=== PATIENT | female | born 1955 | race Caucasian/White ===

== ENCOUNTER → 2017-06-26 | Outpatient (CLI) | payer OTHER, SELFPAY | PROVIDERS: Family Provider Family Medicine; Visit Provider Family Medicine | DX: S52.531A Colles' fracture of right radius, initial encounter for closed fracture (principal) | CPT/HCPCS: 73110 ==

== ENCOUNTER → 2017-07-25 12:46 | Outpatient (CLI) | payer OTHER, SELFPAY ==
--- NOTE | 2017-07-25 12:55 | XR_ITS ---
XR wrist RT min 3V HISTORY: Follow-up fracture ITS.REASON: FU FX DISTAL RAIUS ORDERING PHYSICIAN: Tonja Donovan MD PATIENT AGE: 62 years COMPARISON: 06/26/2017 FINDINGS: The study is obtained through a cast. Dorsal distal radial fracture once again noted with buckling of the posterior cortex. Fracture line appears somewhat less apparent consistent with healing. Suspect intra-articular involvement as previously described without displacement IMPRESSION: Healing distal radial fracture with good alignment.
== END ==
PROVIDERS: PCP Family Medicine; Visit Provider Family Medicine
DX: S52.501D Unspecified fracture of the lower end of right radius, subsequent encounter for closed fracture with routine healing (principal)
CPT/HCPCS: 73110

== ENCOUNTER 2017-08-28 16:49 | Observation (INO) | payer OTHER, SELFPAY ==
[2017-08-28] VITALS (8 sets, daily range): BP systolic 117–156; BP diastolic 65–91; PULSE 67–73; RESP 16–18; TEMP 36.6–37; O2SAT 96–99; BMI 19.8
--- NOTE | 2017-08-28 16:50 | XR_ITS ---
XR chest portable HISTORY: ITS.REASON: chest pain ORDERING PHYSICIAN: Linus Huerta MD PATIENT AGE: 62 years COMPARISON: None available FINDINGS: The cardiomediastinal silhouette and pulmonary vascularity are within normal limits. The lungs are clear without infiltrates, suspicious nodules, or pleural effusions. There is hyperinflation with attenuation of the peripheral pulmonary vessels consistent with COPD. No acute bony abnormalities. IMPRESSION: COPD, no acute finding
[2017-08-28 17:25] LABS: Basophils # 0.1 K/mm3 (0-0.2); Basophils % 0.7 % (0.1-2.0); Eosinophils # 0.1 K/mm3 (0.0-0.4); Eosinophils % 1.7 % (0.1-12.0); Hematocrit 37.8 % (37.0-47.0); Hemoglobin 12.5 g/dL (12.2-16.2); Lymphocytes # 1.9 K/mm3 (0.7-4.5); Lymphocytes % 26.4 K/mm3 (10-50); Mean Corpuscular Hemoglobin 31.2 pg (27.0-31.2); Mean Corpuscular Volume 94.6 fl (81-99); Mean Platelet Volume 7.3 fl (7.4-10.4); Monocytes # 0.4 K/mm3 (0.1-1.0); Monocytes % 5.5 % (1.7-9.3); Neutrophils # 4.7 K/mm3 (1.8-7.8); Neutrophils % 65.7 % (37.0-80.0); Platelet Count 365 K/mm3 (142-424); Red Blood Count 3.99 M/mm3 (4.20-5.40); White Blood Count 7.2 K/mm3 (4.8-10.8)
[2017-08-28 17:55] LABS: Alanine Aminotransferase 30 U/L (12-78); Albumin Level 3.8 gm/dL (3.4-5.0); Albumin/Globulin Ratio 1.1 (1.1-1.8); Alkaline Phosphatase 80 U/L (46-116); Anion Gap 7.3 mEq/L (5-15); Aspartate Amino Transferase 14 U/L (15-37); Bilirubin,Total 0.2 mg/dL (0.2-1.0); Blood Urea Nitrogen 16 mg/dL (7-18); Calcium 8.8 mg/dL (8.5-10.1); Carbon Dioxide 33 mmol/L (21.0-32.0); Chloride 104 mmol/L (98-107); Creatine Kinase 49 U/L (26-192); Creatinine Clearance Estimated 61 mL/min (0-300); Creatinine,Serum 0.79 mg/dL (0.55-1.02); Estimated Glomerular Filt Rate 74 ml/min (>60); GFR (African American) 90 ML/MIN (>60); Globulin 3.4 gm/dl (1.3-3.2); Glucose 86 mg/dL (74-106); Potassium 4.3 mmoL/L (3.5-5.1); Sodium 140 mmol/L (136-145); Total Protein,Serum 7.2 gm/dL (6.4-8.2); Troponin I < 0.02 ng/ml (0.00-0.06)
[2017-08-28 17:56] LABS: Creatine Kinase MB < 0.5 mg/ml (0.0-3.6)
--- NOTE | 2017-08-28 20:45 | HMH.EDCP ---
ED Disposition Clinical Impression: Chest pain Qualifiers: Chest pain type: precordial pain Qualified Code(s): R07.2 - Precordial pain Disposition: Admitted as Observation Condition on Discharge: Good Referrals: Tonja Donovan MD [Primary Care Provider] - - Critical Care Critical Care Time: No Attestation: On 08/28/17, the high probability of a clinically significant, sudden or life threatening deterioration of the following system(s) required my full and direct attention, intervention and personal management. The time I documented below is in addition to time spent performing reported procedures but includes the following listed in this critical care notation. Medical Decision Making - Medical Records Medical records reviewed: Yes: I reviewed the patient's medical records. Vital Signs: 08/28/17 16:49 08/28/17 17:19 08/28/17 20:09 Temperature 97.8 F 98.2 F Temperature Source Oral Oral Pulse Rate [Right Brachial] 71 68 73 Respiratory Rate 18 18 18 Blood Pressure [Right Arm] 141/89 131/77 151/88 Blood Pressure Mean [Right Arm] 106 95 109 Blood Pressure Source [Right Arm] Automatic Cuff Automatic Cuff Blood Pressure Position [Right Arm] Sitting Sitting 02 Sat by Pulse Oximetry 97 97 Oxygen Delivery Method Room Air Room Air - Lab Data Lab results reviewed: Yes: I reviewed the patient's lab results. Lab Results 08/28/17 17:20: WBC 7.2, RBC 3.99 L, Hgb 12.5, Hct 37.8, MCV 94.6, MCH 31.2, MCHC 33.0, RDW 13.0, Plt Count 365, MPV 7.3 L, Neut % (Auto) 65.7, Lymph % (Auto) 26.4, [place] % (Auto) 5.5, Eos % (Auto) 1.7, Baso % (Auto) 0.7, Neut # (Auto) 4.7, Lymph # (Auto) 1.9, [place] # (Auto) 0.4, Eos # (Auto) 0.1, Baso # (Auto) 0.1 08/28/17 17:20: Sodium 140, Potassium 4.3, Chloride 104, Carbon Dioxide 33 H, Anion Gap 7.3, BUN 16, Creatinine 0.79, Estimated Creat Clear 61, Estimated GFR 74, Est GFR ( Amer) 90, Glucose 86, Calcium 8.8, Total Bilirubin 0.2, AST 14 L, ALT 30, Alkaline Phosphatase 80, Total Creatine Kinase 49, CK-MB (CK-2) < 0.5, CK-MB (CK-2) Rel Index 1.0, Troponin I < 0.02, Total Protein 7.2, Albumin 3.8, Globulin 3.4 H, Albumin/Globulin Ratio 1.1 Result diagrams: 08/28/17 17:20 08/28/17 17:20 Orders (Tests/Meds): ED MEDICATIONS Discontinued Medications Generic Name Dose Route Start Last Admin Trade Name Alethea PRN Reason Stop Dose Admin Aspirin 162 mg 08/28/17 16:55 08/28/17 17:28 Aspirin 81mg Chewable Tablet PO 08/28/17 16:56 162 mg ONCE ONE Administration - Radiology Data #1 Image(s): Chest Image Reviewed: Yes I reviewed the patient's radiology image Preliminary Findings: Abnormal - ECG Data Tracing #1 I reviewed this ECG and interpreted as documented below: Normal Sinus Rhythm: Yes Ischemic changes: non-specific ST-T wave changes - Physician Consults Physician Consulted: roxi Reason -: Admission - Rodney Inquiry Pt receiving controlled substance: No Chest Pain HPI - General Chief Complaint: Chest Pain Stated Complaint: chest pain Time Seen by Provider: 08/28/17 20:45 Mode of Arrival: Ambulatory Limitations: No Limitations Description of Symptoms (Recalled from ER Triage Doc. 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 Pt reports pain was radiating to upper back and jaw. Pt reports pain in chest has subsided but pressure remains in throat - History of Present Illness HPI narrative: wf with episode of chest pain rad to back and jaw - pt has gi eval pending complaint: chest pain indicative of cardiac Onset (ago): hour(s) Duration: now resolved Activity at onset: during rest Pain location: substernal Severity: moderate Quality: tightness Relieving factors: nothing Risk Factors for CAD: Hypercholesterolemia, Family Hx of CAD, Smoking Treatments prior to or on arrival for Cardiac Chest Pain: aspirin - LAMAR Score Non-Stemi Age of patient: Less than 65 yrs Number of risk factors for CAD: Pr
--- NOTE | 2017-08-28 20:48 | ED_ITS ---
ED Disposition Clinical Impression: Chest pain Qualifiers: Chest pain type: precordial pain Qualified Code(s): R07.2 - Precordial pain Disposition: Admitted as Observation Condition on Discharge: Good Referrals: Tonja Donovan MD [Primary Care Provider] - - Critical Care Critical Care Time: No Attestation: On 08/28/17, the high probability of a clinically significant, sudden or life threatening deterioration of the following system(s) required my full and direct attention, intervention and personal management. The time I documented below is in addition to time spent performing reported procedures but includes the following listed in this critical care notation. Medical Decision Making - Medical Records Medical records reviewed: Yes: I reviewed the patient's medical records. Vital Signs: 08/28/17 16:49 08/28/17 17:19 08/28/17 20:09 Temperature 97.8 F 98.2 F Temperature Source Oral Oral Pulse Rate [Right Brachial] 71 68 73 Respiratory Rate 18 18 18 Blood Pressure [Right Arm] 141/89 131/77 151/88 Blood Pressure Mean [Right Arm] 106 95 109 Blood Pressure Source [Right Arm] Automatic Cuff Automatic Cuff Blood Pressure Position [Right Arm] Sitting Sitting 02 Sat by Pulse Oximetry 97 97 Oxygen Delivery Method Room Air Room Air - Lab Data Lab results reviewed: Yes: I reviewed the patient's lab results. Lab Results 08/28/17 17:20: WBC 7.2, RBC 3.99 L, Hgb 12.5, Hct 37.8, MCV 94.6, MCH 31.2, MCHC 33.0, RDW 13.0, Plt Count 365, MPV 7.3 L, Neut % (Auto) 65.7, Lymph % (Auto ) 26.4, [place] % (Auto) 5.5, Eos % (Auto) 1.7, Baso % (Auto) 0.7, Neut # (Auto) 4.7, Lymph # (Auto) 1.9, [place] # (Auto) 0.4, Eos # (Auto) 0.1, Baso # (Auto) 0.1 08/28/17 17:20: Sodium 140, Potassium 4.3, Chloride 104, Carbon Dioxide 33 H, Anion Gap 7.3, BUN 16, Creatinine 0.79, Estimated Creat Clear 61, Estimated GFR 74, Est GFR ( Amer) 90, Glucose 86, Calcium 8.8, Total Bilirubin 0.2, AST 14 L, ALT 30, Alkaline Phosphatase 80, Total Creatine Kinase 49, CK-MB (CK-2 ) < 0.5, CK-MB (CK-2) Rel Index 1.0, Troponin I < 0.02, Total Protein 7.2, Albumin 3.8, Globulin 3.4 H, Albumin/Globulin Ratio 1.1 Result diagrams: 08/28/17 17:20 08/28/17 17:20 Orders (Tests/Meds): ED MEDICATIONS Discontinued Medications Generic Name Dose Route Start Last Admin Trade Name Rashaadq PRN Reason Stop Dose Admin Aspirin 162 mg 08/28/17 16:55 08/28/17 17:28 Aspirin 81mg Chewable Tablet PO 08/28/17 16:56 162 mg ONCE ONE Administration - Radiology Data #1 Image(s): Chest Image Reviewed: Yes I reviewed the patient's radiology image Preliminary Findings: Abnormal - ECG Data Tracing #1 I reviewed this ECG and interpreted as documented below: Normal Sinus Rhythm: Yes Ischemic changes: non-specific ST-T wave changes - Physician Consults Physician Consulted: roxi Reason -: Admission - Rodney Inquiry Pt receiving controlled substance: No Chest Pain HPI - General Chief Complaint: Chest Pain Stated Complaint: chest pain Time Seen by Provider: 08/28/17 20:45 Mode of Arrival: Ambulatory Limitations: No Limitations Description of Symptoms (Recalled from ER Triage Doc. 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 Pt reports pain was radiating to upper back and jaw. Pt reports pain in chest has subsided but pressure remai
[2017-08-29] VITALS: PULSE 60
[2017-08-29 04:00] VITALS: BP 110/59; PULSE 60; RESP 16; TEMP 36.6; O2SAT 95
--- NOTE | 2017-08-29 05:50 | PC.NURSE ---
ON ADMISSION PT C/O FEELINGS OF FULLNESS . NO C/O PAIN STATED. NSR NOTED PER CMM PROGRAMMER. INDEPENDENT WITH ADLS. VSS. WILL CONTINUE TO MONITOR.
--- NOTE | 2017-08-29 06:45 | PC.NURSE ---
HECTOR Doan, notified of Dr Nick consult
[2017-08-29 06:54] LABS: Basophils # 0.1 K/mm3 (0-0.2); Basophils % 0.7 % (0.1-2.0); Eosinophils # 0.2 K/mm3 (0.0-0.4); Eosinophils % 2.9 % (0.1-12.0); Hematocrit 39.4 % (37.0-47.0); Hemoglobin 12.8 g/dL (12.2-16.2); Lymphocytes % 30.6 K/mm3 (10-50); Mean Corpuscular HGB Conc 32.4 g/dL (31.8-35.4); Mean Corpuscular Hemoglobin 30.7 pg (27.0-31.2); Mean Corpuscular Volume 94.7 fl (81-99); Mean Platelet Volume 7.4 fl (7.4-10.4); Monocytes # 0.4 K/mm3 (0.1-1.0); Monocytes % 5.9 % (1.7-9.3); Neutrophils # 3.9 K/mm3 (1.8-7.8); Neutrophils % 59.8 % (37.0-80.0); Platelet Count 342 K/mm3 (142-424); Red Blood Count 4.16 M/mm3 (4.20-5.40); Red Cell Distribution Width 12.9 % (11.5-17.5); White Blood Count 6.6 K/mm3 (4.8-10.8)
--- NOTE | 2017-08-29 07:03 | CA_ITS ---
PROCEDURE: 2-D M-mode and color Doppler study INDICATIONS FOR THE TEST: Chest pain X COPD Heart Murmur Tobacco SmokingEX Palpitations Fatigue Syncope Edema Hypertension Diabetes Mellitus Rheumatic Fever SOB BA Obesity Hyperlipidemia Family History HD Additional History PATIENT INFORMATION HEIGHT: 63 WEIGHT:113 GENDER: Female B/P:141/89 2-D/M-MODE INTERPRETATION: 2-D MEASUREMENTS OBSERVED VALUES IN CMS Right Ventricular Dimension (RVDd) 2.8 Interventricular Septum (Thickness)(IVsd) .7 Left Ventricular Internal Dimensions(LVIDd) 3.8 Left Ventricular Posterior Wall (Thickness)(LVPWd) .4 Aortic Root 3.0 Aortic Cusp Separation 1.7 Left Atrial Dimensions (LAD) 3.0 2D 1. Left atrium is normal size, left ventricle is normal size, there is no concentric left ventricular hypertrophy, visually estimated ejection fraction of 55% with no obvious regional wall motion abnormality. 2. The right atrium and right ventricle are mildly enlarged with normal contractility. 3. The aortic valve is minimally thickened and fibrosed. 4. The mitral and tricuspid valve are grossly normal. 5. The pulmonic valve is poorly visualized. 6. No significant pericardial effusion noted. DOPPLER INTERROGATION: Doppler interrogation of the aortic, mitral and tricuspid valvular presence of mild mitral and tricuspid regurgitation, tricuspid regurgitant jet velocity insufficient for calculation of the right ventricular systolic pressure, diastolic parameters are within normal range. CONCLUSION: 1. Normal left ventricular size, preserved left ventricular systolic function, visually estimated ejection fraction 55% with no obvious regional wall motion abnormality, diastolic parameters are within normal range. 2. Mildly enlarged right atrium and right ventricle, contractility of the right ventricle is normal 3. Mild mitral and tricuspid regurgitation 4. No significant pericardial effusion noted.
[2017-08-29 07:09] LABS: Blood Urea Nitrogen 13 mg/dL (7-18); Carbon Dioxide 31 mmol/L (21.0-32.0); Chloride 106 mmol/L (98-107); Chol/HDL Ratio 3.5 (1-3.5); Cholesterol 157 mg/dL (140-200); Creatinine Clearance Estimated 67 mL/min (0-300); Creatinine,Serum 0.72 mg/dL (0.55-1.02); Estimated Glomerular Filt Rate 83 ml/min (>60); GFR (African American) 100 ML/MIN (>60); Glucose 87 mg/dL (74-106); HDL Cholesterol 45 mg/dL (29-89); LDL Cholesterol 91 mg/dL (0-130); Sodium 141 mmol/L (136-145); Triglycerides 103 mg/dL (30-200); VLDL Cholesterol 21 mg/dL (0-40)
[2017-08-29 07:13] LABS: Troponin I < 0.02 ng/ml (0.00-0.06)
--- NOTE | 2017-08-29 07:21 | PC.NURSE ---
REPORT GIVEN TO Alley SANCHEZ W/C
--- NOTE | 2017-08-29 07:23 | P.CONPHA_ITS ---
[facility] Pharmacy VTE Monitoring - Patient Demographics Admission date: 08/28/17 Report Date: 08/29/17 Time: 07:23 Allergies/Adverse Reactions: Patient Allergies oxycodone [OXYCODONE] Allergy (Unknown, Verified 08/28/17 16:49) tramadol [TRAMADOL] Allergy (Unknown, Verified 08/28/17 16:49) Height: 1.6 m Weight: 51.284 kg Patient Problems: Current Active Problems Chest pain (Acute) - VTE Risk Labs: VTE Related Lab Results Hgb 12.8 g/dL (12.2-16.2) 08/29/17 06:12 Hct 39.4 % (37.0-47.0) 08/29/17 06:12 Plt Count 342 K/mm3 (142-424) 08/29/17 06:12 BUN 13 mg/dL (7-18) 08/29/17 06:12 Creatinine 0.72 mg/dL (0.55-1.02) 08/29/17 06:12 Estimated Creat Clear 67 mL/min (0-300) 08/29/17 06:12 Was VTE Risk Assessment Performed: Yes VTE Score: 1 VTE Risk Level: Very Low Risk - Prophylaxis VTE Prophylaxis Ordered?: Yes Types of VTE Prophylaxis: TEDS Knee High Location of Applied Device: Bilateral Lower Extremeties - VTE Diagnosis Confirmed Treatment or plan recommended: Continue Current Treatment
--- NOTE | 2017-08-29 07:41 | PC.NURSE ---
REPORT GIVEN TO Gil GONZÁLES RN
[2017-08-29 08:00] VITALS: BP 131/70; PULSE 64; PULSE 70; RESP 16; TEMP 36.4; O2SAT 95
--- NOTE | 2017-08-29 08:00 | HMH.CNCARD ---
History of Present Illness Consult date: 08/29/17 Requesting physician: Tonja Donovan Consult reason: chest pain Chief complaint: chest pain Additional Medical History:: 1. Hyperlipidemia, on statin therapy 2. Family history of coronary artery disease in her mother 3. Tobacco use, discontinued 4 years ago after 35 years of smoking at least one pack per day History of present illness: 62-year-old white female with history of tobacco use (discontinued for 4 years ago) and treatment for hyperlipidemia presented to the emergency department for chest pain. Patient was in her recliner at home when she developed substernal chest discomfort that spread across her chest and radiating to the neck and the back. Symptoms last for less than 2 minutes. She did not have shortness of breath or diaphoresis. She does relate some recent early satiety and even nausea when thinking about food. She has recently seen her family doctor (Dr. Donovan)and was scheduled to have a CT of the chest and GI evaluation with Dr. Vargas next week. Patient relates an episode of loose stools last week with no fever chills or vomiting. She denies any recent exertional shortness of breath or chest pain. Troponins have returned normal ?2 overnight and EKG is sinus with no acute changes. Cardiology consulted for evaluation. Patient does relate that her father 2 weeks ago. [facility] History Medical History: Reports:: Hyperlipidemia, Hypertension Denies:: Cancer, Diabetes Mellitus Type 1, Diabetes Mellitus Type 2, MRSA Other Surgeries: Yes: , Hysterectomy-Total Amputation: No - *Social History Educational Level: Attended College Smoking Status: Current every day smoker Tobacco Type: cigarettes # Packs/Day (cigarettes): 1 Alcohol Intake: former Occupational Status: other Housing: house Household Members: spouse - Psychiatric History Expresses thoughts of harming self/others: None Suicide Plan Description: No Plan *Family Hx:: Cancer, Coronary Artery Disease, Diabetes, Hyperlipidemia, Hypertension, Thyroid Disorder Meds Home Medications Medication Instructions Recorded Confirmed Type trazodone 50 mg tablet 50 mg PO HSP PRN 07/31/17 08/29/17 History Fluoxetine HCl 40 mg PO BID 08/29/17 08/29/17 History Pravastatin Sodium 80 mg PO HS 08/29/17 08/29/17 History Allergies Allergy/AdvReac Type Severity Reaction Status Date / Time oxycodone [OXYCODONE] Allergy Unknown Verified 08/28/17 16:49 tramadol [TRAMADOL] Allergy Unknown Verified 08/28/17 16:49 Review of Systems - *Cardiovascular Reports chest pain, Reports chest pain at rest - *Respiratory Denies shortness of breath - *Gastrointestinal Reports loose stools Comments: early satiety - *Musculoskeletal Denies joint pain - *Neurologic Denies seizure-like activity Exam Vital signs and Labs for Last 24 Hours: Temp Pulse Resp BP Pulse Ox 97.8 F 60 16 110/59 95 08/29/17 04:00 08/29/17 04:00 08/29/17 04:00 08/29/17 04:00 08/29/17 04:00 Laboratory Results - last 24 hr 08/29/17 06:12: Troponin I < 0.02 08/29/17 06:12: WBC 6.6, RBC 4.16 L, Hgb 12.8, Hct 39.4, MCV 94.7, MCH 30.7, MCHC 32.4, RDW 12.9, Plt Count 342, MPV 7.4, Neut % (Auto) 59.8, Lymph % (Auto) 30.6, [place] % (Auto) 5.9, Eos % (Auto) 2.9, Baso % (Auto) 0.7, Neut # (Auto) 3.9, Lymph # (Auto) 2.0, [place] # (Auto) 0.4, Eos # (Auto) 0.2, Baso # (Auto) 0.1 08/29/17 06:12: Sodium 141, Potassium 4.0, Chloride 106, Carbon Dioxide 31, Anion Gap 8.0, BUN 13, Creatinine 0.72, Estimated Creat Clear 67, Estimated GFR 83, Est GFR ( Amer) 100, Glucose 87, Triglycerides 103, Cholesterol 157, LDL Cholesterol 91, VLDL Cholesterol 21, HDL Cholesterol 45, Cholesterol/HDL Ratio 3.5 I & O for Last 24 hours: Intake & Output 08/26/17 08/27/17 08/28/17 08/29/17 11:59 11:59 11:59 11:59 Intake Total 238 / 238 Balance 238 / 238 Weight 113 lb 0.99 oz - *Routine Neck Exam Absent: JVD
--- NOTE | 2017-08-29 08:03 | NM_ITS ---
History and Indications: Chest pain, hyperlipidemia. Procedure: Patient exercised on Cristian protocol 7 minutes, resting heart rate was 61 beats prominent, resting blood pressure 133/79, with exercise maximum heart rate achieved was 1 47 bpm which is equal to 90% of the maximum predicted heart rate and a blood pressure was 152/70. Test was started due to shortness of breath patient denied complained of chest pain. Patient has adequate exercise capacity achieved 9.3mets of workload on treadmill, the blood pressure response to exercise was adequate. Electrocardiogram: Resting electrocardiogram showed sinus rhythm, with exercise there is less than 1.[address] segment depression noted from the baseline EKG. The EKG portion of the exercise Myoview is negative for ischemia. Cardiac stress and resting SPECT images: Cardiac stress and rest SPECT images were obtained using technetium 99 Myoview 10.7 mCi at rest and 31.2 mCi at stress, gated SPECT further analysis of segmental wall motion and calculation of the ejection fraction. Cardiac stress and rest images show uniform myocardial activity without any segmental perfusion abnormality, computer derived ejection fraction is over 65% with no obvious regional wall motion abnormality. Right ventricle is normal size and contractility. Conclusion: 1. The EKG portion of the exercise Myoview is negative for ischemia, patient has adequate exercise capacity achieved 9.3 mets of workload on treadmill the blood pressure response to exercise was adequate, there was no exercise-induced chest discomfort. 2. No obvious scintigraphic evidence of reversible ischemia seen at this level of exercise, computer derived ejection fraction is over 65% with no obvious regional wall motion abnormality, right ventricle is normal size and contractility.
--- NOTE | 2017-08-29 08:14 | HMH.HP ---
*Admission Date: 08/28/17 *Chief complaint: CP *History of present illness: Ms. Mcgarry is a 62-year-old white female with a history of tobacco use (discontinued 4 years ago) and treatment for hyperlipidemia who presented to the emergency department for chest pain. Patient states she was in her recliner at home when she developed substernal chest pain that spread across her chest and radiated to the neck and the back. Symptoms lasted for less than 2 minutes. She did not have shortness of breath or diaphoresis. She took two baby ASA at home and came to the ER. She was recently seen in our office d/t chest pain with heart burn and reflux. She felt at that time she had actually aspirated d/t the reflux. She was scheduled for a CT of the chest as well as a C-scope and EGD with Dr. Vargas. Patient did have an episode of loose stools last week with no fever, chills, or vomiting. She denies any recent exertional shortness of breath or chest pain. Her troponins have returned normal ?2 overnight and her EKG shows sinus rhythm with no acute changes. Cardiology was consulted for evaluation. [facility] History Medical History: Reports:: Depression, Gastroesophageal Reflux Disease(GERD), Hyperlipidemia Denies:: Cancer, Congestive Heart Failure, Coronary Artery Disease, Diabetes Mellitus Type 1, Diabetes Mellitus Type 2, Gastrointestinal Bleed, Hypertension, MRSA, Transient Ischemic Attacks (TIA) Comment: Osteopenia, endometriosis Other Surgeries: Yes: , Hysterectomy-Total Amputation: No Comment: Root canal, lump removed from right breast, scar tissue removed after YUE, C-scope - *Social History Educational Level: Attended College Smoking Status: Former smoker Tobacco Type: cigarettes # Packs/Day (cigarettes): 1 Alcohol Intake: former Occupational Status: other Housing: house Household Members: spouse - Psychiatric History Expresses thoughts of harming self/others: None Suicide Plan Description: No Plan *Family Hx:: Cancer, Coronary Artery Disease, Diabetes, Hyperlipidemia, Hypertension, Thyroid Disorder Review of Systems - Constitutional Reports weight loss, Denies chills, Denies weakness - Eyes Denies blurry vision, Denies double vision - ENT Denies nasal congestion, Denies sore throat - *Cardiovascular Reports chest pain, Denies shortness of breath, Denies rapid, pounding, or irregular heartbeat - *Respiratory Denies cough, Denies shortness of breath - *Gastrointestinal Reports heartburn, Denies abdominal pain, Denies loose stools, Denies nausea, Denies vomiting - *Genitourinary Denies difficulty urinating, Denies painful urination - *Musculoskeletal Denies joint pain, Denies muscle cramps, Denies body aches - *Neurologic Reports headache(s), Denies seizure-like activity, Denies dizziness, Denies weakness Meds Home Medications Medication Instructions Recorded Confirmed Type trazodone 50 mg tablet 50 mg PO HSP PRN 07/31/17 08/29/17 History Fluoxetine HCl 40 mg PO BID 08/29/17 08/29/17 History Pravastatin Sodium 80 mg PO HS 08/29/17 08/29/17 History Allergies Allergy/AdvReac Type Severity Reaction Status Date / Time oxycodone [OXYCODONE] Allergy Unknown Verified 08/28/17 16:49 tramadol [TRAMADOL] Allergy Unknown Verified 08/28/17 16:49 Exam Vital signs and Labs for Last 24 Hours: Temp Pulse Resp BP Pulse Ox 97.5 F L 64 16 131/70 95 08/29/17 08:00 08/29/17 08:00 08/29/17 08:00 08/29/17 08:00 08/29/17 08:00 Laboratory Results - last 24 hr 08/29/17 06:12: Troponin I < 0.02 08/29/17 06:12: WBC 6.6, RBC 4.16 L, Hgb 12.8, Hct 39.4, MCV 94.7, MCH 30.7, MCHC 32.4, RDW 12.9, Plt Count 342, MPV 7.4, Neut % (Auto) 59.8, Lymph % (Auto) 30.6, [place] % (Auto) 5.9, Eos % (Auto) 2.9, Baso % (Auto) 0.7, Neut # (Auto) 3.9, Lymph # (Auto) 2.0, [place] # (Auto) 0.4, Eos # (Auto) 0.2, Baso # (Auto) 0.1 08/29/17 06:12: Sodium 141, Potassium 4.0, Chloride 106, Carbon Dioxide 31, Anion Gap 8.0, BUN 13,
--- NOTE | 2017-08-29 12:02 | PC.NURSE ---
MS. WILLIS TOOK HER MORNING MEDS WITH A SMALL AMOUNT OF WATER. SHE STATED LATER THAT WHEN SHE DRANK THE WATER THAT IS EXACTLY HOW SHE FELT WHEN SHE PRESENTED TO THE HOSPITAL. HER CHEST FELT FULL. I NOTIFIED DR. DENTON OFFICE AND LEFT MESSAGE WITH HIS NURSE BRITTNY. PATIENT JUST WANTED MD TO BE AWARE OF HOW SHE FELT. JAMES GONZÁLES, MSN, RN
--- NOTE | 2017-08-29 13:46 | HMH.ITSHM ---
TRAZODONE FLUXETINE PRAVASTATIN
[2017-08-29 15:56] VITALS: BP 102/56; PULSE 74; RESP 18; TEMP 36.7; O2SAT 98
[2017-08-29 16:00] VITALS: PULSE 80
--- NOTE | 2017-08-29 18:52 | HMH.ACPN2 ---
Internal Medicine - PN: Subj *Date: 08/29/17 *Time: 18:52 Interval history: She did well on her Cardiolite treadmill. See the report. There is no evidence of ischemia. Gastro-intestinal workup is planned. Discharged on [place] omeprazole. Follow-up in the office. Exam Vital signs and Labs for Last 24 Hours: Temp Pulse Resp BP Pulse Ox 98.1 F 80 18 102/56 98 08/29/17 15:56 08/29/17 16:00 08/29/17 15:56 08/29/17 15:56 08/29/17 15:56 Laboratory Results - last 24 hr 08/29/17 06:12: Troponin I < 0.02 08/29/17 06:12: WBC 6.6, RBC 4.16 L, Hgb 12.8, Hct 39.4, MCV 94.7, MCH 30.7, MCHC 32.4, RDW 12.9, Plt Count 342, MPV 7.4, Neut % (Auto) 59.8, Lymph % (Auto) 30.6, [place] % (Auto) 5.9, Eos % (Auto) 2.9, Baso % (Auto) 0.7, Neut # (Auto) 3.9, Lymph # (Auto) 2.0, [place] # (Auto) 0.4, Eos # (Auto) 0.2, Baso # (Auto) 0.1 08/29/17 06:12: Sodium 141, Potassium 4.0, Chloride 106, Carbon Dioxide 31, Anion Gap 8.0, BUN 13, Creatinine 0.72, Estimated Creat Clear 67, Estimated GFR 83, Est GFR ( Amer) 100, Glucose 87, Triglycerides 103, Cholesterol 157, LDL Cholesterol 91, VLDL Cholesterol 21, HDL Cholesterol 45, Cholesterol/HDL Ratio 3.5 I & O for Last 24 hours: Intake & Output 08/27/17 08/28/17 08/29/17 08/30/17 11:59 11:59 11:59 11:59 Intake Total 238 / 238 240 / 240 Balance 238 / 238 240 / 240 Weight 113 lb 0.99 oz Assessment and Plan (1) Chest pain Current visit: Yes Status: Acute Qualifiers: Chest pain type: precordial pain Qualified Code(s): R07.2 - Precordial pain Category: Medical Code(s): R07.9 - Chest pain, unspecified (2) Hyperlipidemia Current visit: Yes Status: Chronic Category: Medical Code(s): E78.5 - Hyperlipidemia, unspecified (3) Ex-smoker for more than 1 year Current visit: Yes Status: Chronic Category: Social Hx Code(s): Z87.891 - Personal history of nicotine dependence (4) Early satiety Current visit: Yes Status: Acute Category: Medical Code(s): R68.81 - Early satiety (5) Reflux esophagitis Current visit: Yes Status: Acute Category: Medical Code(s): K21.0 - Gastro-esophageal reflux disease with esophagitis
--- NOTE | 2017-09-02 14:28 | HMH.DCSUM ---
General - General Admission date: 08/28/17 Discharge date: 08/29/17 HPI HPI: Ms. Mcgarry is a 62-year-old white female with a history of tobacco use (discontinued 4 years ago) and treatment for hyperlipidemia who presented to the emergency department for chest pain. Patient states she was in her recliner at home when she developed substernal chest pain that spread across her chest and radiated to the neck and the back. Symptoms lasted for less than 2 minutes. She did not have shortness of breath or diaphoresis. She took two baby ASA at home and came to the ER. She was recently seen in our office d/t chest pain with heart burn and reflux. She felt at that time she had actually aspirated d/t the reflux. She was scheduled for a CT of the chest as well as a C-scope and EGD with Dr. Vargas. Patient did have an episode of loose stools last week with no fever, chills, or vomiting. She denies any recent exertional shortness of breath or chest pain. Her troponins have returned normal ?2 overnight and her EKG shows sinus rhythm with no acute changes. Cardiology was consulted for evaluation. Hospital Course Hospital Course: Her CXR showed COPD and nothing acute. Cardiology ordered an echo and a stress test. Her echo showed a normal LVEF without segmental wall motion abnormalities and her GXT myoview showed no ischemia with a normal LVEF. She was stable to be discharged home on a PPI and will keep her appt with Dr. Vargas for further testing Objective Vital signs: Temp Pulse Resp BP Pulse Ox 98.1 F 80 18 102/56 98 08/29/17 15:56 08/29/17 16:00 08/29/17 15:56 08/29/17 15:56 08/29/17 15:56 Narrative: - Constitutional no acute distress - *Routine HEENT Exam Head: Present: normocephalic, atraumatic Eye: Present: EOMI, PERRL ENT: Present: mucous membranes moist - *Routine Neck Exam Present: supple, full ROM. Absent: carotid bruit - *Routine Respiratory Exam Present: CTA bilaterally - *Routine Cardiovascular Exam Present: RRR - *Routine Abdominal Exam Present: soft, normoactive bowel sounds. Absent: tenderness - *Routine Extremities Exam Absent: edema - *Routine Skin Exam Present: intact - *Routine Neurological Exam Present: alert, oriented X3 DS: Diagnosis - Discharge Diagnosis (1) Chest pain Status: Acute (2) Early satiety Status: Acute (3) Reflux esophagitis Status: Acute (4) Depression Status: Chronic (5) Ex-smoker for more than 1 year Status: Chronic (6) Hyperlipidemia Status: Chronic Discharge Plan - Patient Discharge Instructions ACTIVITY: Continue current activity DIET: continue same diet Additional Instructions: Follow up with Dr. Luciano for GI evaluation. Follow-up with Dr. Donovan. Patient Instructions: DI for Chest Pain - Follow up Plan Follow up with: Tonja Donovan MD [Primary Care Provider] - 2 weeks Disposition: Home, Self-Group Home Medications: Home Medications Medication Instructions Recorded Confirmed Type trazodone 50 mg tablet 50 mg PO HSP PRN 07/31/17 08/29/17 History Fluoxetine HCl 40 mg PO BID 08/29/17 08/29/17 History Pravastatin Sodium 80 mg PO HS 08/29/17 08/29/17 History Prescriptions/Medication Reconciliation: New Esomeprazole Magnesium [Nexium] 40 mg PO DAILY #30 capsule. Continue trazodone 50 mg tablet 50 mg PO HSP PRN PRN Reason: Sleep Pravastatin Sodium 80 mg PO HS Fluoxetine HCl 40 mg PO BID
--- NOTE | 2017-09-02 14:32 | P.DS_ITS ---
General - General Admission date: 08/28/17 Discharge date: 08/29/17 HPI HPI: Ms. Mcgarry is a 62-year-old white female with a history of tobacco use ( discontinued 4 years ago) and treatment for hyperlipidemia who presented to the emergency department for chest pain. Patient states she was in her recliner at home when she developed substernal chest pain that spread across her chest and radiated to the neck and the back. Symptoms lasted for less than 2 minutes. She did not have shortness of breath or diaphoresis. She took two baby ASA at home and came to the ER. She was recently seen in our office d/t chest pain with heart burn and reflux. She felt at that time she had actually aspirated d/ t the reflux. She was scheduled for a CT of the chest as well as a C-scope and EGD with Dr. Vargas. Patient did have an episode of loose stools last week with no fever, chills, or vomiting. She denies any recent exertional shortness of breath or chest pain. Her troponins have returned normal ?2 overnight and her EKG shows sinus rhythm with no acute changes. Cardiology was consulted for evaluation. Hospital Course Hospital Course: Her CXR showed COPD and nothing acute. Cardiology ordered an echo and a stress test. Her echo showed a normal LVEF without segmental wall motion abnormalities and her GXT myoview showed no ischemia with a normal LVEF. She was stable to be discharged home on a PPI and will keep her appt with Dr. Vargas for further testing Objective Vital signs: Temp Pulse Resp BP Pulse Ox 98.1 F 80 18 102/56 98 08/29/17 15:56 08/29/17 16:00 08/29/17 15:56 08/29/17 15:56 08/29/17 15:56 Narrative: - Constitutional no acute distress - *Routine HEENT Exam Head: Present: normocephalic, atraumatic Eye: Present: EOMI, PERRL ENT: Present: mucous membranes moist - *Routine Neck Exam Present: supple, full ROM. Absent: carotid bruit - *Routine Respiratory Exam Present: CTA bilaterally - *Routine Cardiovascular Exam Present: RRR - *Routine Abdominal Exam Present: soft, normoactive bowel sounds. Absent: tenderness - *Routine Extremities Exam Absent: edema - *Routine Skin Exam Present: intact - *Routine Neurological Exam Present: alert, oriented X3 DS: Diagnosis - Discharge Diagnosis (1) Chest pain Status: Acute (2) Early satiety Status: Acute (3) Reflux esophagitis Status: Acute (4) Depression Status: Chronic (5) Ex-smoker for more than 1 year Status: Chronic (6) Hyperlipidemia Status: Chronic Discharge Plan - Patient Discharge Instructions ACTIVITY: Continue current activity DIET: continue same diet Additional Instructions: Follow up with Dr. Luciano for GI evaluation. Follow-up with Dr. Donovan. Patient Instructions: DI for Chest Pain - Follow up Plan Follow up with: Tonja Donovan MD [Primary Care Provider] - 2 weeks Disposition: Home, Self-[facility] Medications: Home Medications Medication Instructions Recorded Confirmed Type trazodone 50 mg tablet 50 mg PO HSP PRN 07/31/17 08/29/17 History Fluoxetine HCl 40 mg PO BID 08/29/17 08/29/17 History Pravastatin Sodium 80 mg PO HS 08/29/17 08/29/17 History Prescriptions/Medication Reconciliation: New Esomeprazole Magnesium [Nexium] 40 mg PO DAILY #30 capsule. Continue trazodone 50 mg tablet 50 mg PO HSP PRN PRN Reason: Sl
--- NOTE | 2017-09-19 09:48 | P.CONS_ITS ---
History of Present Illness Consult date: 08/29/17 Requesting physician: Tonja Donovan Consult reason: chest pain Chief complaint: chest pain Additional Medical History:: 1. Hyperlipidemia, on statin therapy 2. Family history of coronary artery disease in her mother 3. Tobacco use, discontinued 4 years ago after 35 years of smoking at least one pack per day History of present illness: 62-year-old white female with history of tobacco use (discontinued for 4 years ago) and treatment for hyperlipidemia presented to the emergency department for chest pain. Patient was in her recliner at home when she developed substernal chest discomfort that spread across her chest and radiating to the neck and the back. Symptoms last for less than 2 minutes. She did not have shortness of breath or diaphoresis. She does relate some recent early satiety and even nausea when thinking about food. She has recently seen her family doctor (Dr. Donovan)and was scheduled to have a CT of the chest and GI evaluation with Dr. Vargas next week. Patient relates an episode of loose stools last week with no fever chills or vomiting. She denies any recent exertional shortness of breath or chest pain. Troponins have returned normal ?2 overnight and EKG is sinus with no acute changes. Cardiology consulted for evaluation. Patient does relate that her father 2 weeks ago. [facility] History Medical History: Reports:: Hyperlipidemia, Hypertension Denies:: Cancer, Diabetes Mellitus Type 1, Diabetes Mellitus Type 2, MRSA Other Surgeries: Yes: , Hysterectomy-Total Amputation: No - *Social History Educational Level: Attended College Smoking Status: Current every day smoker Tobacco Type: cigarettes # Packs/Day (cigarettes): 1 Alcohol Intake: former Occupational Status: other Housing: house Household Members: spouse - Psychiatric History Expresses thoughts of harming self/others: None Suicide Plan Description: No Plan *Family Hx:: Cancer, Coronary Artery Disease, Diabetes, Hyperlipidemia, Hypertension, Thyroid Disorder Meds Home Medications Medication Instructions Recorded Confirmed Type trazodone 50 mg tablet 50 mg PO HSP PRN 07/31/17 08/29/17 History Fluoxetine HCl 40 mg PO BID 08/29/17 08/29/17 History Pravastatin Sodium 80 mg PO HS 08/29/17 08/29/17 History Allergies Allergy/AdvReac Type Severity Reaction Status Date / Time oxycodone [OXYCODONE] Allergy Unknown Verified 08/28/17 16:49 tramadol [TRAMADOL] Allergy Unknown Verified 08/28/17 16:49 Review of Systems - *Cardiovascular Reports chest pain, Reports chest pain at rest - *Respiratory Denies shortness of breath - *Gastrointestinal Reports loose stools Comments: early satiety - *Musculoskeletal Denies joint pain - *Neurologic Denies seizure-like activity Exam Vital signs and Labs for Last 24 Hours: Temp Pulse Resp BP Pulse Ox 97.8 F 60 16 110/59 95 08/29/17 04:00 08/29/17 04:00 08/29/17 04:00 08/29/17 04:00 08/29/17 04:00 Laboratory Results - last 24 hr 08/29/17 06:12: Troponin I < 0.02 08/29/17 06:12: WBC 6.6, RBC 4.16 L, Hgb 12.8, Hct 39.4, MCV 94.7, MCH 30.7, MCHC 32.4, RDW 12.9, Plt Count 342, MPV 7.4, Neut % (Auto) 59.8, Lymph % (Auto) 30.6, [place] % (Auto) 5.9, Eos % (Auto) 2.9, Baso % (Auto) 0.7, Neut # (Auto) 3.9 , Lymph # (Auto) 2.0, [place] # (Auto) 0.4, Eos # (Auto) 0.2, Baso # (Auto) 0.1 08/29/17 06:12: Sodium 141, Potassium 4.0, Chl
== END 2017-08-29 19:52 | disposition home or self-care (01) ==
LOC: ER 17:08 → 2ND 21:25
PROVIDERS: Emergency Medicine; Admitting Provider Family Medicine; Emergency Provider Emergency Medicine; Family Provider Family Medicine; PCP Family Medicine; Visit Provider Family Medicine
DX: K21.0 Gastro-esophageal reflux disease with esophagitis (principal); R07.9 Chest pain, unspecified; R07.2 Precordial pain; R68.81 Early satiety; E78.5 Hyperlipidemia, unspecified
CPT/HCPCS: 71045; 78452; 80048; 80053; 80061; 82550; 82553; 84484; 85025; 93005; 93017; 93041; 93306; 99285; A9502; G0378

== ENCOUNTER → 2017-09-05 12:55 | Outpatient (CLI) | payer OTHER, SELFPAY ==
--- NOTE | 2017-09-05 13:01 | CT_ITS ---
EXAM: CT LUNG LOW DOSE WO CONTRAST COMPARISON: None HISTORY: 62 year old female with 35 pack-year smoking history quit 4 years ago. Asymptomatic ORDERING PHYSICIAN: Stephen Hernandez MD PATIENT AGE: 62 years TECHNIQUE: The exam was performed on a GE Light Speed [address] scanner using 2.95 mGy CTDI. A low dose helical CT CHEST was performed on a multi-detector scanner The LDCT was performed in a facility that meets the criteria for the screening program. Data regarding this exam was submitted to ACR which is an approved registry. The order for this exam indicates that it came as a result of a lung cancer screening counseling shard decision-making visit that included all the elements required of such a visit including smoking cessation. The radiologist interpreting this exam meets the CMS criteria for the LDCT lung cancer screening program. The exam is reported using the Lung-RADS classification scale and reported to the ACR registry. NOTE: This study was performed for the specific purposes of lung cancer screening and is not an alternative to diagnostic chest CT. RADIATION DOSE: CTDI vol(CT dose Index-volume) = 2.95 mGy DLP (Dose Length Product) = 113.97 mGcm FINDINGS: There is scarring in the lung apices. Calcified granuloma is present in the right lower lobe. 3 mm noncalcified nodule right upper lobe posteriorly and laterally. 6 x 3 mm noncalcified nodule in the region of the major fissure superiorly on the left probably due to small lymph node benign-appearing Mild centrilobular emphysematous changes. No mediastinal or hilar mass. There are coronary artery calcifications. Upper abdominal images show prominence of the left renal pelvis. There are degenerative changes in the thoracic spine and calcified lymph nodes in the emily. IMPRESSION: 1. Lung RADS Category: 2 benign 2. Other findings: Centrilobular emphysema. Old granulomatous disease. Coronary artery disease RECOMMENDATIONS: 12 month LDCT follow-up
== END ==
PROVIDERS: Family Provider Family Medicine; PCP Family Medicine; Visit Provider Family Medicine
DX: Z87.891 Personal history of nicotine dependence (principal); Z12.2 Encounter for screening for malignant neoplasm of respiratory organs

== ENCOUNTER 2017-09-24 08:04 | Day surgery (SDC) | payer OTHER, SELFPAY ==
[2017-09-24 08:31] VITALS: BP 117/73; PULSE 76; RESP 117; TEMP 36.7; O2SAT 96
--- NOTE | 2017-09-24 08:49 | P.PN_ITS ---
[facility] Anesthesia Checklist - Patient Identification Patient Identification: Arm Band - Structural Data Admitted From: Home Planned Operative Procedure/s: egd/colonoscopy Consent for Planned Operative Procedure(s) Verified: Yes Verified Documents: Surgical Consent, History and Physical - NPO Status Verified Time NPO: 00:00 - Additional verifications Anesthesia Reactions: No - Airway Assessment C-Spine Mobility Assessed: Yes (mp2) TMJ Mobility Assessed: Yes Dentition: Good Dentition - Neurological Assessment Level of Consciousness: Awake, Alert - Anesthesia Plan Anesthesia Risk discussed: Yes Anesthesia Plan: Verified ASA Class: II Anesthesia Type: MAC [facility] Anesthesia HX I have reviewed the patient's past medical history: Yes Medical History: Reports:: Depression, Gastroesophageal Reflux Disease(GERD), Hyperlipidemia, Hypertension Denies:: Cancer, Congestive Heart Failure, Coronary Artery Disease, Diabetes Mellitus Type 1, Diabetes Mellitus Type 2, Gastrointestinal Bleed, Lung Disease , MRSA, Seizures, Transient Ischemic Attacks (TIA) Other Surgeries: Yes: , Hysterectomy-Total Amputation: No *Family Hx:: Cancer, Coronary Artery Disease, Diabetes, Hyperlipidemia, Hypertension, Thyroid Disorder
[2017-09-24 09:08] VITALS: O2SAT 96
[2017-09-24 09:50] VITALS: BP 89/58; PULSE 74; RESP 18; O2SAT 93
--- NOTE | 2017-09-24 09:53 | HMH.SCOPE ---
- Procedure: Date: 09/24/17 Procedure Performed:: 1. Esophagogastroduodenoscopy with biopsies 2. Colonoscopy Indications:: Patient is a 62-year-old white female referred by Dr. Donovan for colonoscopy and upper endoscopy. She does have a family history of colon cancer. She had undergone previous colonoscopy now greater than [address] 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 I saw her last year for her follow-up colonoscopy and this was scheduled however the patient states that she backed out . Recently, however, she was admitted with some chest pain radiating into her back. She was seen initially in the emergency department. Patient thought she was having a heart attack. She was admitted for inpatient management. Cardiology was consulted. She underwent stress test. She states that cardiac etiology was ruled out. She was discharged to follow-up for outpatient upper endoscopy for the symptoms. Patient does describe some early satiety type symptoms. She states that she feels full. She often has relief with taking [place] or belching. Patient also states that one evening she aspirated on acid . She was started on proton pump inhibitors but she states that she has not noticed any difference over the past week since discharge. She does have a prior history of heavy smoking. Performing Provider:: Wicho Vargas MD Referring Provider:: Harley Donovan MD Sedation:: Propofol Procedure:: Consent was obtained and patient was taken to endoscopy procedure room. She was positioned in a lateral decubitus position. Adequate anesthesia sedation was achieved with titration of propofol. Olympus endoscope was inserted via the oropharynx. It was advanced through the esophagus which appeared normal. Stomach was cannulated and insufflated. Retroflexion revealed no evidence of any hiatal hernia. Stomach lining appeared relatively unremarkable. Pylorus was traversed and duodenum appeared unremarkable. Endoscope was withdrawn into the stomach and gastric antral mucosal biopsies obtained for CLOtest for H. pylori. A couple of gastric biopsies were obtained as well. Distal esophageal biopsies were obtained and a single biopsy of end of the gastroesophageal junction. Patient was then repositioned for colonoscopy. Digital examination was performed which was unremarkable. Variable stiffness Olympus colonoscope was inserted via the anus. With minimal difficulty was advanced to the cecum. Colonic preparation was fair with the magnesium citrate bowel preparation. Ileocecal valve and appendiceal orifice were clearly identified. Colonoscope was withdrawn through the colon with careful surveillance. Irrigation and suctioning was performed liberally for adequate visualization. There was not noted to be any polyps. Within the rectum retroflexion was performed which revealed nonpathologic internal hemorrhoids. Colonoscope was withdrawn. Findings:: Relatively unremarkable upper endoscopy No polyps on colonoscopy Recommendations:: I would recommend repeat colonoscopy in 5 years given the prior history and family history. Follow-up on biopsy results on the upper endoscopy. May require gallbladder evaluation if symptoms persist Complications:: None Estimated blood obtained (mL): 2
--- NOTE | 2017-09-24 09:59 | HMH.SCOPE ---
- Procedure: Performing Provider:: Wicho Vargas MD
[2017-09-24 10:00] VITALS: BP 110/78; PULSE 75; RESP 18; O2SAT 95
--- NOTE | 2017-09-24 10:04 | P.PCN_ITS ---
- Procedure: Performing Provider:: Wicho Vargas MD
[2017-09-24 10:10] VITALS: BP 110/71; PULSE 75; RESP 20; O2SAT 99
[2017-09-24 10:20] VITALS: BP 108/80; PULSE 67; RESP 20; O2SAT 99
== END 2017-09-24 10:20 | disposition home or self-care (01) ==
LOC: OUTP 08:09
PROVIDERS: Family Provider Family Medicine; PCP Family Medicine; Visit Provider Surgery
PROC: 0DJ08ZZ Inspection of Upper Intestinal Tract, Via Natural or Artificial Opening Endoscopic (ICD-10-PCS; CPT 43235; principal; 2017-09-24 08:45)
DX: K64.0 First degree hemorrhoids (principal); Z86.010 Personal history of colon polyps; Z85.038 Personal history of other malignant neoplasm of large intestine
CPT/HCPCS: 43239; 45378; 87339

== ENCOUNTER → 2018-07-16 10:38 | Outpatient (CLI) | payer OTHER, SELFPAY ==
--- NOTE | 2018-07-16 10:45 | US_ITS ---
US thyroid HISTORY: ITS.REASON:, LOW TSH ORDERING PHYSICIAN: Stephen Hernandez MD PATIENT AGE: 63 years Comparison: , 090 FINDINGS: Right lobe: The right lobe measures 4.5 x 1.2 x 1.6 cm. Nodule A: 3 mm isoechoic nodule upper pole not readily apparent previously. Nodule B: 5 x 4 mm slightly hypoechoic nodule upper pole posteriorly well-circumscribed unchanged Nodule C: 5 x 3 mm hypoechoic mid polar region unchanged Nodule D: Well-circumscribed slightly hypoechoic nodule lower pole 6 x 4 mm. Nodule E: 13 x 9 mm neck echogenic nodule well circumscribed lower pole unchanged Left lobe: The left lobe measures 4.3 x 1.4 x 1.9 cm. Nodule A: 6 x 4 mm upper pole unchanged Nodule B: 3 mm hypoechoic nodule mid polar region laterally unchanged Nodule C: 3 mm slightly hypoechoic nodule mid polar region. Nodule D: 3 mm slightly hypoechoic nodule lower pole unchanged Isthmus: An oval solid-appearing nodule measuring 9 x 5 mm is present at the right aspect of the isthmus unchanged IMPRESSION: Multiple bilateral thyroid nodules. Dominant nodule in the isthmus on the right and in the right lobe are unchanged. The dominant nodule in the upper pole on the left is unchanged. Nodules have low level of suspicion for malignancy.
== END ==
PROVIDERS: PCP Family Medicine; Visit Provider Family Medicine
DX: E04.9 Nontoxic goiter, unspecified (principal); R94.6 Abnormal results of thyroid function studies
CPT/HCPCS: 76536

== ENCOUNTER → 2018-08-11 14:18 | Outpatient (CLI) | payer OTHER, SELFPAY ==
[2018-08-11 16:30] LABS: Free T4 (Free Thyroxine) 1.01 ng/dl (0.76-1.46); Thyroid Stimulating Hormone 1.46 uIU/ml (0.358-3.740)
[2018-08-13 08:42] LABS: Thyroid Peroxidase Antibodies 11 IU/mL (0-34)
[2018-08-14 09:29] LABS: Thyroid Stimulating Immunoglob <0.10 IU/L (0.00-0.55)
== END ==
PROVIDERS: Visit Provider Otolaryngology
DX: E01.0 Iodine-deficiency related diffuse (endemic) goiter (principal); E04.9 Nontoxic goiter, unspecified
CPT/HCPCS: 36415; 84439; 84443; 84445; 86376

== ENCOUNTER → 2019-02-14 09:05 | Outpatient (CLI) | payer OTHER, SELFPAY ==
--- NOTE | 2019-02-14 09:12 | XR_ITS ---
XR chest 2V HISTORY: Dyspnea COPD. Smoker. Surgery left breast 6 years ago. ITS.REASON: COPD ORDERING PHYSICIAN: Mariajose Payan APRN PATIENT AGE: 63 years Technique: PA and lateral chest COMPARISON: Screening CT chest 09/05/2017 Also portable chest 02/01/2018 FINDINGS: The lungs are prominently hyperexpanded reflecting underlying COPD and emphysematous changes. Flattening of the diaphragm and increased AP diameter on lateral view noted The cardiomediastinal silhouette and pulmonary vascularity are within normal limits. The lungs are clear without infiltrates, suspicious nodules, or pleural effusions. Numerous Scattered calcified granulomatous nodes are seen at the right emily more so the left with a few small peripheral granulomas right infrahilar region. No mass lesion of concern. . Mild tenting at the left hemidiaphragm. Blunting the CP angles reflects a hyperexpansion and unchanged No acute bony abnormalities. IMPRESSION: Nothing definitely acute. Lungs clear Lungs hyperexpanded reflecting long-standing COPD, & emphysematous changes Added Note: On final review markings right suprahilar region slightly more pronounced at the right suprahilar region but I believe this is projectional. Doubt early infiltrate right suprahilar region but if symptoms progress consider follow-up
== END ==
PROVIDERS: PCP Family Medicine; Visit Provider Nurse Practitioner Family
DX: J44.9 Chronic obstructive pulmonary disease, unspecified (principal)
CPT/HCPCS: 71046

== ENCOUNTER → 2019-06-10 09:59 | Outpatient (CLI) | payer OTHER, SELFPAY ==
--- NOTE | 2019-06-10 10:04 | XR_ITS ---
PROCEDURE: XR CHEST 2V CLINICAL HISTORY: BRONCHITIS COMPARISON: CXR1VP XR chest portable from 08/28/2017 [id number] XR ribs LT min 3V w CXR1V from 02/01/2018 FINDINGS: Moderate emphysematous changes seen with hyperexpansion of the lung mendez and depression of the hemidiaphragms. There is no pneumonic infiltrate and there is no pleural fluid. There are calcified right hilar nodes. Cardiac size is normal and there is no pulmonary congestion. There minor degenerate changes lower thoracic spine No acute bony abnormalities. IMPRESSION: Moderate COPD, no acute chest pathology noted Dictated by: Dr. Gilberto Huitron MD 06/10/2019 17:[address] Gilberto Huitron MD in [place] 06/10/2019 17:12
== END ==
PROVIDERS: PCP Nurse Practitioner Family; Visit Provider Nurse Practitioner Family
DX: J40 Bronchitis, not specified as acute or chronic (principal)
CPT/HCPCS: 71046

== ENCOUNTER → 2019-06-29 06:52 | Outpatient (CLI) | payer OTHER, SELFPAY ==
--- NOTE | 2019-06-29 06:53 | CA_ITS ---
APPROVED REPORT Exam: Pharmacologic Technologist: Renetta Solo, Ht: 5 ft 3 in Wt: 96 lbs BSA: 1.41 m2 HR: 75 bpm BP: 151/90 mmHg Rhythm: NSR Indications: Palpitations Medical History Medications: ATROVASTATIN, METOPROLOL, FLUOXETINE,TRAZADONE,PROAIR,ANORO Allergies: No known drug allergies Cardiac Risk Factors: HTN, Hyperlipidemia, Smoking Stress Test Details Test: LEXISCAN Reversal agent Aminophyline 75.0 mg, given intravenously for nausea. HR Resting HR: 84 bpm Max Heart Rate (APMHR): 158 bpm Max HR Achieved: 115 bpm Target HR (85% APMHR): 134 bpm % of APMHR: 72 Recovery HR: 94 bpm BP Resting BP: 151/90 mmHg Max BP: 208/125 mmHg ECG Clinical Reason for Termination: Completed protocol Exercise duration: 04:02 min Highest Stage Achieved: Exercise capacity: 1.0 METs Stress ECG Conclusion SOA, NAUSEA, VOMITTING,MALAISE - NO CHEST PAIN. RARE PVC. NO SIGNIFICANT CHAGES. UNREMARKABLE LEXISCAN STRESS MYOVIEW IMAGES REPORTED SEPARATELY. Electronically signed by : Bill Bertrand, 07/07/2019 15:40:14
--- NOTE | 2019-06-29 06:53 | NM_ITS ---
APPROVED REPORT Exam: Nuclear Stress Test Indication: SOB, Palpitations, High cholesterol, Tobacco use, Family history Patient Location: Outpatient Stress Tech: Renetta Solo CO Tech:Ruma Nava, ARRT, RT (R)(N) Ht: 5 ft 3 in Wt: 96 lbs Bra Size: 32B HR: 75 bpm BP: 151/90 mmHg BSA: 1.41 m2 BMI: 17.0 History: SOB, Palpitations, High cholesterol, Tobacco use, Family history Procedure: Patient received a 0.4 mg of intravenous Lexiscan, resting heart rate 75 bpm, resting blood pressure 151/90 mmHg, with Lexiscan maximum heart rate achived was 110 bpm which is Less than 85 % of the maximum predicted heart rate and blood pressure was 208/125 mmHg. With Lexiscan, patient denied any complaint of chest pain. Electrocardiogram Resting electrocardiogram showed sinus rhythm, with Lexiscan there is less than 1.[address] segment depression noted from the baseline EKG. The EKG portion of the Lexiscan Myoview is nondiagnostic. Cardiac Stress and Resting SPECT Images: Cardiac Stress and Resting SPECT images were obtained using technetium 99m Myoview 29.7 mCi stress and 10.47 mCi at rest. Gated SPECT with analysis of segmental wall motion and calculation of the ejection fraction also done. Cardiac stress and resting SPECT images show uniform myocardial activity without segmental perfusion abnormality, computer derived ejection fraction is over 65% with no regional wall motion abnormality, right ventricle is normal size and contractility. Conclusion: 1. The EKG portion of the Lexiscan Myoview is nondiagnostic. 2. No scintigraphic evidence of reversible ischemia seen, computer derived ejection fraction is over 65% with no regional wall motion abnormality, right ventricle is normal size and contractility. 3. Normal Lexiscan Myoview study. Electronically signed by : Bill Bertrand, 07/10/2019 10:54:31
--- NOTE | 2019-06-29 07:12 | HMH.ITSHM ---
Current Home Medications as stated by this patient Shabnam Mcgarry or insurance service representative. []ATORVASTATIN METOPROLOL FLUOXETINE TRAZADONE PROAIR ANORO
== END ==
PROVIDERS: PCP Nurse Practitioner Family; Visit Provider Internal Medicine
DX: R00.0 Tachycardia, unspecified (principal); R06.02 Shortness of breath; R07.2 Precordial pain; R53.83 Other fatigue
CPT/HCPCS: 78452; 93017; 93306; A9502; J2785

== ENCOUNTER → 2019-07-16 08:30 | Outpatient (CLI) | payer OTHER, SELFPAY ==
--- NOTE | 2019-07-16 | CA_ITS ---
APPROVED REPORT Cellar Hand: JACE Laterality: Bilateral Indications: Vertigo Risk Factors Smoking Doppler Spectral Velocity Analysis ECA (R) 110.00/27.20 cm/s ECA (L) 72.90/18.20 cm/s dICA (R) 116.00/43.30 cm/s dICA (L) 94.30/34.20 cm/s Fifi (R) 99.20/42.60 cm/s Fifi (L) 88.00/33.50 cm/s pICA (R) 77.50/23.00 cm/s pICA (L) 58.00/22.30 cm/s dCCA (R) 96.90/34.90 cm/s dCCA (L) 85.20/25.10 cm/s pCCA (R) 79.20/24.50 cm/s pCCA (L) 88.70/25.80 cm/s Vert (R) 39.10/12.60 cm/s Vert (L) 62.90/16.30 cm/s ICA/CCA 1.20 ICA/CCA 1.10 Findings Duplex evaluation demonstrates stenosis of the right proximal internal carotid artery <20% with PSV <140 cm/sec, EDV <100 cm/sec, and IC/CC Ratio <4.0.Duplex evaluation demonstrates stenosis of the left proximal internal carotid artery <20% with PSV <140 cm/sec, EDV <100 cm/sec, and IC/CC Ratio <4.0. Conclusion No increased velocities to suggest hemodynamically significant stenosis in either internal carotid artery. Electronically signed by : Angel Jolley MD 07/16/2019 14:47:44
== END ==
PROVIDERS: PCP Nurse Practitioner Family; Visit Provider Family Medicine
DX: R42 Dizziness and giddiness (principal)
CPT/HCPCS: 93880

== ENCOUNTER → 2019-07-23 10:15 | Outpatient (CLI) | payer OTHER, SELFPAY | PROVIDERS: PCP Family Medicine; Visit Provider Internal Medicine Cardiovascular Disease | DX: R00.2 Palpitations (principal); R06.02 Shortness of breath; R07.9 Chest pain, unspecified; R94.31 Abnormal electrocardiogram [ECG] [EKG]; R00.0 Tachycardia, unspecified; Z82.49 Family history of ischemic heart disease and other diseases of the circulatory system | CPT/HCPCS: 93225 ==

== ENCOUNTER → 2020-01-12 08:29 | Outpatient (POV) | payer OTHER, SELFPAY | PROVIDERS: Visit Provider Dermatology | DX: Z00.00 Encounter for general adult medical examination without abnormal findings (principal) ==

== ENCOUNTER → 2020-04-26 07:20 | Outpatient (CLI) | payer OTHER, SELFPAY ==
[2020-04-26 07:59] LABS: Basophils # 0.1 K/mm3 (0-0.2); Basophils % 0.9 % (0.1-2.0); Eosinophils # 0.2 K/mm3 (0.0-0.4); Eosinophils % 2.5 % (0.1-12.0); Hematocrit 49.7 % (37.0-47.0); Hemoglobin 16.1 g/dL (12.2-16.2); Lymphocytes # 1.8 K/mm3 (0.7-4.5); Lymphocytes % 24.9 % (10-50); Mean Corpuscular HGB Conc 32.3 g/dL (31.8-35.4); Mean Corpuscular Hemoglobin 33.4 pg (27.0-31.2); Mean Corpuscular Volume 103.3 fl (81-99); Mean Platelet Volume 7.6 fl (7.4-10.4); Monocytes # 0.5 K/mm3 (0.1-1.0); Monocytes % 7.3 % (1.7-9.3); Neutrophils # 4.6 K/mm3 (1.8-7.8); Neutrophils % 64.4 % (37.0-80.0); Platelet Count 434 K/mm3 (142-424); Red Blood Count 4.81 M/mm3 (4.20-5.40); Red Cell Distribution Width 13.8 % (11.5-17.5); White Blood Count 7.2 K/mm3 (4.8-10.8)
[2020-04-26 09:03] LABS: Chloride 97 mmol/L (98-107); Potassium 4.5 mmoL/L (3.5-5.1); Sodium 136 mmol/L (136-145)
[2020-04-26 09:06] LABS: Alanine Aminotransferase 59 U/L (12-78); Albumin/Globulin Ratio 1.5 (1.1-1.8); Alkaline Phosphatase 65 U/L (38-126); Anion Gap 15.5 mEq/L (5-15); Aspartate Amino Transferase 72 U/L (14-36); Bilirubin,Total 0.8 mg/dl (0.2-1.3); Blood Urea Nitrogen 8 mg/dl (7-17); Carbon Dioxide 28 mmol/L (22.0-30.0); Cholesterol 251 mg/dl (140-200); Estimated Glomerular Filt Rate 85 ml/min (>60); GFR (African American) 102 ML/MIN (>60); Globulin 3.3 g/dL (1.3-3.2); Total Protein,Serum 8.3 g/dl (6.3-8.2); Triglycerides 68 mg/dl (30-150); VLDL Cholesterol 14 mg/dL (0-40)
[2020-04-26 09:07] LABS: Calcium 10.3 mg/dl (8.4-10.2); Glucose 110 mg/dl (74-100)
[2020-04-26 09:18] LABS: Direct LDL Cholesterol 104.79 mg/dL (100-129)
[2020-04-26 09:25] LABS: Chol/HDL Ratio 1.8 (1-3.5); HDL Cholesterol 141 mg/dl (40-60)
== END ==
PROVIDERS: Visit Provider Family Medicine
DX: E78.5 Hyperlipidemia, unspecified (principal); E04.9 Nontoxic goiter, unspecified; E46 Unspecified protein-calorie malnutrition
CPT/HCPCS: 36415; 80053; 80061; 84443; 85025

== ENCOUNTER → 2020-04-28 07:06 | Outpatient (CLI) | payer OTHER, SELFPAY ==
--- NOTE | 2020-04-28 07:17 | CT_ITS ---
PROCEDURE: CT ABDOMEN PELVIS WO CON CLINICAL INDICATION: FLANK PAIN,HEMATURIA Left flank pain with hematuria COMPARISON: CT ABDPELW CT ABD PELVIS W/ CONTRAST from 06/21/2015 TECHNIQUE: Axial images obtained with sagittal and coronal reformats. All CT scans at the facility use one or more dose reduction, viz: automated exposure control, ma/kV adjustment per patient size (including targeted exams where dose is matched to indication, i.e. head), or iterative reconstruction technique. FINDINGS: LOWER THORAX: Lung bases are clear. ABDOMEN & PELVIS: The liver, gallbladder, spleen, and adrenal glands show no acute finding. There are multiple splenic granulomas. No obvious pancreatic mass. The right kidney has an unremarkable appearance. There is prominence of the left renal pelvis which is similar to the previous CT scan of 06/21/2015. No renal or ureteral calculi. There is a moderate amount of retained colonic feces with nondistended fluid-filled loops of small bowel noted. Multiple unopacified bowel loops in the abdomen or pelvis which could obscure or mimic pathology. If symptoms persist, consider repeat exam with IV and oral contrast.. No definite evidence of intestinal obstruction or free air. The appendix is not clearly delineated. No evidence of appendicitis. Post hysterectomy changes. No acute bony anomalies. Surgical clips are present in the mid pelvic region slightly toward the right. IMPRESSION: 1. No acute finding. 2. Prominent left renal pelvis not significantly changed. No renal or ureteral calculi. 3. Constipation with nonspecific bowel gas pattern. Multiple unopacified bowel loops in the abdomen or pelvis which could obscure or mimic pathology. If symptoms persist, consider repeat exam with IV and oral contrast. Dictated by: Angel Jolley MD 04/29/2020 12:14 Angel Jolley MD in [facility] 04/29/2020 12:14
== END ==
PROVIDERS: PCP Family Medicine; Visit Provider Family Medicine
DX: R10.9 Unspecified abdominal pain (principal); R31.21 Asymptomatic microscopic hematuria
CPT/HCPCS: 74176

== ENCOUNTER → 2020-05-30 07:16 | Outpatient (CLI) | payer OTHER, SELFPAY ==
[2020-05-30 08:25] LABS: Blood Urea Nitrogen 7 mg/dl (7-17); Estimated Glomerular Filt Rate 85 ml/min (>60); GFR (African American) 102 ML/MIN (>60)
== END ==
PROVIDERS: Visit Provider Urology
DX: R10.9 Unspecified abdominal pain (principal)
CPT/HCPCS: 36415; 82565; 84520

== ENCOUNTER → 2020-06-03 08:41 | Outpatient (CLI) | payer OTHER, SELFPAY ==
--- NOTE | 2020-06-03 08:41 | CT_ITS ---
PROCEDURE: CT ABDOMEN PELVIS WO/W CON CLINICAL INDICATION: FLANK/ABD PAIN COMPARISON: CT CT ABDOMEN PELVIS WO CON from 04/28/2020 TECHNIQUE: IV Contrast: 75ML OPTIRAY 350 Oral Contrast 20ml Gastroview Axial images obtained with sagittal and coronal reformats. All CT scans at the facility use one or more dose reduction, viz: automated exposure control, ma/kV adjustment per patient size (including targeted exams where dose is matched to indication, i.e. head), or iterative reconstruction technique. FINDINGS: Lower thorax: There clear and there is no pleural fluid. There may be some mild emphysematous changes of the lower lobes bilaterally. ABDOMEN: Liver: No masses or biliary dilatation. Gallbladder: Nondistended. No radio opaque stones. Pancreas: No masses or peripancreatic fluid collections. Spleen: The spleen is normal in size and in contains multiple calcifications likely granulomas. Adrenals: unremarkable Kidneys/ureters: The kidneys are normal in size and show symmetrical function. There is a markedly distended left renal pelvis with pyelo caliectasis as well with no definite left renal calculus identified and congenital UPJ obstruction is likely. There is mild dilatation of the right renal pelvis more so than was seen on the recent CT scan 04/28/2020 and there could be mild UPJ obstruction right-side is well. ABDOMEN & PELVIS: Stomach bowel: Nondistended. No obvious mass or thickening. The duodenal sweep small bowel appear normal, the small bowel is well opacified with oral contrast. I do not definitely identify the appendix but there are no pericecal inflammatory changes. There is a large amount stool in the cecum and ascending colon. The cecum is located somewhat low in the right side of the pelvis are normal variation. The descending and sigmoid colon are somewhat decompressed. Peritoneum: No abnormal fluid collections. No obvious inflammatory changes. No free air. Lymph nodes: No enlarged lymph nodes apparent. Vasculature: There is diffuse arthrosclerotic calcification of the abdominal aorta and proximal iliac arteries but there is no aneurysm. Bones: There are mild degenerate changes thoracolumbar junction. PELVIS: Reproductive: Post hysterectomy Bladder: The bladder is decompressed, there is no free fluid in the pelvis. Appendix: Not definitely visualized IMPRESSION: Markedly distended left renal pelvis and calyces more so than was seen on the previous CT scan 04/28/2020 without definite ureteral calculus identified and congenital UPJ obstruction appears most likely. Similar but much less prominent findings right kidney. No other significant abdominal or pelvic pathology identified Dictated by: Dr. Gilberto Huitron MD 06/03/2020 10:06 Dr. Gilberto Huitron MD in [place] 06/03/2020 10:06
== END ==
PROVIDERS: PCP Family Medicine; Visit Provider Urology
DX: R10.9 Unspecified abdominal pain (principal)
CPT/HCPCS: 74178; Q9967

== ENCOUNTER → 2020-06-14 12:38 | Outpatient (CLI) | payer OTHER, SELFPAY ==
--- NOTE | 2020-06-14 12:38 | NM_ITS ---
PROCEDURE: NM RENAL FLOW AND FUNCTION CLINICAL INDICATION: upj obstruction-(with lasix washout) Left flank pain COMPARISON: CT CT ABDOMEN PELVIS WO/W CON from 06/03/2020 TECHNIQUE: Dose 10.36 mCi technetium Mag 3. 23 mg Lasix half given at 15 minutes and half given at 16 minutes post injection. FINDINGS: CT scan demonstrates a large left renal pelvis versus UPJ obstruction. Initial flow images show 38 percent uptake to the left kidney and 62 percent to the right kidney. Lasix is given at 15 minutes and 16 minutes with a total of 23 mg. there is rapid excretion from the right kidney with increasing downward slope of the renogram curve. On the left side the renal curve slightly flattens out upon Lasix administration with rapid excretion beginning at 18 minutes. The kidney T max on the left is a little 14.7 minutes and kidney T max on the right is 5.7 minutes with the 1/2 max of torres 0.4 minutes on the left and 10.8 minutes on the right. At 20 minutes there was only 9 percent excretion from the left kidney and 79 percent excretion from the right kidney. At 46 minutes there was approximately 75 percent excretion from the left kidney at approximately 95 percent excretion from the right kidney. Overall, the findings are consistent with a prominent left renal pelvis as opposed to a UPJ obstruction. One would expect and increase in activity following Lasix administration with a UPJ obstruction. The curve here however flattens out and then rapidly decreases. IMPRESSION: Overall, the findings are consistent with a prominent patulous left renal pelvis. Dictated by: Angel Jolley MD 06/16/2020 10:28 Angel Jolley MD in [place] 06/16/2020 10:28
--- NOTE | 2020-06-14 13:15 | HMH.ITSHM ---
Current Home Medications as stated by this patient Shabnam Mcgarry or medical field representative. []TRAZADONE METOPROLOL MECLIZINE FLUOXETINE ATORVASTATIN ANORO ALBUTEROL
== END ==
PROVIDERS: PCP Family Medicine; Visit Provider Urology
DX: N13.5 Crossing vessel and stricture of ureter without hydronephrosis (principal)
CPT/HCPCS: 78707; A9562

== ENCOUNTER 2020-12-17 20:15 | Emergency (ER) | payer OTHER, SELFPAY ==
[2020-12-17 20:15] VITALS: BP 144/87; PULSE 75; RESP 23; TEMP 36.8; O2SAT 98; BMI 17.2
--- NOTE | 2020-12-17 20:44 | HMH.EDUTC ---
[facility] [place] Clinical Impression: Nausea & vomiting Qualifiers: Vomiting type: unspecified Vomiting Intractability: unspecified Qualified Code(s): R11.2 - Nausea with vomiting, unspecified Disposition: Home, Self-Care Condition on Discharge: Good Instructions: Nausea and Vomiting-Adult, Ondansetron Additional Instructions: Drink extra fluids with and between meals. If you have difficulty drinking, try very small amounts of water or suck on ice chips. ? Avoid fruit juices, as these do not replace minerals and can actually increase diarrhea. ? Children and adults can use sports drinks to replenish electrolytes. Younger children and infants should use products formulated for children, like oral rehydration solutions. ? Eat food in small amounts and let your stomach recover. ? Get lots of rest. You may feel tired or weak. ? No greasy or fried foods for the next 24-48 hours BRAT diet Bananas Rice Apples and [place] ? Make sure to drink plenty of liquids ? Return if needed ? Straight to ER if any life threatening symptoms, worsening of symptoms or rash ? Zofran as prescribed if you get rash after taking them stop taking them and immediately take Benadryl if you are able to take it and follow up with your Family Doctor or go straight to the ER ? Follow up with family doctor in the next 48-72 hours if no improvement or any worsening of symptoms Prescriptions: ondansetron HCL [Zofran 4mg Tab*] 4 mg PO TIDP PRN #6 tab PRN Reason: Nausea And Vomiting Prescription Printed Referrals: Tonja Donovan MD [Primary Care Provider] - As needed Time of Disposition: 21:51 Medical Decision Making - Rodney Inquiry Pt receiving controlled substance: No Rodney was queried for this patient: No Vital Signs: 12/17/20 20:15 12/17/20 21:04 Temperature 98.3 F 98.3 F Temperature Source Oral Pulse Rate 75 Pulse Rate [Right Brachial] 75 Respiratory Rate 23 23 Blood Pressure 144/87 H Blood Pressure [Right Arm] 144/87 H Blood Pressure Mean [Right Arm] 106 Blood Pressure Source [Right Arm] Automatic Cuff Blood Pressure Position [Right Arm] Sitting 02 Sat by Pulse Oximetry 98 Oxygen Delivery Method Room Air Orders (Tests/Meds): ED MEDICATIONS Discontinued Medications Generic Name Dose Route Start Last Admin Trade Name Freq PRN Reason Stop Dose Admin Methylprednisolone Sodium Succinate 62.5 mg 12/17/20 21:21 12/17/20 21:29 Methylprednisolone Sod Succ 125mg Vial IM 12/17/20 21:22 62.5 mg ONCE ONE Administration Ondansetron HCl 4 mg 12/17/20 20:45 12/17/20 20:48 Ondansetron 4mg Odt SL 12/17/20 20:46 4 mg ONCE ONE Administration Medical Decision Narrative: Discussed with patient and recommended IV fluids and labs due to vomiting since earlier today and patient declined States she didn't want fluids she didnt want to pay $500 when all she needs is a 50cent pill for nausea States that time she would just spit up small amount of vomit. Recommended transfer to the ED for more extensive work up and testing and patient declined State that she just wants something for the nausea when asked if she was having decreased urine output patient advised that she had urinated 3 times since 3pm but she hadnt drink much today due the nausea States that she just wanted something for nausea States that she checked her urine at home and it wasnt dark Patient state that she has taken zofran before without complications or reactions with her medications State that she takes it almost daily at home for nausea Approximately about 5min after taking zofran ODT 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 Discussed with pharmacy and due to patient size and patient was driving patient was given 62.5 Solu Medrol for rash Spoke with Dr Josue covering for Dr Donovan about p
[2020-12-17 21:04] VITALS: BP 144/87; PULSE 75; RESP 23; TEMP 36.8; O2SAT 98
== END 2020-12-17 22:03 | disposition home or self-care (01) ==
PROVIDERS: Emergency Provider Nurse Practitioner; PCP Family Medicine
DX: R11.0 Nausea (principal); J44.9 Chronic obstructive pulmonary disease, unspecified; F33.1 Major depressive disorder, recurrent, moderate; K21.9 Gastro-esophageal reflux disease without esophagitis; I50.9 Heart failure, unspecified; I10 Essential (primary) hypertension; E78.5 Hyperlipidemia, unspecified; F17.210 Nicotine dependence, cigarettes, uncomplicated; Z79.899 Other long term (current) drug therapy
CPT/HCPCS: 99202; G0463

== ENCOUNTER → 2021-04-14 08:02 | Outpatient (CLI) | payer OTHER, SELFPAY | PROVIDERS: Visit Provider Student in an Organized Health Care Education/Training Program | DX: Z01.812 Encounter for preprocedural laboratory examination (principal); Z11.52 Encounter for screening for COVID-19; N13.5 Crossing vessel and stricture of ureter without hydronephrosis | CPT/HCPCS: C9803; U0003; U0005 ==

== ENCOUNTER → 2022-05-17 11:04 | Outpatient (CLI) | payer MEDICARE, OTHER, SELFPAY ==
--- NOTE | 2022-05-17 11:13 | XR_ITS ---
FINAL REPORT TECHNIQUE: Chest PA & Lateral CLINICAL HISTORY: STERNUM PAIN COMPARISON: June 2019 FINDINGS: 2 views of the chest were performed. The heart size is normal. The mediastinum is within normal limits. There is mild scarring in the right lung. There is no acute cardiopulmonary process. There are no pleural effusions. There is no pneumothorax. IMPRESSION: No acute cardiopulmonary process. Reviewed, Interpreted and Dictated by Carlos Eduardo Diaz MD Transcribed by Rd Farr Authenticated and . [facility]
--- NOTE | 2022-05-17 11:13 | XR_ITS ---
FINAL REPORT CLINICAL HISTORY: L SIDED THORACIC BACK PAIN FINDINGS: 2 oblique views of the left ribs were obtained. There are healing right 6th, 7th, and 8th rib fractures. There is no left rib fracture. No pneumothorax is identified. IMPRESSION: Healing right 6th, 7th, and 8th rib fractures. No left rib fracture. No pneumothorax. Reviewed, Interpreted and Dictated by Carlos Eduardo Diaz MD Transcribed by Rd Farr Authenticated and [facility]
== END ==
PROVIDERS: PCP Physician Assistant; Visit Provider Physician Assistant
DX: R07.89 Other chest pain (principal); M54.6 Pain in thoracic spine
CPT/HCPCS: 71046; 71101

== ENCOUNTER → 2022-06-12 07:44 | Outpatient (CLI) | payer MEDICARE, OTHER, SELFPAY ==
--- NOTE | 2022-06-12 07:47 | CT_ITS ---
FINAL REPORT CLINICAL HISTORY: H/O NICOTINE DEPENDENCE CURRENT SMOKER 1.5PPD X45 YEARS FINDINGS: Low-Dose Chest CT Axial images were obtained from the lung apex to the mid abdomen by computed tomography. Low-dose protocol was utilized. CTDI vol (mGy): 2.90 DLP (mGy-cm): 101.07 There is no axillary adenopathy. There are calcified mediastinal and hilar lymph nodes. The heart is proper size. There is no pericardial or pleural effusion. Lung window images demonstrate a 3 mm nodule in the posterolateral right upper lobe, well seen on image 26. There is a 3 mm nodule near the left major fissure, well seen on image 41. There is a calcified granuloma in the right lower lobe. There are mild changes of emphysema with pulmonary scarring bilaterally, greatest in the lung apices. Limited images of the upper abdomen are unremarkable. IMPRESSION: 3 mm nodule in the right upper lobe and 3 mm nodule near the left major fissure. Lung RADS category 2. Recommend 12 month follow-up low-dose chest CT. Reviewed, Interpreted and Dictated by Wicho George III, MD Transcribed by Selena Whitlock Authenticated and [facility]
== END ==
PROVIDERS: PCP Physician Assistant; Visit Provider Physician Assistant
DX: Z87.891 Personal history of nicotine dependence (principal); Z12.2 Encounter for screening for malignant neoplasm of respiratory organs
CPT/HCPCS: 71271

== ENCOUNTER → 2022-10-16 07:05 | Outpatient (CLI) | payer MEDICARE, OTHER, SELFPAY ==
[2022-10-16 08:24] LABS: Basophils % 0.5 % (0.1-2.0); Eosinophils # 0.1 K/mm3 (0.0-0.4); Eosinophils % 1.6 % (0.1-12.0); Hematocrit 46.2 % (37.0-47.0); Hemoglobin 14.7 g/dL (12.2-16.2); Lymphocytes # 1.5 K/mm3 (0.7-4.5); Lymphocytes % 23.1 % (10-50); Mean Corpuscular HGB Conc 31.9 g/dL (31.8-35.4); Mean Corpuscular Hemoglobin 33.8 pg (27.0-31.2); Mean Corpuscular Volume 105.9 fl (81-99); Mean Platelet Volume 7.1 fl (7.4-10.4); Monocytes # 0.5 K/mm3 (0.1-1.0); Monocytes % 7.4 % (1.7-9.3); Neutrophils # 4.5 K/mm3 (1.8-7.8); Neutrophils % 67.3 % (37.0-80.0); Platelet Count 376 K/mm3 (142-424); Red Blood Count 4.36 M/mm3 (4.20-5.40); Red Cell Distribution Width 13.5 % (11.5-17.5); White Blood Count 6.7 K/mm3 (4.8-10.8)
[2022-10-16 09:10] LABS: Alanine Aminotransferase 40 U/L (12-78); Albumin Level 5.1 g/dl (3.5-5.0); Albumin/Globulin Ratio 1.9 (1.1-1.8); Alkaline Phosphatase 81 U/L (38-126); Anion Gap 9.7 mEq/L (5-15); Aspartate Amino Transferase 64 U/L (14-36); Bilirubin,Total 0.6 mg/dl (0.2-1.3); Blood Urea Nitrogen 9 mg/dl (7-17); Calcium 9.7 mg/dl (8.4-10.2); Carbon Dioxide 29 mmol/L (22.0-30.0); Chloride 92 mmol/L (98-107); Cholesterol 218 mg/dl (140-200); Estimated Glomerular Filt Rate 100 ml/min (>60); GFR (African American) 121 ML/MIN (>60); Globulin 2.7 g/dL (1.3-3.2); Glucose 133 mg/dl (74-100); Potassium 4.7 mmoL/L (3.5-5.1); Sodium 126 mmol/L (136-145); Total Protein,Serum 7.8 g/dl (6.3-8.2); Triglycerides 78 mg/dl (30-150); VLDL Cholesterol 16 mg/dL (0-40)
[2022-10-16 09:19] LABS: Chol/HDL Ratio 1.8 (1-3.5); HDL Cholesterol 122 mg/dl (40-60)
[2022-10-16 09:22] LABS: Direct LDL Cholesterol 85.69 mg/dL (100-129)
[2022-10-16 09:41] LABS: Thyroid Stimulating Hormone 0.66 uIU/mL (0.465-4.68)
== END ==
PROVIDERS: PCP Physician Assistant; Visit Provider Physician Assistant
DX: E78.5 Hyperlipidemia, unspecified (principal); R94.6 Abnormal results of thyroid function studies
CPT/HCPCS: 36415; 80053; 80061; 84443; 85025

== ENCOUNTER → 2022-10-29 09:06 | Outpatient (CLI) | payer MEDICARE, OTHER, SELFPAY ==
--- NOTE | 2022-10-29 09:11 | XR_ITS ---
FINAL REPORT TECHNIQUE: Bone densitometry calculations of the lumbar spine and left hip were obtained. CLINICAL HISTORY: post menopausal FINDINGS: Using L1-4, the bone mineral density of the spine is 0.94 g/cm2, corresponding to T-score of -1.0. This is likely falsely elevated due to hypertrophic change. Using the left hip, the bone mineral density of the femoral neck is 0.7 g/cm2, corresponding to a T-score of -1.9. NOTE: T-score: Standard deviation compared with peak bone mass of young adult mean. *Following the recommendations of the International Society of Bone densitometry, classification of hip BMD is based on the lower of two T-scores; total hip or femoral neck. IMPRESSION: Diminished bone mineral density. Ten year fracture risk: 8.7% Reviewed, Interpreted and Dictated by Wicho George III, MD Transcribed by Dede Madsen Authenticated and [facility]
== END ==
PROVIDERS: PCP Physician Assistant; Visit Provider Physician Assistant
DX: Z78.0 Asymptomatic menopausal state (principal)
CPT/HCPCS: 77080

== ENCOUNTER → 2022-11-22 06:53 | Outpatient (CLI) | payer MEDICARE, OTHER, SELFPAY ==
[2022-11-22 08:36] LABS: Anion Gap 17.7 mEq/L (5-15); Blood Urea Nitrogen 8 mg/dl (7-17); Calcium 9.5 mg/dl (8.4-10.2); Carbon Dioxide 27 mmol/L (22.0-30.0); Chloride 88 mmol/L (98-107); Estimated Glomerular Filt Rate 100 ml/min (>60); GFR (African American) 121 ML/MIN (>60); Glucose 122 mg/dl (74-100); Potassium 4.7 mmoL/L (3.5-5.1); Sodium 128 mmol/L (136-145)
== END ==
PROVIDERS: PCP Family Medicine; Visit Provider Physician Assistant
DX: E87.5 Hyperkalemia (principal)
CPT/HCPCS: 80048

== ENCOUNTER → 2022-12-24 07:02 | Outpatient (CLI) | payer MEDICARE, OTHER, SELFPAY ==
[2022-12-24 08:27] LABS: Chloride 91 mmol/L (98-107); Sodium 129 mmol/L (136-145)
[2022-12-24 08:29] LABS: Potassium 4.9 mmoL/L (3.5-5.1)
[2022-12-24 08:30] LABS: Anion Gap 14.9 mEq/L (5-15); Blood Urea Nitrogen 6 mg/dl (7-17); Calcium 9.4 mg/dl (8.4-10.2); Carbon Dioxide 28 mmol/L (22.0-30.0); Estimated Glomerular Filt Rate 84 ml/min (>60); GFR (African American) 102 ML/MIN (>60); Glucose 100 mg/dl (74-100)
== END ==
PROVIDERS: PCP Physician Assistant; Visit Provider Physician Assistant
DX: E87.1 Hypo-osmolality and hyponatremia (principal)
CPT/HCPCS: 36415; 80048

== ENCOUNTER → 2023-02-01 13:08 | Outpatient (CLI) | payer MEDICARE, OTHER, SELFPAY ==
--- NOTE | 2023-02-01 13:16 | ECG_ITS ---
APPROVED REPORT Exam: Resting ECG HR:65 bpm ECG Measurements Heart Rate 65 AXES TX 171 P 73 QRSd 81 QRS -48 QT 406 T 75 QTc 417 Conclusion SINUS RHYTHM Late R wave progression ABNORMAL ECG UNCONFIRMED REPORT Electronically signed by : Alber Jennings MD 02/01/2023 16:15:39
== END ==
PROVIDERS: PCP Physician Assistant; Visit Provider Physician Assistant
DX: Z01.810 Encounter for preprocedural cardiovascular examination (principal)
CPT/HCPCS: 93005

== ENCOUNTER 2023-10-14 07:01 | Outpatient (CLI) | payer MEDICARE, OTHER, SELFPAY ==
[2023-10-14 08:30] LABS: Alanine Aminotransferase 30 U/L (12-78); Albumin Level 4.7 g/dl (3.5-5.0); Albumin/Globulin Ratio 1.7 (1.1-1.8); Alkaline Phosphatase 119 U/L (38-126); Anion Gap 11.7 mEq/L (5-15); Aspartate Amino Transferase 44 U/L (14-36); Bilirubin,Total 0.5 mg/dl (0.2-1.3); Blood Urea Nitrogen 12 mg/dl (7-17); Carbon Dioxide 28 mmol/L (22.0-30.0); Chloride 96 mmol/L (98-107); Chol/HDL Ratio 2.6 (1-3.5); Cholesterol 258 mg/dl (140-200); Estimated Glomerular Filt Rate 72 ml/min (>60); GFR (African American) 87 ML/MIN (>60); Globulin 2.8 g/dL (1.3-3.2); Glucose 114 mg/dl (74-100); HDL Cholesterol 98 mg/dl (40-60); Potassium 4.7 mmoL/L (3.5-5.1); Sodium 131 mmol/L (136-145); Total Protein,Serum 7.5 g/dl (6.3-8.2); Triglycerides 94 mg/dl (30-150); VLDL Cholesterol 19 mg/dL (0-40)
[2023-10-14 08:42] LABS: Direct LDL Cholesterol 122.96 mg/dL (100-129)
[2023-10-14 08:47] LABS: 25-OH Vitamin D, Total 58.1 ng/mL (30-100)
[2023-10-16 13:35] LABS: Vitamin B12 210 pg/mL (239-931)
== END 2023-10-14 23:59 | disposition home or self-care (01) ==
LOC: LAB 07:03
PROVIDERS: PCP Physician Assistant; Visit Provider Physician Assistant
DX: E78.5 Hyperlipidemia, unspecified (principal); I10 Essential (primary) hypertension; E55.9 Vitamin D deficiency, unspecified; E53.8 Deficiency of other specified B group vitamins
CPT/HCPCS: 36415; 80053; 80061; 82306; 82607

== ENCOUNTER 2024-01-16 18:57 | Emergency (ER) | payer MEDICARE, OTHER, SELFPAY ==
[2024-01-16 19:10] VITALS: BP 141/95; PULSE 80; RESP 20; TEMP 36.6; O2SAT 95; BMI 17.6
[2024-01-16 19:20] VITALS: BP 141/95; PULSE 80; RESP 20; TEMP 36.6; O2SAT 95
--- NOTE | 2024-01-16 19:20 | PC.NURSE ---
PATIENT REFUSED X-RAY AT THIS TIME AND IS REQUESTING TO LEAVE AMA
--- NOTE | 2024-01-16 19:24 | EXP.UTC ---
Discharge Plan Disposition Patient Disposition: Left Against Medical Advice Prescriptions Prescriptions: No Action trazodone 50 mg tablet 50 mg PO HSP PRN (Reason: Sleep) atorvastatin 10 mg tablet 10 mg PO DAILY 90 Days Qty: 90 buspirone 5 mg tablet 5 mg PO BID Qty: 60 0RF Anoro Ellipta 62.5-25 mcg/actuation blister with device 1 inh INHALATION Q24H meclizine 12.5 mg tablet 12.5 mg PO TID PRN Patient Comments: TAKE ONE TABLET BY MOUTH THREE TIMES DAILY MAY CAUSE DROWSINESS metoprolol succinate 50 mg tablet extended release 24 hr 50 mg PO DIRECTED Qty: 145 3RF Rx Instructions: take one pill in morning and one half pill in the evening. estradiol [Estrace] 0.01 % (0.1 mg/gram) cream 1 g VAGINAL QWEEK Qty: 42.5 2RF ondansetron HCl 4 MG tablet 4 mg PO TIDP PRN (Reason: Nausea And Vomiting) Qty: 6 0RF albuterol sulfate 18 GM HFA aerosol inhaler 2 puffs IH Q6HP PRN (Reason: Shortness Of Breath Or Wheezing) Qty: 1 0RF Clinical Impressions Clinical Impression: Patient left before treatment completed [place] [facility] [place] Stated complaint: AO 01/15/24 2100 injury right ribs Time Seen by Provider: 01/16/24 19:25 History of Present Illness Provider Complaint: Patient states she fell last night and hit the right side of her chest States that she knows she has a broken rib States that it hurts when she tries to take a deep breath and sniffle States that she hurt last night but this evening the pain was still bothering her and she knew if she didnt come in and get something for pain she may not sleep tonight Related Data Home Medications Medication Instructions Recorded Confirmed trazodone 50 mg tablet 50 mg PO HSP PRN Sleep 07/31/17 03/31/21 atorvastatin 10 mg tablet 10 mg PO DAILY . 90 days #90 tabs 02/20/19 03/31/21 umeclidinium 62.5 mcg-vilanterol 1 inh inhalation Q24H COPD 02/20/19 03/31/21 25 mcg/actuation powdr for inhalation (Anoro Ellipta) meclizine 12.5 mg tablet 12.5 mg PO TID PRN 07/23/19 03/31/21 Previous Rx's Medication Instructions Recorded albuterol sulfate 90 mcg/actuation 2 puffs IH Q6HP PRN Shortness Of 02/01/18 aerosol inhaler Breath Or Wheezing #1 inh metoprolol succinate 50 mg 50 mg PO DIRECTED HTN #145 tabs 07/23/19 tablet,extended release 24 hr buspirone 5 mg tablet 5 mg PO BID #60 tabs 07/29/20 ondansetron HCl 4 mg tablet 4 mg PO TIDP PRN Nausea And 12/17/20 Vomiting #6 tabs estradiol 0.01% (0.1 mg/gram) 1 g vaginal QWEEK #42.5 grams 03/31/21 vaginal cream (Estrace) Allergies Allergy/AdvReac Type Severity Reaction Status Date / Time oxycodone [OXYCODONE] AdvReac Unknown Verified 03/31/21 09:01 tramadol [TRAMADOL] AdvReac Unknown Verified 03/31/21 09:01 [facility] Disclaimer: The information contained in this section may have been updated after the patient was seen, as this information can be updated by other users. Social History Smoking Status: Current every day smoker tobacco type: cigarettes packs per day: 1 alcohol intake: current alcohol intake frequency: 3 or more drinks per day counseling provided: provider counseling substance use type: marijuana current occupational status: other Travel in the last 8 weeks: None household members: spouse housing: house number of children: 1 caffeine: Yes ROS Obtained: Yes All systems reviewed & no additional complaints except as documented and Yes Systems reviewed as appropriate & no additional complaints except as documented Constitutional Constitutional: Reports system reviewed and no additional complaints, except as documented and Reports as per HPI Cardiovascular Cardiovascular: Reports system reviewed and no additional complaints, except as documented, Reports as per HPI and Reports other (pain in right ribs worse with movement and deep breath) Respiratory Respiratory: Reports system reviewed and no additional complaints, except as documented and Reports as per HPI Physical Exam General General appearance: alert and in no apparent distress Expanded Chest Exam Female Torso: 1. fell last night hit chest and thinks she has a broken rib requesting pain medication, no bruising no swelling no deformity noted Respiratory Respiratory exam: Present normal lung sounds bilaterally; Absent respiratory distress or wheezes Cardiovascular Cardiovascular exam: Present regular rate, normal rhythm and normal heart sounds Neurological Exam Neurological exam: Present alert and oriented X3 Medical Decision Making Rodney Inquiry Pt receiving controlled substance: No Rodney was queried for this patient: No Medical Decision Narrative: Patient states that she fell last night and knows she has a broken rib wanting to get something stronger than what she has at home to help with the pain, discussed with patient and recommended xray of ribs and at this time I do not have a PRAVEEN so therefore I am unable to legally prescribed narcotics, discussed that we could do the xray and prescribe lidocaine patches, incentive spirometer and ibuprofen if she could take it and patient advised she no longer wanted to get seen or treated she had those at home she came in to get something stronger for pain to help her rest tonight she knew her rib was broken, states that she just needed medication to help, discussed being seen in the ED instead and she declined states that she just wanted to leave Patient educated on risks even and she still declined to get xray or treatment Family was given strict return precautions
== END 2024-01-16 19:26 | disposition left against medical advice (07) ==
LOC: UTC 19:01
PROVIDERS: Emergency Provider Nurse Practitioner; PCP Physician Assistant
DX: R07.1 Chest pain on breathing (principal); W19.XXXA Unspecified fall, initial encounter
CPT/HCPCS: 99202; 99211; G0463

== ENCOUNTER 2024-05-14 08:39 | Outpatient (CLI) | payer MEDICARE, OTHER, SELFPAY ==
[2024-05-14 09:36] LABS: Basophils # 0.1 K/mm3 (0-0.2); Basophils % 1.2 % (0.1-2.0); Eosinophils # 0.1 K/mm3 (0.0-0.4); Eosinophils % 0.9 % (0.1-12.0); Hematocrit 43.9 % (37.0-47.0); Hemoglobin 15.1 g/dL (12.2-16.2); Lymphocytes # 1.2 K/mm3 (0.7-4.5); Lymphocytes % 19.8 % (10-50); Mean Corpuscular HGB Conc 34.5 g/dL (31.8-35.4); Mean Corpuscular Hemoglobin 36.7 pg (27.0-31.2); Mean Corpuscular Volume 106.6 fl (81-99); Mean Platelet Volume 7.1 fl (7.4-10.4); Monocytes # 0.4 K/mm3 (0.1-1.0); Monocytes % 6.7 % (1.7-9.3); Neutrophils # 4.4 K/mm3 (1.8-7.8); Neutrophils % 71.5 % (37.0-80.0); Platelet Count 303 K/mm3 (142-424); Red Blood Count 4.12 M/mm3 (4.20-5.40); Red Cell Distribution Width 14.2 % (11.5-17.5); White Blood Count 6.1 K/mm3 (4.8-10.8)
[2024-05-14 09:59] LABS: Alanine Aminotransferase 34 U/L (12-78); Albumin Level 4.4 g/dl (3.5-5.0); Albumin/Globulin Ratio 1.8 (1.1-1.8); Alkaline Phosphatase 67 U/L (38-126); Anion Gap 14.6 mEq/L (5-15); Aspartate Amino Transferase 52 U/L (14-36); Bilirubin,Total 0.8 mg/dl (0.2-1.3); Blood Urea Nitrogen 7 mg/dl (7-17); Calcium 9.5 mg/dl (8.4-10.2); Carbon Dioxide 23 mmol/L (22.0-30.0); Chloride 96 mmol/L (98-107); Cholesterol 207 mg/dl (140-200); Estimated Glomerular Filt Rate 83 ml/min (>60); GFR (African American) 101 ML/MIN (>60); Globulin 2.5 g/dL (1.3-3.2); Glucose 102 mg/dl (74-100); Potassium 4.6 mmoL/L (3.5-5.1); Sodium 129 mmol/L (136-145); Total Protein,Serum 6.9 g/dl (6.3-8.2); Triglycerides 106 mg/dl (30-150); VLDL Cholesterol 21 mg/dL (0-40)
[2024-05-14 10:10] LABS: Direct LDL Cholesterol 72.33 mg/dL (100-129)
[2024-05-14 10:11] LABS: Chol/HDL Ratio 1.6 (1-3.5); HDL Cholesterol 127 mg/dl (40-60)
[2024-05-14 10:21] LABS: 25-OH Vitamin D, Total 58.7 ng/mL (30-100)
[2024-05-14 11:09] LABS: Vitamin B12 258 pg/mL (239-931)
[2024-05-14 11:13] LABS: Folate 5.37 ng/mL
== END 2024-05-14 23:59 | disposition home or self-care (01) ==
PROVIDERS: PCP Family Medicine; Visit Provider Family Medicine
DX: E78.5 Hyperlipidemia, unspecified (principal); E55.9 Vitamin D deficiency, unspecified; I10 Essential (primary) hypertension; E53.8 Deficiency of other specified B group vitamins
CPT/HCPCS: 36415; 80053; 80061; 82306; 82607; 82746; 85025

== ENCOUNTER 2024-11-17 11:11 | Outpatient (CLI) | payer MEDICARE, OTHER, SELFPAY ==
--- NOTE | 2024-11-17 11:23 | XR_ITS ---
FINAL REPORT CLINICAL HISTORY: ACUTE BRONCHITIS COMPARISON: 05/17/2022 FINDINGS: CHEST 2 VIEWS PA AND LATERAL The heart is normal in size. The mediastinum is unremarkable. The lungs are clear. There is no pneumothorax. IMPRESSION: No acute process. Reviewed, Interpreted and Dictated by Carlos Eduardo Diaz MD Transcribed by Mariajose Humphries Authenticated and [facility]
== END 2024-11-17 23:59 | disposition home or self-care (01) ==
LOC: RAD 11:19
PROVIDERS: PCP Family Medicine; Visit Provider Nurse Practitioner Family
DX: J20.9 Acute bronchitis, unspecified (principal)
CPT/HCPCS: 71046

== ENCOUNTER 2024-11-18 17:56 | Inpatient (IN) | payer MEDICARE, OTHER, SELFPAY ==
[2024-11-18] VITALS (10 sets, daily range): BP systolic 122–182; BP diastolic 76–115; PULSE 94–114; RESP 20–27; TEMP 36.8–37.1; O2SAT 84–98; BMI 17.4; BMI 18.0
--- NOTE | 2024-11-18 18:01 | XR_ITS ---
PROCEDURE INFORMATION: Exam: XR Chest Exam date and time: 11/18/2024 6:11 PM Age: 69 years old Clinical indication: Shortness of breath; Additional info: SOA, resp failure TECHNIQUE: Imaging protocol: Radiologic exam of the chest. Views: 1 view. COMPARISON: CR XR CHEST 2V 11/17/2024 11:30 AM FINDINGS: Lungs: Moderate hyperexpansion and hyperlucency with diaphragmatic flattening suggesting COPD. Pulmonary vasculature grossly normal. Granulomatous calcifications in the right hilar distribution. No gross pulmonary infiltrates or edema pattern. Pleural spaces: No pleural effusion. No pneumothorax. Heart/Mediastinum: Heart size normal. No tracheal/mediastinal shift. Bones/joints: No acute osseous abnormalities are identified. Osteopenia. Mild thoracic spondylosis. IMPRESSION: 1. No acute thoracic process. 2. COPD.
--- NOTE | 2024-11-18 18:01 | ECG_ITS ---
APPROVED REPORT Exam: Resting ECG HR:98 bpm ECG Measurements Heart Rate 98 AXES MA 168 P 85 QRSd 76 QRS 4 QT 327 T 76 QTc 383 Conclusion SINUS RHYTHM NORMAL ECG Electronically signed by : MAHIN DICK, 11/18/2024 23:26:28
--- NOTE | 2024-11-18 18:04 | ED_ITS ---
Discharge Plan Disposition Patient Disposition: Admitted Condition: Fair Clinical Impressions Clinical Impression: Acute exacerbation of chronic obstructive pulmonary disease, Acute on chronic respiratory failure with hypoxia and hypercapnia, Hyponatremia Discharge ED Provider: Atiya Ruiz General Adult HPI General Chief complaint: Shortness of Breath/Dyspnea Stated complaint: SOA, Low O2 sat%, Time Seen by Provider: 11/18/24 18:01 History of Present Illness HPI narrative: This patient is a 69-year-old female with a history of COPD, hypertension, hyperlipidemia presenting to the emergency department for evaluation with concern for shortness of breath. According the patient's son, she has been sick for about 3 days now and had been given Phenergan cough syrup as well as other medications including steroids to help, but she worsened today with increasing shortness of breath and now confusion. He notes that she just seemed confused and was not sure what was going on. He notes that she keeps complaining that she is thirsty but she has not been drinking anything at all and has had significant increased work of breathing. EMS was called to the patient's home today and noted the patient's O2 saturation was 74% on room air. The patient does not typically wear oxygen at home. Patient has significant conversational dyspnea and does not contribute much to history, but she is alert and oriented x 4. She complains of shortness of breath but denies any other physical concerns or complaints at this time Related Data Home Medications ?Medication ?Instructions ?Recorded ?Confirmed trazodone 50 mg tablet 50 mg PO HSP PRN Sleep 07/31/17 03/31/21 atorvastatin 10 mg tablet 10 mg PO DAILY . 90 days #90 tabs 02/20/19 03/31/21 umeclidinium 62.5 mcg-vilanterol 1 inh inhalation Q24H COPD 02/20/19 03/31/21 25 mcg/actuation powdr for inhalation (Anoro Ellipta) meclizine 12.5 mg tablet 12.5 mg PO TID PRN 07/23/19 03/31/21 Previous Rx's ?Medication ?Instructions ?Recorded albuterol sulfate 90 mcg/actuation 2 puffs IH Q6HP PRN Shortness Of 02/01/18 aerosol inhaler Breath Or Wheezing #1 inh metoprolol succinate 50 mg 50 mg PO DIRECTED HTN #145 tabs 07/23/19 tablet,extended release 24 hr buspirone 5 mg tablet 5 mg PO BID #60 tabs 07/29/20 ondansetron HCl 4 mg tablet 4 mg PO TIDP PRN Nausea And 12/17/20 Vomiting #6 tabs estradiol 0.01% (0.1 mg/gram) 1 g vaginal QWEEK #42.5 grams 03/31/21 vaginal cream (Estrace) Allergies Allergy/AdvReac Type Severity Reaction Status Date / Time oxycodone (OXYCODONE) AdvReac Unknown Verified 03/31/21 09:01 tramadol (TRAMADOL) AdvReac Unknown Verified 03/31/21 09:01 [facility] Disclaimer: The information contained in this section may have been updated after the patient was seen, as this information can be updated by other users. Medical History (Updated 11/18/24 @ 22:20 by Atiya Ruiz DO) Hysterectomy planned Endometriosis Hyperlipidemia Hypertension COPD (chronic obstructive pulmonary disease) Surgical History (Updated 11/18/24 @ 21:48 by ADDISON Lowry) Hx of ureterostomy History of lumpectomy Social History (Updated 11/18/24 @ 21:49 by ADDISON Lowry) Smoking Status: Current every day smoker tobacco type: cigarettes packs per day: 1 alcohol intake: current alcohol intake frequency: 3 or more drinks per day counseling provided: provider counseling substance use type: marijuana current occupational status: other Travel in the last 8 weeks?: None household members: spouse housing: house number of children: 1 caffeine: Yes Have you lived/traveled outside [place] in past 30 days?: No Contact w/someone who lives/traveled outside US past 30 days?: No Exposure to someone with infectious disease in past 14 days?: No Do you have a fever (greater than 100.4 F or 38 C)?: No Have you tested positive for COVID-19?: No Exposed to someone with COVID-19 in past 14 days?: No Do you have a sore throat?: No Do you have a cough?: No Do you have any weakness?: No Do you have any diarrhea?: No Are you experiencing any unusual bleeding?: No Do you have any muscle aches/pain?: No Do you have any abdominal pain?: No Are you experiencing loss of taste or smell?: No Other Medical History Have you received the Flu Vaccine for this season: No Have you received the Pneumonia Vaccine: No ROS Obtained: Yes All systems reviewed & no additional complaints except as documented Physical Exam General General appearance: alert and in distress Comment: Ill-appearing, in respiratory distress Head Head exam: atraumatic and normocephalic Eye Eye exam: Present normal appearance, PERRL and EOMI ENT ENT exam: Present mucous membranes dry and normal external ear exam Neck Neck exam: Present normal inspection, full ROM and trachea midline; Absent tenderness Chest Chest inspection: Present normal inspection and symmetric chest wall rise; Absent tenderness Respiratory Respiratory exam: Present respiratory distress, accessory muscle use and other (Significantly diminished breath sounds bilaterally); Absent stridor Cardiovascular Cardiovascular exam: Present normal rhythm and tachycardia Abdominal Exam Abdominal exam: Present soft; Absent distention, tenderness or guarding Extremities Exam Extremities exam: Present normal inspection, full ROM and normal capillary refill; Absent tenderness or edema Back Exam Back exam: Present normal inspection and full ROM; Absent tenderness Neurological Exam Neurological exam: Present alert, oriented X3, CN II-XII intact, normal gait and other (generally weak without focal deficit); Absent motor sensory deficit Skin Skin exam: Present warm and dry Medical Decision Making Medical Records Medical records reviewed: Yes I reviewed the patient's medical records. Screening: Per USPSTF and CDC recommendations, given the prevalence of disease in our region, it is our hospital?s policy to screen for HIV and viral Hepatitis for all patients aged 18 and over and those with ongoing risk factors. Rodney Inquiry Pt receiving controlled substance: No Vital Signs: 11/18/24 18:06 11/18/24 18:30 11/18/24 18:58 Temperature Temperature Source Pulse Rate 105 H 108 H Pulse Rate [Right Radial] 100 H Respiratory Rate 24 21 Blood Pressure 182/99 H Blood Pressure [Right Arm] 163/115 H Blood Pressure Mean [Right Arm] 131 Blood Pressure Source [Right Arm] Automatic Cuff Blood Pressure Position Blood Pressure Position [Right Arm] Supine 02 Sat by Pulse Oximetry 84 L 98 Oxygen Delivery Method Room Air Room Air Oxygen Flow Rate (LPM) Fraction of Inspired Oxygen 11/18/24 19:00 11/18/24 20:13 11/18/24 20:29 Temperature 98.8 F Temperature Source Oral Pulse Rate 110 H Pulse Rate [Right Radial] 96 H Respiratory Rate 22 Blood Pressure 142/98 H Blood Pressure [Right Arm] Blood Pressure Mean [Right Arm] Blood Pressure Source [Right Arm] Blood Pressure Position Supine Blood Pressure Position [Right Arm] 02 Sat by Pulse Oximetry 98 Oxygen Delivery Method Nasal Cannula BiPAP Oxygen Flow Rate (LPM) 6 Fraction of Inspired Oxygen 25 Lab Data Lab results reviewed: Yes I reviewed the patient's lab results. Lab Results 11/18/24 18:01: WBC 8.3, RBC 3.85 L, Hgb 13.8, Hct 39.1, MCV 101.6 H, MCH 35.8 H , MCHC 35.3, RDW 13.1, Plt Count 205, MPV 8.8, Neut % (Auto) 83.6 H, Lymph % (Auto) 7.0 L, [place] % (Auto) 5.7, Eos % (Auto) 2.9, Baso % (Auto) 0.2, Neut # (Auto) 6.9, Lymph # (Auto) 0.6 L, [place] # (Auto) 0.5, Eos # (Auto) 0.2, Baso # (Auto) 0.0, D-Dimer 0.72 H, Sodium 124 L, Potassium 4.2, Chloride 93 L, Carbon Dioxide 26, Anion Gap 9.2, BUN 12, Creatinine 0.80, Estimated Creat Clear 37, Estimated GFR 72, Est GFR ( Amer) 87, Glucose 141 H, Calcium 9.4, Phosphorus 3.8, Magnesium 1.8, Total Bilirubin 0.4, AST 85 H, ALT 35, Alkaline Phosphatase 61, Troponin I 0.03, C-Reactive Protein 126.3 H, NT-Pro-B Natriuret Pep 1520 H, Total Protein 7.8, Albumin 4.6, Globulin 3.2, Albumin/Globulin Ratio 1.4, TSH 0.62, Thyroxine (T4) 6.9 11/18/24 18:12: VBG pH 7.25 L, VBG pCO2 58.0 H, VBG pO2 47.8 H, VBG HCO3 24.9, VBG Total CO2 26.7, VBG O2 Saturation 79.0 H, VBG Base Excess -2.3, VBG Lactic Acid 2.0 11/18/24 18:18: SARS-CoV-2 (PCR) Not detected, Influenza A Untype (PCR) Not detected, Influenza Type B (PCR) Not detected 11/18/24 18:01 11/18/24 18:01 Orders (Tests/Meds): ED MEDICATIONS Generic Name Dose Route Start Last Admin Trade Name Freq PRN Reason Stop Dose Admin Acetaminophen 650 mg 11/18/24 20:02 Acetaminophen 325mg Tab PO 12/18/24 20:01 Q6HP PRN Fever or Mild Pain (1-3) Albuterol/Ipratropium 3 ml 11/18/24 20:02 Ipratropium/Albuterol 3 Ml [facility] 12/18/24 20:01 Q2HP PRN Wheezing Lactated Ringer's 1,000 mls @ 50 mls/hr 11/18/24 20:15 Lactated Ringer's 1000 Ml Bag IV 12/18/24 20:14 .Q20H [place] Ibuprofen 600 mg 11/18/24 20:02 Ibuprofen 600 Mg Tablet PO 12/18/24 20:01 Q6HP PRN Fever or Mild Pain (1-3) Ondansetron HCl 4 mg 11/18/24 20:02 Ondansetron 4mg/2ml Vial IV 12/18/24 20:01 Q8HP PRN Nausea And Vomiting Discontinued Medications Generic Name Dose Route Start Last Admin Trade Name Freq PRN Reason Stop Dose Admin Albuterol Sulfate 20 mg 11/18/24 18:38 11/18/24 18:54 Albuterol 0.083% 2.5 Mg/3 Ml [facility] 11/18/24 18:39 20 mg ONCE ONE Administration Albuterol/Ipratropium 9 ml 11/18/24 18:01 11/18/24 18:15 Ipratropium/Albuterol 3 Ml [facility] 11/18/24 18:02 9 ml ONCE ONE Administration Magnesium Sulfate 2 gm in 50 mls @ 50 mls/hr 11/18/24 18:01 11/18/24 18:15 Magnesium Sulfate 2gm/50ml Premix IV 11/18/24 19:00 50 mls/hr ONCE ONE Administration Lactated Ringer's 1,000 mls @ 999 mls/hr 11/18/24 18:02 11/18/24 18:15 Lactated Ringer's 1000 Ml Bag IV 11/18/24 19:02 999 mls/hr .Q1H1M ONE Administration Ceftriaxone Sodium 2 gm/ 100 mls @ 200 mls/hr 11/18/24 19:24 11/18/24 19:34 Sodium Chloride IV 11/18/24 19:53 200 mls/hr ONCE ONE Administration Azithromycin 500 mg/ Sodium 250 mls @ 250 mls/hr 11/18/24 19:24 11/18/24 19:43 Chloride IV 11/18/24 19:25 250 mls/hr ONCE ONE Administration Methylprednisolone Sodium Succinate 125 mg 11/18/24 18:01 11/18/24 18:15 Methylprednisolone Sod Succ 125mg Vial IV 11/18/24 18:02 125 mg ONCE ONE Administration ORDERS Category Date Time Status CXR --portable [XR chest portable] Stat Exams 11/18/24 18:01 Completed BNP [NT Pro Brain Natriuretic Pep.] Stat Lab 11/18/24 18:01 Completed CRP [C-Reactive Protein] Stat Lab 11/18/24 18:01 Completed Complete Blood Count Auto Diff Stat Lab 11/18/24 18:01 Completed Comprehensive Metabolic Panel Stat Lab 11/18/24 18:01 Completed D-Dimer Stat Lab 11/18/24 18:01 Completed MAG [Magnesium] Stat Lab 11/18/24 18:01 Completed PHOS [Phosphorous] Stat Lab 11/18/24 18:01 Completed Rapid PCR Covid and Flu A/B Stat Lab 11/18/24 18:18 Completed T4 (Thyroxine) Stat Lab 11/18/24 18:01 Completed TSH [Thyroid Stimulating Hormone] Stat Lab 11/18/24 18:01 Completed Trop I [Troponin I] Stat Lab 11/18/24 18:01 Completed Troponin I Q3H Lab 11/18/24 21:28 Completed Troponin I Q3H Lab 11/19/24 00:15 Ordered UA [Urinalysis and Microscopic] Stat Lab 11/18/24 18:01 Ordered Blood Culture Stat Micro 11/18/24 18:01 Received VBG [Venous Blood Gas] Stat RT 11/18/24 18:12 Completed ECG Data Tracing #1: I reviewed this ECG and interpreted as documented below: Sinus rhythm with a ventricular rate of [address] changes concerning for STEMI. Normal intervals ECG initial impression date: 11/18/24 ECG initial impression time: 18:03 Medical Decision Narrative: In summary, this patient is a 69-year-old female presenting to the Emergency Department for evaluation of shortness of breath, respiratory distress, poor oral intake, confusion. Differential diagnoses considered include but are not limited to pneumonia, CO2 retention, COPD exacerbation, CHF exacerbation, ACS, sepsis, among others. Ruling out the most morbid conditions drove assessment. It should be noted patient's history includes COPD, hypertension, hyperlipidemia which may or may not be at goal therapy. This complicates all aspects of care by increasing patient's risk for morbidity. On exam, patient is ill-appearing in respiratory distress with tachycardia, tachypnea, significantly diminished breath sounds bilaterally. She has new oxygen requirement. She looks clinically dry. She is hypertensive and tachycardic. Cannot use PERC criteria to exclude PE given age and hypoxia/tachycardia. Workup included CBC, CMP, troponin, D-dimer, VBG, magnesium, phosphorus, viral swab, urinalysis, chest x-ray, EKG. Patient was given DuoNebs x 3 as well as IV methylprednisolone and magnesium for symptomatic improvement of severe respiratory distress in the setting of COPD. I independently interpreted chest x-ray prior to the radiologist read and noted hyperinflation consistent with COPD but I do not see any large focal consolidation concerning for pneumonia. Please see their read for final interpretation. Labs were obtained that demonstrated decompensated respiratory acidosis on VBG. No significant leukocytosis or anemia on CBC, D-dimer is negative for years criteria. BNP is mildly elevated without evidence of gross volume overload, CRP is elevated at 126. She also has hyponatremia in the setting of very poor oral intake. I started with a liter bolus of IV fluids, but I did not give full bolus because of concern for respiratory failure and feeling it would be harmful to the patient. Administered IV Rocephin and azithromycin for empiric community-acquired pneumonia antibiotic coverage On reassessment, patient had minimal improvement after administration of interventions above. She continues to have respiratory distress, for which I ordered a continuous albuterol neb. For the decompensated respiratory acidosis, the patient was placed on BiPAP. Repeat VBG did not show significant improvement, so we will continue the BiPAP and continue interventions to try and help get the patient breathing better. Ultimately, I feel she requires admission for severe COPD exacerbation with acute on chronic respiratory failure. I had an interactive discussion with the hospitalist Dr. Jennings on behalf of Dr. Donovan who stated the patient for admission. She is admitted to stepdown in stable condition Critical Care Critical Care Time Critical Care Time: Yes Attestation: On 11/18/24, the high probability of a clinically significant, sudden or life threatening deterioration of the following system(s) required my full and direct attention, intervention and personal management. The time I documented below is in addition to time spent performing reported procedures but includes the following listed in this critical care notation. Total Time Total Critical Care Time: 65
--- NOTE | 2024-11-18 18:06 | PC.NURSE ---
3 liters NC applied o2 sat 100%
[2024-11-18] MEDS: LACTATED RINGERS 1000ML 1,000 ML 999 ML IV (18:15)
[2024-11-18] MEDS: MAGNESIUM SULFATE IN WATER 2 GM/50 ML PIGGYBACK IV (18:15)
[2024-11-18] MEDS: METHYLPREDNISOLONE SOD SUCC 125MG VIAL 125 MG IV (18:15)
[2024-11-18] MEDS: IPRATROPIUM/ALBUTEROL 3 ML NEB 9 ML IH (18:15)
[2024-11-18 18:16] LABS: Basophils % 0.2 % (0.1-2.0); Eosinophils # 0.2 Kmm3 (0.0-0.4); Eosinophils % 2.9 % (0.1-12.0); Hematocrit 39.1 % (37.0-47.0); Hemoglobin 13.8 g/dL (12.2-16.2); Immature Granulocytes # 0.05 10^3uL; Immature Granulocytes % 0.6 %; Lymphocytes # 0.6 K/mm3 (0.7-4.5); Mean Corpuscular HGB Conc 35.3 g/dL (31.8-35.4); Mean Corpuscular Hemoglobin 35.8 pg (27.0-31.2); Mean Corpuscular Volume 101.6 fl (81-99); Mean Platelet Volume 8.8 fl (7.4-10.4); Monocytes # 0.5 K/mm3 (0.1-1.0); Monocytes % 5.7 % (1.7-9.3); Neutrophils # 6.9 K/mm3 (1.8-7.8); Neutrophils % 83.6 % (37.0-80.0); Nucleated Red Blood Cells # 0 10^3/uL; Nucleated Red Blood Cells % 0 %; Platelet Count 205 K/mm3 (142-424); Red Blood Count 3.85 M/mm3 (4.20-5.40); Red Cell Distribution Width 13.1 % (11.5-17.5); Red Cell Distribution Width-SD 48.7 fL; White Blood Count 8.3 K/mm3 (4.8-10.8)
[2024-11-18 18:19] LABS: VBG Base Excess -2.3 mmol/L (-2.4-2.3); VBG HCO3 24.9 mmol/L (23-30); VBG PH 7.25 mmol/L (7.31-7.41); VBG PO2 47.8 mmol/L (28-40); VBG Total CO2 26.7 mmol/L (23-27)
[2024-11-18 18:21] LABS: Coronavirus 19, PCR Not Detected (NotDetected); Influenza A, PCR Not Detected (NotDetected); Influenza B, PCR Not Detected (NotDetected)
[2024-11-18 18:27] LABS: Alanine Aminotransferase 35 U/L (12-78); Albumin Level 4.6 g/dl (3.5-5.0); Albumin/Globulin Ratio 1.4 (1.1-1.8); Alkaline Phosphatase 61 U/L (38-126); Anion Gap 9.2 mEq/L (5-15); Aspartate Amino Transferase 85 U/L (14-36); Bilirubin,Total 0.4 mg/dl (0.2-1.3); Blood Urea Nitrogen 12 mg/dl (7-17); Calcium 9.4 mg/dl (8.4-10.2); Carbon Dioxide 26 mmol/L (22.0-30.0); Chloride 93 mmol/L (98-107); Creatinine Clearance Estimated 37 mL/min (50-200); Estimated Glomerular Filt Rate 72 ml/min (>60); GFR (African American) 87 ML/MIN (>60); Globulin 3.2 g/dL (1.3-3.2); Glucose 141 mg/dl (74-100); Magnesium 1.8 mg/dl (1.6-2.3); Phosphorous 3.8 mg/dl (2.5-4.5); Potassium 4.2 mmoL/L (3.5-5.1); Sodium 124 mmol/L (136-145); Total Protein,Serum 7.8 g/dl (6.3-8.2)
[2024-11-18 18:32] LABS: C-Reactive Protein 126.3 mg/L (0-4)
[2024-11-18 18:33] LABS: D-Dimer 0.72 ug/mL (0.0-0.5)
--- NOTE | 2024-11-18 18:40 | PC.NURSE ---
Place neb tx removed, pt was sats were 100, dropped to 95 on RA, patient placed on 3 lpm via nc, sat went back up to 97.
[2024-11-18] MEDS: ALBUTEROL 0.083% 2.5 MG/3 ML NEB 20 MG IH (18:54)
[2024-11-18 19:01] LABS: NT Pro Brain Natriuretic Pep. 1520 pg/mL (0-125); Troponin I 0.03 ng/ml (0.00-0.034)
[2024-11-18 19:05] LABS: T4 (Thyroxine) 6.9 ug/dl (5.53-11.0)
[2024-11-18 19:19] LABS: Thyroid Stimulating Hormone 0.62 uIU/mL (0.465-4.68)
[2024-11-18] MEDS: CEFTRIAXONE SODIUM 2 GM in 0.9 % SODIUM CHLORIDE 100 ML IV (19:34)
[2024-11-18] MEDS: AZITHROMYCIN 500 MG in 0.9 % SODIUM CHLORIDE 250 ML 250 MG IV (19:43)
--- NOTE | 2024-11-18 20:17 | PC.NURSE ---
Report given to Day CROFT on the floor.
[2024-11-18 20:20] LABS: Lactate Venous 1.7 mmol/L (0.4-2.0); VBG Base Excess -3.9 mmol/L (-2.4-2.3); VBG HCO3 23.4 mmol/L (23-30); VBG Oxygen Saturation 76.7 % (50-70); VBG PH 7.25 mmol/L (7.31-7.41); VBG PO2 46.2 mmol/L (28-40); VBG Total CO2 25.1 mmol/L (23-27)
[2024-11-18 20:21] LABS: VBG PCO2 54.9 mmol/L (35-51)
--- NOTE | 2024-11-18 20:22 | PC.NURSE ---
critical VBG results called from lab and verbally told to A [place] ED provider.
--- NOTE | 2024-11-18 20:38 | PC.NURSE ---
Addendum entered by Katia Baez 11/18/24 21:10: Patient arrived to floor via stretcher from ED at 20:38. Original Note: Patient arrived to floor via stretcher from ED at 23:38.
[2024-11-18 21:58] LABS: Troponin I 0.05 ng/ml (0.00-0.034)
[2024-11-18] MEDS: LACTATED RINGERS 1000ML 1,000 ML 50 ML IV (22:34)
[2024-11-18] MEDS: TRAZODONE 50MG TABLET 50 MG PO (22:37)
[2024-11-18] MEDS: IPRATROPIUM/ALBUTEROL 3 ML NEB IH (23:20)
[2024-11-19] VITALS (21 sets, daily range): BP systolic 106–180; BP diastolic 81–98; PULSE 69–130; RESP 18–24; TEMP 36.4–36.8; O2SAT 92–99; BMI 18.0
[2024-11-19 00:54] LABS: Troponin I 0.04 ng/ml (0.00-0.034)
[2024-11-19 01:57] LABS: Microscopic, Urine URINE MICROSCOPIC (MICROSCOPIC)
[2024-11-19 01:59] LABS: Appearance,Urine CLEAR (Clear); Bilirubin,Urine Negative (Negative); Blood, Urine 1+ (Negative); Color,Urine YELLOW (Yellow); Glucose,Urine (UA) Negative (Negative); Ketones,Urine Negative (Negative); Leukocyte Esterase,Urine Negative (Negative); Nitrate,Urine Negative (Negative); Protein,Urine TRACE (Negative); Specific Gravity, Urine 1.025 (1.005-1.030); Urobilinogen,Urine 0.2 EU/dl (0.2)
[2024-11-19 02:09] LABS: Bacteria,Urine Trace /lpf
[2024-11-19 05:49] LABS: Lactate Venous 1.7 mmol/L (0.4-2.0); VBG Base Excess -0.9 mmol/L (-2.4-2.3); VBG HCO3 24.8 mmol/L (23-30); VBG Oxygen Saturation 75.8 % (50-70); VBG PCO2 46.1 mmol/L (35-51); VBG PH 7.35 mmol/L (7.31-7.41); VBG Total CO2 26.2 mmol/L (23-27)
[2024-11-19 06:19] LABS: Basophils % 0.2 % (0.1-2.0); Immature Granulocytes # 0.03 10^3uL; Immature Granulocytes % 0.5 %; Lymphocytes # 0.5 K/mm3 (0.7-4.5); Lymphocytes % 8.7 % (10-50); Mean Corpuscular HGB Conc 35.5 g/dL (31.8-35.4); Mean Corpuscular Hemoglobin 35.9 pg (27.0-31.2); Mean Corpuscular Volume 101.2 fl (81-99); Mean Platelet Volume 9.1 fl (7.4-10.4); Monocytes # 0.3 K/mm3 (0.1-1.0); Monocytes % 4.8 % (1.7-9.3); Neutrophils # 4.8 K/mm3 (1.8-7.8); Neutrophils % 85.8 % (37.0-80.0); Nucleated Red Blood Cells # 0 10^3/uL; Nucleated Red Blood Cells % 0 %; Platelet Count 180 K/mm3 (142-424); Red Blood Count 3.26 M/mm3 (4.20-5.40); Red Cell Distribution Width 12.8 % (11.5-17.5); Red Cell Distribution Width-SD 47.9 fL; White Blood Count 5.6 K/mm3 (4.8-10.8)
[2024-11-19 06:21] LABS: Albumin Level 3.8 g/dl (3.5-5.0); Chloride 95 mmol/L (98-107); Potassium 3.5 mmoL/L (3.5-5.1); Sodium 127 mmol/L (136-145)
[2024-11-19 06:24] LABS: Alanine Aminotransferase 34 U/L (12-78); Albumin/Globulin Ratio 1.3 (1.1-1.8); Alkaline Phosphatase 53 U/L (38-126); Anion Gap 7.5 mEq/L (5-15); Aspartate Amino Transferase 76 U/L (14-36); Blood Urea Nitrogen 11 mg/dl (7-17); Calcium 8.8 mg/dl (8.4-10.2); Carbon Dioxide 28 mmol/L (22.0-30.0); Creatinine Clearance Estimated 38 mL/min (50-200); Estimated Glomerular Filt Rate 83 ml/min (>60); GFR (African American) 101 ML/MIN (>60); Glucose 151 mg/dl (74-100); Total Protein,Serum 6.8 g/dl (6.3-8.2)
[2024-11-19 06:25] LABS: Bilirubin,Total 0.1 mg/dl (0.2-1.3)
[2024-11-19] MEDS: IPRATROPIUM/ALBUTEROL 3 ML NEB IH ×2 (06:29→11:23)
[2024-11-19 07:02] LABS: Hemoglobin 11.7 g/dL (12.2-16.2)
[2024-11-19 07:04] LABS: MANUAL DIFFERENTIAL MANUAL DIFFERENTIAL (MANUAL DIFF)
--- NOTE | 2024-11-19 07:52 | HMH.PHAINT1 ---
Pharmacy Intervention Comments: HOME MEDICATION LIST VERIFIED USING LIST FROM OUTPATIENT PHARMACY
[2024-11-19 07:54] LABS: Lymphocytes % 13 % (10-50); Macrocytosis 1+; Monocytes % 2 % (2-9); Neutrophils % 85 % (42-76); Platelet Estimate Normal; Total Cells Counted 100
[2024-11-19 08:38] LABS: Adenovirus,PCR Not Detected (NotDetected); Bordetella Pertussis Not Detected (NotDetected); Chlamydophila Pneumoniae, PCR Not Detected (NotDetected); Coronavirus 19, PCR Not Detected (NotDetected); Coronavirus 229E Not Detected (NotDetected); Coronavirus NL63 Not Detected (NotDetected); Coronavirus OC43 Not Detected (NotDetected); Coronovirus HKU1,PCR Not Detected (NotDetected); Human Metapneumovirus Not Detected (NotDetected); Influenza A, PCR Not Detected (NotDetected); Influenza AH1, 2009 Not Detected (NotDetected); Influenza AH1, PCR Not Detected (NotDetected); Influenza AH3,PCR Not Detected (NotDetected); Influenza B, PCR Not Detected (NotDetected); Mycoplasma Pneumoniae, PCR Not Detected (NotDetected); Parainfluenza 1, PCR Not Detected (NotDetected); Parainfluenza 2, PCR Not Detected (NotDetected); Parainfluenza 4, PCR Not Detected (NotDetected); Respiratory Syncytial Virus Not Detected (NotDetected); Rhinovirus/Enterovirus Not Detected (NotDetected)
--- NOTE | 2024-11-19 09:03 | EXP.HP ---
History of Present Illness *Admission Date: 11/18/24 *Reason for visit:: Shortness of breath *History of present illness: This patient is a 69-year-old female with a history of COPD, hypertension, hyperlipidemia presenting to the emergency department for evaluation with concern for shortness of breath. According the patient's son, she has been sick for about 3 days now and had been given Phenergan cough syrup as well as other medications including steroids to help, but she worsened today with increasing shortness of breath and now confusion. He notes that she just seemed confused and was not sure what was going on. He notes that she keeps complaining that she is thirsty but she has not been drinking anything at all and has had significant increased work of breathing. EMS was called to the patient's home today and noted the patient's O2 saturation was 74% on room air. The patient does not typically wear oxygen at home. Patient has significant conversational dyspnea and does not contribute much to history, but she is alert and oriented x 4. She complains of shortness of breath but denies any other physical concerns or complaints at this time. On exam, patient is ill-appearing in respiratory distress with tachycardia, tachypnea, significantly diminished breath sounds bilaterally. She has new oxygen requirement. She looks clinically dry. She is hypertensive and tachycardic. Cannot use PERC criteria to exclude PE given age and hypoxia/tachycardia. Workup included CBC, CMP, troponin, D-dimer, VBG, magnesium, phosphorus, viral swab, urinalysis, chest x-ray, EKG. Patient was given DuoNebs x 3 as well as IV methylprednisolone and magnesium for symptomatic improvement of severe respiratory distress in the setting of COPD. I independently interpreted chest x-ray prior to the radiologist read and noted hyperinflation consistent with COPD but I do not see any large focal consolidation concerning for pneumonia. Please see their read for final interpretation. Labs were obtained that demonstrated decompensated respiratory acidosis on VBG. No significant leukocytosis or anemia on CBC, D-dimer is negative for years criteria. BNP is mildly elevated without evidence of gross volume overload, CRP is elevated at 126. She also has hyponatremia in the setting of very poor oral intake. I started with a liter bolus of IV fluids, but I did not give full bolus because of concern for respiratory failure and feeling it would be harmful to the patient. Administered IV Rocephin and azithromycin for empiric community-acquired pneumonia antibiotic coverage On reassessment, patient had minimal improvement after administration of interventions above. She continues to have respiratory distress, for which I ordered a continuous albuterol neb. For the decompensated respiratory acidosis, the patient was placed on BiPAP. Repeat VBG did not show significant improvement, so we will continue the BiPAP and continue interventions to try and help get the patient breathing better. Ultimately, I feel she requires admission for severe COPD exacerbation with acute on chronic respiratory failure. I had an interactive discussion with the hospitalist Dr. Jennings on behalf of Dr. Donovan who stated the patient for admission. She is admitted to stepdown in stable condition. (above as per ER physician) The patient is on 4L of nasal oxygen this am with sats in the mid 90's. She just had a neb treatment about an hour ago. She is still very SOA but denies any pain. [facility] Disclaimer: The information contained in this section may have been updated after the patient was seen, as this information can be updated by other users. Medical History (Updated 11/19/24 @ 09:08 by HECTOR Robles) Tobacco abuse Alcoholism Endometriosis Hyperlipidemia Hypertension COPD (chronic obstructive pulmonary disease) Surgical History (Updated 11/19/24 @ 09:08 by HECTOR Robles) History of H/O partial nephrectomy Hysterectomy planned Hx of ureterostomy History of lumpectomy Family History (Updated 11/19/24 @ 09:08 by HECTOR Robles) Other Cancer Social History (Updated 11/18/24 @ 21:49 by ADDISON Lowry) Smoking Status: Current every day smoker tobacco type: cigarettes packs per day: 1 alcohol intake: current alcohol intake frequency: 3 or more drinks per day counseling provided: provider counseling substance use type: marijuana current occupational status: other Travel in the last 8 weeks?: None household members: spouse housing: house number of children: 1 caffeine: Yes Have you lived/traveled outside [place] in past 30 days?: No Contact w/someone who lives/traveled outside US past 30 days?: No Exposure to someone with infectious disease in past 14 days?: No Do you have a fever (greater than 100.4 F or 38 C)?: No Have you tested positive for COVID-19?: No Exposed to someone with COVID-19 in past 14 days?: No Do you have a sore throat?: No Do you have a cough?: No Do you have any weakness?: No Do you have any diarrhea?: No Are you experiencing any unusual bleeding?: No Do you have any muscle aches/pain?: No Do you have any abdominal pain?: No Are you experiencing loss of taste or smell?: No Other Medical History Have you received the Flu Vaccine for this season: Yes Have you received the Pneumonia Vaccine: No Review of Systems Constitutional Constitutional: Reports body ache(s), Reports fatigue, Reports fever(s), Reports poor appetite, Reports malaise and Reports weakness Eyes Eyes: Denies blurry vision and Denies diplopia ENT Ears, Nose, Mouth, and Throat: Reports nasal congestion, Denies sore throat and Reports vertigo *Cardiovascular Cardiovascular: Denies chest pain, Reports dyspnea and Reports rapid heart rate *Respiratory Respiratory: Reports chest congestion, Reports cough, Reports dyspnea and Reports wheezing *Gastrointestinal Gastrointestinal: Denies abdominal pain, Denies diarrhea, Reports nausea and Denies vomiting *Genitourinary Genitourinary: Denies difficulty voiding and Denies dysuria *Musculoskeletal Musculoskeletal: Reports myalgias *Neurologic Neurologic: Reports confusion, Reports vertigo and Reports weakness Psychiatric Psychiatric: Reports confusion Endocrine Endocrine: Reports fatigue Allergic/Immunologic Allergic/Immunologic: Reports wheezing Meds Home Medications and Allergies Home Medications ?Medication ?Instructions ?Recorded ?Confirmed ?Type albuterol sulfate 90 mcg/actuation 2 puffs IH Q6HP PRN Shortness Of 02/01/18 11/19/24 Rx aerosol inhaler Breath Or Wheezing #1 inh umeclidinium 62.5 mcg-vilanterol 1 inh inhalation Q24H 02/20/19 11/19/24 History 25 mcg/actuation powdr for inhalation (Anoro Ellipta) estradiol 0.01% (0.1 mg/gram) 1 g vaginal QWEEK #42.5 grams 03/31/21 11/19/24 Rx vaginal cream (Estrace) ipratropium 0.5 mg-albuterol 3 mg 3 ml inhalation Q6HP PRN Shortness 11/19/24 11/19/24 History (2.5 mg base)/3 mL nebulization Of Breath soln metoprolol succinate 50 mg 25 mg PO HS 11/19/24 11/19/24 History tablet,extended release 24 hr metoprolol succinate 50 mg 50 mg PO DAILY 11/19/24 11/19/24 History tablet,extended release 24 hr sertraline 100 mg tablet 100 mg PO DAILY 11/19/24 11/19/24 History New Prescriptions to Start Prescriptions: Allergies Allergy/AdvReac Type Severity Reaction Status Date / Time oxycodone (OXYCODONE) AdvReac Unknown Verified 03/31/21 09:01 tramadol (TRAMADOL) AdvReac Unknown Verified 03/31/21 09:01 Exam Data for Last 24 hours Vital signs and Labs for Last 24 Hours: Temp Pulse Resp BP Pulse Ox O2 Del Method O2 Flow Rate 97.9 F 87 23 162/93 H 94 L Nasal Cannula 4 11/19/24 04:00 11/19/24 06:30 11/19/24 06:00 11/19/24 06:00 11/19/24 06:30 11/19/24 06:30 11/19/24 06:30 FiO2 25 11/19/24 02:45 Laboratory Results - last 24 hr 11/18/24 18:01: WBC 8.3, RBC 3.85 L, Hgb 13.8, Hct 39.1, MCV 101.6 H, MCH 35.8 H, MCHC 35.3, RDW 13.1, Plt Count 205, MPV 8.8, Neut % (Auto) 83.6 H, Lymph % (Auto) 7.0 L, [place] % (Auto) 5.7, Eos % (Auto) 2.9, Baso % (Auto) 0.2, Neut # (Auto) 6.9, Lymph # (Auto) 0.6 L, [place] # (Auto) 0.5, Eos # (Auto) 0.2, Baso # (Auto) 0.0, D-Dimer 0.72 H, Sodium 124 L, Potassium 4.2, Chloride 93 L, Carbon Dioxide 26, Anion Gap 9.2, BUN 12, Creatinine 0.80, Estimated Creat Clear 37, Estimated GFR 72, Est GFR ( Amer) 87, Glucose 141 H, Calcium 9.4, Phosphorus 3.8, Magnesium 1.8, Total Bilirubin 0.4, AST 85 H, ALT 35, Alkaline Phosphatase 61, Troponin I 0.03, C-Reactive Protein 126.3 H, NT-Pro-B Natriuret Pep 1520 H, Total Protein 7.8, Albumin 4.6, Globulin 3.2, Albumin/Globulin Ratio 1.4, TSH 0.62, Thyroxine (T4) 6.9 11/18/24 18:12: VBG pH 7.25 L, VBG pCO2 58.0 H, VBG pO2 47.8 H, VBG HCO3 24.9, VBG Total CO2 26.7, VBG O2 Saturation 79.0 H, VBG Base Excess -2.3, VBG Lactic Acid 2.0 11/18/24 18:18: SARS-CoV-2 (PCR) Not detected, Influenza A Untype (PCR) Not detected, Influenza Type B (PCR) Not detected 11/18/24 20:12: VBG pH 7.25 L, VBG pCO2 54.9 H, VBG pO2 46.2 H, VBG HCO3 23.4, VBG Total CO2 25.1, VBG O2 Saturation 76.7 H, VBG Base Excess -3.9 L, VBG Lactic Acid 1.7 11/18/24 21:28: Troponin I 0.05 H 11/19/24 00:20: Troponin I 0.04 H 11/19/24 01:53: Urine Color Yellow, Urine Appearance Clear, Urine pH 6.0, Ur Specific [place] 1.025, Urine Protein Trace, Urine Glucose (UA) Negative, Urine Ketones Negative, Urine Blood 1+ A, Urine Nitrate Negative, Urine Bilirubin Negative, Urine Urobilinogen 0.2, Ur Leukocyte Esterase Negative, Urine RBC 10-20, Urine WBC 3-5, Ur Squamous Epith Cells 10-20, Urine Bacteria Trace, Hyaline Casts 3-5 11/19/24 05:35: WBC 5.6 D, RBC 3.26 L, Hgb 11.7 L D, Hct 33.0 L, MCV 101.2 H, MCH 35.9 H, MCHC 35.5 H, RDW 12.8, Plt Count 180, MPV 9.1, Neut % (Auto) 85.8 H, Lymph % (Auto) 8.7 L, [place] % (Auto) 4.8, Eos % (Auto) 0.0 L, Baso % (Auto) 0.2, Neut # (Auto) 4.8, Lymph # (Auto) 0.5 L, [place] # (Auto) 0.3, Eos # (Auto) 0.0, Baso # (Auto) 0.0, Total Counted 100, Neutrophils % (Manual) 85 H, Lymphocytes % (Manual) 13, Monocytes % (Manual) 2, Platelet Estimate Normal, Macrocytosis 1+, VBG pH 7.35, VBG pCO2 46.1, VBG pO2 42.0 H, VBG HCO3 24.8, VBG Total CO2 26.2, VBG O2 Saturation 75.8 H, VBG Base Excess -0.9, VBG Lactic Acid 1.7, Sodium 127 L, Potassium 3.5, Chloride 95 L, Carbon Dioxide 28, Anion Gap 7.5, BUN 11, Creatinine 0.70, Estimated Creat Clear 38, Estimated GFR 83, Est GFR ( Amer) 101, Glucose 151 H, Calcium 8.8, Total Bilirubin 0.1 L, AST 76 H, ALT 34, Alkaline Phosphatase 53, Total Protein 6.8, Albumin 3.8 D, Globulin 3.0, Albumin/Globulin Ratio 1.3 I & O for Last 24 hours: Intake & Output 11/16/24 11/17/24 11/18/24 11/19/24 11:59 11:59 11:59 11:59 Output Total 950 / 950 Balance -950 / -950 Weight 98 lb 1.585 oz Constitutional Constitutional: mild distress, thin and cachectic *Routine HEENT Exam Head: Present normocephalic and atraumatic Eye: Present EOMI and PERRL ENT: Present mucous membranes dry *Routine Neck Exam Neck: Present supple and full ROM *Routine Respiratory Exam Respiratory: Present rhonchi and wheezes *Routine Cardiovascular Exam Cardiovascular: Present RRR *Routine Abdominal Exam Abdominal: Present soft and normoactive bowel sounds; Absent tenderness *Routine Rectal Exam Rectal:: deferred *Routine Genitalia Exam Genitalia:: deferred *Routine Extremities Exam Extremities: Absent cyanosis, clubbing or edema *Routine Skin Exam Skin: Present intact; Absent erythema *Routine Neurological Exam Neurological: Present alert and oriented X3 H&P: Result Impressions CXR - 1. No acute thoracic process. 2. COPD. Assessment and Plan *Assessment and plan (1) Acute on chronic respiratory failure with hypoxia and hypercapnia: Status: Acute Category: Medical Code(s): J96.21 - Acute and chronic respiratory failure with hypoxia; J96.22 - Acute and chronic respiratory failure with hypercapnia (2) Acute exacerbation of chronic obstructive pulmonary disease: Status: Acute Category: Medical Code(s): J44.1 - Chronic obstructive pulmonary disease with (acute) exacerbation (3) Hyponatremia: Status: Acute Category: Medical Code(s): E87.1 - Hypo-osmolality and hyponatremia (4) Family history of coronary artery disease: Status: Acute Category: Medical Code(s): Z82.49 - Family history of ischemic heart disease and other diseases of the circulatory system (5) HTN (hypertension): Status: Chronic Qualifiers: Hypertension type: essential hypertension Qualified Code(s): I10 - Essential (primary) hypertension Category: Medical Code(s): I10 - Essential (primary) hypertension Plan Patient has been started on IVF's, abx, nebs, and steroids. Will add tessalon and also get a full respiratory panel. Will discuss further care with Dr. Donovan.
--- NOTE | 2024-11-19 09:26 | P.CONS_ITS ---
History of Present Illness History of present illness: Ms. Mcgarry is a 69-year-old female current smoker greater than [id number] smoking history currently using Anoro and albuterol. Baseline well-controlled symptoms with exacerbations, supplementation, rpresented to ER with worsening respiratory distress on new oxygen requirements, and pulmonary was called for further evaluation management. [facility] Disclaimer: The information contained in this section may have been updated after the patient was seen, as this information can be updated by other users. Medical History (Updated 11/19/24 @ 12:13 by Israel Salguero MD) Pulmonary emphysema Tobacco abuse Alcoholism Endometriosis Hyperlipidemia Hypertension COPD (chronic obstructive pulmonary disease) Surgical History (Updated 11/19/24 @ 09:08 by HECTOR Robles) History of H/O partial nephrectomy Hysterectomy planned Hx of ureterostomy History of lumpectomy Family History (Updated 11/19/24 @ 09:08 by HECTOR Robles) Other Cancer Social History (Updated 11/18/24 @ 21:49 by ADDISON Lowry) Smoking Status: Current every day smoker tobacco type: cigarettes packs per day: 1 alcohol intake: current alcohol intake frequency: 3 or more drinks per day counseling provided: provider counseling substance use type: marijuana current occupational status: other Travel in the last 8 weeks?: None household members: spouse housing: house number of children: 1 caffeine: Yes Have you lived/traveled outside US in past 30 days?: No Contact w/someone who lives/traveled outside US past 30 days?: No Exposure to someone with infectious disease in past 14 days?: No Do you have a fever (greater than 100.4 F or 38 C)?: No Have you tested positive for COVID-19?: No Exposed to someone with COVID-19 in past 14 days?: No Do you have a sore throat?: No Do you have a cough?: No Do you have any weakness?: No Do you have any diarrhea?: No Are you experiencing any unusual bleeding?: No Do you have any muscle aches/pain?: No Do you have any abdominal pain?: No Are you experiencing loss of taste or smell?: No Review of Systems Constitutional Constitutional: Reports fatigue and Reports weakness Eyes Eyes: Denies eye discharge, Denies dry eyes, Denies irritation and Denies itchy eyes ENT Ears, Nose, Mouth, and Throat: Denies lip swelling, Denies throat swelling and Reports vertigo *Cardiovascular Cardiovascular: Reports dyspnea and Reports dyspnea on exertion *Respiratory Respiratory: Denies change in phlegm color, Reports chest congestion, Reports cough, Reports dyspnea, Reports dyspnea on exertion, Denies excessive phlegm production and Reports wheezing *Gastrointestinal Gastrointestinal: Denies abdominal pain, Denies belching and Denies cramping *Musculoskeletal Musculoskeletal: Reports back pain, Reports myalgias and Reports other (No small joint swelling or Pain) *Neurologic Neurologic: Reports confusion, Reports vertigo and Reports weakness Psychiatric Psychiatric: Reports confusion Endocrine Endocrine: Reports fatigue and Denies heat intolerance Hematologic/Lymphatic Hematologic/Lymphatic: Denies easy bleeding and Denies lymphadenopathy Allergic/Immunologic Allergic/Immunologic: Denies itchy eyes, Denies lip swelling, Denies throat swelling and Reports wheezing Pulmonology Exam Inpatient Vital signs and Labs for Last 24 Hours: Temp Pulse Resp BP Pulse Ox O2 Del Method O2 Flow Rate 97.8 F 92 H 19 106/88 L 98 Nasal Cannula 4 11/19/24 07:22 11/19/24 09:07 11/19/24 09:07 11/19/24 09:07 11/19/24 09:07 11/19/24 09:07 11/19/24 09:07 FiO2 25 11/19/24 02:45 Laboratory Results - last 24 hr 11/18/24 18:01: WBC 8.3, RBC 3.85 L, Hgb 13.8, Hct 39.1, MCV 101.6 H, MCH 35.8 H , MCHC 35.3, RDW 13.1, Plt Count 205, MPV 8.8, Neut % (Auto) 83.6 H, Lymph % (Auto) 7.0 L, [place] % (Auto) 5.7, Eos % (Auto) 2.9, Baso % (Auto) 0.2, Neut # (Auto) 6.9, Lymph # (Auto) 0.6 L, [place] # (Auto) 0.5, Eos # (Auto) 0.2, Baso # (Auto) 0.0, D-Dimer 0.72 H, Sodium 124 L, Potassium 4.2, Chloride 93 L, Carbon Dioxide 26, Anion Gap 9.2, BUN 12, Creatinine 0.80, Estimated Creat Clear 37, Estimated GFR 72, Est GFR ( Amer) 87, Glucose 141 H, Calcium 9.4, Phosphorus 3.8, Magnesium 1.8, Total Bilirubin 0.4, AST 85 H, ALT 35, Alkaline Phosphatase 61, Troponin I 0.03, C-Reactive Protein 126.3 H, NT-Pro-B Natriuret Pep 1520 H, Total Protein 7.8, Albumin 4.6, Globulin 3.2, Albumin/Globulin Ratio 1.4, TSH 0.62, Thyroxine (T4) 6.9 11/18/24 18:12: VBG pH 7.25 L, VBG pCO2 58.0 H, VBG pO2 47.8 H, VBG HCO3 24.9, VBG Total CO2 26.7, VBG O2 Saturation 79.0 H, VBG Base Excess -2.3, VBG Lactic Acid 2.0 11/18/24 18:18: SARS-CoV-2 (PCR) Not detected, Influenza A Untype (PCR) Not detected, Influenza Type B (PCR) Not detected 11/18/24 20:12: VBG pH 7.25 L, VBG pCO2 54.9 H, VBG pO2 46.2 H, VBG HCO3 23.4, VBG Total CO2 25.1, VBG O2 Saturation 76.7 H, VBG Base Excess -3.9 L, VBG Lactic Acid 1.7 11/18/24 21:28: Troponin I 0.05 H 11/19/24 00:20: Troponin I 0.04 H 11/19/24 01:53: Urine Color Yellow, Urine Appearance Clear, Urine pH 6.0, Ur Specific [place] 1.025, Urine Protein Trace, Urine Glucose (UA) Negative, Urine Ketones Negative, Urine Blood 1+ A, Urine Nitrate Negative, Urine Bilirubin Negative, Urine Urobilinogen 0.2, Ur Leukocyte Esterase Negative, Urine RBC 10- 20, Urine WBC 3-5, Ur Squamous Epith Cells 10-20, Urine Bacteria Trace, Hyaline Casts 3-5 11/19/24 05:35: WBC 5.6 D, RBC 3.26 L, Hgb 11.7 L D, Hct 33.0 L, MCV 101.2 H, M CH 35.9 H, MCHC 35.5 H, RDW 12.8, Plt Count 180, MPV 9.1, Neut % (Auto) 85.8 H, Lymph % (Auto) 8.7 L, [place] % (Auto) 4.8, Eos % (Auto) 0.0 L, Baso % (Auto) 0.2, Neut # (Auto) 4.8, Lymph # (Auto) 0.5 L, [place] # (Auto) 0.3, Eos # (Auto) 0.0, Baso # (Auto) 0.0, Total Counted 100, Neutrophils % (Manual) 85 H, Lymphocytes % (Manual) 13, Monocytes % (Manual) 2, Platelet Estimate Normal, Macrocytosis 1+, VBG pH 7.35, VBG pCO2 46.1, VBG pO2 42.0 H, VBG HCO3 24.8, VBG Total CO2 26.2, V BG O2 Saturation 75.8 H, VBG Base Excess -0.9, VBG Lactic Acid 1.7, Sodium 127 L , Potassium 3.5, Chloride 95 L, Carbon Dioxide 28, Anion Gap 7.5, BUN 11, Creatinine 0.70, Estimated Creat Clear 38, Estimated GFR 83, Est GFR ( Amer) 101, Glucose 151 H, Calcium 8.8, Total Bilirubin 0.1 L, AST 76 H, ALT 34, Alkaline Phosphatase 53, Total Protein 6.8, Albumin 3.8 D, Globulin 3.0, Albumin/Globulin Ratio 1.3 I & O for Labs for Last 24 Hours: Intake & Output 11/16/24 11/17/24 11/18/24 11/19/24 23:59 23:59 23:59 23:59 Output Total 950 / 950 Balance -950 / -950 Weight 98 lb 1.6 oz 98 lb 1.585 oz Constitutional: Present moderate distress Head: Present normocephalic and atraumatic ENT: Present normal exam, normal oropharynx and mucous membranes moist Neck: Present normal inspection and full ROM Respiratory: Present respiratory distress, wheezes and able to speak in complete sentences Cardiac: Present S1/S2, Tachycardia and radial pulses present GI: Present soft and distention; Absent tenderness or guarding Rectal (female): Present deferred (female): Present deferred Skin: Present intact; Absent cyanosis or jaundice Neuro: Present alert, awake and oriented x 3 Extremities: Present normal inspection; Absent clubbing or cyanosis Psychiatric: Present normal affect and cooperative Meds Home Medications and Allergies Home Medications ?Medication ?Instructions ?Recorded ?Confirmed ?Type albuterol sulfate 90 mcg/actuation 2 puffs IH Q6HP PRN Shortness Of 02/01/18 11/19/24 Rx aerosol inhaler Breath Or Wheezing #1 inh umeclidinium 62.5 mcg-vilanterol 1 inh inhalation Q24H 02/20/19 11/19/24 History 25 mcg/actuation powdr for inhalation (Anoro Ellipta) estradiol 0.01% (0.1 mg/gram) 1 g vaginal QWEEK #42.5 grams 03/31/21 11/19/24 Rx vaginal cream (Estrace) ipratropium 0.5 mg-albuterol 3 mg 3 ml inhalation Q6HP PRN Shortness 11/19/24 11/19/24 History (2.5 mg base)/3 mL nebulization Of Breath soln metoprolol succinate 50 mg 25 mg PO HS 11/19/24 11/19/24 History tablet,extended release 24 hr metoprolol succinate 50 mg 50 mg PO DAILY 11/19/24 11/19/24 History tablet,extended release 24 hr sertraline 100 mg tablet 100 mg PO DAILY 11/19/24 11/19/24 History New Prescriptions to Start Prescriptions: Allergies Allergy/AdvReac Type Severity Reaction Status Date / Time oxycodone (OXYCODONE) AdvReac Unknown Verified 03/31/21 09:01 tramadol (TRAMADOL) AdvReac Unknown Verified 03/31/21 09:01 Results Laboratory Findings 11/19/24 05:35 11/19/24 05:35 PT/INR, D-dimer D-Dimer 0.72 ug/mL (0.0-0.5) H 11/18/24 18:01 Abnormal lab findings: Abnormal Labs 11/18/24 11/18/24 11/18/24 18:01 18:12 20:12 RBC 3.85 L Hgb Hct MCV 101.6 H MCH 35.8 H MCHC Neut % (Auto) 83.6 H Lymph % (Auto) 7.0 L Eos % (Auto) Lymph # (Auto) 0.6 L Neutrophils % (Manual) D-Dimer 0.72 H VBG pH 7.25 L 7.25 L VBG pCO2 58.0 H 54.9 H VBG pO2 47.8 H 46.2 H VBG O2 Saturation 79.0 H 76.7 H VBG Base Excess -3.9 L Sodium 124 L Chloride 93 L Glucose 141 H Total Bilirubin AST 85 H Troponin I C-Reactive Protein 126.3 H NT-Pro-B Natriuret Pep 1520 H Urine Blood 11/18/24 11/19/24 11/19/24 21:28 00:20 01:53 RBC Hgb Hct MCV MCH MCHC Neut % (Auto) Lymph % (Auto) Eos % (Auto) Lymph # (Auto) Neutrophils % (Manual) D-Dimer VBG pH VBG pCO2 VBG pO2 VBG O2 Saturation VBG Base Excess Sodium Chloride Glucose Total Bilirubin AST Troponin I 0.05 H 0.04 H C-Reactive Protein NT-Pro-B Natriuret Pep Urine Blood 1+ A 11/19/24 05:35 RBC 3.26 L Hgb 11.7 L D Hct 33.0 L MCV 101.2 H MCH 35.9 H MCHC 35.5 H Neut % (Auto) 85.8 H Lymph % (Auto) 8.7 L Eos % (Auto) 0.0 L Lymph # (Auto) 0.5 L Neutrophils % (Manual) 85 H D-Dimer VBG pH VBG pCO2 VBG pO2 42.0 H VBG O2 Saturation 75.8 H VBG Base Excess Sodium 127 L Chloride 95 L Glucose 151 H Total Bilirubin 0.1 L AST 76 H Troponin I C-Reactive Protein NT-Pro-B Natriuret Pep Urine Blood Assessment and Plan *Assessment and plan (1) Acute on chronic respiratory failure with hypoxia and hypercapnia: Status: Acute Category: Medical Code(s): J96.21 - Acute and chronic respiratory failure with hypoxia; J96.22 - Acute and chronic respiratory failure with hypercapnia (2) Acute exacerbation of chronic obstructive pulmonary disease: Status: Acute Category: Medical Code(s): J44.1 - Chronic obstructive pulmonary disease with (acute) exacerbation (3) Pulmonary emphysema: Status: Acute Category: Medical Code(s): J43.9 - Emphysema, unspecified Plan Ms. Mcgarry is a 69-year-old female current smoker greater than [id number] smoking history currently using Anoro and albuterol. Baseline well-controlled symptoms with exacerbations, supplementation, rpresented to ER with worsening respiratory distress on new oxygen requirements, and pulmonary was called for further evaluation management. Afebrile. Hemodynamically stable. No evidence of leukocytosis. Chest x-ray upon admission hyperinflated lungs consistent with COPD. No dense consolidative/airspace changes noted. Complaints of respiratory viral PCR positive for parainfluenza virus Patient currently receiving nebulization therapies and prednisone. Mild expiratory wheezing noted on auscultation. Etiology likely from COPD exacerbation secondary to parainfluenza virus Plan: Trelegy 100 inhaler along with DuoNebs 4 times daily as needed Prednisone 40 mg daily to complete a total of 5-day course Supplementation to maintain O2 saturation goal of 90% and above. Weaned to 2 L this morning with saturations maintained at 90% and above. Continue to wean as tolerated.
[2024-11-19] MEDS: 0.45% NaCl w/20mEq KCL 1,000 ML 75 ML IV ×2 (10:03→23:08)
[2024-11-19] MEDS: METHYLPREDNISOLONE SOD SUCC 125MG VIAL 80 MG IV (10:03)
[2024-11-19] MEDS: BENZONATATE 100MG CAPSULE 200 MG PO ×2 (10:07→18:33)
[2024-11-19 10:30] LABS: Parainfluenza 3, PCR Detected (NotDetected)
--- NOTE | 2024-11-19 11:19 | PC.NURSE ---
Pt found to be anxious, audibly wheezing and tachy at 120s. pt given a cool wash cloth, redirected and Shoshana in respiratory notified for PRN breathing treatment.
--- NOTE | 2024-11-19 11:37 | PC.NURSE ---
Spoke with Sammie Kyle in [place] office for PRN anxiety medication that the patient reports she takes at home. She reported she would try to get ahold of Dr. Donovan for the continuation of meds.
--- NOTE | 2024-11-19 11:59 | PC.NURSE ---
Addendum entered by Kirsten Valadez RN 11/19/24 12:00: pt remains tachy at 130bmp. aware Original Note: Dr. Donovan at bedside for pt evaluation
[2024-11-19] MEDS: METOPROLOL SUCCINATE XL 50MG TABLET 50 MG PO ×2 (12:14→20:56)
[2024-11-19] MEDS: MVI, ADULT NO.1 WITH VIT K 10 ML, THIAMINE HCL 100 MG, MAGNESIUM SULFATE 2 GM in LACTAT... 125 ML IV (12:30)
[2024-11-19] MEDS: OXAZEPAM 15 MG CAPSULE PO ×2 (12:31→20:56)
[2024-11-19] MEDS: FOLIC ACID 1MG TABLET 1 MG PO (12:32)
[2024-11-19] MEDS: FLUTICASONE/UMECLIDIN/VILANTER 100/62.5/25MCG INHALER 1 PUFF IH (13:04)
[2024-11-19] MEDS: IBUPROFEN 600 MG TABLET PO (13:06)
--- NOTE | 2024-11-19 14:29 | HMH.PTEV ---
Physical Therapy Evaluation Rehab PT IP Evaluation Start: 11/19/24 12:10 Freq: ONCE Status: Active Protocol: Document 11/19/24 13:10 PHORCARLOS (Rec: 11/19/24 14:29 PHORNE [id number]) Subjective/History History History This patient is a 69-year-old female with a history of COPD , hypertension, hyperlipidemia presenting to the emergency department for evaluation with concern for shortness of breath. Patient currently lives at home with her . Her home has 14 steps to enter and 2 steps inside. Pt does not use an AD and is independent with all ADLs and mobility at baseline. Subjective Subjective Pt presents in bed and is oriented to name, place, and time. Pt stood at EOB ~1 minute, and upon return to bed began to become visibly anxious and SOA. Vitals monitored throughout session and pt calmed with deep breathing. Pt left with call light in reach and nsg notified. [facility] How much help from another person do you currently need... Turning from your back to your side None while in a flat bed without using bedrails? Moving from lying on back to sitting on None the side of a flat bed without using bedrails? Moving to and from a bed to a chair ( None including a wheelchair)? Standing up from a chair using your arms None ? (e.g., wheelchair, bedside chair) Walking in hospital room? None Climbing 3-5 steps with a railing? None Mobility Score 24 Mobility Level [facility] Mobility Calculator Mobility 8 Walk 250 feet or more Rehab PT IP Eval Objective Appearance Patient Behavior Appropriate,Cooperative, Anxious Patient Orientation Person,Place,Time Difficulty following instructions none Speech Pattern Clear,Appropriate Ambulation Patient Able to Ambulate Yes Ambulation Observation IP General Gait Pattern Observation No Deviations/Normal Ambulation Distance (feet) 5 Ambulation Assistive Device Rolling Walker Ambulation Ability Contact Guard/Hand Hold Balance Ability to Arise Able, uses arms to help Sitting Balance Steady, safe Standing Balance Steady, wide stance Dynamic Sitting Balance Ability Normal Dynamic Standing Balance Ability Normal Transfers Bed Transfer Ability Independent Sit to Stand Bed Transfer Ability Contact Guard/Hand Hold Rehab PT IP prob,goals,plan Problems Date of Evaluation: 11/19/24 PT IP Problems Transfers,Gait,Balance,Self care,Safety Rehab Potential Rehab Potential Good Plan PT Intervention Plan Transfers,Gait,Balance,Self care,Safety,Therapeutic Exercise PT Plan Frequency Daily Duration LOS Discharge Goals Bed Transfer Ability Independent Sit to Stand Chair Transfer Ability Independent Ambulation Distance (feet) 25 Discharge Plan PT Discharge Plan Patient currently most appropriate for placement in a skilled rehab facility once medically stable for d/c due to home set up. Skilled acute therapy is currently indicated to improve LE strength and stability to decrease fall risk, improve transfer and ambulation ability to return to OF with all ADLs. Eval Complexity Eval Charge Codes 31003 - High Complexity PHYSICIAN CERTIFICATION: I certify the specified therapy services for Shabnam Mcgarry are required, authorized, and reviewed every 30 days.
--- NOTE | 2024-11-19 15:56 | HMH.OTEV ---
OT Inpatient Evaluation Rehab OT IP Evaluation Start: 11/19/24 12:10 Freq: ONCE Status: Active Protocol: Document 11/19/24 14:56 POLINA (Rec: 11/19/24 15:08 POLINA [id number]) Rehab OT IP Assessment Subjective History Pt is a 69 year old female with hx of COPD, hypertension, hyperlipidemia. Pt has surgical hx of uretostomy and lumpectomy. Pt was admitted due to acute exacerbation of COPD and chronic resp failure, hypoxia and hyperapnia and hyponatremia. Pt's chief complaint was SOB. Pt reports they have a home with 14 steps to get into house. pt reports they live with family. pt reports they were ind in ADLs and IADLs prior to hospital. pt reports they were still driving prior to hospital. Subjective I am having a panic attack. Pt was orient X3 when therapy entered room. Pt and family were in room when therapy entered. pt was alert and seated upright in bed. pt agreed to move to EOB. Pt demo good UB strength to move to EOB with SBA. pt then agreed to stand up. Pt was ind in donning socks. pt was then Ind in standing with CGA for safety with walker for aprox 1 min. pt able to use good dynamic balance and problem solving to move walker and take one and half step due to cords. Pt able to sit back in bed ind. Pt had catheter. pt reported pain in neck from hx of arthritis. pt then expressed they were having a panic attack and became very rigid and shaking with heart rate reaching high levels. pt was able to regulate with OS and vitals were monitored till pt was calmed. pt was able to use deep breathing. pt was left with call light and all needs within reach. nursing notified. Objective Patient Orientation Place,Day of Week,Year Right Upper Extremity Gross ROM WFL Left Upper Extremity Gross ROM WFL Bed Mobility bed mobility-scooting,bed mobility - supine/sit Assist Level Supervision/Stand by Transfer Training Sit/Stand/Step Transfer Assist Level Contact Guard/Hand Hold Chair Transfer Assistive Devices Standard Walker Lower Body Dressing Ability Independent Decrease in Endurance Yes Rehab OT IP prob,goals,plan Problems Date of Evaluation: 11/19/24 OT IP Problems Bed Mobility,Transfers,Balance ,Self care,Safety Rehab Potential Rehab Potential Good Equipment Needs Assistive Devices Straight Cane,Standard Walker Plan OT intervention Plan Bed Mobility,Transfers,Balance ,Self care,Safety,Therapeutic Exercise OT Plan Frequency Daily Duration LOS Discharge Goals Bed Mobility Ability Independent Sit to Stand Chair Transfer Ability Independent Chair Transfer Ability Independent Chair Transfer Technique Sit to/from Ambulatory Chair Transfer Assistive Devices Standard Walker,Straight Cane Self care skills fully toilet trained,dressing/ undressing independently Feeding Ability Assist with Tray Set Up Lower Body Dressing Ability Independent Upper Body Dressing Ability Independent Bathing Ability Independent Performing Toilet Hygiene Ability Independent Overall Commode/Toilet Transfer Ability Independent Commode/Toilet Transfer Technique Sit to/from Ambulatory Commode/Toilet Transfer Assistive Grab Bars Devices Oral Care Assist Independent Decrease in Endurance No Discharge Plan OT Discharge Plan At this time, Pt will be seen for skilled OT services and interventions daily for LOS to address functional limitations in occupational performance. Appropriate placement for skilled rehab services is recommended once DC to improve overall occupational performance. Eval Complexity Eval Charge Codes 01586 - High Complexity PHYSICIAN CERTIFICATION: I certify the specified therapy services for Shabnam Mcgarry are required, authorized, and reviewed every 30 days.
[2024-11-19] MEDS: CEFTRIAXONE 1 GM 1 GM in 0.9 % SODIUM CHLORIDE 50 ML IV (16:05)
[2024-11-20] VITALS (26 sets, daily range): BP systolic 104–172; BP diastolic 69–99; PULSE 60–111; RESP 16–30; TEMP 36.3–36.6; O2SAT 89–100; BMI 18.0
[2024-11-20] MEDS: IPRATROPIUM/ALBUTEROL 3 ML NEB IH ×5 (02:32→21:22)
[2024-11-20] MEDS: TRAZODONE 50MG TABLET 50 MG PO ×2 (04:15→21:00)
[2024-11-20] MEDS: LEVALBUTEROL 1.25MG/3ML NEB 1.25 MG IH (04:24)
--- NOTE | 2024-11-20 04:55 | PC.NURSE ---
Pt complained of shortness of breath, sat dropped to 68%, pt was in a tripod position, respiratory was called and NRB was placed until respiratory came to bedside. Respiratory placed pt back on bipap.
[2024-11-20 08:12] LABS: Anion Gap 5.6 mEq/L (5-15); Blood Urea Nitrogen 15 mg/dl (7-17); Calcium 8.2 mg/dl (8.4-10.2); Carbon Dioxide 30 mmol/L (22.0-30.0); Chloride 94 mmol/L (98-107); Creatinine Clearance Estimated 38 mL/min (50-200); Estimated Glomerular Filt Rate 100 ml/min (>60); GFR (African American) 121 ML/MIN (>60); Glucose 91 mg/dl (74-100); Potassium 4.6 mmoL/L (3.5-5.1); Sodium 125 mmol/L (136-145)
[2024-11-20 08:15] LABS: Basophils % 0.2 % (0.1-2.0); Hemoglobin 11.1 g/dL (12.2-16.2); Immature Granulocytes # 0.06 10^3uL; Immature Granulocytes % 0.7 %; Lymphocytes # 1.1 K/mm3 (0.7-4.5); Lymphocytes % 12.9 % (10-50); Mean Corpuscular HGB Conc 34.7 g/dL (31.8-35.4); Mean Corpuscular Hemoglobin 36.4 pg (27.0-31.2); Mean Corpuscular Volume 104.9 fl (81-99); Mean Platelet Volume 8.7 fl (7.4-10.4); Monocytes # 0.7 K/mm3 (0.1-1.0); Monocytes % 7.8 % (1.7-9.3); Neutrophils # 6.9 K/mm3 (1.8-7.8); Neutrophils % 78.4 % (37.0-80.0); Nucleated Red Blood Cells # 0 10^3/uL; Nucleated Red Blood Cells % 0 %; Platelet Count 188 K/mm3 (142-424); Red Blood Count 3.05 M/mm3 (4.20-5.40); Red Cell Distribution Width 13.2 % (11.5-17.5); Red Cell Distribution Width-SD 51.4 fL; White Blood Count 8.8 K/mm3 (4.8-10.8)
--- NOTE | 2024-11-20 08:28 | EXP.ACUTE.PN ---
Subjective *Date: 11/20/24 *Time: 08:40 Interval history: Patient is feeling about the same today. She is still SOA. She did sleep better last night. She denies any pain. Medical Exam Vital signs and Labs for Last 24 Hours: Vital Signs Temp Pulse Pulse Resp BP Pulse Ox O2 Del Method 11/20/24 07:00 BiPAP 11/20/24 06:00 71 20 131/79 99 BiPAP 11/20/24 05:00 BiPAP 11/20/24 04:47 11/20/24 04:20 76 11/20/24 04:20 74 11/20/24 04:00 80 11/20/24 04:00 97.9 F 105 H 24 158/82 H 94 L Nasal Cannula 11/20/24 03:00 Nasal Cannula 11/20/24 02:32 65 11/20/24 02:32 69 11/20/24 02:00 72 21 164/80 H 92 L Nasal Cannula 11/20/24 02:00 96 Nasal Cannula 11/20/24 01:00 Nasal Cannula 11/20/24 00:00 66 11/20/24 00:00 94 L Nasal Cannula 11/20/24 00:00 97.9 F 66 30 H 128/79 93 L Nasal Cannula 11/19/24 23:00 Nasal Cannula 11/19/24 22:00 69 20 141/83 H 98 Nasal Cannula 11/19/24 21:00 Nasal Cannula 11/19/24 20:00 72 11/19/24 20:00 99 Nasal Cannula 11/19/24 20:00 97.6 F 76 24 135/83 97 Nasal Cannula 11/19/24 18:30 82 18 180/90 H 95 Nasal Cannula 11/19/24 17:00 Nasal Cannula 11/19/24 16:45 98.2 F 11/19/24 16:00 90 11/19/24 16:00 90 18 139/83 95 Nasal Cannula 11/19/24 16:00 97 Nasal Cannula 11/19/24 15:00 Nasal Cannula 11/19/24 14:00 99 Nasal Cannula 11/19/24 13:59 111 H 18 157/92 H 98 Nasal Cannula 11/19/24 13:00 Nasal Cannula 11/19/24 12:30 97.6 F 128 H 24 121/83 92 L Nasal Cannula 11/19/24 12:00 130 H 11/19/24 11:24 107 H 11/19/24 11:24 104 H 11/19/24 11:00 Nasal Cannula 11/19/24 10:30 87 18 144/81 H 95 Nasal Cannula 11/19/24 09:07 92 H 19 106/88 L 98 Nasal Cannula 11/19/24 09:00 Nasal Cannula O2 Flow Rate FiO2 11/20/24 07:00 11/20/24 06:00 11/20/24 05:00 11/20/24 04:47 25 11/20/24 04:20 11/20/24 04:20 11/20/24 04:00 11/20/24 04:00 2 11/20/24 03:00 2 11/20/24 02:32 11/20/24 02:32 11/20/24 02:00 1 11/20/24 02:00 1 11/20/24 01:00 1 11/20/24 00:00 11/20/24 00:00 1 11/20/24 00:00 2 11/19/24 23:00 1 11/19/24 22:00 2 11/19/24 21:00 2 11/19/24 20:00 11/19/24 20:00 2 11/19/24 20:00 2 11/19/24 18:30 2 11/19/24 17:00 2 11/19/24 16:45 11/19/24 16:00 11/19/24 16:00 2 11/19/24 16:00 2 11/19/24 15:00 2 11/19/24 14:00 2 11/19/24 13:59 2 11/19/24 13:00 4 11/19/24 12:30 4 11/19/24 12:00 11/19/24 11:24 11/19/24 11:24 11/19/24 11:00 2 11/19/24 10:30 4 11/19/24 09:07 4 11/19/24 09:00 4 Intake and Output 11/19/24 11/20/24 11/20/24 19:59 03:59 11:59 Intake Total 1060 / 1738 678 / 1738 Output Total 725 / 1225 250 / 1225 250 / 1225 Balance 335 / 513 428 / 513 -250 / 513 Intake: Intake, Oral Amount 210 / 210 Intake, Total IV Amount 850 / 1528 678 / 1528 0.45% NaCl w/20mEq KCL 1,000 ml 500 / 500 @ 75 mls/hr IV .[id number] [facility] Rx #:[id number] Ceftriaxone 1 gm 1 gm In 0.9 % 50 / 50 Sodium Chloride 50 ml @ 100 mls /hr IV Q24H [facility] Rx#:[id number] Mvi, Adult No.1 with Vit K 10 300 / 978 678 / 978 ml Thiamine HCl 100 mg Magnesium Sulfate 2 gm In Lactated Ringers 1000ML 1,000 ml @ 125 mls/hr IV DAILY [facility] Rx #:[id number] Output: Output, Urine Amount 725 / 1225 250 / 1225 250 / 1225 Other: Number of Unmeasured Voids 0 1 Weight 98 lb 1.338 oz 98 lb 0.633 oz Patient Weight 11/20/24 11:59 Weight 98 lb 0.633 oz Laboratory Results - last 24 hr 11/18/24 09:06: Chlamy pneumoniae PCR Not detected, Adenovirus (PCR) Not detected, B. pertussis DNA (PCR) Not detected, Coronavirus OC43 (PCR) Not detected, Coronavirus HKU1 (PCR) Not detected, Coronavirus 229E (PCR) Not detected, SARS-CoV-2 (PCR) Not detected, Coronavirus NL63 (PCR) Not detected, Human Metapneumovir PCR Not detected, Influenza A (H1) PCR Not detected, Influ A (H1N1/09) PCR Not detected, Influenza A (H3) PCR Not detected, Influenza Type A (PCR) Not detected, Influenza Type B (PCR) Not detected, M. pneumoniae (PCR) Not detected, Parainfluenza 1 (PCR) Not detected, Parainfluenza 2 (PCR) Not detected, Parainfluenza 3 (PCR) Detected A, Parainfluenza 4 (PCR) Not detected, RSV (PCR) Not detected, Entero/Rhino (PCR) Not detected 11/20/24 05:46: Sodium 125 L, Potassium 4.6 D, Chloride 94 L, Carbon Dioxide 30, Anion Gap 5.6, BUN 15 D, Creatinine 0.60, Estimated Creat Clear 38, Estimated GFR 100, Est GFR ( Amer) 121, Glucose 91, Calcium 8.2 L 11/20/24 07:43: WBC 8.8 D, RBC 3.05 L, Hgb 11.1 L, Hct 32.0 L, MCV 104.9 H, MCH 36.4 H, MCHC 34.7, RDW 13.2, Plt Count 188, MPV 8.7, Neut % (Auto) 78.4, Lymph % (Auto) 12.9, [place] % (Auto) 7.8, Eos % (Auto) 0.0 L, Baso % (Auto) 0.2, Neut # (Auto) 6.9, Lymph # (Auto) 1.1, [place] # (Auto) 0.7, Eos # (Auto) 0.0, Baso # (Auto) 0.0 I & O for Labs for Last 24 Hours: Intake & Output 11/17/24 11/18/24 11/19/24 11/20/24 11:59 11:59 11:59 11:59 Intake Total 60 / 60 1738 / 1738 Output Total 950 / 950 1225 / 1225 Balance -890 / -890 513 / 513 Weight 98 lb 1.585 oz 98 lb 0.633 oz Microbiology Reports for the Last 24 Hours: Microbiology 11/18/24 18:01 Blood Blood Culture - Preliminary NO GROWTH AFTER 24 HOURS 11/18/24 18:06 Blood Blood Culture - Preliminary NO GROWTH AFTER 24 HOURS Constitutional: Present no acute distress Respiratory: Present rhonchi, wheezes and crackles Cardiac: Present Reg Rate and Rhythm GI: Present soft; Absent distention or tenderness Extremities: Absent edema Skin: Present intact Neuro: Present alert, awake and oriented x 3 Assessment and Plan *Assessment and plan (1) Acute on chronic respiratory failure with hypoxia and hypercapnia: Status: Acute Category: Medical Code(s): J96.21 - Acute and chronic respiratory failure with hypoxia; J96.22 - Acute and chronic respiratory failure with hypercapnia (2) Acute exacerbation of chronic obstructive pulmonary disease: Status: Acute Category: Medical Code(s): J44.1 - Chronic obstructive pulmonary disease with (acute) exacerbation (3) Parainfluenza infection: Status: Acute Category: Medical Code(s): B34.8 - Other viral infections of unspecified site (4) Hyponatremia: Status: Acute Category: Medical Code(s): E87.1 - Hypo-osmolality and hyponatremia (5) Family history of coronary artery disease: Status: Acute Category: Medical Code(s): Z82.49 - Family history of ischemic heart disease and other diseases of the circulatory system (6) HTN (hypertension): Status: Chronic Qualifiers: Hypertension type: essential hypertension Qualified Code(s): I10 - Essential (primary) hypertension Category: Medical Code(s): I10 - Essential (primary) hypertension (7) Severe protein-calorie malnutrition: Status: Acute Category: Medical Code(s): E43 - Unspecified severe protein-calorie malnutrition (8) Pulmonary emphysema: Status: Acute Category: Medical Code(s): J43.9 - Emphysema, unspecified (9) Alcoholism: Status: Acute Category: Medical Code(s): F10.20 - Alcohol dependence, uncomplicated Plan Will continue abx, nebs, and steroids. Pulmonology saw her and recommended telegy 100 inhaler along with DuoNebs 4 times daily as needed, prednisone 40 mg daily to complete a total of 5-day course, supplementation to maintain O2 saturation goal of 90% and above. Sodium is lower today. Will discuss with Dr. Josue. Dr. Josue entry - Saw patient, agree with above note.
--- NOTE | 2024-11-20 08:47 | SW/DCPLANNER ---
Addendum entered by [facility] 11/25/24 09:10: Patient will discharge to [facility] SNF level of care today. Addendum entered by [facility] 11/24/24 15:01: Enedina w/ [facility] is able to accept this patient once medically stable for discharge. I have updated patient and her . Addendum entered by [facility] 11/24/24 13:08: Patient is agreeable for information to be faxed to [facility] at this time. I will continue to follow up. Discharge date is unknown. Addendum entered by [facility] 11/23/24 15:27: Per [facility]/ [facility] currently no beds available. Addendum entered by [facility] 11/23/24 13:42: Patient/family refused [facility] due to not having a private bed. [facility] is now reviewing information due to possible bed opening this week. I will continue to follow up. Addendum entered by [facility] 11/23/24 08:34: Hermelinda lloyd/ [facility] ([place]) is reviewing information and will onsite patient this AM. Addendum entered by [facility] 11/20/24 14:25: [facility] w/ [facility] stated no beds available at this time. Hermelinda lloyd/ [facility] is currently reviewing patient information. Original Note: I spoke w/ patient regarding plans once medically stable for discharge. PT/OT evaluated patient and recommended SNF level of care. Patient is agreeable to placement at this time and prefers [facility]. Patient is also agreeable for patient information to be faxed to [facility] if [facility] is not able to accept. I will fax patient information to both facilities this AM. Discharge date is unknown at this time. I will continue to follow up.
[2024-11-20] MEDS: OXAZEPAM 15 MG CAPSULE PO ×3 (09:07→21:00)
[2024-11-20] MEDS: predniSONE 20MG TAB 40 MG PO (09:08)
[2024-11-20] MEDS: BENZONATATE 100MG CAPSULE 200 MG PO (09:08)
[2024-11-20] MEDS: METOPROLOL SUCCINATE XL 50MG TABLET 50 MG PO ×2 (09:08→20:59)
[2024-11-20] MEDS: FOLIC ACID 1MG TABLET 1 MG PO (09:08)
[2024-11-20] MEDS: MVI, ADULT NO.1 WITH VIT K 10 ML, THIAMINE HCL 100 MG, MAGNESIUM SULFATE 2 GM in LACTAT... 125 ML IV (09:09)
[2024-11-20] MEDS: IBUPROFEN 600 MG TABLET PO (09:32)
[2024-11-20] MEDS: SERTRALINE 100MG TABLET 100 MG PO (09:33)
[2024-11-20] MEDS: FLUTICASONE/UMECLIDIN/VILANTER 100/62.5/25MCG INHALER 1 PUFF IH (09:50)
--- NOTE | 2024-11-20 10:08 | EXP.PULM.PN ---
Subjective *Date: 11/20/24 *Time: 13:26 Interval history: Worsening oxygen comments overnight needing noninvasive ventilatory therapy Pulmonology Exam Inpatient Vital signs and Labs for Last 24 Hours: Temp Pulse Resp BP Pulse Ox O2 Del Method O2 Flow Rate 97.6 F 91 H 18 148/85 H 95 Nasal Cannula 2 11/20/24 08:00 11/20/24 09:43 11/20/24 08:00 11/20/24 08:00 11/20/24 09:43 11/20/24 09:43 11/20/24 09:43 FiO2 11/20/24 04:47 Laboratory Results - last 24 hr 11/18/24 09:06: Chlamy pneumoniae PCR Not detected, Adenovirus (PCR) Not detected, B. pertussis DNA (PCR) Not detected, Coronavirus OC43 (PCR) Not detected, Coronavirus HKU1 (PCR) Not detected, Coronavirus 229E (PCR) Not detected, SARS-CoV-2 (PCR) Not detected, Coronavirus NL63 (PCR) Not detected, Human Metapneumovir PCR Not detected, Influenza A (H1) PCR Not detected, Influ A (H1N1/09) PCR Not detected, Influenza A (H3) PCR Not detected, Influenza Type A (PCR) Not detected, Influenza Type B (PCR) Not detected, M. pneumoniae (PCR) Not detected, Parainfluenza 1 (PCR) Not detected, Parainfluenza 2 (PCR) Not detected, Parainfluenza 3 (PCR) Detected A, Parainfluenza 4 (PCR) Not detected, RSV (PCR) Not detected, Entero/Rhino (PCR) Not detected 11/20/24 05:46: Sodium 125 L, Potassium 4.6 D, Chloride 94 L, Carbon Dioxide 30, Anion Gap 5.6, BUN 15 D, Creatinine 0.60, Estimated Creat Clear 38, Estimated GFR 100, Est GFR ( Amer) 121, Glucose 91, Calcium 8.2 L 11/20/24 07:43: WBC 8.8 D, RBC 3.05 L, Hgb 11.1 L, Hct 32.0 L, MCV 104.9 H, MCH 36.4 H, MCHC 34.7, RDW 13.2, Plt Count 188, MPV 8.7, Neut % (Auto) 78.4, Lymph % (Auto) 12.9, [place] % (Auto) 7.8, Eos % (Auto) 0.0 L, Baso % (Auto) 0.2, Neut # (Auto) 6.9, Lymph # (Auto) 1.1, [place] # (Auto) 0.7, Eos # (Auto) 0.0, Baso # (Auto) 0.0 Temp Pulse Resp BP Pulse Ox O2 Del Method O2 Flow Rate 97.8 F 92 H 19 106/88 L 98 Nasal Cannula 4 11/19/24 07:22 11/19/24 09:07 11/19/24 09:07 11/19/24 09:07 11/19/24 09:07 11/19/24 09:07 11/19/24 09:07 FiO2 25 11/19/24 02:45 Laboratory Results - last 24 hr 11/18/24 18:01: WBC 8.3, RBC 3.85 L, Hgb 13.8, Hct 39.1, MCV 101.6 H, MCH 35.8 H, MCHC 35.3, RDW 13.1, Plt Count 205, MPV 8.8, Neut % (Auto) 83.6 H, Lymph % (Auto) 7.0 L, [place] % (Auto) 5.7, Eos % (Auto) 2.9, Baso % (Auto) 0.2, Neut # (Auto) 6.9, Lymph # (Auto) 0.6 L, [place] # (Auto) 0.5, Eos # (Auto) 0.2, Baso # (Auto) 0.0, D-Dimer 0.72 H, Sodium 124 L, Potassium 4.2, Chloride 93 L, Carbon Dioxide 26, Anion Gap 9.2, BUN 12, Creatinine 0.80, Estimated Creat Clear 37, Estimated GFR 72, Est GFR ( Amer) 87, Glucose 141 H, Calcium 9.4, Phosphorus 3.8, Magnesium 1.8, Total Bilirubin 0.4, AST 85 H, ALT 35, Alkaline Phosphatase 61, Troponin I 0.03, C-Reactive Protein 126.3 H, NT-Pro-B Natriuret Pep 1520 H, Total Protein 7.8, Albumin 4.6, Globulin 3.2, Albumin/Globulin Ratio 1.4, TSH 0.62, Thyroxine (T4) 6.9 11/18/24 18:12: VBG pH 7.25 L, VBG pCO2 58.0 H, VBG pO2 47.8 H, VBG HCO3 24.9, VBG Total CO2 26.7, VBG O2 Saturation 79.0 H, VBG Base Excess -2.3, VBG Lactic Acid 2.0 11/18/24 18:18: SARS-CoV-2 (PCR) Not detected, Influenza A Untype (PCR) Not detected, Influenza Type B (PCR) Not detected 11/18/24 20:12: VBG pH 7.25 L, VBG pCO2 54.9 H, VBG pO2 46.2 H, VBG HCO3 23.4, VBG Total CO2 25.1, VBG O2 Saturation 76.7 H, VBG Base Excess -3.9 L, VBG Lactic Acid 1.7 11/18/24 21:28: Troponin I 0.05 H 11/19/24 00:20: Troponin I 0.04 H 11/19/24 01:53: Urine Color Yellow, Urine Appearance Clear, Urine pH 6.0, Ur Specific [place] 1.025, Urine Protein Trace, Urine Glucose (UA) Negative, Urine Ketones Negative, Urine Blood 1+ A, Urine Nitrate Negative, Urine Bilirubin Negative, Urine Urobilinogen 0.2, Ur Leukocyte Esterase Negative, Urine RBC 10-20, Urine WBC 3-5, Ur Squamous Epith Cells 10-20, Urine Bacteria Trace, Hyaline Casts 3-5 11/19/24 05:35: WBC 5.6 D, RBC 3.26 L, Hgb 11.7 L D, Hct 33.0 L, MCV 101.2 H, MCH 35.9 H, MCHC 35.5 H, RDW 12.8, Plt Count 180, MPV 9.1, Neut % (Auto) 85.8 H, Lymph % (Auto) 8.7 L, [place] % (Auto) 4.8, Eos % (Auto) 0.0 L, Baso % (Auto) 0.2, Neut # (Auto) 4.8, Lymph # (Auto) 0.5 L, [place] # (Auto) 0.3, Eos # (Auto) 0.0, Baso # (Auto) 0.0, Total Counted 100, Neutrophils % (Manual) 85 H, Lymphocytes % (Manual) 13, Monocytes % (Manual) 2, Platelet Estimate Normal, Macrocytosis 1+, VBG pH 7.35, VBG pCO2 46.1, VBG pO2 42.0 H, VBG HCO3 24.8, VBG Total CO2 26.2, VBG O2 Saturation 75.8 H, VBG Base Excess -0.9, VBG Lactic Acid 1.7, Sodium 127 L, Potassium 3.5, Chloride 95 L, Carbon Dioxide 28, Anion Gap 7.5, BUN 11, Creatinine 0.70, Estimated Creat Clear 38, Estimated GFR 83, Est GFR ( Amer) 101, Glucose 151 H, Calcium 8.8, Total Bilirubin 0.1 L, AST 76 H, ALT 34, Alkaline Phosphatase 53, Total Protein 6.8, Albumin 3.8 D, Globulin 3.0, Albumin/Globulin Ratio 1.3 I & O for Labs for Last 24 Hours: Intake & Output 11/17/24 11/18/24 11/19/24 11/20/24 23:59 23:59 23:59 23:59 Intake Total 1120 / 1798 678 / 678 Output Total 1675 / 1675 700 / 700 Balance -555 / 123 -22 / -22 Weight 98 lb 1.6 oz 98 lb 1.338 oz 98 lb 0.633 oz Intake & Output 11/16/24 11/17/24 11/18/24 11/19/24 23:59 23:59 23:59 23:59 Output Total 950 / 950 Balance -950 / -950 Weight 98 lb 1.6 oz 98 lb 1.585 oz Microbiology Reports for the Last 24 Hours: Microbiology 11/18/24 18:01 Blood Blood Culture - Preliminary NO GROWTH AFTER 24 HOURS 11/18/24 18:06 Blood Blood Culture - Preliminary NO GROWTH AFTER 24 HOURS Constitutional: Present severe distress Head: Present normocephalic and atraumatic ENT: Present normal exam, normal oropharynx and mucous membranes moist Neck: Present normal inspection and full ROM Respiratory: Present respiratory distress, wheezes and able to speak in complete sentences Cardiac: Present S1/S2, Tachycardia and radial pulses present GI: Present soft and distention; Absent tenderness or guarding Rectal (female): Present deferred (female): Present deferred Skin: Present intact; Absent cyanosis or jaundice Neuro: Present alert and awake; Absent oriented x 3 Extremities: Present normal inspection; Absent clubbing or cyanosis Psychiatric: Present normal affect and cooperative Assessment and Plan *Assessment and plan (1) Acute on chronic respiratory failure with hypoxia and hypercapnia: Status: Acute Category: Medical Code(s): J96.21 - Acute and chronic respiratory failure with hypoxia; J96.22 - Acute and chronic respiratory failure with hypercapnia (2) Acute exacerbation of chronic obstructive pulmonary disease: Status: Acute Category: Medical Code(s): J44.1 - Chronic obstructive pulmonary disease with (acute) exacerbation (3) Pulmonary emphysema: Status: Acute Category: Medical Code(s): J43.9 - Emphysema, unspecified Plan Ms. Mcgarry is a 69-year-old female current smoker greater than [id number] smoking history currently using Anoro and albuterol. Baseline well-controlled symptoms with exacerbations, supplementation, rpresented to ER with worsening respiratory distress on new oxygen requirements, and pulmonary was called for further evaluation management. Afebrile. Hemodynamically stable. No evidence of leukocytosis. Chest x-ray upon admission hyperinflated lungs consistent with COPD. No dense consolidative/airspace changes noted. Complaints of respiratory viral PCR positive for parainfluenza virus Patient currently receiving nebulization therapies and prednisone. Mild expiratory wheezing noted on auscultation. Etiology likely from COPD exacerbation secondary to parainfluenza virus. Interval update: Worsening respiratory status overnight needing noninvasive ventilator therapy, patient placed on BiPAP. ABG from this morning slight worsening hypercarbic respiratory with pH of 7.31 and pCO2 55.9 while using BiPAP. Settings changed to improve minute ventilation. Will follow with venous blood gas in 2 to 4 hours. Chest x-ray from this morning no acute pulmonary infiltrate/consolidative changes, relatively stable from admission. Plan: DuoNebs every 4 hours along with Pulmicort every 12 scheduled Continue BiPAP therapy to maintain O2 saturation goal of 90% and above, follow-up VBG in 2-4 hrs Prednisone 40 mg daily to complete a total of 5-day course
--- NOTE | 2024-11-20 10:11 | ECG_ITS ---
APPROVED REPORT Exam: Resting ECG HR:92 bpm ECG Measurements Heart Rate 92 AXES ME 177 P 84 QRSd 65 QRS -4 QT 324 T 28 QTc 374 Conclusion SINUS RHYTHM POSSIBLE LEFT ATRIAL ENLARGEMENT [-0.1mV P-WAVE IN V1/V2] LOW QRS VOLTAGE IN PRECORDIAL LEADS [QRS DEFLECTION < 1.0 mV IN CHEST LEADS] SEPTAL MYOCARDIAL INFARCTION , PROBABLY OLD [40+ ms Q WAVE IN V1/V2] ABNORMAL ECG UNCONFIRMED REPORT Electronically signed by : Alber Jennings MD 11/22/2024 08:28:34
--- NOTE | 2024-11-20 11:16 | XR_ITS ---
FINAL REPORT CLINICAL HISTORY: sob COMPARISON: 11/18/2024 FINDINGS: A portable view of the chest was obtained. Cardiac and mediastinal silhouettes are within normal limits. The lungs are clear. There is no pleural effusion or pneumothorax. IMPRESSION: No acute process on this portable exam. Reviewed, Interpreted and Dictated by Christina Whitney MD Transcribed by Anuja Higgins Authenticated and [facility]
[2024-11-20 12:05] LABS: ABG Base Excess 1.6 mmol/L (-2.4-2.3); ABG HCO3 27.8 mmhg (22.0-26.0); ABG Oxygen Saturation 98 % (90-100); ABG PH 7.31 mmol/L (7.35-7.45); ABG PO2 113.2 mmhg (80-100); ABG TCO2 29.5 mmhg (23-27)
[2024-11-20 12:10] LABS: Oxygen 35% %; Tidal Volume 16/8
[2024-11-20 12:11] LABS: ABG PCO2 55.9 mmhg (35.0-45.0); Source R BRACHIAL
[2024-11-20] MEDS: CEFTRIAXONE 1 GM 1 GM in 0.9 % SODIUM CHLORIDE 50 ML IV (15:17)
[2024-11-20 15:30] LABS: Lactate Venous 0.9 mmol/L (0.4-2.0); VBG Base Excess 3.1 mmol/L (-2.4-2.3); VBG HCO3 28.9 mmol/L (23-30); VBG PH 7.34 mmol/L (7.31-7.41); VBG PO2 42.8 mmol/L (28-40); VBG Total CO2 30.5 mmol/L (23-27)
[2024-11-20 15:36] LABS: VBG PCO2 54.5 mmol/L (35-51)
[2024-11-20] MEDS: BUDESONIDE 0.5MG/2ML NEB 0.5 MG IH (18:00)
[2024-11-20 22:01] LABS: Lactate Venous 0.8 mmol/L (0.4-2.0); VBG Base Excess 3.5 mmol/L (-2.4-2.3); VBG HCO3 27.8 mmol/L (23-30); VBG Oxygen Saturation 97.3 % (50-70); VBG PH 7.43 mmol/L (7.31-7.41); VBG PO2 95.1 mmol/L (28-40); VBG Total CO2 29.2 mmol/L (23-27)
[2024-11-21] VITALS (22 sets, daily range): BP systolic 120–180; BP diastolic 71–102; PULSE 66–92; RESP 14–25; TEMP 35.6–36.8; O2SAT 92–100; BMI 18.0
[2024-11-21] MEDS: IPRATROPIUM/ALBUTEROL 3 ML NEB IH ×6 (01:04→21:21)
--- NOTE | 2024-11-21 05:59 | PC.NURSE ---
Notified provider pt appears very lethargic and pale. Pt states she feels terrible and states she feels worse than when she came in. Noticeable difference in patient compared to beginning of shift. Pt has audible wheezing and rhonchi. Ins/Exp wheezing throughout lung mendez. VSS. Pt does not have any morning labs ordered. states to order CBC, CMP, mag, and phos.
[2024-11-21] MEDS: BUDESONIDE 0.5MG/2ML NEB 0.5 MG IH ×2 (06:19→18:59)
[2024-11-21 07:21] LABS: Lactate Venous 1.3 mmol/L (0.4-2.0); VBG Base Excess 3.7 mmol/L (-2.4-2.3); VBG HCO3 28.1 mmol/L (23-30); VBG Oxygen Saturation 99.3 % (50-70); VBG PCO2 43.8 mmol/L (35-51); VBG PH 7.43 mmol/L (7.31-7.41); VBG PO2 180.8 mmol/L (28-40); VBG Total CO2 29.4 mmol/L (23-27)
[2024-11-21 07:34] LABS: Basophils % 0.2 % (0.1-2.0); Hematocrit 31.4 % (37.0-47.0); Hemoglobin 10.8 g/dL (12.2-16.2); Immature Granulocytes # 0.08 10^3uL; Lymphocytes # 1.8 K/mm3 (0.7-4.5); Lymphocytes % 21.6 % (10-50); Mean Corpuscular HGB Conc 34.4 g/dL (31.8-35.4); Mean Corpuscular Hemoglobin 36.1 pg (27.0-31.2); Mean Platelet Volume 9.7 fl (7.4-10.4); Monocytes # 0.8 K/mm3 (0.1-1.0); Monocytes % 9.6 % (1.7-9.3); Neutrophils # 5.6 K/mm3 (1.8-7.8); Neutrophils % 67.6 % (37.0-80.0); Nucleated Red Blood Cells # 0 10^3/uL; Nucleated Red Blood Cells % 0 %; Platelet Count 171 K/mm3 (142-424); Red Blood Count 2.99 M/mm3 (4.20-5.40); Red Cell Distribution Width-SD 50.1 fL; White Blood Count 8.3 K/mm3 (4.8-10.8)
--- NOTE | 2024-11-21 07:46 | P.PN_ITS ---
Subjective *Date: 11/21/24 *Time: 07:46 Interval history: Patient states she did not rest well last night and she is ready to go home. BiPAP was taken off and she was placed on [place] oxygen. Her O2 sats went down and she was placed back on BiPAP. Medical Exam Vital signs and Labs for Last 24 Hours: Vital Signs Temp Pulse Pulse Resp BP Pulse Ox O2 Del Method 11/21/24 06:47 Nasal Cannula 11/21/24 06:20 77 11/21/24 06:20 74 11/21/24 06:20 98 Nasal Cannula 11/21/24 06:00 75 20 166/96 H 100 Nasal Cannula 11/21/24 05:00 Nasal Cannula 11/21/24 04:00 71 11/21/24 04:00 97.8 F 92 H 22 122/71 92 L Nasal Cannula 11/21/24 03:00 Nasal Cannula 11/21/24 03:00 91 H 14 149/79 H 96 Nasal Cannula 11/21/24 02:53 97.8 F 11/21/24 02:00 92 L BiPAP 11/21/24 02:00 97.6 F 82 22 92 L BiPAP 11/21/24 01:42 11/21/24 01:05 78 11/21/24 01:05 75 11/21/24 01:00 Nasal Cannula 11/21/24 00:00 66 11/21/24 00:00 96.1 F L 68 18 120/74 100 Nasal Cannula 11/20/24 23:05 Nasal Cannula 11/20/24 22:00 71 22 111/74 95 BiPAP 11/20/24 21:23 66 11/20/24 21:23 72 11/20/24 21:23 11/20/24 21:00 BiPAP 11/20/24 20:00 66 11/20/24 20:00 75 94 L BiPAP 11/20/24 20:00 97.9 F 62 26 H 116/78 100 BiPAP 11/20/24 19:00 Nasal Cannula 11/20/24 18:18 11/20/24 18:00 77 21 112/69 100 Nasal Cannula 11/20/24 18:00 77 11/20/24 18:00 81 11/20/24 17:00 Nasal Cannula 11/20/24 16:00 97.4 F L 69 16 112/73 100 BiPAP 11/20/24 16:00 70 11/20/24 16:00 BiPAP 11/20/24 15:25 BiPAP 11/20/24 14:00 97.6 F 74 16 104/69 L 97 BiPAP 11/20/24 14:00 BiPAP 11/20/24 13:00 BiPAP 11/20/24 12:10 BiPAP 11/20/24 12:03 76 11/20/24 12:03 72 11/20/24 12:03 11/20/24 12:00 80 11/20/24 12:00 77 22 145/80 H 89 L BiPAP 11/20/24 12:00 60 11/20/24 11:41 74 22 127/78 91 L BiPAP 11/20/24 11:00 77 24 119/80 92 L BiPAP 11/20/24 10:30 80 22 133/82 90 L BiPAP 11/20/24 10:18 84 22 147/96 H 91 L BiPAP 11/20/24 10:16 86 22 161/99 H 92 L BiPAP 11/20/24 10:12 11/20/24 10:05 111 H 22 172/88 H 92 L Nasal Cannula 11/20/24 09:43 91 H 11/20/24 09:43 90 11/20/24 09:43 95 Nasal Cannula 11/20/24 09:00 Nasal Cannula 11/20/24 08:00 70 11/20/24 08:00 97.6 F 70 18 148/85 H 100 Nasal Cannula 11/20/24 08:00 78 11/20/24 07:50 18 99 Nasal Cannula O2 Flow Rate FiO2 11/21/24 06:47 2 11/21/24 06:20 11/21/24 06:20 11/21/24 06:20 2 11/21/24 06:00 2 11/21/24 05:00 2 11/21/24 04:00 11/21/24 04:00 2 11/21/24 03:00 2 11/21/24 03:00 2 11/21/24 02:53 11/21/24 02:00 11/21/24 02:00 11/21/24 01:42 25 11/21/24 01:05 11/21/24 01:05 11/21/24 01:00 2 11/21/24 00:00 11/21/24 00:00 3 11/20/24 23:05 2 11/20/24 22:00 11/20/24 21:23 11/20/24 21:23 11/20/24 21:23 11/20/24 21:00 11/20/24 20:00 11/20/24 20:00 11/20/24 20:00 11/20/24 19:00 3 11/20/24 18:18 35 11/20/24 18:00 3 11/20/24 18:00 11/20/24 18:00 11/20/24 17:00 3 11/20/24 16:00 35 11/20/24 16:00 11/20/24 16:00 11/20/24 15:25 11/20/24 14:00 35 11/20/24 14:00 11/20/24 13:00 11/20/24 12:10 35 11/20/24 12:03 11/20/24 12:03 11/20/24 12:03 35 11/20/24 12:00 11/20/24 12:00 35 11/20/24 12:00 11/20/24 11:41 35 11/20/24 11:00 35 11/20/24 10:30 35 11/20/24 10:18 35 11/20/24 10:16 35 11/20/24 10:12 35 11/20/24 10:05 2 11/20/24 09:43 11/20/24 09:43 11/20/24 09:43 2 11/20/24 09:00 2 11/20/24 08:00 11/20/24 08:00 2 11/20/24 08:00 11/20/24 07:50 2 Intake and Output 11/20/24 11/20/24 11/21/24 15:59 23:59 07:59 Intake Total 1100 / 1778 Output Total 400 / 1200 300 / 1200 250 / 250 Balance -400 / 578 800 / 578 -250 / -250 Intake: Intake, Oral Amount 100 / 100 Intake, Total IV Amount 1000 / 1678 Mvi, Adult No.1 with Vit K 10 1000 / 1678 ml Thiamine HCl 100 mg Magnesium Sulfate 2 gm In Lactated Ringers 1000ML 1,000 ml @ 125 mls/hr IV DAILY [facility] Rx #:[id number] Output: Output, Urine Amount 400 / 1200 300 / 1200 250 / 250 Other: Number of Unmeasured Voids 1 1 1 Number of Bowel Movements 1 Weight 98 lb 2.397 oz Patient Weight 11/21/24 23:59 Weight 98 lb 2.397 oz Laboratory Results - last 24 hr 11/20/24 05:46: Sodium 125 L, Potassium 4.6 D, Chloride 94 L, Carbon Dioxide 30, Anion Gap 5.6, BUN 15 D, Creatinine 0.60, Estimated Creat Clear 38, Estimated GFR 100, Est GFR ( Amer) 121, Glucose 91, Calcium 8.2 L 11/20/24 07:43: WBC 8.8 D, RBC 3.05 L, Hgb 11.1 L, Hct 32.0 L, MCV 104.9 H, MCH 36.4 H, MCHC 34.7, RDW 13.2, Plt Count 188, MPV 8.7, Neut % (Auto) 78.4, Lymph % (Auto) 12.9, [place] % (Auto) 7.8, Eos % (Auto) 0.0 L, Baso % (Auto) 0.2, Neut # (Auto) 6.9, Lymph # (Auto) 1.1, [place] # (Auto) 0.7, Eos # (Auto) 0.0, Baso # (Auto) 0.0 11/20/24 11:25: Specimen Source R brachial, O2 % 35%, ABG pH 7.31 L, ABG pCO2 55.9 H, ABG pO2 113.2 H, ABG HCO3 27.8 H, ABG Total CO2 29.5 H, ABG O2 Saturation 98, ABG Base Excess 1.6, Tidal Volume 16/8 11/20/24 15:00: VBG pH 7.34, VBG pCO2 54.5 H, VBG pO2 42.8 H, VBG HCO3 28.9, VBG Total CO2 30.5 H, VBG O2 Saturation 77.0 H, VBG Base Excess 3.1 H, VBG Lactic Acid 0.9 11/20/24 21:36: VBG pH 7.43 H, VBG pCO2 43.0, VBG pO2 95.1 H, VBG HCO3 27.8, VBG Total CO2 29.2 H, VBG O2 Saturation 97.3 H, VBG Base Excess 3.5 H, VBG Lactic Acid 0.8 11/21/24 06:38: WBC 8.3, RBC 2.99 L, Hgb 10.8 L, Hct 31.4 L, MCV 105.0 H, MCH 36.1 H, MCHC 34.4, RDW 13.0, Plt Count 171, MPV 9.7, Neut % (Auto) 67.6, Lymph % (Auto) 21.6, [place] % (Auto) 9.6 H, Eos % (Auto) 0.0 L, Baso % (Auto) 0.2, Neut # (Auto) 5.6, Lymph # (Auto) 1.8, [place] # (Auto) 0.8, Eos # (Auto) 0.0, Baso # (Auto) 0.0 11/21/24 07:00: VBG pH 7.43 H, VBG pCO2 43.8, VBG pO2 180.8 H, VBG HCO3 28.1, VBG Total CO2 29.4 H, VBG O2 Saturation 99.3 H, VBG Base Excess 3.7 H, VBG Lactic Acid 1.3 I & O for Labs for Last 24 Hours: Intake & Output 11/18/24 11/19/24 11/20/24 11/21/24 23:59 23:59 23:59 23:59 Intake Total 1120 / 1798 1778 / 1778 Output Total 1675 / 1675 1200 / 1200 250 / 250 Balance -555 / 123 578 / 578 -250 / -250 Weight 98 lb 1.6 oz 98 lb 1.338 oz 98 lb 0.633 oz 98 lb 2.397 oz Microbiology Reports for the Last 24 Hours: Microbiology 11/18/24 18:06 Blood Blood Culture - Preliminary NO GROWTH AFTER 48 HOURS 11/18/24 18:01 Blood Blood Culture - Preliminary NO GROWTH AFTER 48 HOURS Constitutional: Present no acute distress Respiratory: Present rhonchi, wheezes and crackles Cardiac: Present Reg Rate and Rhythm GI: Present soft; Absent distention or tenderness Extremities: Absent edema Skin: Present intact Neuro: Present alert, awake and oriented x 3 Assessment and Plan *Assessment and plan (1) Acute on chronic respiratory failure with hypoxia and hypercapnia: Status: Acute Category: Medical Code(s): J96.21 - Acute and chronic respiratory failure with hypoxia; J96.22 - Acute and chronic respiratory failure with hypercapnia (2) Acute exacerbation of chronic obstructive pulmonary disease: Status: Acute Category: Medical Code(s): J44.1 - Chronic obstructive pulmonary disease with (acute) exacerbation (3) Parainfluenza infection: Status: Acute Category: Medical Code(s): B34.8 - Other viral infections of unspecified site (4) Hyponatremia: Status: Acute Category: Medical Code(s): E87.1 - Hypo-osmolality and hyponatremia (5) Family history of coronary artery disease: Status: Acute Category: Medical Code(s): Z82.49 - Family history of ischemic heart disease and other diseases of the circulatory system (6) HTN (hypertension): Status: Chronic Qualifiers: Hypertension type: essential hypertension Qualified Code(s): I10 - Es sential (primary) hypertension Category: Medical Code(s): I10 - Essential (primary) hypertension (7) Severe protein-calorie malnutrition: Status: Acute Category: Medical Code(s): E43 - Unspecified severe protein-calorie malnutrition (8) Pulmonary emphysema: Status: Acute Category: Medical Code(s): J43.9 - Emphysema, unspecified (9) Alcoholism: Status: Acute Category: Medical Code(s): F10.20 - Alcohol dependence, uncomplicated Plan AM labs pending. Plan to wean to Vapotherm today, add Lovenox for DVT prophylaxis, use either Vapotherm of BiPAP when sleeping.
--- NOTE | 2024-11-21 07:54 | PC.NURSE ---
Notified RT has ordered vapotherm.
[2024-11-21 08:06] LABS: Chloride 97 mmol/L (98-107); Sodium 127 mmol/L (136-145)
[2024-11-21 08:07] LABS: Potassium 4.5 mmoL/L (3.5-5.1)
[2024-11-21 08:09] LABS: Alanine Aminotransferase 25 U/L (12-78); Albumin/Globulin Ratio 1.2 (1.1-1.8); Alkaline Phosphatase 29 U/L (38-126); Anion Gap 2.5 mEq/L (5-15); Aspartate Amino Transferase 48 U/L (14-36); Bilirubin,Total 0.2 mg/dl (0.2-1.3); Blood Urea Nitrogen 16 mg/dl (7-17); Carbon Dioxide 32 mmol/L (22.0-30.0); Creatinine Clearance Estimated 38 mL/min (50-200); Estimated Glomerular Filt Rate 123 ml/min (>60); GFR (African American) 149 ML/MIN (>60); Globulin 2.5 g/dL (1.3-3.2); Phosphorous 2.4 mg/dl (2.5-4.5); Total Protein,Serum 5.5 g/dl (6.3-8.2)
[2024-11-21 08:10] LABS: Calcium 8.2 mg/dl (8.4-10.2); Glucose 79 mg/dl (74-100); Magnesium 1.9 mg/dl (1.6-2.3)
[2024-11-21] MEDS: METOPROLOL SUCCINATE XL 50MG TABLET 50 MG PO ×2 (08:35→21:35)
[2024-11-21] MEDS: ENOXAPARIN 40MG/0.4ML SYRINGE 40 MG SUBCUT (08:35)
[2024-11-21] MEDS: FAMOTIDINE 20MG TABLET 20 MG PO (08:35)
[2024-11-21] MEDS: MVI, ADULT NO.1 WITH VIT K 10 ML, THIAMINE HCL 100 MG, MAGNESIUM SULFATE 2 GM in LACTAT... 125 ML IV (08:35)
[2024-11-21] MEDS: FOLIC ACID 1MG TABLET 1 MG PO (08:35)
[2024-11-21] MEDS: SERTRALINE 100MG TABLET 100 MG PO (08:35)
[2024-11-21] MEDS: predniSONE 20MG TAB 40 MG PO (08:35)
[2024-11-21] MEDS: IBUPROFEN 600 MG TABLET PO (08:38)
[2024-11-21] MEDS: OXAZEPAM 15 MG CAPSULE PO ×3 (08:38→21:35)
[2024-11-21] MEDS: CEFTRIAXONE 1 GM 1 GM in 0.9 % SODIUM CHLORIDE 50 ML IV (16:42)
[2024-11-21] MEDS: TRAZODONE 50MG TABLET 50 MG PO (21:35)
[2024-11-22] VITALS (17 sets, daily range): BP systolic 131–188; BP diastolic 75–112; PULSE 64–84; RESP 19–26; TEMP 36.3–36.9; O2SAT 90–100; BMI 20.4
--- NOTE | 2024-11-22 00:06 | ECG_ITS ---
APPROVED REPORT Exam: Resting ECG HR:73 bpm ECG Measurements Heart Rate 73 AXES [place] 163 P 68 QRSd 77 QRS -17 QT 410 T 60 QTc 436 Conclusion SINUS RHYTHM LOW QRS VOLTAGE IN PRECORDIAL LEADS [QRS DEFLECTION < 1.0 mV IN CHEST LEADS] POSSIBLE ANTERIOR MYOCARDIAL INFARCTION , PROBABLY OLD [30 ms Q WAVE IN V3/V4, OR R < 0.2 mV IN V4] BORDERLINE ECG UNCONFIRMED REPORT Electronically signed by : Alber Jennings MD 11/22/2024 08:27:49
[2024-11-22] MEDS: METOPROLOL TARTRATE 50MG TABLET 50 MG PO (00:52)
[2024-11-22] MEDS: IPRATROPIUM/ALBUTEROL 3 ML NEB IH ×5 (02:00→21:46)
[2024-11-22] MEDS: BUDESONIDE 0.5MG/2ML NEB 0.5 MG IH ×2 (06:13→18:24)
[2024-11-22 07:34] LABS: Basophils % 0.2 % (0.1-2.0); Eosinophils % 0.2 % (0.1-12.0); Hematocrit 37.6 % (37.0-47.0); Immature Granulocytes # 0.12 10^3uL; Immature Granulocytes % 1.4 %; Lymphocytes # 2.3 K/mm3 (0.7-4.5); Lymphocytes % 26.8 % (10-50); Mean Corpuscular HGB Conc 35.6 g/dL (31.8-35.4); Mean Corpuscular Hemoglobin 36.3 pg (27.0-31.2); Mean Corpuscular Volume 101.9 fl (81-99); Monocytes # 1.1 K/mm3 (0.1-1.0); Monocytes % 12.8 % (1.7-9.3); Neutrophils # 5.1 K/mm3 (1.8-7.8); Neutrophils % 58.6 % (37.0-80.0); Nucleated Red Blood Cells # 0 10^3/uL; Nucleated Red Blood Cells % 0 %; Platelet Count 240 K/mm3 (142-424); Red Blood Count 3.69 M/mm3 (4.20-5.40); Red Cell Distribution Width 12.4 % (11.5-17.5); White Blood Count 8.7 K/mm3 (4.8-10.8)
[2024-11-22 07:43] LABS: Chloride 90 mmol/L (98-107); Potassium 3.8 mmoL/L (3.5-5.1); Sodium 127 mmol/L (136-145)
[2024-11-22 07:46] LABS: Anion Gap 4.8 mEq/L (5-15); Blood Urea Nitrogen 14 mg/dl (7-17); Calcium 8.6 mg/dl (8.4-10.2); Carbon Dioxide 36 mmol/L (22.0-30.0); Creatinine Clearance Estimated 43 mL/min (50-200); Estimated Glomerular Filt Rate 123 ml/min (>60); GFR (African American) 149 ML/MIN (>60); Glucose 83 mg/dl (74-100)
[2024-11-22] MEDS: SERTRALINE 100MG TABLET 100 MG PO (07:55)
[2024-11-22] MEDS: METOPROLOL SUCCINATE XL 50MG TABLET 50 MG PO ×2 (07:55→20:06)
[2024-11-22] MEDS: ALBUTEROL-HFA 90MCG/PUFF INHALER 8GM 2 PUFF IH (07:55)
[2024-11-22] MEDS: OXAZEPAM 15 MG CAPSULE PO ×3 (07:55→20:06)
[2024-11-22] MEDS: FAMOTIDINE 20MG TABLET 20 MG PO (07:55)
[2024-11-22] MEDS: predniSONE 20MG TAB 40 MG PO (07:55)
[2024-11-22] MEDS: FOLIC ACID 1MG TABLET 1 MG PO (07:55)
[2024-11-22] MEDS: ENOXAPARIN 40MG/0.4ML SYRINGE 40 MG SUBCUT (07:56)
[2024-11-22 08:48] LABS: Hemoglobin 13.5 g/dL (12.2-16.2)
[2024-11-22] MEDS: MVI, ADULT NO.1 WITH VIT K 10 ML, THIAMINE HCL 100 MG, MAGNESIUM SULFATE 2 GM in LACTAT... 125 ML IV (08:50)
--- NOTE | 2024-11-22 09:10 | EXP.PHA.PN ---
Subjective *Date: 11/22/24 *Time: 09:10 Medical Exam Vital signs and Labs for Last 24 Hours: Vital Signs Temp Pulse Pulse Resp BP Pulse Ox O2 Del Method 11/22/24 07:00 Vapotherm 11/22/24 06:14 72 11/22/24 06:14 73 11/22/24 06:14 99 Vapotherm 11/22/24 06:00 70 21 156/98 H 96 Vapotherm 11/22/24 05:00 Vapotherm 11/22/24 04:00 97.6 F 11/22/24 04:00 67 11/22/24 04:00 64 21 164/91 H 100 Vapotherm 11/22/24 03:00 Vapotherm 11/22/24 02:05 76 11/22/24 02:05 77 11/22/24 02:00 67 22 166/100 H 99 Vapotherm 11/22/24 02:00 99 Vapotherm 11/22/24 00:40 Vapotherm 11/22/24 00:00 68 11/22/24 00:00 90 L Vapotherm 11/22/24 00:00 97.4 F L 72 20 174/99 H 90 L Vapotherm 11/21/24 23:00 Vapotherm 11/21/24 22:00 70 20 158/95 H 100 Vapotherm 11/21/24 21:21 75 11/21/24 21:21 78 11/21/24 21:00 Vapotherm 11/21/24 20:00 80 11/21/24 20:00 98 Vapotherm 11/21/24 20:00 97.8 F 74 16 151/93 H 95 Vapotherm 11/21/24 18:59 67 11/21/24 18:59 76 11/21/24 18:59 96 Vapotherm 11/21/24 18:48 Vapotherm 11/21/24 18:00 75 19 162/96 H 99 Vapotherm 11/21/24 17:00 Vapotherm 11/21/24 16:00 80 11/21/24 16:00 98.2 F 77 20 180/102 H 99 Vapotherm 11/21/24 15:00 Vapotherm 11/21/24 14:30 77 11/21/24 14:30 75 11/21/24 14:30 97 Vapotherm 11/21/24 14:00 75 25 H 155/86 H 97 Vapotherm 11/21/24 14:00 97 Vapotherm 11/21/24 13:00 Vapotherm 11/21/24 12:00 80 11/21/24 12:00 98.2 F 72 20 159/99 H 96 Vapotherm 11/21/24 11:00 Vapotherm 11/21/24 10:00 73 22 131/82 95 Vapotherm O2 Flow Rate FiO2 11/22/24 07:00 25 11/22/24 06:14 11/22/24 06:14 11/22/24 06:14 20 30 11/22/24 06:00 25 35 11/22/24 05:00 25 11/22/24 04:00 11/22/24 04:00 11/22/24 04:00 25 35 11/22/24 03:00 25 11/22/24 02:05 11/22/24 02:05 11/22/24 02:00 25 35 11/22/24 02:00 25 35 11/22/24 00:40 25 11/22/24 00:00 11/22/24 00:00 25 35 11/22/24 00:00 25 35 11/21/24 23:00 25 11/21/24 22:00 25 35 11/21/24 21:21 11/21/24 21:21 11/21/24 21:00 25 11/21/24 20:00 11/21/24 20:00 25 35 11/21/24 20:00 25 35 11/21/24 18:59 11/21/24 18:59 11/21/24 18:59 20 30 11/21/24 18:48 20 11/21/24 18:00 20 25 11/21/24 17:00 20 11/21/24 16:00 11/21/24 16:00 11/21/24 15:00 20 11/21/24 14:30 11/21/24 14:30 11/21/24 14:30 20 11/21/24 14:00 20 25 11/21/24 14:00 20 30 11/21/24 13:00 20 11/21/24 12:00 11/21/24 12:00 20 11/21/24 11:00 20 11/21/24 10:00 Intake and Output 11/21/24 11/22/24 11/22/24 23:59 07:59 15:59 Intake Total 1290 / 1510 Output Total 250 / 1850 1250 / 1250 Balance 1040 / -340 -1250 / -1250 Intake: Intake, Oral Amount 240 / 460 Intake, Total IV Amount 1050 / 1050 Ceftriaxone 1 gm 1 gm In 0.9 % 50 / 50 Sodium Chloride 50 ml @ 100 mls /hr IV Q24H [facility] Rx#:[id number] Mvi, Adult No.1 with Vit K 10 1000 / 1000 ml Thiamine HCl 100 mg Magnesium Sulfate 2 gm In Lactated Ringers 1000ML 1,000 ml @ 125 mls/hr IV DAILY [facility] Rx #:[id number] Output: Output, Urine Amount 250 / 1850 1250 / 1250 Other: Number of Voids 1 Number of Unmeasured Voids 1 1 Weight 50.4 kg Patient Weight 11/22/24 23:59 Weight 50.4 kg Laboratory Results - last 24 hr 11/22/24 06:35: WBC 8.7, RBC 3.69 L, Hgb 13.5 D, Hct 37.6, MCV 101.9 H, MCH 36.3 H, MCHC 35.6 H, RDW 12.4, Plt Count 240 D, MPV 9.0, Neut % (Auto) 58.6, Lymph % (Auto) 26.8, [place] % (Auto) 12.8 H, Eos % (Auto) 0.2, Baso % (Auto) 0.2, Neut # (Auto) 5.1, Lymph # (Auto) 2.3, [place] # (Auto) 1.1 H, Eos # (Auto) 0.0, Baso # (Auto) 0.0, Sodium 127 L, Potassium 3.8, Chloride 90 L, Carbon Dioxide 36 H, Anion Gap 4.8 L, BUN 14, Creatinine 0.50 L, Estimated Creat Clear 43, Estimated GFR 123, Est GFR ( Amer) 149, Glucose 83, Calcium 8.6 I & O for Labs for Last 24 Hours: Intake & Output 11/19/24 11/20/24 11/21/24 11/22/24 23:59 23:59 23:59 23:59 Intake Total 1120 / 1798 1778 / 1778 1510 / 1510 Output Total 1675 / 1675 1200 / 1200 1850 / 1850 1250 / 1250 Balance -555 / 123 578 / 578 -340 / -340 -1250 / -1250 Weight 44.49 kg 44.47 kg 44.52 kg 50.4 kg The patient's infection will respond to the chosen ABx?: Yes (BLOOD CX NO GROWTH, AFEBRILE OVER 24 HRS, WHITE BLOOD CELL COUNT 8.7) Is the patient receiving the right drug, dose, and route?: Yes Could a more targeted ABx be ordered?: No How long ABx needed (days)?: 5
--- NOTE | 2024-11-22 09:29 | P.PN_ITS ---
Subjective *Date: 11/22/24 *Time: 09:29 Interval history: Patient has improved since changing over to Vapotherm. She still has some SOB and anxiety from time to time. Medical Exam Vital signs and Labs for Last 24 Hours: Vital Signs Temp Pulse Pulse Resp BP Pulse Ox O2 Del Method 11/22/24 07:00 Vapotherm 11/22/24 06:14 72 11/22/24 06:14 73 11/22/24 06:14 99 Vapotherm 11/22/24 06:00 70 21 156/98 H 96 Vapotherm 11/22/24 05:00 Vapotherm 11/22/24 04:00 97.6 F 11/22/24 04:00 67 11/22/24 04:00 64 21 164/91 H 100 Vapotherm 11/22/24 03:00 Vapotherm 11/22/24 02:05 76 11/22/24 02:05 77 11/22/24 02:00 67 22 166/100 H 99 Vapotherm 11/22/24 02:00 99 Vapotherm 11/22/24 00:40 Vapotherm 11/22/24 00:00 68 11/22/24 00:00 90 L Vapotherm 11/22/24 00:00 97.4 F L 72 20 174/99 H 90 L Vapotherm 11/21/24 23:00 Vapotherm 11/21/24 22:00 70 20 158/95 H 100 Vapotherm 11/21/24 21:21 75 11/21/24 21:21 78 11/21/24 21:00 Vapotherm 11/21/24 20:00 80 11/21/24 20:00 98 Vapotherm 11/21/24 20:00 97.8 F 74 16 151/93 H 95 Vapotherm 11/21/24 18:59 67 11/21/24 18:59 76 11/21/24 18:59 96 Vapotherm 11/21/24 18:48 Vapotherm 11/21/24 18:00 75 19 162/96 H 99 Vapotherm 11/21/24 17:00 Vapotherm 11/21/24 16:00 80 11/21/24 16:00 98.2 F 77 20 180/102 H 99 Vapotherm 11/21/24 15:00 Vapotherm 11/21/24 14:30 77 11/21/24 14:30 75 11/21/24 14:30 97 Vapotherm 11/21/24 14:00 75 25 H 155/86 H 97 Vapotherm 11/21/24 14:00 97 Vapotherm 11/21/24 13:00 Vapotherm 11/21/24 12:00 80 11/21/24 12:00 98.2 F 72 20 159/99 H 96 Vapotherm 11/21/24 11:00 Vapotherm 11/21/24 10:00 73 22 131/82 95 Vapotherm O2 Flow Rate FiO2 11/22/24 07:00 25 11/22/24 06:14 11/22/24 06:14 11/22/24 06:14 20 30 11/22/24 06:00 25 35 11/22/24 05:00 25 11/22/24 04:00 11/22/24 04:00 11/22/24 04:00 25 35 11/22/24 03:00 25 11/22/24 02:05 11/22/24 02:05 11/22/24 02:00 25 35 11/22/24 02:00 25 35 11/22/24 00:40 25 11/22/24 00:00 11/22/24 00:00 25 35 11/22/24 00:00 25 35 11/21/24 23:00 25 11/21/24 22:00 25 35 11/21/24 21:21 11/21/24 21:21 11/21/24 21:00 25 11/21/24 20:00 11/21/24 20:00 25 35 11/21/24 20:00 25 35 11/21/24 18:59 11/21/24 18:59 11/21/24 18:59 20 30 11/21/24 18:48 20 11/21/24 18:00 20 25 11/21/24 17:00 20 11/21/24 16:00 11/21/24 16:00 11/21/24 15:00 20 11/21/24 14:30 11/21/24 14:30 11/21/24 14:30 20 30 11/21/24 14:00 20 25 11/21/24 14:00 20 30 11/21/24 13:00 20 11/21/24 12:00 11/21/24 12:00 20 30 11/21/24 11:00 20 11/21/24 10:00 Intake and Output 11/21/24 11/22/24 11/22/24 23:59 07:59 15:59 Intake Total 1290 / 1510 Output Total 250 / 1850 1250 / 1250 Balance 1040 / -340 -1250 / -1250 Intake: Intake, Oral Amount 240 / 460 Intake, Total IV Amount 1050 / 1050 Ceftriaxone 1 gm 1 gm In 0.9 % 50 / 50 Sodium Chloride 50 ml @ 100 mls /hr IV Q24H [facility] Rx#:[id number] Mvi, Adult No.1 with Vit K 10 1000 / 1000 ml Thiamine HCl 100 mg Magnesium Sulfate 2 gm In Lactated Ringers 1000ML 1,000 ml @ 125 mls/hr IV DAILY [facility] Rx #:[id number] Output: Output, Urine Amount 250 / 1850 1250 / 1250 Other: Number of Voids 1 Number of Unmeasured Voids 1 1 Weight 111 lb 1.808 oz Patient Weight 11/22/24 23:59 Weight 111 lb 1.808 oz Laboratory Results - last 24 hr 11/22/24 06:35: WBC 8.7, RBC 3.69 L, Hgb 13.5 D, Hct 37.6, MCV 101.9 H, MCH 36.3 H, MCHC 35.6 H, RDW 12.4, Plt Count 240 D, MPV 9.0, Neut % (Auto) 58.6, Lymph % (Auto) 26.8, [place] % (Auto) 12.8 H, Eos % (Auto) 0.2, Baso % (Auto) 0.2, Neut # (Auto) 5.1, Lymph # (Auto) 2.3, [place] # (Auto) 1.1 H, Eos # (Auto) 0.0, Baso # (Auto) 0.0, Sodium 127 L, Potassium 3.8, Chloride 90 L, Carbon Dioxide 36 H, Anion Gap 4.8 L, BUN 14, Creatinine 0.50 L, Estimated Creat Clear 43, Estimated GFR 123, Est GFR ( Amer) 149, Glucose 83, Calcium 8.6 I & O for Labs for Last 24 Hours: Intake & Output 11/19/24 11/20/24 11/21/24 11/22/24 23:59 23:59 23:59 23:59 Intake Total 1120 / 1798 1778 / 1778 1510 / 1510 Output Total 1675 / 1675 1200 / 1200 1850 / 1850 1250 / 1250 Balance -555 / 123 578 / 578 -340 / -340 -1250 / -1250 Weight 98 lb 1.338 oz 98 lb 0.633 oz 98 lb 2.397 oz 111 lb 1.808 oz Constitutional: Present no acute distress Respiratory: Present wheezes and crackles Comment:: Air movement has improved Cardiac: Present Reg Rate and Rhythm GI: Present soft; Absent distention or tenderness Extremities: Absent edema Skin: Present intact Neuro: Present alert, awake and oriented x 3 Assessment and Plan *Assessment and plan (1) Acute on chronic respiratory failure with hypoxia and hypercapnia: Status: Acute Category: Medical Code(s): J96.21 - Acute and chronic respiratory failure with hypoxia; J96.22 - Acute and chronic respiratory failure with hypercapnia (2) Acute exacerbation of chronic obstructive pulmonary disease: Status: Acute Category: Medical Code(s): J44.1 - Chronic obstructive pulmonary disease with (acute) exacerbation (3) Parainfluenza infection: Status: Acute Category: Medical Code(s): B34.8 - Other viral infections of unspecified site (4) Hyponatremia: Status: Acute Category: Medical Code(s): E87.1 - Hypo-osmolality and hyponatremia (5) Family history of coronary artery disease: Status: Acute Category: Medical Code(s): Z82.49 - Family history of ischemic heart disease and other diseases of the circulatory system (6) HTN (hypertension): Status: Chronic Qualifiers: Hypertension type: essential hypertension Qualified Code(s): I10 - Essential (primary) hypertension Category: Medical Code(s): I10 - Essential (primary) hypertension (7) Severe protein-calorie malnutrition: Status: Acute Category: Medical Code(s): E43 - Unspecified severe protein-calorie malnutrition (8) Pulmonary emphysema: Status: Acute Category: Medical Code(s): J43.9 - Emphysema, unspecified (9) Alcoholism: Status: Acute Category: Medical Code(s): F10.20 - Alcohol dependence, uncomplicated Plan Improving slowly, continue current treatment, add Hydroxyzine as needed.
[2024-11-22] MEDS: LISINOPRIL 10MG TABLET 10 MG PO (11:09)
[2024-11-22] MEDS: CEFTRIAXONE 1 GM 1 GM in 0.9 % SODIUM CHLORIDE 50 ML IV (14:07)
--- NOTE | 2024-11-22 17:56 | PC.NURSE ---
Patient alert and oriented times 4, ciwas o, lung sound expiratory rhonchi. Albuterol inhaler ordered at patient request. Patient able to sit in chair for short period of time
--- NOTE | 2024-11-22 22:15 | ECG_ITS ---
APPROVED REPORT Exam: Resting ECG HR:68 bpm ECG Measurements Heart Rate 68 AXES FL 163 P 85 QRSd 80 QRS -66 QT 429 T 49 QTc 445 Conclusion SINUS RHYTHM POSSIBLE LEFT ATRIAL ENLARGEMENT [-0.1mV P-WAVE IN V1/V2] LEFT ANTERIOR FASCICULAR BLOCK [QRS AXIS <= -45, QR IN I, RS IN II] INFERIOR MYOCARDIAL INFARCTION , PROBABLY OLD [40+ ms Q WAVE AND/OR ST/T ABNORMALITY IN II/aVF] ABNORMAL ECG UNCONFIRMED REPORT Electronically signed by : Alber Jennings MD 11/23/2024 07:34:03
[2024-11-22] MEDS: ACETAMINOPHEN 325MG TAB 650 MG PO (23:08)
[2024-11-22] MEDS: hydrOXYzine pamoate 25MG CAPSULE 25 MG PO (23:08)
[2024-11-23] VITALS (11 sets, daily range): BP systolic 114–173; BP diastolic 71–102; PULSE 64–78; RESP 14–24; TEMP 36.5–36.7; O2SAT 80–100; BMI 20.5
[2024-11-23] MEDS: IBUPROFEN 600 MG TABLET PO (04:46)
[2024-11-23] MEDS: ACETAMINOPHEN 325MG TAB 650 MG PO (04:46)
[2024-11-23] MEDS: hydrOXYzine pamoate 25MG CAPSULE 25 MG PO ×2 (06:29→11:10)
[2024-11-23] MEDS: IPRATROPIUM/ALBUTEROL 3 ML NEB IH ×2 (06:33→09:35)
[2024-11-23] MEDS: BUDESONIDE 0.5MG/2ML NEB 0.5 MG IH (06:33)
--- NOTE | 2024-11-23 08:26 | EXP.PN ---
Subjective *Date: 11/23/24 *Time: 08:56 Interval history: Patient states she wants to go home. She states she is depressed and would do better at home. She does not want anything to eat or drink. She states she does continue to void. She is somewhat short of breath and states she still has a congested cough which is nonproductive. Blood pressure is elevated today. She is currently on O2 at 2 L/min with O2 sat at 95%. Exam Data for Last 24 hours Vital signs and Labs for Last 24 Hours: Temp Pulse Resp BP Pulse Ox O2 Del Method O2 Flow Rate 97.7 F 76 18 168/102 H 95 Nasal Cannula 2 11/23/24 04:00 11/23/24 06:35 11/23/24 06:00 11/23/24 06:00 11/23/24 06:35 11/23/24 07:00 11/23/24 07:00 FiO2 2 11/23/24 06:00 Laboratory Results - last 24 hr 11/22/24 06:35: Hgb 13.5 D I & O for Last 24 hours: Intake & Output 11/20/24 11/21/24 11/22/24 11/23/24 11:59 11:59 11:59 11:59 Intake Total 1738 / 1738 1220 / 1220 1610 / 1610 1260 / 1260 Output Total 1625 / 1625 550 / 550 2850 / 2850 352 / 352 Balance 113 / 113 670 / 670 -1240 / -1240 908 / 908 Weight 98 lb 0.633 oz 98 lb 2.397 oz 111 lb 1.808 oz 111 lb 8.862 oz Microbiology Reports for the Last 24 Hours: Microbiology 11/18/24 18:01 Blood Blood Culture - Preliminary NO GROWTH AFTER 4 DAYS 11/18/24 18:06 Blood Blood Culture - Preliminary NO GROWTH AFTER 4 DAYS Constitutional Constitutional: no acute distress and thin *Routine Respiratory Exam Respiratory: Present accessory muscle use, decreased breath sounds, prolonged expiratory phase, wheezes (Soft inspiratory wheeze scattered.) and crackles (Scattered crackles bilaterally) Comments: Bilaterally posteriorly *Routine Cardiovascular Exam Cardiovascular: Present RRR (Heart rate in the 70s to 80s sinus rhythm) *Routine Abdominal Exam Abdominal: Present soft and normoactive bowel sounds; Absent tenderness *Routine Extremities Exam Extremities: Absent edema *Routine Neurological Exam Neurological: Present alert and oriented X3 Routine Psychiatric Exam Psychiatric: Present depressed Assessment and Plan *Assessment and plan (1) Acute on chronic respiratory failure with hypoxia and hypercapnia: Status: Acute Category: Medical Code(s): J96.21 - Acute and chronic respiratory failure with hypoxia; J96.22 - Acute and chronic respiratory failure with hypercapnia (2) Acute exacerbation of chronic obstructive pulmonary disease: Status: Acute Category: Medical Code(s): J44.1 - Chronic obstructive pulmonary disease with (acute) exacerbation (3) Parainfluenza infection: Status: Acute Category: Medical Code(s): B34.8 - Other viral infections of unspecified site (4) Hyponatremia: Status: Acute Category: Medical Code(s): E87.1 - Hypo-osmolality and hyponatremia (5) Family history of coronary artery disease: Status: Acute Category: Medical Code(s): Z82.49 - Family history of ischemic heart disease and other diseases of the circulatory system (6) HTN (hypertension): Status: Chronic Qualifiers: Hypertension type: essential hypertension Qualified Code(s): I10 - Essential (primary) hypertension Category: Medical Code(s): I10 - Essential (primary) hypertension (7) Severe protein-calorie malnutrition: Status: Acute Category: Medical Code(s): E43 - Unspecified severe protein-calorie malnutrition (8) Pulmonary emphysema: Status: Acute Category: Medical Code(s): J43.9 - Emphysema, unspecified (9) Alcoholism: Status: Acute Category: Medical Code(s): F10.20 - Alcohol dependence, uncomplicated Plan Patient is now a DNR/DNI. Will add lisinopril for hypertension. P.o. fluids encouraged. Out of bed into chair. Dr. Josue entry - Saw patient, agree with above note. SHe has improved, will transfer out of step down, discussed possible placement for short term rehab.
[2024-11-23] MEDS: MVI, ADULT NO.1 WITH VIT K 10 ML, THIAMINE HCL 100 MG, MAGNESIUM SULFATE 2 GM in LACTAT... 125 ML IV (08:51)
[2024-11-23] MEDS: LISINOPRIL 10MG TABLET 10 MG PO (08:52)
[2024-11-23] MEDS: FOLIC ACID 1MG TABLET 1 MG PO (08:52)
[2024-11-23] MEDS: METOPROLOL SUCCINATE XL 50MG TABLET 50 MG PO ×2 (08:52→20:21)
[2024-11-23] MEDS: predniSONE 20MG TAB 40 MG PO (08:52)
[2024-11-23] MEDS: FAMOTIDINE 20MG TABLET 20 MG PO (08:52)
[2024-11-23] MEDS: SERTRALINE 100MG TABLET 100 MG PO (08:53)
[2024-11-23] MEDS: OXAZEPAM 15 MG CAPSULE PO ×3 (08:53→20:21)
[2024-11-23] MEDS: ENOXAPARIN 40MG/0.4ML SYRINGE 40 MG SUBCUT (08:55)
--- NOTE | 2024-11-23 09:32 | P.PN_ITS ---
Subjective *Date: 11/23/24 *Time: 12:22 Interval history: Patient denies any new respiratory complaints Pulmonology Exam Inpatient Vital signs and Labs for Last 24 Hours: Temp Pulse Resp BP Pulse Ox O2 Del Method O2 Flow Rate 97.9 F 76 18 168/102 H 95 Nasal Cannula 2 11/23/24 08:00 11/23/24 06:35 11/23/24 06:00 11/23/24 06:00 11/23/24 06:35 11/23/24 07:00 11/23/24 07:00 FiO2 2 11/23/24 06:00 Temp Pulse Resp BP Pulse Ox O2 Del Method O2 Flow Rate 97.8 F 92 H 19 106/88 L 98 Nasal Cannula 4 11/19/24 07:22 11/19/24 09:07 11/19/24 09:07 11/19/24 09:07 11/19/24 09:07 11/19/24 09:07 11/19/24 09:07 FiO2 25 11/19/24 02:45 Laboratory Results - last 24 hr 11/18/24 18:01: WBC 8.3, RBC 3.85 L, Hgb 13.8, Hct 39.1, MCV 101.6 H, MCH 35.8 H , MCHC 35.3, RDW 13.1, Plt Count 205, MPV 8.8, Neut % (Auto) 83.6 H, Lymph % (Auto) 7.0 L, [place] % (Auto) 5.7, Eos % (Auto) 2.9, Baso % (Auto) 0.2, Neut # (Auto) 6.9, Lymph # (Auto) 0.6 L, [place] # (Auto) 0.5, Eos # (Auto) 0.2, Baso # (Auto) 0.0, D-Dimer 0.72 H, Sodium 124 L, Potassium 4.2, Chloride 93 L, Carbon Dioxide 26, Anion Gap 9.2, BUN 12, Creatinine 0.80, Estimated Creat Clear 37, Estimated GFR 72, Est GFR ( Amer) 87, Glucose 141 H, Calcium 9.4, Phosphorus 3.8, Magnesium 1.8, Total Bilirubin 0.4, AST 85 H, ALT 35, Alkaline Phosphatase 61, Troponin I 0.03, C-Reactive Protein 126.3 H, NT-Pro-B Natriuret Pep 1520 H, Total Protein 7.8, Albumin 4.6, Globulin 3.2, Albumin/Globulin Ratio 1.4, TSH 0.62, Thyroxine (T4) 6.9 11/18/24 18:12: VBG pH 7.25 L, VBG pCO2 58.0 H, VBG pO2 47.8 H, VBG HCO3 24.9, VBG Total CO2 26.7, VBG O2 Saturation 79.0 H, VBG Base Excess -2.3, VBG Lactic Acid 2.0 11/18/24 18:18: SARS-CoV-2 (PCR) Not detected, Influenza A Untype (PCR) Not detected, Influenza Type B (PCR) Not detected 11/18/24 20:12: VBG pH 7.25 L, VBG pCO2 54.9 H, VBG pO2 46.2 H, VBG HCO3 23.4, VBG Total CO2 25.1, VBG O2 Saturation 76.7 H, VBG Base Excess -3.9 L, VBG Lactic Acid 1.7 11/18/24 21:28: Troponin I 0.05 H 11/19/24 00:20: Troponin I 0.04 H 11/19/24 01:53: Urine Color Yellow, Urine Appearance Clear, Urine pH 6.0, Ur Specific [place] 1.025, Urine Protein Trace, Urine Glucose (UA) Negative, Urine Ketones Negative, Urine Blood 1+ A, Urine Nitrate Negative, Urine Bilirubin Negative, Urine Urobilinogen 0.2, Ur Leukocyte Esterase Negative, Urine RBC 10- 20, Urine WBC 3-5, Ur Squamous Epith Cells 10-20, Urine Bacteria Trace, Hyaline Casts 3-5 11/19/24 05:35: WBC 5.6 D, RBC 3.26 L, Hgb 11.7 L D, Hct 33.0 L, MCV 101.2 H, MCH 35.9 H, MCHC 35.5 H, RDW 12.8, Plt Count 180, MPV 9.1, Neut % (Auto) 85.8 H, Lymph % (Auto) 8.7 L, [place] % (Auto) 4.8, Eos % (Auto) 0.0 L, Baso % (Auto) 0.2, Neut # (Auto) 4.8, Lymph # (Auto) 0.5 L, [place] # (Auto) 0.3, Eos # (Auto) 0.0, Baso # (Auto) 0.0, Total Counted 100, Neutrophils % (Manual) 85 H, Lymphocytes % (Manual) 13, Monocytes % (Manual) 2, Platelet Estimate Normal, Macrocytosis 1+, VBG pH 7.35, VBG pCO2 46.1, VBG pO2 42.0 H, VBG HCO3 24.8, VBG Total CO2 26.2, VBG O2 Saturation 75.8 H, VBG Base Excess -0.9, VBG Lactic Acid 1.7, Sodium 127 L, Potassium 3.5, Chloride 95 L, Carbon Dioxide 28, Anion Gap 7.5, BUN 11, Creatinine 0.70, Estimated Creat Clear 38, Estimated GFR 83, Est GFR ( Amer) 101, Glucose 151 H, Calcium 8.8, Total Bilirubin 0.1 L, AST 76 H, ALT 34, Alkaline Phosphatase 53, Total Protein 6.8, Albumin 3.8 D, Globulin 3.0, Albumin/Globulin Ratio 1.3 I & O for Labs for Last 24 Hours: Intake & Output 11/20/24 11/21/24 11/22/24 11/23/24 23:59 23:59 23:59 23:59 Intake Total 1778 / 1778 1510 / 1510 1280 / 1480 200 / 200 Output Total 1200 / 1200 1850 / 1850 1252 / 1252 350 / 350 Balance 578 / 578 -340 / -340 28 / 228 -150 / -150 Weight 98 lb 0.633 oz 98 lb 2.397 oz 111 lb 1.808 oz 111 lb 8.862 oz Intake & Output 11/16/24 11/17/24 11/18/24 11/19/24 23:59 23:59 23:59 23:59 Output Total 950 / 950 Balance -950 / -950 Weight 98 lb 1.6 oz 98 lb 1.585 oz Microbiology Reports for the Last 24 Hours: Microbiology 11/18/24 18:01 Blood Blood Culture - Preliminary NO GROWTH AFTER 4 DAYS 11/18/24 18:06 Blood Blood Culture - Preliminary NO GROWTH AFTER 4 DAYS Constitutional: Present severe distress Head: Present normocephalic and atraumatic ENT: Present normal exam, normal oropharynx and mucous membranes moist Neck: Present normal inspection and full ROM Respiratory: Present respiratory distress, rhonchi and able to speak in complete sentences; Absent wheezes Cardiac: Present S1/S2, Tachycardia and radial pulses present GI: Present soft and distention; Absent tenderness or guarding Rectal (female): Present deferred (female): Present deferred Skin: Present intact; Absent cyanosis or jaundice Neuro: Present alert and awake; Absent oriented x 3 Extremities: Present normal inspection; Absent clubbing or cyanosis Psychiatric: Present normal affect and cooperative Assessment and Plan *Assessment and plan (1) Acute on chronic respiratory failure with hypoxia and hypercapnia: Status: Acute Category: Medical Code(s): J96.21 - Acute and chronic respiratory failure with hypoxia; J96.22 - Acute and chronic respiratory failure with hypercapnia (2) Acute exacerbation of chronic obstructive pulmonary disease: Status: Acute Category: Medical Code(s): J44.1 - Chronic obstructive pulmonary disease with (acute) exacerbation (3) Pulmonary emphysema: Status: Acute Category: Medical Code(s): J43.9 - Emphysema, unspecified Plan Ms. Mcgarry is a 69-year-old female current smoker greater than [id number]-golt smoking history currently using Anoro and albuterol. Baseline well-controlled symptoms with exacerbations, supplementation, rpresented to ER with worsening respiratory distress on new oxygen requirements, and pulmonary was called for further evaluation management. Afebrile. Hemodynamically stable. No evidence of leukocytosis. Chest x-ray upon admission hyperinflated lungs consistent with COPD. No dense consolidative/airspace changes noted. Complaints of respiratory viral PCR positive for parainfluenza virus Patient currently receiving nebulization therapies and prednisone. Mild expiratory wheezing noted on auscultation. Etiology likely from COPD exacerbation secondary to parainfluenza virus. Interval update: Intermittent worsening respiratory events over the weekend needing Ventimask/high flow nasal cannula oxygen supplementation. Blood gas from this weekend continue to show no evidence of hypercarbic respiratory failure. Improving oxygenation. Blood cultures no growth so far. On examination no significant respiratory distress this morning. On 2 L nasal cannula saturating 100% Plan: Out of bed to chair, activity as tolerated Incentive spirometry and flutter valve Trelegy 100 inhaler along with DuoNebs 4 times daily as needed Oxygen supplementation only as needed to maintain O2 saturation goal of 90 to 95% Prednisone 40 mg daily to complete a total of 5-day course
[2024-11-23] MEDS: ALBUTEROL-HFA 90MCG/PUFF INHALER 8GM 2 PUFF IH (11:10)
--- NOTE | 2024-11-23 11:14 | PC.NURSE ---
PT HAD TOLD THE TECH THAT SHE WAS HAVING ANOTHER ATTACK . PT WAS SITTING IN THE TRIPOD POSITION WITH AUDIBLE WHEEZES. ROOM AIR SAT WAS 80%. PT PLACED BACK ON 2L AND GIVEN ANXIETY MEDS AND PRN INHALER PER SEP. LUNG SOUNDS WERE TIGHT AND WHEEZY BILATERALLY. PT 02 SAT CAME UP TO 98% AND WAS TURNED DOWN TO 1L NASAL CANNULA. RT NOTIFIED.
[2024-11-23] MEDS: CEFTRIAXONE 1 GM 1 GM in 0.9 % SODIUM CHLORIDE 50 ML IV (15:26)
--- NOTE | 2024-11-23 17:18 | PC.NURSE ---
assumed care of pt at 1600 from LANG SAWYER. pt a&ox4, resting supine in bed with family at bedside. requiring 1L NC to maintain o2 sats >90%. pt appears very fatigued. purewick in place. pt has had 100ml output since this RN assumed care. poor appetite. no needs at this time. call light within reach.
[2024-11-23] MEDS: LISINOPRIL 20MG TABLET 20 MG PO (18:26)
--- NOTE | 2024-11-23 18:40 | PEERSUPPORT ---
Peer Support Note Patient Information Patient Information: DOS: 11/23/2024 ? Pt sleeping on and off, very little direct communication. ? Pt gave permission for ps to speak openly communicate with family at bedside. ? Ps and family discussed alcohol use disorder, treatment options inpatient/outpatient, recovery community importance/support. ? Pts Gerald requested information in regards to inpatient treatment facilities to be discussed on 11/24/2024. ? Pt receptive with ps nodding yes for follow up visits. ? Plan of action: Ps will follow up with pt on 11/24/2024.
[2024-11-24] VITALS (7 sets, daily range): BP systolic 141–172; BP diastolic 77–101; PULSE 63–82; RESP 16–22; TEMP 36.2–36.7; O2SAT 93–98; BMI 20.4
[2024-11-24] MEDS: ALBUTEROL-HFA 90MCG/PUFF INHALER 8GM 2 PUFF IH (04:35)
[2024-11-24] MEDS: FLUTICASONE/UMECLIDIN/VILANTER 100/62.5/25MCG INHALER 1 PUFF IH (06:19)
[2024-11-24] MEDS: IBUPROFEN 600 MG TABLET PO (06:40)
[2024-11-24 06:58] LABS: Basophils % 0.2 % (0.1-2.0); Eosinophils # 0.1 Kmm3 (0.0-0.4); Eosinophils % 0.4 % (0.1-12.0); Hemoglobin 14.1 g/dL (12.2-16.2); Immature Granulocytes # 0.16 10^3uL; Immature Granulocytes % 1.3 %; Lymphocytes # 1.8 K/mm3 (0.7-4.5); Lymphocytes % 14.4 % (10-50); Mean Corpuscular HGB Conc 36.2 g/dL (31.8-35.4); Mean Corpuscular Hemoglobin 36.5 pg (27.0-31.2); Monocytes # 1.4 K/mm3 (0.1-1.0); Monocytes % 11.4 % (1.7-9.3); Neutrophils # 8.9 K/mm3 (1.8-7.8); Neutrophils % 72.3 % (37.0-80.0); Nucleated Red Blood Cells # 0 10^3/uL; Nucleated Red Blood Cells % 0 %; Platelet Count 355 K/mm3 (142-424); Red Blood Count 3.86 M/mm3 (4.20-5.40); Red Cell Distribution Width-SD 44.1 fL; White Blood Count 12.3 K/mm3 (4.8-10.8)
[2024-11-24 07:07] LABS: Anion Gap 6.4 mEq/L (5-15); Blood Urea Nitrogen 19 mg/dl (7-17); Calcium 8.4 mg/dl (8.4-10.2); Carbon Dioxide 38 mmol/L (22.0-30.0); Chloride 82 mmol/L (98-107); Creatinine Clearance Estimated 43 mL/min (50-200); Estimated Glomerular Filt Rate 100 ml/min (>60); GFR (African American) 121 ML/MIN (>60); Glucose 72 mg/dl (74-100); Potassium 3.4 mmoL/L (3.5-5.1); Sodium 123 mmol/L (136-145)
[2024-11-24] MEDS: hydrOXYzine pamoate 25MG CAPSULE 25 MG PO (07:42)
--- NOTE | 2024-11-24 08:14 | P.PN_ITS ---
Subjective *Date: 11/24/24 *Time: 09:02 Interval history: Patient states she sleeps very little. She is always short of breath. She denies chest pain. is at bedside. He states that she is only eating a bite of meat and a few green beans for the last 7 days. She drinks water but nothing else. She refuses milkshakes. When asked what she would like to eat she states beer #1 #2 a cigarette. At least she is talking and she does joke some. She request something for withdrawal. She has a pure wick in place. Bowels have not moved since she has been here. She cannot remember if she got up yesterday. Exam Data for Last 24 hours Vital signs and Labs for Last 24 Hours: Temp Pulse Resp BP Pulse Ox O2 Del Method O2 Flow Rate 97.2 F L 76 22 172/99 H 93 L Nasal Cannula 1 11/24/24 04:00 11/24/24 04:00 11/24/24 04:00 11/24/24 04:00 11/24/24 06:22 11/24/24 07:00 11/24/24 07:00 FiO2 2 11/23/24 06:00 Laboratory Results - last 24 hr 11/24/24 05:34: WBC 12.3 H D, RBC 3.86 L, Hgb 14.1, Hct 39.0, MCV 101.0 H, MCH 36.5 H, MCHC 36.2 H, RDW 12.0, Plt Count 355 D, MPV 9.0, Neut % (Auto) 72.3, Lymph % (Auto) 14.4, [place] % (Auto) 11.4 H, Eos % (Auto) 0.4, Baso % (Auto) 0.2, Neut # (Auto) 8.9 H, Lymph # (Auto) 1.8, [place] # (Auto) 1.4 H, Eos # (Auto) 0.1, Baso # (Auto) 0.0, Sodium 123 L, Potassium 3.4 L, Chloride 82 L, Carbon Dioxide 38 H, Anion Gap 6.4, BUN 19 H D, Creatinine 0.60, Estimated Creat Clear 43, Estimated GFR 100, Est GFR ( Amer) 121, Glucose 72 L, Calcium 8.4 I & O for Last 24 hours: Intake & Output 11/21/24 11/22/24 11/23/24 11/24/24 11:59 11:59 11:59 11:59 Intake Total 1220 / 1220 1610 / 1610 1310 / 1310 100 / 100 Output Total 550 / 550 2850 / 2850 352 / 352 500 / 500 Balance 670 / 670 -1240 / -1240 958 / 958 -400 / -400 Weight 98 lb 2.397 oz 111 lb 1.808 oz 111 lb 8.862 oz 111 lb 1.808 oz Microbiology Reports for the Last 24 Hours: Microbiology 11/18/24 18:01 Blood Blood Culture - Final NO GROWTH AFTER 5 DAYS 11/18/24 18:06 Blood Blood Culture - Final NO GROWTH AFTER 5 DAYS Constitutional Constitutional: no acute distress and thin Comments: Awakens easily. Using abdominal muscles for respiratory effort. *Routine Respiratory Exam Respiratory: Present accessory muscle use, wheezes (Scattered), crackles (Scattered) and diminished air movement (Continues to move air better.) Comments: Upper airway crackles; she was able to assist with exam by sitting up. *Routine Cardiovascular Exam Cardiovascular: Present RRR *Routine Abdominal Exam Abdominal: Present soft and normoactive bowel sounds; Absent tenderness *Routine Extremities Exam Extremities: Present pulses intact; Absent edema or calf tenderness *Routine Neurological Exam Neurological: Present alert and oriented X3 Assessment and Plan *Assessment and plan (1) Acute on chronic respiratory failure with hypoxia and hypercapnia: Status: Acute Category: Medical Code(s): J96.21 - Acute and chronic respiratory failure with hypoxia; J96.22 - Acute and chronic respiratory failure with hypercapnia (2) Acute exacerbation of chronic obstructive pulmonary disease: Status: Acute Category: Medical Code(s): J44.1 - Chronic obstructive pulmonary disease with (acute) exacerbation (3) Parainfluenza infection: Status: Acute Category: Medical Code(s): B34.8 - Other viral infections of unspecified site (4) Hyponatremia: Status: Acute Category: Medical Code(s): E87.1 - Hypo-osmolality and hyponatremia (5) Family history of coronary artery disease: Status: Acute Category: Medical Code(s): Z82.49 - Family history of ischemic heart disease and other diseases of the circulatory system (6) HTN (hypertension): Status: Chronic Qualifiers: Hypertension type: essential hypertension Qualified Code(s): I10 - Essential (primary) hypertension Category: Medical Code(s): I10 - Essential (primary) hypertension (7) Severe protein-calorie malnutrition: Status: Acute Category: Medical Code(s): E43 - Unspecified severe protein-calorie malnutrition (8) Pulmonary emphysema: Status: Acute Category: Medical Code(s): J43.9 - Emphysema, unspecified (9) Alcoholism: Status: Acute Category: Medical Code(s): F10.20 - Alcohol dependence, uncomplicated Plan Patient is already on Serax 3 times daily. Encourage patient to eat and sit up in a chair. Care management is looking for posthospital care. Dr. Josue entry - Saw patient, agree with above note. Discharge plan discussed with patient and her . She reluctantly agrees to some short term rehab.
--- NOTE | 2024-11-24 08:34 | PC.NURSE ---
TECH NOTE; NOTIFIED NURSE OF BLOOD PRESSURE FOR 0800 VITAL SIGNS Yuri SOLIZ, SRNA
--- NOTE | 2024-11-24 09:46 | EXP.PULM.PN ---
Subjective *Date: 11/24/24 *Time: 12:58 Interval history: No acute respiratory vents overnight. Pulmonology Exam Inpatient Vital signs and Labs for Last 24 Hours: Temp Pulse Resp BP Pulse Ox O2 Del Method O2 Flow Rate 97.5 F L 82 18 169/101 H 95 Nasal Cannula 1 11/24/24 08:00 11/24/24 08:00 11/24/24 08:00 11/24/24 08:00 11/24/24 08:00 11/24/24 08:00 11/24/24 08:00 FiO2 2 11/23/24 06:00 Laboratory Results - last 24 hr 11/24/24 05:34: WBC 12.3 H D, RBC 3.86 L, Hgb 14.1, Hct 39.0, MCV 101.0 H, MCH 36.5 H, MCHC 36.2 H, RDW 12.0, Plt Count 355 D, MPV 9.0, Neut % (Auto) 72.3, Lymph % (Auto) 14.4, [place] % (Auto) 11.4 H, Eos % (Auto) 0.4, Baso % (Auto) 0.2, Neut # (Auto) 8.9 H, Lymph # (Auto) 1.8, [place] # (Auto) 1.4 H, Eos # (Auto) 0.1, Baso # (Auto) 0.0, Sodium 123 L, Potassium 3.4 L, Chloride 82 L, Carbon Dioxide 38 H, Anion Gap 6.4, BUN 19 H D, Creatinine 0.60, Estimated Creat Clear 43, Estimated GFR 100, Est GFR ( Amer) 121, Glucose 72 L, Calcium 8.4 Temp Pulse Resp BP Pulse Ox O2 Del Method O2 Flow Rate 97.8 F 92 H 19 106/88 L 98 Nasal Cannula 4 11/19/24 07:22 11/19/24 09:07 11/19/24 09:07 11/19/24 09:07 11/19/24 09:07 11/19/24 09:07 11/19/24 09:07 FiO2 25 11/19/24 02:45 Laboratory Results - last 24 hr 11/18/24 18:01: WBC 8.3, RBC 3.85 L, Hgb 13.8, Hct 39.1, MCV 101.6 H, MCH 35.8 H, MCHC 35.3, RDW 13.1, Plt Count 205, MPV 8.8, Neut % (Auto) 83.6 H, Lymph % (Auto) 7.0 L, [place] % (Auto) 5.7, Eos % (Auto) 2.9, Baso % (Auto) 0.2, Neut # (Auto) 6.9, Lymph # (Auto) 0.6 L, [place] # (Auto) 0.5, Eos # (Auto) 0.2, Baso # (Auto) 0.0, D-Dimer 0.72 H, Sodium 124 L, Potassium 4.2, Chloride 93 L, Carbon Dioxide 26, Anion Gap 9.2, BUN 12, Creatinine 0.80, Estimated Creat Clear 37, Estimated GFR 72, Est GFR ( Amer) 87, Glucose 141 H, Calcium 9.4, Phosphorus 3.8, Magnesium 1.8, Total Bilirubin 0.4, AST 85 H, ALT 35, Alkaline Phosphatase 61, Troponin I 0.03, C-Reactive Protein 126.3 H, NT-Pro-B Natriuret Pep 1520 H, Total Protein 7.8, Albumin 4.6, Globulin 3.2, Albumin/Globulin Ratio 1.4, TSH 0.62, Thyroxine (T4) 6.9 11/18/24 18:12: VBG pH 7.25 L, VBG pCO2 58.0 H, VBG pO2 47.8 H, VBG HCO3 24.9, VBG Total CO2 26.7, VBG O2 Saturation 79.0 H, VBG Base Excess -2.3, VBG Lactic Acid 2.0 11/18/24 18:18: SARS-CoV-2 (PCR) Not detected, Influenza A Untype (PCR) Not detected, Influenza Type B (PCR) Not detected 11/18/24 20:12: VBG pH 7.25 L, VBG pCO2 54.9 H, VBG pO2 46.2 H, VBG HCO3 23.4, VBG Total CO2 25.1, VBG O2 Saturation 76.7 H, VBG Base Excess -3.9 L, VBG Lactic Acid 1.7 11/18/24 21:28: Troponin I 0.05 H 11/19/24 00:20: Troponin I 0.04 H 11/19/24 01:53: Urine Color Yellow, Urine Appearance Clear, Urine pH 6.0, Ur Specific [place] 1.025, Urine Protein Trace, Urine Glucose (UA) Negative, Urine Ketones Negative, Urine Blood 1+ A, Urine Nitrate Negative, Urine Bilirubin Negative, Urine Urobilinogen 0.2, Ur Leukocyte Esterase Negative, Urine RBC 10-20, Urine WBC 3-5, Ur Squamous Epith Cells 10-20, Urine Bacteria Trace, Hyaline Casts 3-5 11/19/24 05:35: WBC 5.6 D, RBC 3.26 L, Hgb 11.7 L D, Hct 33.0 L, MCV 101.2 H, MCH 35.9 H, MCHC 35.5 H, RDW 12.8, Plt Count 180, MPV 9.1, Neut % (Auto) 85.8 H, Lymph % (Auto) 8.7 L, [place] % (Auto) 4.8, Eos % (Auto) 0.0 L, Baso % (Auto) 0.2, Neut # (Auto) 4.8, Lymph # (Auto) 0.5 L, [place] # (Auto) 0.3, Eos # (Auto) 0.0, Baso # (Auto) 0.0, Total Counted 100, Neutrophils % (Manual) 85 H, Lymphocytes % (Manual) 13, Monocytes % (Manual) 2, Platelet Estimate Normal, Macrocytosis 1+, VBG pH 7.35, VBG pCO2 46.1, VBG pO2 42.0 H, VBG HCO3 24.8, VBG Total CO2 26.2, VBG O2 Saturation 75.8 H, VBG Base Excess -0.9, VBG Lactic Acid 1.7, Sodium 127 L, Potassium 3.5, Chloride 95 L, Carbon Dioxide 28, Anion Gap 7.5, BUN 11, Creatinine 0.70, Estimated Creat Clear 38, Estimated GFR 83, Est GFR ( Amer) 101, Glucose 151 H, Calcium 8.8, Total Bilirubin 0.1 L, AST 76 H, ALT 34, Alkaline Phosphatase 53, Total Protein 6.8, Albumin 3.8 D, Globulin 3.0, Albumin/Globulin Ratio 1.3 I & O for Labs for Last 24 Hours: Intake & Output 11/21/24 11/22/24 11/23/24 11/24/24 23:59 23:59 23:59 23:59 Intake Total 1510 / 1510 1280 / 1480 250 / 350 100 / 100 Output Total 1850 / 1850 1252 / 1252 450 / 450 400 / 400 Balance -340 / -340 28 / 228 -200 / -100 -300 / -300 Weight 98 lb 2.397 oz 111 lb 1.808 oz 111 lb 8.862 oz 111 lb 1.808 oz Intake & Output 11/16/24 11/17/24 11/18/24 11/19/24 23:59 23:59 23:59 23:59 Output Total 950 / 950 Balance -950 / -950 Weight 98 lb 1.6 oz 98 lb 1.585 oz Microbiology Reports for the Last 24 Hours: Microbiology 11/18/24 18:01 Blood Blood Culture - Final NO GROWTH AFTER 5 DAYS 11/18/24 18:06 Blood Blood Culture - Final NO GROWTH AFTER 5 DAYS Constitutional: Present severe distress Head: Present normocephalic and atraumatic ENT: Present normal exam, normal oropharynx and mucous membranes moist Neck: Present normal inspection and full ROM Respiratory: Present respiratory distress and able to speak in complete sentences; Absent prolonged expiratory phase, rhonchi or wheezes Cardiac: Present S1/S2, Tachycardia and radial pulses present GI: Present soft and distention; Absent tenderness or guarding Rectal (female): Present deferred (female): Present deferred Skin: Present intact; Absent cyanosis or jaundice Neuro: Present alert and awake; Absent oriented x 3 Extremities: Present normal inspection; Absent clubbing or cyanosis Psychiatric: Present normal affect and cooperative Assessment and Plan *Assessment and plan (1) Acute on chronic respiratory failure with hypoxia and hypercapnia: Status: Acute Category: Medical Code(s): J96.21 - Acute and chronic respiratory failure with hypoxia; J96.22 - Acute and chronic respiratory failure with hypercapnia (2) Acute exacerbation of chronic obstructive pulmonary disease: Status: Acute Category: Medical Code(s): J44.1 - Chronic obstructive pulmonary disease with (acute) exacerbation (3) Pulmonary emphysema: Status: Acute Category: Medical Code(s): J43.9 - Emphysema, unspecified Plan Ms. Mcgarry is a 69-year-old female current smoker greater than [id number] smoking history currently using Anoro and albuterol. Baseline well-controlled symptoms with exacerbations, supplementation, rpresented to ER with worsening respiratory distress on new oxygen requirements, and pulmonary was called for further evaluation management. Afebrile. Hemodynamically stable. No evidence of leukocytosis. Chest x-ray upon admission hyperinflated lungs consistent with COPD. No dense consolidative/airspace changes noted. Complaints of respiratory viral PCR positive for parainfluenza virus Patient currently receiving nebulization therapies and prednisone. On initial examination, mild expiratory wheezing noted on auscultation. Etiology likely from COPD exacerbation secondary to parainfluenza virus. Interval update: No acute respiratory events overnight. Tolerating inhalers well. On 1 L nasal this morning saturating 95%. Continue to receive ceftriaxone azithromycin and prednisone Plan: Out of bed to chair, activity as tolerated Incentive spirometry and flutter valve Trelegy 100 inhaler along with DuoNebs 4 times daily as needed Oxygen supplementation only as needed to maintain O2 saturation goal of 90 to 95% Will be completing 5-day course of antibiotics and steroids today. No need for further antibiotics or steroids beyond 5 days from pulmonary standpoint #Patient can be discharged from pulmonary standpoint with Trelegy 100 inhaler along with albuterol/DuoNebs 4 times daily as needed and O2 saturation goal of 90% and above. Will follow the patient pulmonary 1 to 2 weeks postdischarge.
[2024-11-24] MEDS: MVI, ADULT NO.1 WITH VIT K 10 ML, THIAMINE HCL 100 MG, MAGNESIUM SULFATE 2 GM in LACTAT... 125 ML IV (10:00)
[2024-11-24] MEDS: FOLIC ACID 1MG TABLET 1 MG PO (10:01)
[2024-11-24] MEDS: METOPROLOL SUCCINATE XL 50MG TABLET 50 MG PO ×2 (10:01→20:04)
[2024-11-24] MEDS: FAMOTIDINE 20MG TABLET 20 MG PO (10:01)
[2024-11-24] MEDS: predniSONE 20MG TAB 40 MG PO (10:01)
[2024-11-24] MEDS: SERTRALINE 100MG TABLET 100 MG PO (10:01)
[2024-11-24] MEDS: ENOXAPARIN 40MG/0.4ML SYRINGE 40 MG SUBCUT (10:01)
[2024-11-24] MEDS: LISINOPRIL 10MG TABLET 30 MG PO (10:02)
[2024-11-24] MEDS: OXAZEPAM 15 MG CAPSULE PO ×3 (10:09→20:04)
[2024-11-24] MEDS: CEFTRIAXONE 1 GM 1 GM in 0.9 % SODIUM CHLORIDE 50 ML IV (15:13)
--- NOTE | 2024-11-24 17:55 | PC.NURSE ---
Pt is A&Ox4. Vital signs stable tolerating 2L NC. Seizure precautions in place. IV abx infused per SEP. Rally pack infusing per SEP. Pt worked with PT today and was up to the chair for several hours today. Encouraged PO intake and offered pt snacks between meal times. Plan is for short term rehab at this time. Pt resting supine with at bedside. No further needs voiced at this time. Call light within reach.
--- NOTE | 2024-11-24 18:56 | PEERSUPPORT ---
Peer Support Note Patient Information Patient Information: DOS: 11/24/2024 Pt resting when ps entered room, offering pt to transfer to chair. Pt by justino agreed to transfer to her chair for lunch. ? Ps shared personal experience with practicing mindfulness through prayer and meditation for focus and strength during challenging moments in hopes to encourage hope and strength to pt. ? Pt is willing to practice mindful exercises. ? Ps explored three things she is grateful for: -Babies, Son Sandra and grandbabies 8, 5, 2 yr old? - Gerald -Family ? Pts Gerald at bedside. ? Pt is able to eat a few bites of her lunch, favoring sherbert ice cream and verbalizes when she is finished. ? Ps practiced arm exercises with pt, pt engaged. ? Pt willing to remain in chair but wants to rest. ? Ps returned to visit, pt in bed resting, at bedside. ? Ps offers to have her transferred to chair for dinner, pt agrees by justino. ? Pt again eats a few bites of her dinner, and with a stronger voice stated she wanted her hair tie, and to sleep. ? Pt by justino stated she is okay with plan discussed by Shena Marie for transfer to go to [facility] for physical therapy and continued care. ? Plan of action: Ps will follow up with pt on 11/25/2024 ?
[2024-11-25] VITALS: BP 145/91; PULSE 66; RESP 16; TEMP 36.7; O2SAT 97
[2024-11-25] MEDS: IPRATROPIUM/ALBUTEROL 3 ML NEB IH ×2 (01:41→06:55)
[2024-11-25 01:42] VITALS: PULSE 63; PULSE 66
--- NOTE | 2024-11-25 03:45 | PC.NURSE ---
Patient is alert and oriented; she speaks minimally due to expressed fatigue and is frail and sallow-appearing. She also presents weakness overall but is able to self-turn in bed effectively. Patient was observed to have eyes closed, respirations even and unlabored on 2 L of oxygen via nasal cannula, and no apparent distress throughout the majority of the night. Upon auscultation of her lungs, inspiratory wheezing and coarse crackles were heard. Auscultation of her heart and bowel sounds were within normal findings. Patient refused a bedtime snack + a nutritional supplement this shift; she continues to express having a poor appetite and minimal oral intake. A purewick and brief remains in place for elimination needs. She requires at least x2 assistance during transfers. Scheduled medications were administered as appropriately per SEP. A breathing treatment was administered by Laurence ACHARYA at 01:41 per MAR due to the patient's complaint of difficulty catching [her] breath. The patient was able to rest after receiving it. At this time, the patient remains resting in bed without any further complaints. No new needs thus far. Call light within reach. Seizure pads in place. Droplet precautions ongoing for Parainfluenza 3.
[2024-11-25 04:00] VITALS: BP 151/95; PULSE 70; RESP 14; TEMP 37; O2SAT 92; BMI 23.2
--- NOTE | 2024-11-25 04:22 | PC.NURSE ---
Rescue inhaler administered per MAR per patient's request and labored respirations + wheezing was observed. Oxygen saturations remain > 90% on 2 L of oxygen via nasal cannula. Heart rate is within the 70s upon this assessment as well.
[2024-11-25] MEDS: ALBUTEROL-HFA 90MCG/PUFF INHALER 8GM 2 PUFF IH (04:25)
[2024-11-25] MEDS: FLUTICASONE/UMECLIDIN/VILANTER 100/62.5/25MCG INHALER 1 PUFF IH (06:10)
[2024-11-25 06:11] VITALS: O2SAT 91
[2024-11-25 06:56] VITALS: PULSE 74; PULSE 78
[2024-11-25 08:00] VITALS: BP 163/97; PULSE 78; RESP 20; TEMP 36.4; O2SAT 96
--- NOTE | 2024-11-25 08:26 | P.PN_ITS ---
Subjective *Date: 11/25/24 *Time: 08:43 Interval history: Patient is not feeling well today. She states she is anxious and would like a hydroxyzine. She tries to eat but she says she just can't. She denies any pain. She is still very SOA. Medical Exam Vital signs and Labs for Last 24 Hours: Vital Signs Temp Pulse Pulse Resp BP Pulse Ox O2 Del Method 11/25/24 08:00 97.6 F 78 20 163/97 H 96 Nasal Cannula 11/25/24 07:00 Nasal Cannula 11/25/24 06:56 74 11/25/24 06:56 78 11/25/24 06:11 91 L Nasal Cannula 11/25/24 05:00 Nasal Cannula 11/25/24 04:00 98.6 F 70 14 151/95 H 92 L Nasal Cannula 11/25/24 03:00 Nasal Cannula 11/25/24 01:42 63 11/25/24 01:42 66 11/25/24 01:00 Nasal Cannula 11/25/24 00:00 98.1 F 66 16 145/91 H 97 Nasal Cannula 11/24/24 23:00 Nasal Cannula 11/24/24 21:00 Nasal Cannula 11/24/24 20:00 63 16 98 Nasal Cannula 11/24/24 20:00 97.7 F 63 16 154/94 H 98 Nasal Cannula 11/24/24 19:09 Nasal Cannula 11/24/24 18:40 Nasal Cannula 11/24/24 17:00 Nasal Cannula 11/24/24 16:00 98.0 F 68 18 141/77 H 98 Room Air 11/24/24 15:00 Nasal Cannula 11/24/24 13:00 Nasal Cannula 11/24/24 12:00 97.9 F 78 20 142/86 H 93 L Nasal Cannula 11/24/24 11:00 Nasal Cannula 11/24/24 09:00 Nasal Cannula O2 Flow Rate FiO2 11/25/24 08:00 2 11/25/24 07:00 2 11/25/24 06:56 11/25/24 06:56 11/25/24 06:11 2 11/25/24 05:00 2 11/25/24 04:00 2 11/25/24 03:00 2 11/25/24 01:42 11/25/24 01:42 11/25/24 01:00 2 11/25/24 00:00 2 11/24/24 23:00 2 11/24/24 21:00 2 11/24/24 20:00 2 11/24/24 20:00 2 11/24/24 19:09 2 28 11/24/24 18:40 2 11/24/24 17:00 2 11/24/24 16:00 11/24/24 15:00 2 11/24/24 13:00 2 11/24/24 12:00 2 11/24/24 11:00 2 11/24/24 09:00 2 Intake and Output 11/24/24 11/25/24 11/25/24 19:59 03:59 11:59 Intake Total 160 / 260 100 / 260 Output Total 125 / 250 125 / 250 Balance 160 / 10 -25 / 10 -125 / 10 Intake: Intake, Oral Amount 160 / 260 100 / 260 Output: Output, Urine Amount 125 / 250 125 / 250 Other: Weight 126 lb 6.4 oz Patient Weight 11/25/24 11:59 Weight 126 lb 6.4 oz I & O for Labs for Last 24 Hours: Intake & Output 11/22/24 11/23/24 11/24/24 11/25/24 11:59 11:59 11:59 11:59 Intake Total 1610 / 1610 1310 / 1310 100 / 100 260 / 260 Output Total 2850 / 2851 352 / 352 500 / 500 250 / 250 Balance -1240 / -1241 958 / 958 -400 / -400 10 Weight 111 lb 1.808 oz 111 lb 8.862 oz 111 lb 1.808 oz 126 lb 6.4 oz Constitutional: Present chronically ill appearing Respiratory: Present wheezes and crackles Comment:: Air movement has improved Cardiac: Present Reg Rate and Rhythm GI: Present soft; Absent distention or tenderness Extremities: Absent edema Skin: Present intact Neuro: Present alert, awake and oriented x 3 Assessment and Plan *Assessment and plan (1) Acute on chronic respiratory failure with hypoxia and hypercapnia: Status: Acute Category: Medical Code(s): J96.21 - Acute and chronic respiratory failure with hypoxia; J96.22 - Acute and chronic respiratory failure with hypercapnia (2) Acute exacerbation of chronic obstructive pulmonary disease: Status: Acute Category: Medical Code(s): J44.1 - Chronic obstructive pulmonary disease with (acute) exacerbation (3) Parainfluenza infection: Status: Acute Category: Medical Code(s): B34.8 - Other viral infections of unspecified site (4) Hyponatremia: Status: Acute Category: Medical Code(s): E87.1 - Hypo-osmolality and hyponatremia (5) Family history of coronary artery disease: Status: Acute Category: Medical Code(s): Z82.49 - Family history of ischemic heart disease and other diseases of the circulatory system (6) HTN (hypertension): Status: Chronic Qualifiers: Hypertension type: essential hypertension Qualified Code(s): I10 - Essential (primary) hypertension Category: Medical Code(s): I10 - Essential (primary) hypertension (7) Severe protein-calorie malnutrition: Status: Acute Category: Medical Code(s): E43 - Unspecified severe protein-calorie malnutrition (8) Pulmonary emphysema: Status: Acute Category: Medical Code(s): J43.9 - Emphysema, unspecified (9) Alcoholism: Status: Acute Category: Medical Code(s): F10.20 - Alcohol dependence, uncomplicated Plan Encourage patient to eat and sit up in a chair. Pulmonology to follow. Patient has a bed at [facility]. Will discuss further care with Dr. Josue. Dr. Josue entry - Saw patient, agree with above note. She continues to slowly improve. OK to discharge to [facility] for continued care.
[2024-11-25] MEDS: FAMOTIDINE 20MG TABLET 20 MG PO (09:05)
[2024-11-25] MEDS: ENOXAPARIN 40MG/0.4ML SYRINGE 40 MG SUBCUT (09:05)
[2024-11-25] MEDS: FOLIC ACID 1MG TABLET 1 MG PO (09:05)
[2024-11-25] MEDS: METOPROLOL SUCCINATE XL 50MG TABLET 50 MG PO (09:05)
[2024-11-25] MEDS: LISINOPRIL 10MG TABLET 30 MG PO (09:05)
[2024-11-25] MEDS: SERTRALINE 100MG TABLET 100 MG PO (09:06)
[2024-11-25] MEDS: OXAZEPAM 15 MG CAPSULE PO (09:10)
--- NOTE | 2024-11-25 09:26 | CARE MANAGER ---
Spoke with patient's nurse who states patient will qualify for ambulance. Contacted patient's and let him know as well.
--- NOTE | 2024-11-25 09:29 | EXP.PULM.PN ---
Subjective *Date: 11/25/24 *Time: 13:52 Interval history: No acute respiratory events overnight. Patient admits she feels very weak Pulmonology Exam Inpatient Vital signs and Labs for Last 24 Hours: Temp Pulse Resp BP Pulse Ox O2 Del Method O2 Flow Rate 97.6 F 78 20 163/97 H 96 Nasal Cannula 2.5 11/25/24 08:00 11/25/24 08:00 11/25/24 08:00 11/25/24 08:00 11/25/24 08:00 11/25/24 08:00 11/25/24 08:00 FiO2 28 11/24/24 19:09 Temp Pulse Resp BP Pulse Ox O2 Del Method O2 Flow Rate 97.8 F 92 H 19 106/88 L 98 Nasal Cannula 4 11/19/24 07:22 11/19/24 09:07 11/19/24 09:07 11/19/24 09:07 11/19/24 09:07 11/19/24 09:07 11/19/24 09:07 FiO2 25 11/19/24 02:45 Laboratory Results - last 24 hr 11/18/24 18:01: WBC 8.3, RBC 3.85 L, Hgb 13.8, Hct 39.1, MCV 101.6 H, MCH 35.8 H, MCHC 35.3, RDW 13.1, Plt Count 205, MPV 8.8, Neut % (Auto) 83.6 H, Lymph % (Auto) 7.0 L, [place] % (Auto) 5.7, Eos % (Auto) 2.9, Baso % (Auto) 0.2, Neut # (Auto) 6.9, Lymph # (Auto) 0.6 L, [place] # (Auto) 0.5, Eos # (Auto) 0.2, Baso # (Auto) 0.0, D-Dimer 0.72 H, Sodium 124 L, Potassium 4.2, Chloride 93 L, Carbon Dioxide 26, Anion Gap 9.2, BUN 12, Creatinine 0.80, Estimated Creat Clear 37, Estimated GFR 72, Est GFR ( Amer) 87, Glucose 141 H, Calcium 9.4, Phosphorus 3.8, Magnesium 1.8, Total Bilirubin 0.4, AST 85 H, ALT 35, Alkaline Phosphatase 61, Troponin I 0.03, C-Reactive Protein 126.3 H, NT-Pro-B Natriuret Pep 1520 H, Total Protein 7.8, Albumin 4.6, Globulin 3.2, Albumin/Globulin Ratio 1.4, TSH 0.62, Thyroxine (T4) 6.9 11/18/24 18:12: VBG pH 7.25 L, VBG pCO2 58.0 H, VBG pO2 47.8 H, VBG HCO3 24.9, VBG Total CO2 26.7, VBG O2 Saturation 79.0 H, VBG Base Excess -2.3, VBG Lactic Acid 2.0 11/18/24 18:18: SARS-CoV-2 (PCR) Not detected, Influenza A Untype (PCR) Not detected, Influenza Type B (PCR) Not detected 11/18/24 20:12: VBG pH 7.25 L, VBG pCO2 54.9 H, VBG pO2 46.2 H, VBG HCO3 23.4, VBG Total CO2 25.1, VBG O2 Saturation 76.7 H, VBG Base Excess -3.9 L, VBG Lactic Acid 1.7 11/18/24 21:28: Troponin I 0.05 H 11/19/24 00:20: Troponin I 0.04 H 11/19/24 01:53: Urine Color Yellow, Urine Appearance Clear, Urine pH 6.0, Ur Specific [place] 1.025, Urine Protein Trace, Urine Glucose (UA) Negative, Urine Ketones Negative, Urine Blood 1+ A, Urine Nitrate Negative, Urine Bilirubin Negative, Urine Urobilinogen 0.2, Ur Leukocyte Esterase Negative, Urine RBC 10-20, Urine WBC 3-5, Ur Squamous Epith Cells 10-20, Urine Bacteria Trace, Hyaline Casts 3-5 11/19/24 05:35: WBC 5.6 D, RBC 3.26 L, Hgb 11.7 L D, Hct 33.0 L, MCV 101.2 H, MCH 35.9 H, MCHC 35.5 H, RDW 12.8, Plt Count 180, MPV 9.1, Neut % (Auto) 85.8 H, Lymph % (Auto) 8.7 L, [place] % (Auto) 4.8, Eos % (Auto) 0.0 L, Baso % (Auto) 0.2, Neut # (Auto) 4.8, Lymph # (Auto) 0.5 L, [place] # (Auto) 0.3, Eos # (Auto) 0.0, Baso # (Auto) 0.0, Total Counted 100, Neutrophils % (Manual) 85 H, Lymphocytes % (Manual) 13, Monocytes % (Manual) 2, Platelet Estimate Normal, Macrocytosis 1+, VBG pH 7.35, VBG pCO2 46.1, VBG pO2 42.0 H, VBG HCO3 24.8, VBG Total CO2 26.2, VBG O2 Saturation 75.8 H, VBG Base Excess -0.9, VBG Lactic Acid 1.7, Sodium 127 L, Potassium 3.5, Chloride 95 L, Carbon Dioxide 28, Anion Gap 7.5, BUN 11, Creatinine 0.70, Estimated Creat Clear 38, Estimated GFR 83, Est GFR ( Amer) 101, Glucose 151 H, Calcium 8.8, Total Bilirubin 0.1 L, AST 76 H, ALT 34, Alkaline Phosphatase 53, Total Protein 6.8, Albumin 3.8 D, Globulin 3.0, Albumin/Globulin Ratio 1.3 I & O for Labs for Last 24 Hours: Intake & Output 11/22/24 11/23/24 11/24/24 11/25/24 23:59 23:59 23:59 23:59 Intake Total 1280 / 1480 250 / 350 260 / 360 220 / 220 Output Total 1252 / 1252 450 / 450 400 / 525 250 / 250 Balance 28 / 228 -200 / -100 -140 / -165 -30 / -30 Weight 111 lb 1.808 oz 111 lb 8.862 oz 111 lb 1.808 oz 126 lb 6.4 oz Intake & Output 11/16/24 11/17/24 11/18/24 11/19/24 23:59 23:59 23:59 23:59 Output Total 950 / 950 Balance -950 / -950 Weight 98 lb 1.6 oz 98 lb 1.585 oz Constitutional: Present severe distress Head: Present normocephalic and atraumatic ENT: Present normal exam, normal oropharynx and mucous membranes moist Neck: Present normal inspection and full ROM Respiratory: Present respiratory distress and able to speak in complete sentences; Absent prolonged expiratory phase, rhonchi or wheezes Cardiac: Present S1/S2, Tachycardia and radial pulses present GI: Present soft and distention; Absent tenderness or guarding Rectal (female): Present deferred (female): Present deferred Skin: Present intact; Absent cyanosis or jaundice Neuro: Present alert and awake; Absent oriented x 3 Extremities: Present normal inspection; Absent clubbing or cyanosis Psychiatric: Present normal affect and cooperative Assessment and Plan *Assessment and plan (1) Acute on chronic respiratory failure with hypoxia and hypercapnia: Status: Acute Category: Medical Code(s): J96.21 - Acute and chronic respiratory failure with hypoxia; J96.22 - Acute and chronic respiratory failure with hypercapnia (2) Acute exacerbation of chronic obstructive pulmonary disease: Status: Acute Category: Medical Code(s): J44.1 - Chronic obstructive pulmonary disease with (acute) exacerbation (3) Pulmonary emphysema: Status: Acute Category: Medical Code(s): J43.9 - Emphysema, unspecified Plan Ms. Mcgarry is a 69-year-old female current smoker greater than [id number] smoking history currently using Anoro and albuterol. Baseline well-controlled symptoms with exacerbations, supplementation, rpresented to ER with worsening respiratory distress on new oxygen requirements, and pulmonary was called for further evaluation management. Afebrile. Hemodynamically stable. No evidence of leukocytosis. Chest x-ray upon admission hyperinflated lungs consistent with COPD. No dense consolidative/airspace changes noted. Complaints of respiratory viral PCR positive for parainfluenza virus Patient currently receiving nebulization therapies and prednisone. On initial examination, mild expiratory wheezing noted on auscultation. Etiology likely from COPD exacerbation secondary to parainfluenza virus. Interval update: Patient continued to intermittently remain on nasal cannula with saturations maintaining at 95% and able to recommend to wean as tolerated. Completed 5-day course of antibiotics and steroid. Awaiting halfway placement Plan: Out of bed to chair, activity as tolerated Incentive spirometry and flutter valve Trelegy 100 inhaler along with DuoNebs 4 times daily as needed Oxygen supplementation only as needed to maintain O2 saturation goal of 90 to 95% #Will follow the patient pulmonary 1 to 2 weeks postdischarge.
--- NOTE | 2024-11-25 10:46 | EXP.DC.SUM ---
General Admission date:: 11/18/24 Discharge date: 11/25/24 HPI HPI HPI: This patient is a 69-year-old female with a history of COPD, hypertension, hyperlipidemia presenting to the emergency department for evaluation with concern for shortness of breath. According the patient's son, she has been sick for about 3 days now and had been given Phenergan cough syrup as well as other medications including steroids to help, but she worsened today with increasing shortness of breath and now confusion. He notes that she just seemed confused and was not sure what was going on. He notes that she keeps complaining that she is thirsty but she has not been drinking anything at all and has had significant increased work of breathing. EMS was called to the patient's home today and noted the patient's O2 saturation was 74% on room air. The patient does not typically wear oxygen at home. Patient has significant conversational dyspnea and does not contribute much to history, but she is alert and oriented x 4. She complains of shortness of breath but denies any other physical concerns or complaints at this time. On exam, patient is ill-appearing in respiratory distress with tachycardia, tachypnea, significantly diminished breath sounds bilaterally. She has new oxygen requirement. She looks clinically dry. She is hypertensive and tachycardic. Cannot use PERC criteria to exclude PE given age and hypoxia/tachycardia. Workup included CBC, CMP, troponin, D-dimer, VBG, magnesium, phosphorus, viral swab, urinalysis, chest x-ray, EKG. Patient was given DuoNebs x 3 as well as IV methylprednisolone and magnesium for symptomatic improvement of severe respiratory distress in the setting of COPD. I independently interpreted chest x-ray prior to the radiologist read and noted hyperinflation consistent with COPD but I do not see any large focal consolidation concerning for pneumonia. Please see their read for final interpretation. Labs were obtained that demonstrated decompensated respiratory acidosis on VBG. No significant leukocytosis or anemia on CBC, D-dimer is negative for years criteria. BNP is mildly elevated without evidence of gross volume overload, CRP is elevated at 126. She also has hyponatremia in the setting of very poor oral intake. I started with a liter bolus of IV fluids, but I did not give full bolus because of concern for respiratory failure and feeling it would be harmful to the patient. Administered IV Rocephin and azithromycin for empiric community-acquired pneumonia antibiotic coverage On reassessment, patient had minimal improvement after administration of interventions above. She continues to have respiratory distress, for which I ordered a continuous albuterol neb. For the decompensated respiratory acidosis, the patient was placed on BiPAP. Repeat VBG did not show significant improvement, so we will continue the BiPAP and continue interventions to try and help get the patient breathing better. Ultimately, I feel she requires admission for severe COPD exacerbation with acute on chronic respiratory failure. I had an interactive discussion with the hospitalist Dr. Jennings on behalf of Dr. Donovan who stated the patient for admission. She is admitted to [facility] in stable condition. (above as per ER physician) The patient is on 4L of nasal oxygen this am with sats in the mid 90's. She just had a neb treatment about an hour ago. She is still very SOA but denies any pain. Hospital Course Hospital Course Hospital Course: The patient was admitted and started on IV fluids, antibiotics, nebs, and steroids. Tessalon was added as well and a full respiratory panel was ordered. She was very anxious and had tachycardia. Her metoprolol was restarted and thiamine was ordered due to daily alcohol intake. Oxazepam and a rally pack were also ordered. Pulmonology was consulted and started her on a Trelegy inhaler along with DuoNebs 4 times a day. He initiated prednisone 40 mg daily to complete a total of a 5-day course and wanted her to remain on supplemental oxygen. Her respiratory panel came back positive for parainfluenza. She had worsening oxygen demands and needed noninvasive ventilatory therapy. She was placed on BiPAP and her settings were changed to improve her minute ventilation. This was followed by pulmonology. She had a chest x-ray that showed no acute infiltrate or consolidative changes and was relatively stable. Pulmonology wanted to continue BiPAP, prednisone, DuoNebs, and Pulmicort. She was able to be weaned off the BiPAP and was placed on Vapotherm. She did improve after being placed on the Vapotherm. She continued with anxiety and hydroxyzine was ordered as needed. Her blood pressure was elevated and lisinopril was added. She was encouraged to eat get out of bed in a chair. She was able to be transferred out of [facility], but it was felt she would need short-term rehab. She was started on an incentive spirometer with flutter valve. By 11/25/2024 she was still feeling very weak and short of breath at times. She had been weaned to nasal cannula. A bed was found for her by care management at [facility] and she was stable to be discharged for continued rehab. Exam Data for Last 24 hours Vital signs and Labs for Last 24 Hours: Temp Pulse Resp BP Pulse Ox O2 Del Method O2 Flow Rate 97.6 F 78 20 163/97 H 96 Nasal Cannula 2.5 11/25/24 08:00 11/25/24 08:00 11/25/24 08:00 11/25/24 08:00 11/25/24 08:00 11/25/24 08:00 11/25/24 08:00 FiO2 28 11/24/24 19:09 I & O for Last 24 hours: Intake & Output 11/22/24 11/23/24 11/24/24 11/25/24 11:59 11:59 11:59 11:59 Intake Total 1610 / 1610 1310 / 1310 100 / 100 380 / 380 Output Total 2850 / 2851 352 / 352 500 / 500 250 / 250 Balance -1240 / -1241 958 / 958 -400 / -400 130 / 130 Weight 111 lb 1.808 oz 111 lb 8.862 oz 111 lb 1.808 oz 126 lb 6.4 oz Narrative: Constitutional Constitutional: mild distress, thin and cachectic *Routine HEENT Exam Head: Present normocephalic and atraumatic Eye: Present EOMI and PERRL ENT: Present mucous membranes dry *Routine Neck Exam Neck: Present supple and full ROM *Routine Respiratory Exam Respiratory: Present rhonchi and wheezes *Routine Cardiovascular Exam Cardiovascular: Present RRR *Routine Abdominal Exam Abdominal: Present soft and normoactive bowel sounds; Absent tenderness *Routine Rectal Exam Rectal:: deferred *Routine Genitalia Exam Genitalia:: deferred *Routine Extremities Exam Extremities: Absent cyanosis, clubbing or edema *Routine Skin Exam Skin: Present intact; Absent erythema *Routine Neurological Exam Neurological: Present alert and oriented X3 DS: Diagnosis Discharge Diagnosis (1) Acute on chronic respiratory failure with hypoxia and hypercapnia: Status: Acute Code(s): J96.21 - Acute and chronic respiratory failure with hypoxia; J96.22 - Acute and chronic respiratory failure with hypercapnia (2) Acute exacerbation of chronic obstructive pulmonary disease: Status: Acute Code(s): J44.1 - Chronic obstructive pulmonary disease with (acute) exacerbation (3) Pulmonary emphysema: Status: Acute Code(s): J43.9 - Emphysema, unspecified (4) Alcoholism: Status: Acute Code(s): F10.20 - Alcohol dependence, uncomplicated (5) Severe protein-calorie malnutrition: Status: Acute Code(s): E43 - Unspecified severe protein-calorie malnutrition (6) Parainfluenza infection: Status: Acute Code(s): B34.8 - Other viral infections of unspecified site (7) Hyponatremia: Status: Acute Code(s): E87.1 - Hypo-osmolality and hyponatremia (8) COPD exacerbation: Status: Acute Code(s): J44.1 - Chronic obstructive pulmonary disease with (acute) exacerbation Meds Home Medications and Allergies Home Medications ?Medication ?Instructions ?Recorded ?Confirmed ?Type albuterol sulfate 90 mcg/actuation 2 puffs IH Q6HP PRN Shortness Of 02/01/18 11/19/24 Rx aerosol inhaler Breath Or Wheezing #1 inh umeclidinium 62.5 mcg-vilanterol 1 inh inhalation Q24H 02/20/19 11/19/24 History 25 mcg/actuation powdr for inhalation (Anoro Ellipta) estradiol 0.01% (0.1 mg/gram) 1 g vaginal QWEEK #42.5 grams 03/31/21 11/19/24 Rx vaginal cream (Estrace) ipratropium 0.5 mg-albuterol 3 mg 3 ml inhalation Q6HP PRN Shortness 11/19/24 11/19/24 History (2.5 mg base)/3 mL nebulization Of Breath soln metoprolol succinate 50 mg 50 mg PO DAILY 11/19/24 11/19/24 History tablet,extended release 24 hr sertraline 100 mg tablet 100 mg PO DAILY 11/19/24 11/19/24 History acetaminophen 325 mg tablet 650 mg (2 x 325 mg) PO Q6HP PRN 11/25/24 Rx Fever Or Mild Pain (1-3) #1 tab benzonatate 100 mg capsule 200 mg (2 x 100 mg) PO Q8HP PRN 11/25/24 Rx Cough #1 cap famotidine 20 mg tablet 20 mg PO DAILY #1 tab 11/25/24 Rx folic acid 1 mg tablet 1 mg PO DAILY #1 tab 11/25/24 Rx hydroxyzine pamoate 25 mg capsule 25 mg PO Q8HP PRN Anxiety #1 cap 11/25/24 Rx lisinopril 10 mg tablet 30 mg (3 x 10 mg) PO DAILY #1 tab 11/25/24 Rx multivitamin 1 tab PO DAILY #30 tabs 11/25/24 Rx nicotine 14 mg/24 hr daily 1 patch transdermal DAILY #7 ea 11/25/24 Rx transdermal patch trazodone 50 mg tablet 50 mg PO HSP PRN Sleep #1 tab 11/25/24 Rx New Prescriptions to Start Prescriptions: acetaminophen Eugene,Erasmo benzonatate Eugene,Erasmo famotidine Eugene,Erasmo folic acid Eugene,Erasmo hydroxyzine pamoate Eugene,Erasmo lisinopril Eugene,Erasmo multivitamin Eugene,Erasmo nicotine Eugene,Erasmo trazodone Eugene,Erasmo Allergies Allergy/AdvReac Type Severity Reaction Status Date / Time oxycodone (OXYCODONE) AdvReac Unknown Verified 03/31/21 09:01 tramadol (TRAMADOL) AdvReac Unknown Verified 03/31/21 09:01 Discharge Plan Disposition Patient Disposition: [facility] Condition: Fair Discharge Order Discharge Orders: Discharge Order (Routine); Ordered 11/25/24 Ordered By: Erasmo Josue Follow up Plan Follow up with: Tonja Donovan MD [Primary Care Provider, Medical] - 1 month Referral Note: will follow up at facility Prescriptions/Medication Reconciliation: New trazodone 50 mg Tablet 50 mg PO HSP PRN (Reason: Sleep) Qty: 1 0RF lisinopril 10 mg Tablet 30 mg PO DAILY Qty: 1 0RF hydroxyzine pamoate 25 mg Capsule 25 mg PO Q8HP PRN (Reason: Anxiety) Qty: 1 0RF famotidine 20 mg Tablet 20 mg PO DAILY Qty: 1 0RF benzonatate 100 mg Capsule 200 mg PO Q8HP PRN (Reason: Cough) Qty: 1 0RF folic acid 1 mg Tablet 1 mg PO DAILY Qty: 1 0RF acetaminophen 325 mg Tablet 650 mg PO Q6HP PRN (Reason: Fever Or Mild Pain (1-3)) Qty: 1 0RF multivitamin Tablet 1 tab PO DAILY Qty: 30 0RF nicotine 14 mg/24 hr patch 24 hour 1 patch transdermal DAILY Qty: 7 0RF Continued Anoro Ellipta 62.5-25 mcg/actuation blister with device 1 inh INHALATION Q24H estradiol [Estrace] 0.01 % (0.1 mg/gram) cream 1 g VAGINAL QWEEK Qty: 42.5 2RF ipratropium-albuterol 0.5 mg-3 mg(2.5 mg base)/3 mL solution for nebulization 3 ml INHALATION Q6HP PRN (Reason: Shortness Of Breath) sertraline 100 mg tablet 100 mg PO DAILY Patient Comments: TAKE 1 TABLET BY MOUTH ONCE DAILY metoprolol succinate 50 mg tablet extended release 24 hr 50 mg PO DAILY Rx Instructions: take one pill in morning and one half pill in the evening. albuterol sulfate 18 GM HFA aerosol inhaler 2 puffs IH Q6HP PRN (Reason: Shortness Of Breath Or Wheezing) Qty: 1 0RF Discontinued metoprolol succinate 50 mg tablet extended release 24 hr 25 mg PO HS Rx Instructions: take one pill in morning and one half pill in the evening. Problem Reconciliation Problems Reviewed?: Yes Patient Discharge Instructions ACTIVITY: Continue current activity DIET: continue same diet Patient Instructions: DI for Chronic Obstructive Pulmonary Disease, DI for Respiratory Failure, Stop Light COPD Print Language: [place] Providers Primary Care Provider: Tonja Donovan Admit Provider: Alber Jennings Attending Provider: Tonja Donovan
--- NOTE | 2024-11-25 12:51 | PC.NURSE ---
Report called to Leah at [facility].
== END 2024-11-25 13:47 | DRG 189 ==
LOC: ER 18:22 → 2ND 20:19
PROVIDERS: Family Medicine; Internal Medicine Pulmonary Disease; Physician Assistant; Admitting Provider Internal Medicine Adolescent Medicine; Emergency Provider Emergency Medicine; PCP Family Medicine; Visit Provider Family Medicine
DX: J96.21 Acute and chronic respiratory failure with hypoxia (principal); E43 Unspecified severe protein-calorie malnutrition; J44.1 Chronic obstructive pulmonary disease with (acute) exacerbation; E87.1 Hypo-osmolality and hyponatremia; Z68.1 Body mass index [BMI] 19.9 or less, adult; J44.0 Chronic obstructive pulmonary disease with (acute) lower respiratory infection; J96.22 Acute and chronic respiratory failure with hypercapnia; E78.5 Hyperlipidemia, unspecified; F17.210 Nicotine dependence, cigarettes, uncomplicated; R00.0 Tachycardia, unspecified; B97.89 Other viral agents as the cause of diseases classified elsewhere; F10.20 Alcohol dependence, uncomplicated; J43.9 Emphysema, unspecified; I10 Essential (primary) hypertension; J20.9 Acute bronchitis, unspecified; Z66 Do not resuscitate; Z82.49 Family history of ischemic heart disease and other diseases of the circulatory system; Z88.5 Allergy status to narcotic agent; Z80.9 Family history of malignant neoplasm, unspecified; Z79.899 Other long term (current) drug therapy; Z79.818 Long term (current) use of other agents affecting estrogen receptors and estrogen levels
CPT/HCPCS: 36415; 71045; 80048; 80053; 81001; 82803; 83735; 83880; 84100; 84436; 84443; 84484; 85007; 85025; 85378; 86140; 87040; 87633; 87636; 93005; 94640; 94660; 94760; 94761; 97110; 97163; 97167; 97530; 99291; J0456; J0696; J1650; J2919; J3411; J3475; J3480; J7050; J7120; J7614

== ENCOUNTER → 2024-12-11 11:31 | Outpatient (CLI) | payer MEDICARE, OTHER, SELFPAY ==
--- OUTSIDE RECORDS SUMMARY | 2024-11-19 05:30 | XMS_ITS ---
Author Organization [facility] Address [address] [facility] [address] [place] [id number] Care Team Providers Care Forest Officer Name Role Phone Hermelinda Donovan Primary Care Provider Devika Payan Unavailable [phone] Lulu Lopez Unavailable [phone] Allergies Allergen (clinical drug ingredient) Drug/Non Drug Allergy documented on EMR Reaction Allergy Type Onset Date Status tramadol traMADol HCl Unknown Drug Allergy Acti ve REASON FOR VISIT f/u Encounters Encounter Location Date Provider Diagnosis Chitra [address] [facility] [address] [place] [phone] 11/19/2024 Lulu Lopez Plan Of Treatment No Information Progress Notes * MIGUELANGEL WILLISDOB: (69 yo F)Acc No.[id number]:11/19/2024 Progress Notes Patient: MIGUELANGEL TEAGUE Provider: HECTOR Martinez :1955 A ge:69 Y S ex:Female Date:11/19/2024 Address:[id number] Pcp:Hermelinda Donovan Subjective: * Chief Complaints: * 1 . F/u. * HPI: H PI: 69 year old female presents with c/o Here for follow up on:?Pt sts she is here for a f/u on cough, headache, chest congestion. * ROS: D ERMATOLOGY: no R casa. n o H lauren. G ASTROENTEROLOGY: no N ausea. n o V omiting. U ROLOGY: no D ifficulty urinating. n o B lood in urine. * Medical History: E ndometriosis, Osteopenia, Alcoholism, Depression, Tobacco abuse, Moderna covid vaccine x2 , Hx Hep A vaccination, PTSD, Alcoholism, COPD. * Surgical History: C -section 1988, hysterectomy 2002, scar tissue removed 2003, root canal 09-21-09, lump removal on her R breast january 2014. * Hospitalization/Major Diagno stic Procedure: n ick in bladder 2003, endomtriosis 2002, [facility] ER visit, then to [facility] for 12 hours for depression 06/01/07, [facility]-detox 1983, [facility]-COPD, Bronchitis 02/01/18, [facility] ER-allergic reaction to meds 04/2019, [facility] ER- anxiety/depression 09/25. * Family History: F ather: alive 90 yrs, prostate. M other: alive 88 yrs, arthritis,thyroid. P aternal Grand Father: , lung ca. P aternal Grand Mother: , old age. M aternal Grand Father: , colon/bladder ca. M aternal Grand Mother: alive, arthritis. 1 brother(s) - healthy. 1 son(s) - healthy. . * Social History: C URRENT TOBACCO USE S moking Status: Patient does smoke, packs per day: 1, number of cigarettes per day: 20, Since age of: 22, Smoking preference: cigarettes. C affeine: yes, frequency: drinks sweet tea all day long. Exercise: no. Home smoke detector use: yes. Marital Status: . New since last visit: none. 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 Past smoking status: yes, PPD:1 1/2 , years:20 ,determination:no. Occup. exposure: none. Recreational drug use: yes, Past use:, marijuana. Alcohol: no. Sexually active: yes. Travel ouside [place]: no. * Allergies: t raMADol HCl. Objective: * Vitals: Assessment: Plan: * Treatment: * Billing Information: * Visit Code: * Procedure Codes: * Electronic signature of HECTOR Morales on 12/11/2024 at 11:35 AM EDT Sign off status: Pending * Provider: HECTOR Martinez Date: 0 11/19/2024 Generated for Antonio antunez/Marian/Janae on: 0 12/11/2024 11:35 AM EDT History and Physical Notes * HPI (History of Present Illness) Category Sub-Category Detail Notes Category Not es HPI Here for follow up on: Pt sts sh e is here for a f/u on cough, headache, chest congestion
--- OUTSIDE RECORDS SUMMARY | 2024-12-01 10:00 | XMS_ITS ---
Author Organization [facility] Address [address] [place] [id number] Care Team Providers Care Pre Press Manager Name Role Phone Hermelinda Donovan Primary Care Provider [phone] Devika Payan Unavailable [phone] Allergies Allergen (clinical drug ingredient) Drug/Non Drug Allergy documented on EMR Reaction Allergy Type Onset Date Status tramadol traMADol HCl Unknown Drug Allergy Acti ve Results Component Value Reference Range Notes Urinalysis - Inhouse Reviewed date:12/02/2024 03:26:18 PM Interpretation: Performing Lab: Notes/Report: Color/Clarity yellow Leuk neg Nitrite neg Urobili 3.2 Protein neg pH 8.5 Blood trace-lysed Sp. Gr. 1.015 Ketone neg Bili neg Gluc neg Reason For Referral Diagnosis 1 COPD (chronic obstru ctive pulmonary disease) (J44.9) [facility] Referring Provider First Name Devika Referring Provider Last Name Schuyler Referring Provider [facility] Family [facility] ctice Referred Provider Specialty Pulmonary Di seases General Notes [facility] follow up for AR FSandra Brynn 12/02/2024 09:39:17 AM > faxed to [facility] PulmonologySandra Brynn 12/07/2024 11:46:53 AM > 12/08/2024 at 01:00om Referral Priority Routine Reason ETOH withdrawal with faillure to thrive and debility Diagnosis 1 Adult failure to thr macario (R62.7) [facility] Referring Provider First Name Devika Referring Provider Last Name Schuyler Referring Provider [facility] Family [facility] ctice Referred Provider Specialty Home Health Agency General Notes Ayleen Flores 12/03/19 11:40:44 AM > faxed to Bruce Ordoñez Courtney 12/02/2024 02:02:26 PM > Shabnam is denying the home health as of now and the referral has been closed, if Mariajose wants it back open, [facility] said they can help find her an in home health nurse, Ayleen Flores 12/02/2024 02:05:31 PM > okay Referral Priority Routine Diagnosis 1 Acute left flank terri n (R10.9) Referral Organization [facility] Referring Provider First Name Devika Referring Provider Last Name Schuyler Referring Provider Speciality Family [facility] ctice Referral Priority Routine REASON FOR VISIT [facility]- pt leaving AMA today Medications Medication SIG (Take, Route, Frequency, Duration) Notes Start Date End Date Status Azelastine HCl 0.05 % INSTILL 1 DROP INT O AFFECTED EYE(S) TWICE DAILY for 68 Active Medrol 4 MG as directed orally daily for 6 days 11/17/2024 Not-Taking Cefuroxime Axetil 500 MG 1 tablet Orally every 12 hrs for 7 days 11/17/2024 Not-Taking Vitamin B12 1000 MCG 1 tablet Orally Onc e a day 10/16/2023 Active Nebulizer/Tubing/Mouthpie ce - 1 as directed inh q4h prn Active Polyethylene Glycol 3350 - as directed orally once a day for 7 day(s) 12/06/2020 Active Glycerin (Adult) 2 GM 1 SUPP(s) rectally once a day as needed for BM 12/06/2020 Active Ibuprofen 800 MG 1 tab(s) orally 3 ti mes a day prn for 90 days Active Triamcinolone Acetonide 0.1 % 1 twan applied topically 3 times a day 10/19/2022 Active Potassium Chloride ER 10 MEQ 1 tablet Orally every other day for 90 days Active Vitamin D3 50 MCG (2000 UT) 1 capsule Orally Once a day 10/16/2023 Active Atorvastatin Calcium 10 MG 1 tab(s) orally once a day Active Stiolto Respimat 2.5-2.5 MCG/ACT 2 puffs Inhalation Once a day 08/10/2024 Active Albuterol Sulfate HFA 108 (90 Base) MCG/ACT 2 puffs Inhalation every 6 hrs Active Metoprolol Succinate ER 50 MG TAKE 1 TABLET BY MOUTH IN THE MORNING AND 1/2 (ONE-HALF) IN THE EVENING Active Lisinopril 20 MG 1 tablet Orally Once a day for 30 days 12/01/2024 Active Nicoderm CQ 21 MG/24HR 1 patch to skin Transdermal Once a day for 30 days 12/01/2024 Active Omeprazole 40 MG 1 cap(s) orally once a day Active hydrOXYzine Pamoate 50 MG TAKE 1 CAPSULE BY MOUTH AT BEDTIME NEEDED for 30 Active Naltrexone HCl 50 MG 1 tablet Orally Onc e a day for 30 days 12/01/2024 Active Sertraline HCl 100 MG 1 tablet Orally On ce a day for 90 days Active Vitamin B12 1000 MCG 1 tablet Orally Onc e a day for 90 days 08/14/2023 Not-Taking Cephalexin 500 MG 1 capsule Orally Two times a day for 7 days 08/07/2023 Not-Takin g Lidocaine Viscous HCl 2 % 15 ml swish an d spit Mouth/Throat every 4 hours, prn 08/07/2023 Not-Taking traZODone HCl 50 MG 1 tab(s) orally at bedtime for 90 days Active Mucinex DM 30-600 MG 1 tablet as needed Orally every 12 hrs for 14 days Not-Taking Promethazine-DM 6.25-15 MG/5ML 5 mL as needed Orally every 6 hrs prn 11/17/2024 Not-Taking Ipratropium-Albuterol 0.5-2.5 (3) MG/3ML 3 mL as needed Inhalation every 6 hrs prn 11/17/2024 Not-Taking Problems Problem Type SNOMED Code ICD Code Onset Dates Problem Status W/U Status Risk Notes Problem Adult failure to thrive (R62.7) Active confirmed Vital Signs Blood pressure systolic 120 mm Hg 12/02/19 25 Blood pressure diastolic 70 mm Hg 025 Heart Rate 85 /min 12/01/2024 Height 62.50 in 12/01/2024 Weight 94.4 lbs 12/01/2024 BMI 16.99 kg/m2 12/01/2024 Encounters Encounter Location Date Provider Diagnosis [facility] [address] [facility] [address] [place], [place] [id number] 12/01/2024 Devika Payan Acute left flank terri n R10.9 ; Alcoholism F10.20 ; Tobacco abuse disorder Z72.0 ; COPD (chronic obstructive pulmonary disease) J44.9 ; Sleep disorder G47.9 ; Vitamin D deficiency E55.9 ; Essential hypertension I10 ; Depression, unspecified depression type F32.9 ; Adult failure to thrive R62.7 ; Debility, unspecified R53.81 ; GERD (gastroesophageal reflux disease) K21.9 ; Dry eyes H04.123 and Hyperlipidemia E78.5 Assessments Encounter Date Diagnosis (ICD Code) Assessment Notes Treatment Notes Treatment Clinical Notes Section Notes 12/01/2024 Acute left flank pain (ICD-10 - R10.9) 12/01/2024 Alcoholism (ICD-10 - F10.20) plans to attend AA meetings; has not had a drink since hospitalization ; may need additional meds; will discuss with Dr. Josue 12/01/2024 Tobacco abuse disorder (ICD-10 - Z72.0) patches do help and she pedro restart; has not smoke sinc adm to [facility] 12/01/2024 COPD (chronic obstructive pulmonary disease) (ICD-10 - J44.9) 12/01/2024 Sleep disorder (ICD-10 - G47.9) 12/01/2024 Vitamin D deficiency (ICD-10 - E55.9) 12/01/2024 Essential hypertension (ICD-10 - I10) 12/01/2024 Depression, unspecified depression type (ICD-10 - F32.9) 12/01/2024 Adult failure to thrive (ICD-10 - R62.7) to start MVI; discussed eatin 3-5 times daily and healthy protein shakes 12/01/2024 Debility, unspecified (ICD-10 - R53.81) to work with PT 12/01/2024 GERD (gastroesophageal reflux disease) (ICD-10 - K21.9) 12/01/2024 Dry eyes (ICD-10 - H04.123) 12/01/2024 Hyperlipidemia (ICD-10 - E78.5) 12/01/2024 Other Discharge summary with available lab/diagnostic imaging results obtained and reviewed. Discharge medication list reconciled. Appropriate counseling provided. Moderate Complexity Plan Of Treatment Medication Medication Name Sig Start Date Stop Date Notes Nebulizer/Tubing/Mouthpiece - 1 as directed inh q4h prn Vitamin D3 50 MCG (2000 UT) 1 capsule Orally Once a day Atorvastatin Calcium 10 MG 1 tab(s) orally once a day Stiolto Respimat 2.5-2.5 MCG/ACT 2 puffs Inhalation Once a day 08/10/2024 Albuterol Sulfate HFA 108 (9 0 Base) MCG/ACT 2 puffs Inhalation every 6 hrs Metoprolol Succinate ER 50 MG TAKE 1 TAB LET BY MOUTH IN THE MORNING AND 1/2 (ONE-HALF) IN THE EVENING Lisinopril 20 MG 1 tablet Orally Once a day for 30 days 12/01/2024 Nicoderm CQ 21 MG/24HR 1 patch to skin T ransdermal Once a day for 30 days 12/01/2024 Omeprazole 40 MG 1 cap(s) orally once a day hydrOXYzine Pamoate 50 MG TAKE 1 CAPSULE BY MOUTH AT BEDTIME NEEDED for 30 Naltrexone HCl 50 MG 1 tablet Orally Onc e a day for 30 days 12/01/2024 Sertraline HCl 100 MG 1 tablet Orally On ce a day for 90 days traZODone HCl 50 MG 1 tab(s) orally at b edtime for 90 days Treatment Notes Assessment Notes Alcoholism plans to attend [facility]; has not had a drink since hospitalization; may need additional meds; will discuss with Dr. Josue Tobacco abuse disorder patches do help a nd she pedro restart; has not smoke sinc adm to [facility] Adult failure to thrive to start MVI; di scussed eatin 3-5 times daily and healthy protein shakes Debility, unspecified to work with PT Other Discharge summary wi th available lab/diagnostic imaging results obtained and reviewed. Discharge medication list reconciled. Appropriate counseling provided. Moderate Complexity Referrals Referral Date Details 12/01/2024 12/01/2024 12/01/2024 12/01/2024, ETOH wit hdrawal with faillure to thrive and debility 12/02/2024 12/02/2024 Next Appt Details Follow Up: 1 Week, Reason: Progress Notes * SHABNAM MCGARRYDOB: 7 (69 yo F)Acc No.[id number]:12/01/2024 Patient: Mariela SHABNAM DARDEN Provider: AMBERLY Teague :1955 A ge:69 Y S ex:Female Date:12/01/2024 Address:[id number] Pcp:Hermelinda Donovan Subjective: * Chief Complaints: * 1 . [facility]- pt leaving AMA today. * HPI: H PI: pt presents in a wheelchair with her . He discharged her from [facility]. He felt that she could continue with her physical rehab at home and receive her meds in a more timely manner. she presents to the office for FU and med review; see ROS. Notes from [facility] admission notes as follows: Admission date:: 11/18/24 Discharge date: 11/25/24I HPI: This patient is a 69-year-old female with a history of COPD, hypertension, hyperlipidemia presenting to the emergency department for evaluation with concern for shortness of breath. According the patient's son, she has been sick for about 3 days now and had been given Phenergan cough syrup as well as other medications including steroids to help, but she worsened today with increasing shortness of breath and now confusion. He notes that she just seemed confused and was not sure what was going on. He notes that she keeps complaining that she is thirsty but she has not been drinking anything at all and has had significant increased work of breathing. EMS was called to the patient's home today and noted the patient's O2 saturation was 74% on room air. The patient does not typically wear oxygen at home. Patient has significant conversational dyspnea and does not contribute much to history, but she is alert and oriented x 4. She complains of shortness of breath but denies any other physical concerns or complaints at this time. On exam, patient is ill-appearing in respiratory distress with tachycardia, tachypnea, significantly diminished breath sounds bilaterally. She has new oxygen requirement. She looks clinically dry. She is hypertensive and tachycardic. Cannot use PERC criteria to exclude PE given age and hypoxia/tachycardia. Workup included CBC, CMP, troponin, D-dimer, VBG, magnesium, phosphorus, viral swab, urinalysis, chest x-ray, EKG. Patient was given DuoNebs x 3 as well as IV methylprednisolone and magnesium for symptomatic improvement of severe respiratory distress in the setting of COPD. I independently interpreted chest x-ray prior to the radiologist read and noted hyperinflation consistent with COPD but I do not see any large focal consolidation concerning for pneumonia. Please see their read for final interpretation. Labs were obtained that demonstrated decompensated respiratory acidosis on VBG. No significant leukocytosis or anemia on CBC, D-dimer is negative for years criteria. BNP is mildly elevated without evidence of gross volume overload, CRP is elevated at 126. She also has hyponatremia in the setting of very poor oral intake. I started with a liter bolus of IV fluids, but I did not give full bolus because of concern for respiratory failure and feeling it would be harmful to the patient. Administered IV Rocephin and azithromycin for empiric community- acquired pneumonia antibiotic coverage On reassessment, patient had minimal improvement after administration of interventions above. She continues to have respiratory distress, for which I ordered a continuous albuterol neb. For the decompensated respiratory acidosis, the patient was placed on BiPAP. Repeat VBG did not show significant improvement, so we will continue the BiPAP and continue interventions to try and help get the patient breathing better. Ultimately, I feel she requires admission for severe COPD exacerbation with acute on chronic respiratory failure. I had an interactive discussion with the hospitalist Dr. Jennings on behalf of Dr. Donovan who stated the patient for admission. She is admitted to stepdown in stable condition. (above as per ER physician) The patient is on 4L of nasal oxygen this am with sats in the mid 90's. She just had a neb treatment about an hour ago. She is still very SOA but denies any pain. Hospital Course: The patient was admitted and started on IV fluids, antibiotics, nebs, and steroids. Tessalon was added as well and a full respiratory panel was ordered. She was very anxious and had tachycardia. Her metoprolol was restarted and thiamine was ordered due to daily alcohol intake. Oxazepam and a rally pack were also ordered. Pulmonology was consulted and started her on a Trelegy inhaler along with DuoNebs 4 times a day. He initiated prednisone 40 mg daily to complete a total of a 5-day course and wanted her to remain on supplemental oxygen. Her respiratory panel came back positive for parainfluenza. She had worsening oxygen demands and needed noninvasive ventilatory therapy. She was placed on BiPAP and her settings were changed to improve her minute ventilation. This was followed by pulmonology. She had a chest x-ray that showed no acute infiltrate or consolidative changes and was relatively stable. Pulmonology wanted to continue BiPAP, prednisone, DuoNebs, and Pulmicort. She was able to be weaned off the BiPAP and was placed on Vapotherm. She did improve after being placed on the Vapotherm. She continued with anxiety and hydroxyzine was ordered as needed. Her blood pressure was elevated and lisinopril was added. She was encouraged to eat get out of bed in a chair. She was able to be transferred out of stepdown, but it was felt she would need short-term rehab. She was started on an incentive spirometer with flutter valve. By 11/25/2024 she was still feeling very weak and short of breath at times. She had been weaned to nasal cannula. A bed was found for her by care management at [facility] and she was stable to be discharged for continued rehab. Notes from [facility]. Patient is here today for a Transition of Care Visit. Discharge from the following Facility: Patient was previously discharged from [facility] to [facility] for rehab , Discharge date: Patient left [facility] on 12/01/2024 AMA a nd requested appt with PCP as soon as possible,Date of phone contact following discharge: 12/01/2024. * ROS: R ESPIRATORY: Shortness of breath y es, a t baseline. n o C hest congestion. C ough y es, d ry , non-productive; periodic. C ARDIOLOGY: no C hest pain. n o P alpitations. n o L eg edema. S hortness of breath y es, p eriodic , at baseline. D ERMATOLOGY: no R casa. n o H lauren. G ASTROENTEROLOGY: no N ausea. n o V omiting. n o D iarrhea.?Constipation y es, M iralax helps. M USCULOSKELETAL: Positive for s he has been able to walk without assistance.?no J oint pain. N EUROLOGY: Tremor s he feels this is from withdrawal. I nsomnia? yes, h as had little sleep the past 2-3 days. U ROLOGY: Positive for h ad left flank pain and would like UA checked. n o D ifficulty urinating. n o B lood in urine. * Medical History: E ndometriosis, Osteopenia, Alcoholism, Depression, Tobacco abuse, Moderna covid vaccine x2 , Hx Hep A vaccination, PTSD, Alcoholism, COPD. * Surgical History: C -section 1988, hysterectomy 2002, scar tissue removed 2003, root canal 09-21-10, lump removal on her R breast january 2014. * Hospitalization/Major Diagno stic Procedure: n ick in bladder 2003, endomtriosis 2002, [facility] ER visit, then to [facility] for 12 hours for depression 06/01/07, [facility]-detox 1983, [facility]-COPD, Bronchitis 02/01/18, [facility] ER-allergic reaction to meds 04/2019, [facility] ER- anxiety/depression 09/25, [facility] with ARF, alcoholism, failure to thrive 11/18-11/25/2024. * Family History: F ather: alive 90 [...] since last visit: none. 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 Past smoking status: yes, PPD:1 1/2 , years:20 ,determination:no. Occup. exposure: none. Recreational drug use: yes, Past use:, marijuana. Alcohol: no. Sexually active: yes. Travel ouside [place]: no. * Medications: T aking Omeprazole 40 MG Capsule Delayed Release 1 cap(s) orally once a day , Taking Triamcinolone Acetonide 0.1 % Cream 1 twan applied topically 3 times a day , Taking Polyethylene Glycol 3350 - Powder as directed orally once a day , Taking Glycerin (Adult) 2 GM Suppository 1 SUPP(s) rectally once a day as needed for BM , Taking Ibuprofen 800 MG Tablet 1 tab(s) orally 3 times a day prn , Taking traZODone HCl 50 MG Tablet 1 tab(s) orally at bedtime , Taking Potassium Chloride ER 10 MEQ Tablet Extended Release 1 tablet Orally every other day , Taking Vitamin D3 50 MCG (2000 UT) Capsule 1 capsule Orally Once a day , Taking Vitamin B12 1000 MCG Tablet Extended Release 1 tablet Orally Once a day , Taking Sertraline HCl 100 MG Tablet 1 tablet Orally Once a day , Taking Azelastine HCl 0.05 % Solution INSTILL 1 DROP INTO AFFECTED EYE(S) TWICE DAILY , Taking Stiolto Respimat 2.5-2.5 MCG/ACT Aerosol Solution 2 puffs Inhalation Once a day , Taking Atorvastatin Calcium 10 MG Tablet 1 tab(s) orally once a day , Taking hydrOXYzine Pamoate 50 MG Capsule TAKE 1 CAPSULE BY MOUTH AT BEDTIME NEEDED , Taking Albuterol Sulfate HFA 108 (90 Base) MCG/ACT Aerosol Solution 2 puffs Inhalation every 6 hrs , Taking Metoprolol Succinate ER 50 MG Tablet Extended Release 24 Hour TAKE 1 TABLET BY MOUTH IN THE MORNING AND 1/2 (ONE-HALF) IN THE EVENING , Not-Taking Medrol 4 MG Tablet Therapy Pack as directed orally daily , Not-Taking Cefuroxime Axetil 500 MG Tablet 1 tablet Orally every 12 hrs , Not-Taking Promethazine-DM 6.25-15 MG/5ML Syrup 5 mL as needed Orally every 6 hrs prn , Not-Taking Ipratropium-Albuterol 0.5-2.5 (3) MG/3ML Solution 3 mL as needed Inhalation every 6 hrs prn , Not-Taking Mucinex DM 30-600 MG Tablet Extended Release 12 Hour 1 tablet as needed Orally every 12 hrs , Not-Taking Vitamin B12 1000 MCG Tablet Extended Release 1 tablet Orally Once a day , Not-Taking Cephalexin 500 MG Capsule 1 capsule Orally Two times a day , Not-Taking Lidocaine Viscous HCl 2 % Solution 15 ml swish and spit Mouth/Throat every 4 hours, prn , Medication List reviewed and reconciled with the patient * Allergies: t raMADol HCl. Objective: * Vitals: W t: 94.4, Temp: 97.8, BP: 120/70, HR: 85, O2 Sat: 92% on RA, Nurse: cristhian, Ht: 62.50, BMI:16.99. * Examination: G eneral Examination: General Appearance: N AD , alert , pleasant; thin; appears hydrated. Heart: R RR. Lungs: w heezing right upper lobe; diminished BS posteriorly. Neurologic Exam: a lert and oriented; periodic tremors or arms and legs and body at different times. Extremities: n o leg edema. P sychology: Mood : a nxious , hyper , upset , smiles , jokes. ? L ABS: l abs from hospitalization 11/18/24 18:01: WBC 8.3, RBC 3.85 L, Hgb 13.8, Hct 39.1, MCV 101.6 H, MCH 35.8 H, MCHC 35.3, RDW 13.1, Plt Count 205, MPV 8.8, Neut % (Auto) 83.6 H, Lymph % (Auto) 7.0 L, [place] % (Auto) 5.7, Eos % (Auto) 2.9, Baso % (Auto) 0.2, Neut # (Auto) 6.9, Lymph # (Auto) 0.6 L, [place] # (Auto) 0.5, Eos # (Auto) 0.2, Baso # (Auto) 0.0, D-Dimer 0.72 H, Sodium 124 L, Potassium 4.2, Chloride 93 L, Carbon Dioxide 26, Anion Gap 9.2, BUN 12, Creatinine 0.80, Estimated Creat Clear 37, Estimated GFR 72, Est GFR ( Amer) 87, Glucose 141 H, Calcium 9.4, Phosphorus 3.8, Magnesium 1.8, Total Bilirubin 0.4, AST 85 H, ALT 35, Alkaline Phosphatase 61, Troponin I 0.03, C-Reactive Protein 126.3 H, NT-Pro-B Natriuret Pep 1520 H, Total Protein 7.8, Albumin 4.6, Globulin 3.2, Albumin/Globulin Ratio 1.4, TSH 0.62, Thyroxine (T4) 6.9 11/18/24 18:12: VBG pH 7.25 L, VBG pCO2 58.0 H, VBG pO2 47.8 H, VBG HCO3 24.9, VBG Total CO2 26.7, VBG O2 Saturation 79.0 H, VBG Base Excess -2.3, VBG Lactic Acid 2.0 11/18/24 18:18: SARS-CoV-2 (PCR) Not detected, Influenza A Untype (PCR) Not detected, Influenza Type B (PCR) Not detected 11/18/24 20:12: VBG pH 7.25 L, VBG pCO2 54.9 H, VBG pO2 46.2 H, VBG HCO3 23.4, VBG Total CO2 25.1, VBG O2 Saturation 76.7 H, VBG Base Excess -3.9 L, VBG Lactic Acid 1.7 11/18/24 21:28: Troponin I 0.05 H 11/19/24 00:20: Troponin I 0.04 H 11/19/24 01:53: Urine Color Yellow, Urine Appearance Clear, Urine pH 6.0, Ur Specific [place] 1.025, Urine Protein Trace, Urine Glucose (UA) Negative, Urine Ketones Negative, Urine Blood 1+ A, Urine Nitrate Negative, Urine Bilirubin Negative, Urine Urobilinogen 0.2, Ur Leukocyte Esterase Negative, Urine RBC 10-20, Urine WBC 3- 5, Ur Squamous Epith Cells 10-20, Urine Bacteria Trace, Hyaline Casts 3-5 11/19/24 05:35: WBC 5.6 D, RBC 3.26 L, Hgb 11.7 L D, Hct 33.0 L, MCV 101.2 H, MCH 35.9 H, MCHC 35.5 H, RDW 12.8, Plt Count 180, MPV 9.1, Neut % (Auto) 85.8 H, Lymph % (Auto) 8.7 L, [place] % (Auto) 4.8, Eos % (Auto) 0.0 L, Baso % (Auto) 0.2, Neut # (Auto) 4.8, Lymph # (Auto) 0.5 L, [place] # (Auto) 0.3, Eos # (Auto) 0.0, Baso # (Auto) 0.0, Total Counted 100, Neutrophils % (Manual) 85 H, Lymphocytes % (Manual) 13, Monocytes % (Manual) 2, Platelet Estimate Normal, Macrocytosis 1+, VBG pH 7.35, VBG pCO2 46.1, VBG pO2 42.0 H, VBG HCO3 24.8, VBG Total CO2 26.2, VBG O2 Saturation 75.8 H, VBG Base Excess -0.9, VBG Lactic Acid 1.7, Sodium 127 L, Potassium 3.5, Chloride 95 L, Carbon Dioxide 28, Anion Gap 7.5, BUN 11, Creatinine 0.70, Estimated Creat Clear 38, Estimated GFR 83, Est GFR ( Amer) 101, Glucose 151 H, Calcium 8.8, Total Bilirubin 0.1 L, AST 76 H, ALT 34, Alkaline Phosphatase 53, Total Protein 6.8, Albumin 3.8 D, Globulin 3.0, Albumin/Globulin Ratio 1.3. Assessment: * Assessment: 1. A cute left flank pain - R10.9 (Primary) 2 . A lcoholism - F10.20 ? 3 . T obacco abuse disorder - Z72.0 4 . C OPD (chronic obstructive pulmonary disease) - J44.9 5 . S leep disorder - G47.9 6 . V itamin D deficiency - E55.9 7 . E ssential hypertension - I10 8 . D epression, unspecified depression type - F32.9 9 . A dult failure to thrive - R62.7 1 0. D ebility, unspecified - R53.81 1 1. G ERD (gastroesophageal reflux disease) - K21.9 1 2. D ry eyes - H04.123 ?13. H yperlipidemia - E78.5 Plan: * Treatment: Value Reference Range C olor/Clarity yellow * L euk neg * N itrite neg * U robili 3.2 * P rotein neg * p H 8.5 * B lood trace-lysed * S p. Gr. 1.015 * K etone neg * B charlie neg * G vito neg * Paige Ashley 12/01/2024 03:4 1:13 PM > Provider reviewed results while patient in office.Devika Payan 12/02/2024 03:26:15 PM > ? Referral To: ?Reason: 2.?Alcoholism? Start Naltrexone HCl Tablet, 50 MG, 1 tablet, Orally, Once a day, 30 days, 30, Refills 1.? Notes: plans to attend AA meetings; has not had a drink since hospitalization; may need additional meds; will discuss with Dr. Josue??3.?Tobacco abuse disorder? Start Nicoderm CQ Patch 24 Hour, 21 MG/24HR, 1 patch to skin, Transdermal, Once a day, 30 days, 30. ? Notes: patches do help and she pedro restart; has not smoke sin adm to [facility]?? 4.?COPD (chronic obstructive pulmonary disease)? Start Nebulizer/Tubing/Mouthpiece Kit, -, 1 as directed, inh, q4h prn, 1;?Continue Stiolto Respimat Aerosol Solution, 2.5-2.5 MCG/ACT, 2 puffs, Inhalation, Once a day;?Continue Albuterol Sulfate HFA Aerosol Solution, 108 (90 Base) MCG/ACT, 2 puffs, Inhalation, every 6 hrs.? Referral To:Pulmonary Diseases ?Reason: 5.?Sleep disorder? Refill traZODone HCl Tablet, 50 MG, 1 tab(s), orally, at bedtime, 90 days, 90, Refills 1.? 6.?Vitamin D deficiency? Continue Vitamin D3 Capsule, 50 MCG (2000 UT), 1 capsule, Orally, Once a day.?? 7.?Essential hypertension? Start Lisinopril Tablet, 20 MG, 1 tablet, Orally, Once a day, 30 days, 30, Refills 5;?ContinueMetoprolol Succinate ER Tablet Extended Release 24 Hour, 50 MG, TAKE 1 TABLET BY MOUTH IN THE MORNING AND 1/2 (ONE-HALF) IN THE EVENING.?? 8.?Depression, unspecified depression type? Refill Sertraline HCl Tablet, 100 MG, 1 tablet, Orally, Once a day, 90 days, 90 Tablet, Refills 1; Refill hydrOXYzine Pamoate Capsule, 50 MG, TAKE 1 CAPSULE BY MOUTH AT BEDTIME NEEDED, 30, 30Capsule, Refills 0.??9.?Adult failure to thrive? Notes: to start MVI; discussed eatin 3-5 times daily and healthy protein shakes? Referral To:Home Health Agency ?Reason:ETOH withdrawal with faillure to thrive and debility 10.?Debility, unspecified? Notes: to work with PT??11.?GERD (gastroesophageal reflux disease)? Continue Omeprazole Capsule Delayed Release, 40 MG, 1 cap(s), orally, once a day.??12.?Hyperlipidemia? Continue Atorvastatin Calcium Tablet, 10 MG, 1 tab(s), orally, once a day.?? 13.?Others? Notes: Discharge summary with available lab/diagnostic imaging results obtained and reviewed. Discharge medication list reconciled. Appropriate counseling provided. Moderate Complexity?? * Procedure Codes: 9 9495 TRANS CARE MGMT 14 DAY DISCH, 1111F [facility] MED/[facility] MED MERGE, G2211 Complex e/[place], [address] Urinalysis, no micro * Follow Up: 1 Week * Billing Information: * Visit Code: 03031 Office Visit, Est Pt., Level 4. * Procedure Codes: 67514 TRANS CARE MGMT 14 DAY DISCH. 1111F [facility] MED/[facility] MED MERGE. G2211 Complex e/[place]. [address] Urinalysis, no micro. * Electronic signature of Lili Payan APRN on 12/11/2024 at 11:34 AM EDT Sign off status: Pending * Provider: AMBERLY Teague Date: 0 12/01/2024 Generated for Antonio antunez/Marian/Jimenezitting on: 0 12/11/2024 11:34 AM EDT History and Physical Notes * HPI (History of Present Illness) Category Sub-Category Detail Notes Category Not es HPI [facility]. Discharge from the following Facility: Patient was previously discharged from [facility] to [facility] for rehab ,Discharge date: Patient left [facility] on 12/01/2024 AMA and requested appt with PCP as soon as possible,Date of phone contact following discharge: 12/01/2024 Examination Category Sub-Category Detail Notes Category Not es General Examination Heart: RRR Lungs: wheezing right upper lobe; diminished BS posteriorly Extremities: no leg edema General Appearance: NAD , alert , pleasa nt; thin; appears hydrated Neurologic Exam: alert and oriented; periodic tremors or arms and legs and body at different times Psychology Mood : anxious , hyper , upset , sm sherry , jokes LABS labs from hospitalization 11/18/24 18:01: WBC 8.3, RBC 3.85 L, Hgb 13.8, Hct 39.1, MCV 101.6 H, MCH 35.8 H, MCHC 35.3, RDW 13.1, Plt Count 205, MPV 8.8, Neut % (Auto) 83.6 H, Lymph % (Auto) 7.0 L, [place] % (Auto) 5.7, Eos % (Auto) 2.9, Baso % (Auto) 0.2, Neut # (Auto) 6.9, Lymph # (Auto) 0.6 L, [place] # (Auto) 0.5, Eos # (Auto) 0.2, Baso # (Auto) 0.0, D-Dimer 0.72 H, Sodium 124 L, Potassium 4.2, Chloride 93 L, Carbon Dioxide 26, Anion Gap 9.2, BUN 12, Creatinine 0.80, Estimated Creat Clear 37, Estimated GFR 72, Est GFR ( Amer) 87, Glucose 141 H, Calcium 9.4, Phosphorus 3.8, Magnesium 1.8, Total Bilirubin 0.4, AST 85 H, ALT 35, Alkaline Phosphatase 61, Troponin I 0.03, C-Reactive Protein 126.3 H, NT-Pro-B Natriuret Pep 1520 H, Total Protein 7.8, Albumin 4.6, Globulin 3.2, Albumin/Globulin Ratio 1.4, TSH 0.62, Thyroxine (T4) 6.9 11/18/24 18:12: VBG pH 7.25 L, VBG pCO2 58.0 H, VBG pO2 47.8 H, VBG HCO3 24.9, VBG Total CO2 26.7, VBG O2 Saturation 79.0 H, VBG Base Excess -2.3, VBG Lactic Acid 2.0 11/18/24 18:18: SARS-CoV-2 (PCR) Not detected, Influenza A Untype (PCR) Not detected, Influenza Type B (PCR) Not detected 11/18/24 20:12: VBG pH 7.25 L, VBG pCO2 54.9 H, VBG pO2 46.2 H, VBG HCO3 23.4, VBG Total CO2 25.1, VBG O2 Saturation 76.7 H, VBG Base Excess -3.9 L, VBG Lactic Acid 1.7 11/18/24 21:28: Troponin I 0.05 H 11/19/24 00:20: Troponin I 0.04 H 11/19/24 01:53: Urine Color Yellow, Urine Appearance Clear, Urine pH 6.0, Ur Specific [place] 1.025, Urine Protein Trace, Urine Glucose (UA) Negative, Urine Ketones Negative, Urine Blood 1+ A, Urine Nitrate Negative, Urine Bilirubin Negative, Urine Urobilinogen 0.2, Ur Leukocyte Esterase Negative, Urine RBC 10-20, Urine WBC 3-5, Ur Squamous Epith Cells 10-20, Urine Bacteria Trace, Hyaline Casts 3-5 11/19/24 05:35: WBC 5.6 D, RBC 3.26 L, Hgb 11.7 L D, Hct 33.0 L, MCV 101.2 H, MCH 35.9 H, MCHC 35.5 H, RDW 12.8, Plt Count 180, MPV 9.1, Neut % (Auto) 85.8 H, Lymph % (Auto) 8.7 L, [place] % (Auto) 4.8, Eos % (Auto) 0.0 L, Baso % (Auto) 0.2, Neut # (Auto) 4.8, Lymph # (Auto) 0.5 L, [place] # (Auto) 0.3, Eos # (Auto) 0.0, Baso # (Auto) 0.0, Total Counted 100, Neutrophils % (Manual) 85 H, Lymphocytes % (Manual) 13, Monocytes % (Manual) 2, Platelet Estimate Normal, Macrocytosis 1+, VBG pH 7.35, VBG pCO2 46.1, VBG pO2 42.0 H, VBG HCO3 24.8, VBG Total CO2 26.2, VBG O2 Saturation 75.8 H, VBG Base Excess -0.9, VBG Lactic Acid 1.7, Sodium 127 L, Potassium 3.5, Chloride 95 L, Carbon Dioxide 28, Anion Gap 7.5, BUN 11, Creatinine 0.70, Estimated Creat Clear 38, Estimated GFR 83, Est GFR ( Amer) 101, Glucose 151 H, Calcium 8.8, Total Bilirubin 0.1 L, AST 76 H, ALT 34, Alkaline Phosphatase 53, Total Protein 6.8, Albumin 3.8 D, Globulin 3.0, Albumin/Globulin Ratio 1.3 Consultation Request Notes Referral Date Referring Provider Referred Provider Not es 12/01/2024 Devika Payan , 12/01/2024 Devika Payan , ETOH with drawal with faillure to thrive and debility 12/02/2024 Devika Payan ,
--- OUTSIDE RECORDS SUMMARY | 2024-12-07 07:00 | XMS_ITS ---
Author Organization [facility] Address [address] [place] [id number] Care Team Providers Care Wire Basket Maker Name Role Phone Hermelinda Donovan Primary Care Provider Devika Payan Unavailable [phone] Allergies Allergen (clinical drug ingredient) Drug/Non Drug Allergy documented on EMR Reaction Allergy Type Onset Date Status tramadol traMADol HCl Unknown Drug Allergy Acti ve Results Component Value Reference Range Notes CBC Venipuncture (in house) (Not yet reviewed by provider) Interpretation: Performing Lab: Notes/Report: wbc 7.6 3.5 - 10 lymph 19.5% 15 - 50 mid 6.3% 2 - 15 gran 74.2% 35 - 80 rbc 3.32 3.5 - 5.5 hgb 11.6 11.5 - 16.5 hct 34.1 35 - 55 mcv 102.6 75 - 100 mch 35.0 25 - 35 mchc 34.1 31 - 38 platlet 416 100 - 400 P-Comprehensive Metabolic Pa cristine (CMP) (Not yet reviewed by provider) Interpretation: Performing Lab: Notes/Report: Test performed by [facility] [address] [place] [address] , [address], [place] [address] Darshan Hudson MD, Tile Roofer CLIA: [id number] Sodium 135 135-145 mmol/L Potassium 4.1 3.5-5.3 mmol/L Chloride 94 97-108 mmol/L CO2 30 22-32 mmol/L Glucose 94 65-99 mg/dL BUN 21 8-23 mg/dL Creatinine 0.66 0.50-1.00 mg/dL Calcium 9.6 8.6-10.4 mg/dL eGFR by Creatinine 96 >59 mL/min/1.73m2 Protein 6.6 6.0-8.3 g/dL Albumin 3.6 3.5-5.3 g/dL Alkaline Phosphatase 68 35-121 IU/L ALT (SGPT) 14 <5-47 IU/L AST (SGOT) 13 <5-40 IU/L Bilirubin, Total <0.2 <0.2-1.2 mg/dL A/G Ratio 1.2 1.1-2.5 REASON FOR VISIT 1 week Medications Medication SIG (Take, Route, Frequency, Duration) Notes Start Date End Date Status Glycerin (Adult) 2 GM 1 SUPP(s) rectally once a day as needed for BM 12/06/2020 Active Lisinopril 20 MG 1 tablet Orally Once a day for 30 days 12/01/2024 Active traZODone HCl 50 MG 1 tab(s) orally at bedtime for 90 days Active Azelastine HCl 0.05 % INSTILL 1 DROP INT O AFFECTED EYE(S) TWICE DAILY for 68 Active Sertraline HCl 100 MG 1 tablet Orally On ce a day for 90 days Active Triamcinolone Acetonide 0.1 % 1 twan applied topically 3 times a day 10/19/2022 Active Polyethylene Glycol 3350 - as directed orally once a day for 7 day(s) 12/06/2020 Active Cephalexin 500 MG 1 capsule Orally Two times a day for 7 days 08/07/2023 Not-Takin g Lidocaine Viscous HCl 2 % 15 ml swish an d spit Mouth/Throat every 4 hours, prn 08/07/2023 Not-Taking Nicotine 21 MG/24HR 1 patch to skin Transdermal Once a day for 30 days 12/07/2024 Active Cefuroxime Axetil 500 MG 1 tablet Orally every 12 hrs for 7 days 11/17/2024 Not-Taking Vitamin B12 1000 MCG 1 tablet Orally Onc e a day for 90 days 08/14/2023 Not-Taking Mucinex DM 30-600 MG 1 tablet as needed Orally every 12 hrs for 14 days Not-Taking Ipratropium-Albuterol 0.5-2.5 (3) MG/3ML 3 mL as needed Inhalation every 6 hrs prn 11/17/2024 Not-Taking Promethazine-DM 6.25-15 MG/5ML 5 mL as needed Orally every 6 hrs prn 11/17/2024 Not-Taking Vitamin B12 1000 MCG 1 tablet Orally Onc e a day for 30 days 10/16/2023 Active Potassium Chloride ER 10 MEQ 1 tablet Orally every other day for 90 days Active Medrol 4 MG as directed orally daily for 6 days 11/17/2024 Not-Taking Ibuprofen 800 MG 1 tab(s) orally 3 ti mes a day prn for 30 days Active Metoprolol Succinate ER 50 MG TAKE 1 TABLET BY MOUTH IN THE MORNING AND 1/2 (ONE-HALF) IN THE EVENING for 30 days Active Albuterol Sulfate HFA 108 (90 Base) MCG/ACT 2 puffs Inhalation every 6 hrs Active Atorvastatin Calcium 10 MG 1 tab(s) orally once a day for 30 days Active Vitamin D3 50 MCG (2000 UT) 1 capsule Orally Once a day for 30 days 10/16/2023 Active Omeprazole 40 MG 1 cap(s) orally once a day for 30 days Active Naltrexone HCl 50 MG 1 tablet Orally Onc e a day for 30 days 12/01/2024 Active Oxazepam 10 MG 1 capsule as needed Orally Three times a day 12/02/2024 Active hydrOXYzine Pamoate 50 MG 1 capsule at b edtime as needed Orally Once a day for 30 days Active Nebulizer/Tubing/Mouthpie ce - 1 as directed inh q4h prn Active Stiolto Respimat 2.5-2.5 MCG/ACT 2 puffs Inhalation Once a day 08/10/2024 Active Nicoderm CQ 21 MG/24HR 1 patch to skin Transdermal Once a day for 30 days 12/01/2024 Active Vital Signs Blood pressure systolic 112 mm Hg 12/08/19 25 Blood pressure diastolic 80 mm Hg 025 Heart Rate 73 /min 12/07/2024 Height 62.50 in 12/07/2024 Weight 92.2 lbs 12/07/2024 BMI 16.59 kg/m2 12/07/2024 Encounters Encounter Location Date Provider Diagnosis [facility] [address] [id number] 12/07/2024 Hermelinda Donovan COPD (chronic obstructive pulmonary disease) J44.9 ; Tobacco use disorder F17.200 ; Alcoholism F10.20 ; Essential hypertension I10 and Vitamin B12 deficiency E53.8 Assessments Encounter Date Diagnosis (ICD Code) Assessment Notes Treatment Notes Treatment Clinical Notes Section Notes 12/07/2024 COPD (chronic obstructive pulmonary disease) (ICD-10 - J44.9) 12/07/2024 Tobacco use disorder (ICD-10 - F17.200) 12/07/2024 Alcoholism (ICD-10 - F10.20) 12/07/2024 Essential hypertension (ICD-10 - I10) 12/07/2024 Vitamin B12 deficiency (ICD-10 - E53.8) Plan Of Treatment Medication Medication Name Sig Start Date Stop Date Notes Nicotine 21 MG/24HR 1 patch to skin Mckeon sdermal Once a day for 30 days 12/07/2024 Pending Test Test Name Order Date CBC Venipuncture (in house) 12/07/2024 P-Comprehensive Metabolic Panel (CMP) Next Appt Details Follow Up: 4 Weeks, Reason: Progress Notes * ALBA MIGUELANGELDOB: (69 yo F)Acc No.[id number]:12/07/2024 Progress Notes Patient: MIGUELANGEL TEAGUE Provider: Hermelinda Donovan M.D. :1955 A ge:69 Y S ex:Female Date:12/07/2024 Address:[facility] [id number] Subjective: * Chief Complaints: * 1 . 1 week. * HPI: C ardiology: The pt is here for a follow up on shortness of breath. SEE EXTENSIVE PRIOR NOTE FROM 12/01. SHE IS OFF CIGARETTES AND OFF ALCOHOL. Pt states she is still feeling short of breath and is using the inhaler 4-5 times a day. Pt's states the past two nights the pt has c/o some chest pain and he gave her some aspirin and that did help resolve the pain. Pt states she has the Nicotine 14 mg patch on her arm today but would like to go back to the 21 mg. 69 year old female presents with c/o Chest Pain. c/o Short of Breath. Denies : Dizziness. D enies : Palpitations. * ROS: D ERMATOLOGY: no R casa. n o H lauren. G ASTROENTEROLOGY: no N ausea. n o V omiting. n o D iarrhea.? U ROLOGY: no D ifficulty urinating. n [...] n ick in bladder 2003, endomtriosis 2002, [facility] ER visit, then to [facility] for 12 hours for depression 06/01/07, [facility]-detox 1983, [facility]-COPD, Bronchitis 02/01/18, [facility] ER-allergic reaction to meds 04/2019, [facility] ER- anxiety/depression 09/25, [facility] with ARF, alcoholism, failure to [...] since last visit: none. 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 Past smoking status: yes, PPD:1 1/2 , years:20 ,determination:no. Occup. exposure: none. Recreational drug use: yes, Past use:, marijuana. Alcohol: no. Sexually active: yes. Travel ouside [place]: no. * Medications: T aking Triamcinolone Acetonide 0.1 % Cream 1 twan applied topically 3 times a day , Taking Polyethylene Glycol 3350 - Powder as directed orally once a day , Taking Glycerin (Adult) 2 GM Suppository 1 SUPP(s) rectally once a day as needed for BM , Taking Azelastine HCl 0.05 % Solution INSTILL 1 DROP INTO AFFECTED EYE(S) TWICE DAILY , Taking traZODone HCl 50 MG Tablet 1 tab(s) orally at bedtime , Taking Sertraline HCl 100 MG Tablet 1 tablet Orally Once a day , Taking Lisinopril 20 MG Tablet 1 tablet Orally Once a day , Taking Nebulizer/Tubing/Mouthpiece - Kit 1 as directed inh q4h prn , Taking Nicoderm CQ 21 MG/24HR Patch 24 Hour 1 patch to skin Transdermal Once a day , Taking Stiolto Respimat 2.5-2.5 MCG/ACT Aerosol Solution 2 puffs Inhalation Once a day , Taking Oxazepam 10 MG Capsule 1 capsule as needed Orally Three times a day , Taking hydrOXYzine Pamoate 50 MG Capsule 1 capsule at bedtime as needed Orally Once a day , Taking Naltrexone HCl 50 MG Tablet 1 tablet Orally Once a day , Taking Omeprazole 40 MG Capsule Delayed Release 1 cap(s) orally once a day , Taking Vitamin D3 50 MCG (2000 UT) Capsule 1 capsule Orally Once a day , Taking Atorvastatin Calcium 10 MG Tablet 1 tab(s) orally once a day , Taking Albuterol Sulfate HFA 108 (90 Base) MCG/ACT Aerosol Solution 2 puffs Inhalation every 6 hrs , Taking Metoprolol Succinate ER 50 MG Tablet Extended Release 24 Hour TAKE 1 TABLET BY MOUTH IN THE MORNING AND 1/2 (ONE-HALF) IN THE EVENING , Taking Ibuprofen 800 MG Tablet 1 tab(s) orally 3 times a day prn , Taking Potassium Chloride ER 10 MEQ Tablet Extended Release 1 tablet Orally every other day , Taking Vitamin B12 1000 MCG Tablet Extended Release 1 tablet Orally Once a day , Not-Taking Medrol 4 MG Tablet Therapy [...] raMADol HCl. Objective: * Vitals: W t: 92.2, Temp: 97.7, BP: 112/80, HR: 73, O2 Sat: 94% on RA, Nurse: JODY, Ht: 62.50, BMI:16.59. * Examination: G eneral Examination: General Appearance: N AD. HEENT: u nremarkable. Oral cavity: n o lesions, mucosa moist and WNL, no erythema. Neck: s upple, no lymphadenopathy. Chest: n ormal shape and expansion. Heart: R SR. Lungs: c lear to auscultation, decreased breath sounds, NO WHEEZES OR RALES.. Neurologic Exam: I ntact, gait normal. Skin: n ormal, no rash. Peripheral pulses: n ormal (2+) bilaterally. Extremities: n o leg edema. Assessment: * Assessment: 1. C OPD (chronic obstructive pulmonary disease) - J44.9 (Primary) 2 . T obacco use disorder - F17.200 3 . A lcoholism - F10.20 4 . E ssential hypertension - I10 5 . V itamin B12 deficiency - E53.8 Plan: * Treatment: Value Reference Range w bc 7.6 3.5 - 10 * l ymph 19.5% 15 - 50 * m id 6.3% 2 - 15 * g ran 74.2% 35 - 80 * r bc 3.32 3.5 - 5.5 * h gb 11.6 11.5 - 16.5 * h ct 34.1 35 - 55 * m cv 102.6 75 - 100 * m ch 35.0 25 - 35 * m chc 34.1 31 - 38 * p latlet 416 100 - 400 * Diane Friend 12/07/2024 02: 27:56 PM EDT > 2.?Tobacco use disorder? Start Nicotine Patch 24 Hour, 21 MG/24HR, 1 patch to skin, Transdermal, Once a day, 30 days, 30, Refills 3.??3.?Essential hypertension?LAB: P-Comprehensive Metabolic Panel (CMP) (Collection Date & Time - 12/07/2024 11:30 AM)* Value Reference Range A /G Ratio 1.2 1.1-2.5 - * A lbumin 3.6 3.5-5.3 - g/dL * A lkaline Phosphatase 68 35-121 - IU/L * A LT (SGPT) 14 <5-47 - IU/L * A ST (SGOT) 13 <5-40 - IU/L * B ilirubin, Total <0.2 <0.2-1.2 - mg/dL * B UN 21 8-23 - mg/dL * C alcium 9.6 8.6-10.4 - mg/dL * C hloride 94 L 97-108 - mmol/L * C O2 30 22-32 - mmol/L * C reatinine 0.66 0.50-1.00 - mg/dL * G lucose 94 65-99 - mg/dL * P otassium 4.1 3.5-5.3 - mmol/L * S odium 135 135-145 - mmol/L * P rotein 6.6 6.0-8.3 - g/dL * e GFR by Creatinine 96 >59 - mL/min/1.73m2 * Procedure Codes: 8 5025 CBC WITH AUTO DIFF, 19650 VENIPUNCT, ROUTINE* * Follow Up: 4 Weeks * Billing Information: * Visit Code: 58950 Office Visit, Est Pt., Level 3. * Procedure Codes: 85365 CBC WITH AUTO DIFF. 29544 VENIPUNCT, ROUTINE*. * Electronic signature of Hermelinda Donovan MD on 12/11/2024 at 11:34 AM EDT Sign off status: Pending * Provider: Hermelinda Donovan M.D. Date: 0 12/07/2024 Generated for Antonio antunez/Marian/eTransmitting on: 0 12/11/2024 11:34 AM EDT History and Physical Notes * HPI (History of Present Illness) Category Sub-Category Detail Notes Category Not es Cardiology Short of Breath Chest Pain Palpitations Dizziness Examination Category Sub-Category Detail Notes Category Not es General Examination HEENT: unremarkable Heart: RSR Lungs: clear to auscultatio n, decreased breath sounds, NO WHEEZES OR RALES. Extremities: no leg edema General Appearance: NAD Skin: normal, no rash Neurologic Exam: Intact, gait normal Neck: supple, no lymphaden opathy Oral cavity: no lesions, mucosa m oist and WNL, no erythema Peripheral pulses: normal (2+) bilatera lly Chest: normal shape and exp ansion
--- OUTSIDE RECORDS SUMMARY | 2024-12-11 11:34 | XMS_ITS | Clinical Summary ---
Author Organization [facility] Address [address] [place] [address] Care Team Providers Care Director Of Undergraduate Admissions Name Role Phone Cleve Donovan MD Primary Care Provider [phone] Allergies No known active allergies Medications ProAir HFA 108 (90 Base) MCG/ACT inhaler Inhale 2 puffs every 4 (four) hours if needed. 1 Active atorvastatin (Lipitor) 10 MG tablet Take 10 mg by mouth 1 (one) time each day. 1 Active azelastine (Optivar) 0.05 % ophthalmic solution Administer 1 drop into both eyes 1 (one) time each day if needed. 1 Active busPIRone (Buspar) 5 MG tablet Take 5 mg by mouth 3 (three) times a day. 1 Active DULoxetine (Cymbalta) [address] capsule Take 60 mg by mouth 1 (one) time each day. 1 Active metoprolol succinate XL (Toprol-XL) 50 MG 24 hr tablet Take 50 mg by mouth 1 (one) time each day. 1 Active Anoro Ellipta 62.5-25 MCG/INH aerosol powder Inhale 1 puff 2 (two) times a day. 1 Active ibuprofen 800 MG tablet Take 800 mg by mouth 1 (one) time each day. 1 Active omeprazole (PriLOSEC) [address] capsule Take 40 mg by mouth 1 (one) time each day. 1 Active traZODone (Desyrel) 50 MG tablet Take 50 mg by mouth every night. 1 Active ondansetron (Zofran) 4 MG tablet Take 4 mg by mouth every 8 (eight) hours if needed for nausea or vomiting. Active thiamine (Vitamin B-1) 100 MG tablet Take 100 mg by mouth 1 (one) time each day. Active estradiol (Estrace) 0.1 MG/GM vaginal cream Insert 1 g into the vagina 1 (one) time per week. Active acetaminophen-c odeine (Tylenol #3) 300-30 MG tablet 1 Active busPIRone (Buspar) 7.5 MG tablet 2 Active triamcinolone (Kenalog) 0.1 % cream Apply 1 application topically 2 (two) times a day. Active Active Problems Problem Noted Date Diagnosed Date UPJ obstruction, congenital 04/19/2021 COPD (chronic obstructive pulmonary disease) Resolved Problems Problem Noted Date Diagnosed Date Resolved Date Hydronephrosis with ureterop elvic junction (UPJ) obstruction 04/19/2021 04/20/2021 Family History Medical History Relation Name Comments Colon cancer Maternal Grandfather Relation Name Status Comments Maternal Grandfather Social History Tobacco Use Types Packs/Day Years Used Date Smoking Tobacco: Every Day Cigarettes 1.5 40 Smokeless Tobacco: Never Tobacco Cessation:Ready to Q uit: Not Asked; Counseling Given: Not Answered Alcohol Use Standard Drinks/Week Comments Yes 8 (1 standard drink = 0.6 oz pur e alcohol) Comments No Sex and Gender Information Value Date Recorded Sex Assigned at Not on file Legal Sex Female 7:39 PM EDT Gender Identity Not on file Sexual Orientation Not on file Last Filed Vital Signs Vital Sign Reading Time Taken Comments Blood Pressure 138/82 05/22/2021 9:38 AM EST Pulse 74 05/22/2021 9:38 AM EST Temperature 36.3 C (97.4 F) 04/20/2021 11:11 AM EDT Respiratory Rate 18 04/20/2021 11:11 AM EDT Oxygen Saturation 95% 04/20/2021 11:11 AM EDT Inhaled Oxygen Concentration - - Weight 42.6 kg (94 lb) 04/30/2022 2:33 PM EDT Height 160 cm (5' 3 ) 04/30/2022 2:33 PM EDT Body Mass Index 16.65 04/30/2022 2:33 PM EDT Plan of Treatment Health Maintenance Due Date Last Done Comments [facility]-Bone Density Scan 1955 [facility]-Depression Screening 1955 [facility]-Hepatitis C Screening 1955 [facility]-Medicare Annual Wellness (AWV) 1955 [facility]-/Child/Adol SDOH Screenings 1955 [facility]- SDOH Screenings 1975 [facility]-Adult SDOH Screenings 1975 [facility]-DTaP,Tdap,and Td Vaccines (1 - Tdap) 1976 CT Colonography 2002 Colonoscopy 2002 FIT-DNA 2002 FIT 2002 FOBT 2002 Sigmoidoscopy 2002 [facility]-Colorectal Cancer Screening 2002 [facility]-Pneumococcal Vaccine: 50+ Years (1 of 1 - PCV) 2007 [facility]-Zoster Vaccines (1 of 2) 2007 [facility]-Breast Cancer Screening 04/16/201804/07, 03/23/2015, 02/12/2014 [id number] Vaccine ( season) 2024 04/25/2022, 06/02/2021, 10/06/2020, Additional history exists [facility]-Influenza Vaccine (Season Ended) 2025 04/25/2022, 04/01/2021 [facility]-RSV Vaccine: 60+ Years or (1 - 1-dose 75+ series) 2032 HPV Vaccines Aged Out No longer eligi ble based on patient's age to complete this topic [facility]-HIB Vaccines Aged Out No longer e ligible based on patient's age to complete this topic [facility]-Hepatitis A Vaccines Aged Out No longer eligible based on patient's age to complete this topic [facility]-IPV Vaccines Aged Out No longer e ligible based on patient's age to complete this topic [facility]-Rotavirus Vaccines Aged Out No lo nger eligible based on patient's age to complete this topic Medical Devices Implanted Type Area Cotton Seed Culler Device Identifier Shelf Expiration Date Model / Serial / Lot Stent Ureteral Double Pigtail Pos 6fr 24cm - Sna - [id number] Implanted:Qty: 1 on 04/19/2021 by Fer Lopez MD at [facility] Stent Left: [id number] 09/23/2022 [id number] / NA / [id number] Insurance MEDICARE [employer] Advance Directives * Full Code (Latest Code Status on File) Date Activated Date Inactivated Comments 04/19/2021 12:49 PM 04/20/2021 2:33 PM Question Answer Comments Patient has decision-making capacity? Yes Care Teams Director Of Undergraduate Admissions Relationship Specialty Start Date End Date Cleve Donovan MD [address] [place] [address] [place] [id number] PCP - General 07/10/21
--- OUTSIDE RECORDS SUMMARY | 2024-12-11 11:35 | XMS_ITS ---
Author Organization [facility] Team Providers Care Gynecologist Name Role Phone Yadi Scott Unavailable Unavailable Daniel Gonzalez Unavailable Unavailable Allergies and adverse reactions Code CodeSystem Substance Reaction Severity StartDate Concern Status Tramadol Unknown 11/25/2024 active 7804 RXNORM oxyCODONE Unknown 11/25/2024 active Care Team Name Role Address Phone Organization Dates Daniel Gonzalez PCP [facility] [address] [place] [address], [phone], [facility] (Office): : [facility] 11/25/2024 - 12/01/2024 Yadi Scott [address] [place] [address], [phone], [facility] (Office): : [facility] 11/25/2024 - 12/01/2024 Goals Section Description Status Target Date [place] Resident's Advanced Di rective decisions and/or code status through next review Active 11/10/2025 Maintain optimal oral hygiene status through nex t review Active 11/10/2025 Needs will be communicated/met through next revi ew Active 11/10/2025 Optimal cognition will be ma intained with no avoidable decline through next review Active 11/10/2025 Optimal visual ability will be maintained throug h next review Active 11/10/2025 Prevent wounds and prevent a voidable skin breakdown through next review Active 11/10/2025 Resident will be encouraged to take medications as ordered through next review Active 11/10/2025 Resident will have decreased risk for falls through nursing interventions through next review Active 11/10/2025 Resident will have no respiratory decline throug h next review Active 11/10/2025 Resident will maintain adequ ate nutrition AEB stable weight through next review Active 11/10/2025 Resident will not exhibit an y s/s of physical decline related to the room change through next review. Active 11/10/2025 Resident will not exhibit an y s/s of psychological decline related to the room change through next review. Active 11/10/2025 Resident will not experience a recurrence of identified stressor while in the facility through next review Active 11/10/2025 Resident will not experience any adverse outcomes related to risk for infection through next review. Active 11/10/2025 Resident will not have recurring infection throu gh the next review Active 11/10/2025 Resident will smoke safely w ith supervision AEB no injuries, such as douglas through next review Active 11/10/2025 The resident will remain demar e from skin breakdown due to incontinence and brief use through the review date. Active The resident will be able to return to the commu nity. Active 11/10/2025 The resident will be free fr om complications related to infection through the review date. Active 11/10/2025 The resident will be free fr om s/sx of complications of cardiac problems through the review date. Active 11/10/2025 The resident will have no co mplications r/t to the skin injury by the review date Active 11/10/2025 The resident will have no co mplications related to SOB though the review date. Active 11/10/2025 The resident will not have a n interruption in normal activities due to pain through the review date. Active 11/10/2025 The resident will remain demar e of s/sx or complications related to anemia through review date. Active 11/10/2025 Will achieve maximum functional mobility through next review Active 11/10/2025 Will attend/participate in a ctivities of choice through next review Active 11/10/2025 Will benefit from medication without adverse effects through next review. Active 11/10/2025 Will continue to maintain ex pectations as determined through assessment for compliance with treatment plan through next review Active 11/10/2025 Will express/exhibit satisfa ction with stay and care through next review Active 11/10/2025 Will have needs met by jeanette [facility] of staff as needed through next review Active 11/10/2025 Will not exhibit an avoidable decline in mood th rough next review Active 11/10/2025 Immunizations Immunization Status Vaccine Details Vaccine Code CodeSystem Date Notes TB 2 Step Mantoux Skin Test completed tuberculin skin test; unspecified formulation Given 0.1 ml Left Forearm intradermally Step 1 of Multi-step with next step required 98 CVX created date: 11/26/2024 consent date: 11/25/2024 administer ed date: 11/26/2024 Educated by on 11/26/2024 RSV Vaccine completed Respiratory syncytial virus (RSV), vaccine, recombinant, protein subunit RSV prefusion F, adjuvant reconstituted, 0.5 mL, preservative free 303 CVX created date: 11/26/2024 administer ed date: 05/28/2023 Moderna completed SARS-COV-2 (COVID-19) vaccine, subunit, recombinant spike protein-nanoparti zaid+Matrix-M1 Adjuvant, preservative free, 0.5mL dose 211 CVX created date: 11/26/2024 administer ed date: 06/04/2023 Medications Section Medication Name Status Code CodeSystem Dose Route Frequency Admin Type Sig Text Start Date End Date Lisinopril 30 MG Tablet aborted 20520813 RXNORM 1 tablet Oral one time a day Routine Give 1 tablet by mouth one time a day for HTN relate d to ESSENT IAL (PRIMA RY) HYPERT ENSION (I10) 12/01 Lisinopril Oral Tablet 10 MG aborted 059530 RXNORM 3 tablet Oral one time a day Routine Give 3 tablet by mouth one time a day for hypert ension give 3 tablet s to equal 30mg 11/26 hydrOXYzine Pamoate Oral Capsule 25 MG aborted 126349 RXNORM 1 capsul e Oral as needed PRN Give 1 capsul e by mouth every 8 hours as needed for anxiet y 11/26 Multivitamin Oral Tablet aborted 1 tablet Oral one time a day Routine Give 1 tablet by mouth one time a day for supple ment relate d to DEFECT S IN THE COMPLE MENT SYSTEM (D84.1 );UNSP ECIFIE D SEVERE PROTEI N-ASHISH TOMI MALNUT RITION (E43) 12/01 Famotidine Oral Tablet 20 MG aborted 179850 RXNORM 1 tablet Oral one time a day Routine Give 1 tablet by mouth one time a day for heartb urn relate d to GASTRO -ESOPH AGEAL REFLUX DISEAS E WITHOU T ESOPHA GITIS (K21.9 ) 11/27 Anoro Ellipta Inhalation Aerosol Powder Breath Activated 62.5-25 MCG/ACT aborted 479381 4 RXNORM 1 puff Inhalat ion one time a day Routine 1 puff inhale orally one time a day for Chroni c respir atory failur e with hypoxi a and hyperc apnia relate d to CHRONI C OBSTRU CTIVE PULMON MACY DISEAS E, UNSPEC IFIED (J44.9 );ACUT E AND CHRONI C RESPIR ATORY FAILUR E WITH HYPERC APNIA (J96.2 2);EMP HYSEMA , UNSPEC IFIED (J43.9 ) 12/01 Metoprolol Tartrate Oral Tablet 25 MG aborted 849144 RXNORM 1 tablet Oral one time a day Routine Give 1 tablet by mouth one time a day for hypert ension 11/26 Benzonatate Oral Capsule 200 MG aborted 275939 RXNORM 1 capsul e Oral as needed PRN Give 1 capsul e by mouth every 8 hours as needed for cough 11/26 Sertraline HCl Oral Tablet 100 MG aborted 489023 RXNORM 1 tablet Oral one time a day Routine Give 1 tablet by mouth one time a day for depres judy relate d to POST-T RAUMAT IC STRESS DISORD ER, UNSPEC IFIED (F43.1 0);ANX IETY DISORD ER, UNSPEC IFIED (F41.9 );DEPR ESSION , UNSPEC IFIED (F32.A ) 12/01 Metoprolol Succinate ER Oral Tablet Extended Release 24 Hour 50 MG aborted 463395 RXNORM 1 tablet Oral one time a day Routine Give 1 tablet by mouth one time a day for hypert ension relate d to ESSENT IAL (PRIMA RY) HYPERT ENSION (I10) 12/01 Ipratropium-A lbuterol Inhalation Solution 0.5-2.5 (3) MG/3ML aborted 497363 2 RXNORM 1 applic ation Inhalat ion as needed PRN 1 applic ation inhale orally every 6 hours as needed for SOB relate d to RESPIR ATORY CONDIT IONS DUE TO OTHER SPECIF IED AERONAUTICS COMMISSION DIRECTOR AL AGENTS (J70.8 );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 AMAURI OBSTRU CTIVE PULMON MACY DISEAS E WITH (ACUTE ) EXACER BATION (J44.1 ) 12/01 traZODone HCl Oral Tablet 50 MG aborted 914632 RXNORM 1 tablet Oral as needed PRN Give 1 tablet by mouth every 24 hours as needed for sleep 11/26 Acetaminophen Tablet 325 MG aborted 953215 RXNORM 2 tablet Oral as needed PRN Give 2 tablet by mouth every 6 hours as needed for fever or mild pain Not to exceed 3 grams Acetam inophe n in 24 hours 11/29 Nicotine Transdermal Patch 24 Hour 14 MG/24HR aborted 674564 RXNORM 1 patch Transde rmal one time a day Routine Apply 1 patch transd ermall y one time a day for nicoti ne supple ment relate d to TOBACC O USE (Z72.0 ) and remove per schedu le 12/01 Estrace Vaginal Cream 0.1 MG/GM aborted 528629 RXNORM 1 gram Vaginal every assistant casino shift manager Routine Insert 1 gram vagina lly every assistant casino shift manager every Sat for drynes s, itchin g relate d to ENDOME TRIOSI S, UNSPEC IFIED (N80.9 ) 12/01 Albuterol Sulfate HFA Inhalation Aerosol Solution 108 (90 Base) MCG/ACT aborted 883152 RXNORM 2 puff Inhalat ion as needed PRN 2 puff inhale orally every 6 hours as needed for SOB relate d to CHRONI C OBSTRU CTIVE PULMON MACY DISEAS E, UNSPEC IFIED (J44.9 );ACUT E AND CHRONI C RESPIR ATORY FAILUR E WITH HYPOXI A (J96.2 1) 12/01 Folic Acid Oral Tablet 1 MG aborted 274311 RXNORM 1 tablet Oral one time a day Routine Give 1 tablet by mouth one time a day for supple ment relate d to DEFECT S IN THE COMPLE MENT SYSTEM (D84.1 );CECELIA TE DEFICI ENCY ANEMIA , UNSPEC IFIED (D52.9 ) 12/01 Benzonatate Oral Capsule 200 MG aborted 062129 RXNORM 1 capsul e Oral as needed PRN Give 1 capsul e by mouth every 8 hours as needed for cough relate d to OTHER VIRAL INFECT IONS OF UNSPEC IFIED SITE (B34.8 ) for 7 Days 12/01 predniSONE Oral Tablet 50 MG aborted 960036 RXNORM 1 tablet Oral one time a day Routine Give 1 tablet by mouth one time a day for COPD for 5 Days 12/01 traZODone HCl Oral Tablet 50 MG aborted 084114 RXNORM 1 tablet Oral at bedtime Routine Give 1 tablet by mouth at bedtim e for insomn ia 12/01 hydrOXYzine HCl Oral Tablet 25 MG aborted 195636 RXNORM 1 tablet Oral one time a day Routine Give 1 tablet by mouth one time a day for anxiet y 11/28 hydrOXYzine HCl Oral Tablet 25 MG aborted 814542 RXNORM 1 tablet Oral two times a day Routine Give 1 tablet by mouth two times a day for anxiet y 12/01 Naltrexone HCl Oral Tablet 50 MG aborted 772728 4 RXNORM 1 tablet Oral one time a day Routine Give 1 tablet by mouth one time a day for alcoho lism 12/01 Ibuprofen Oral Tablet 800 MG aborted 625011 RXNORM 1 tablet Oral as needed PRN Give 1 tablet by mouth every 8 hours as needed for pain 12/01 Ativan Oral Tablet 0.5 MG aborted 461041 RXNORM 1 tablet Oral one time only One Time Only Give 1 tablet by mouth one time only for anxiet y until 2024 23:59 12/01 Plan of Treatment Section Test Code Code System Name Date 11/27/2024 CMP-COMPREHENSIVE METABOLIC PNL 11/27/2024 LIPID PROFILE w/calc LDL CBC W/DIFF 11/27/2024 Problems Problem # Description Date of onset Resolved Date Code CodeSystem Concern Status 1 ACUTE AND CHRONIC RESPIRATORY FAILURE WITH HYPERCAPNIA 11/26/[address] active 2 ACUTE AND CHRONIC RESPIRATORY FAILURE WITH HYPOXIA 11/26/[id number] active 3 ALCOHOL DEPENDENCE, UNCOMPLICATED 11/26/[address] active 4 ANXIETY DISORDER, UNSPECIFIED 11/26/[address] active 5 CHRONIC OBSTRUCTIVE PULMONARY DISEASE WITH (ACUTE) EXACERBATION 11/26/[address] active 6 CHRONIC OBSTRUCTIVE PULMONARY DISEASE, UNSPECIFIED 11/26/[address] active 7 DEFECTS IN THE COMPLEMENT SYSTEM 11/26/[address] active 8 DEPRESSION, UNSPECIFIED 11/26/[address] active 9 EMPHYSEMA, UNSPECIFIED 11/26/[address] active 10 ENDOMETRIOSIS, UNSPECIFIED 11/26/[address] active 11 ESSENTIAL (PRIMARY) HYPERTENSION 11/26/[address] active 12 FOLATE DEFICIENCY ANEMIA, UNSPECIFIED 11/26/[address] active 13 GASTRO-ESOPHAGEAL REFLUX DISEASE WITHOUT ESOPHAGITIS 11/26/[address] active 14 HYPERLIPIDEMIA, UNSPECIFIED 11/26/[address] active 15 HYPO-OSMOLALITY AND HYPONATREMIA 11/26/[address] active 16 OTHER VIRAL INFECTIONS OF UNSPECIFIED SITE 11/26/[address] active 17 POST-TRAUMATIC STRESS DISORDER, UNSPECIFIED 11/26/[address] active 18 RESPIRATORY CONDITIONS DUE TO OTHER SPECIFIED EXTERNAL AGENTS 11/26/[address] active 19 TOBACCO USE 11/26/19 Z72.0 ICD-10-CM active 20 UNSPECIFIED SEVERE PROTEIN-CALORIE MALNUTRITION 11/26/[address] active Reason for Referral No Reasons for Referral Entered Diagnostic Results Result Code Code System Date Test Result Interpretation Reference Range Status Notes [id number] [facility] 11/30 CMP-COMPREH ENSIVE METABOLIC PNL / LIPID PROFILE w/calc LDL / MAGNESIUM / CBC W/DIFF / FOLATE (FOLIC ACID) / VITAMIN B12 / VITAMIN D 25-OH TOTAL / PREALBUMIN / TIQ-QUANTIT Y NOT SUFFICIENT Resulted Result for: SHABNAM MCGARRY ( 1955 , F) 61256-7 [facility] 11/27 MAGNESIUM Value: PENDING Units: Normal Pending 2282-2 [facility] 11/27 FOLATE (FOLIC ACID) Value: PENDING Units: Normal Pending 2132-9 [facility] 11/27 VITAMIN B12 Value: PENDING Units: Normal Pending 92665-8 [facility] 11/27 VITAMIN D 25-OH TOTAL Value: PENDING Units: Normal Pending 93845-7 [facility] 11/27 PREALBUMIN Value: PENDING Units: Normal Pending 2345-7 [facility] 11/27 GLUCOSE Value: PENDING Units: Normal Pending 2951-2 [facility] 11/27 SODIUM Value: PENDING Units: Normal Pending 2823-3 [facility] 11/27 POTASSIUM Value: PENDING Units: Normal Pending 2075-0 [facility] 11/27 CHLORIDE Value: PENDING Units: Normal Pending 2028-9 [facility] 11/27 CARBON DIOXIDE (CO2) Value: PENDING Units: Normal Pending 3094-0 [facility] 11/27 BUN (UREA NITROGEN) Value: PENDING Units: Normal Pending 2160-0 [facility] 11/27 CREATININE Value: PENDING Units: Normal Pending 3097-3 [facility] 11/27 BUN/CREATIN INE RATIO Value: PENDING Units: Normal Pending 08460-5 [facility] 11/27 GFR- Value: PENDING Units: Normal Pending 71093-7 [facility] 11/27 GFR-NON-AFR ICAN MEXICAN Value: PENDING Units: Normal Pending 08482-5 [facility] 11/27 CALCIUM Value: PENDING Units: Normal Pending 2885-2 [facility] 11/27 PROTEIN, TOTAL Value: PENDING Units: Normal Pending 1751-7 [facility] 11/27 ALBUMIN Value: PENDING Units: Normal Pending 1759-0 LO[facility] 11/27 A/G RATIO Value: PENDING Units: Normal Pending 6768-6 LOINC 11/27 ALKALINE PHOS Value: PENDING Units: Normal Pending 1920-8 LOINC 11/27 AST (SGOT) Value: PENDING Units: Normal Pending 1742-6 LOINC 11/27 ALT (SGPT) Value: PENDING Units: Normal Pending 1975-2 LO[facility] 11/27 BILIRUBIN, TOTAL Value: PENDING Units: Normal Pending 2093-3 [facility] 11/27 CHOLESTEROL Value: PENDING Units: Normal Pending 2571-8 [facility] 11/27 TRIGLYCERID E Value: PENDING Units: Normal Pending 2085-9 [facility] 11/27 HDL Value: PENDING Units: Normal Pending 65471-2 [facility] 11/27 LDL CALCULATED Value: PENDING Units: Normal Pending 06710-3 LOINC 11/27 LDLc/HDL RATIO Value: PENDING Units: Normal Pending 2091-7 LO[facility] 11/27 VLDLc Value: PENDING Units: Normal Pending 6690-2 LOINC 11/27 WBC Value: PENDING Units: Normal Pending 789-8 LOINC 11/27 RBC Value: PENDING Units: Normal Pending 718-7 LO[facility] 11/27 HEMOGLOBIN Value: PENDING Units: Normal Pending 4544-3 LOINC 11/27 HEMATOCRIT Value: PENDING Units: Normal Pending 89643-0 LOINC 11/27 MCV Value: PENDING Units: Normal Pending 785-6 LOINC 11/27 MCH Value: PENDING Units: Normal Pending 786-4 LOINC 11/27 MCHC Value: PENDING Units: Normal Pending 788-0 LOINC 11/27 RDW Value: PENDING Units: Normal Pending 777-3 LOINC 11/27 PLATELET Value: PENDING Units: Normal Pending 21375-7 LOINC 11/27 MPV Value: PENDING Units: Normal Pending 123-999 99-9 LOINC 11/27 ANISOCYTOSI S Value: PENDING Units: Normal Pending 123-999 99-9 LOINC 11/27 HYPOCHROMAS IA Value: PENDING Units: Normal Pending 123-999 99-9 LOINC 11/27 MICROCYTOSI S Value: PENDING Units: Normal Pending 738-5 LOINC 11/27 MACROCYTOSI S Value: PENDING Units: Normal Pending 770-8 LOINC 11/27 NEUTROPHILS Value: PENDING Units: Normal Pending 736-9 LOINC 11/27 LYMPHS Value: PENDING Units: Normal Pending 11922-0 LOINC 11/27 MONOCYTES Value: PENDING Units: Normal Pending 713-8 LOINC 11/27 EOS Value: PENDING Units: Normal Pending 706-2 LOINC 11/27 BASO Value: PENDING Units: Normal Pending 08508-6 LOINC 11/27 LG UNSTAINED CELLS (BRIANNE) Value: PENDING Units: Normal Pending 751-8 LOINC 11/27 NEUTS (ABSOLUTE) Value: PENDING Units: Normal Pending 731-0 LOINC 11/27 LYMPHS (ABSOLUTE) Value: PENDING Units: Normal Pending 742-7 LOINC 11/27 MONOCYTES (ABSOLUTE) Value: PENDING Units: Normal Pending 711-2 LOINC 11/27 EOS (ABSOLUTE) Value: PENDING Units: Normal Pending 704-7 LOINC 11/27 BASO (ABSOLUTE) Value: PENDING Units: Normal Pending 123-999 99-9 LOINC 11/27 BRIANNE (ABSOLUTE) Value: PENDING Units: Normal Pending 771-6 LOINC 11/27 NUCLEATED RBC Value: PENDING Units: Normal Pending 123-999 99-9 LOINC 11/27 HYPERCHROMA JENNIFER Value: PENDING Units: Normal Pending 123-999 99-9 LOINC 11/27 TEST NAME Value: CBCD Units: Normal Final 123-999 99-9 LOINC 11/27 PROBLEM: Value: QNS Units: Normal Final 123-999 99-9 LOINC 11/27 RESOLUTION: Value: . Units: Normal Final 11/30/24 AT 3:19 PM NOTIFIED NURSE ROGELIO TO RE ORDER. NEXT LAB DAY IS Ad[facility] [phone] 99-[facility] RESOLUTION: Value: REGISTER OF WILLS COLLECTED SAMPLE Units: Normal Final 123-999 99-9 [facility] 11/27 LAB WILL REDRAW (DATE): Value: CS TO CALL Units: Normal Final Test Code Code System Name Date 11/27/2024 CMP-COMPREHENSIVE METABOLIC PNL 11/27/2024 LIPID PROFILE w/calc LDL CBC W/DIFF 11/27/2024 TIQ-QUANTITY NOT SUFFICIENT 11/27/2024 Social History Social History Observation Description Start Date End Date Code Code System Current Smoking Status Tobacco smoking consumption unknown 240700757 SNOMED CT Sex Assigned At Female 1955 38579-0 [facility] Gender Identity Vital Signs Code Code System Vitals Name Values and Units Timing Information 41780-8 [facility] O2 % BldC Oximetry Value=95.0 Units= % 12/01/2024 72922-1 [facility] Pain Level Value=0.0 12/01/2024 8462-4 [facility] Blood Pressure-Diastolic Value=78 Un its=mmHg 12/01/2024 8480-6 [facility] Blood Pressure-Systolic Bocdd=977 Un its=mmHg 12/01/2024 8310-5 [facility] Body Temperature Value=97.9 Units= F 12/01/2024 8867-4 [facility] Heart rate Value=95.0 Units=/min 9279-1 [facility] Respiratory Rate Value=18.0 Units=/m in 11/30/2024 07865-9 [facility] Weight Value=91.2 Units=Lbs 11/06 8302-2 [facility] Height Value=65.0 Units=Inches 11/26/2024
--- OUTSIDE RECORDS SUMMARY | 2024-12-11 11:35 | XMS_ITS | Patient Health Record ---
[facility] Address [address] [place] [id number] Care Team Providers Care Funeral Professional Name Role Phone Hermelinda Donovan Primary Care Provider Devika Payan Unavailable [phone] Tony Hernandez Unavailable [phone] Erasmo Josue Unavailable [phone] Lulu Lopez Unavailable [phone] Allergies Allergen (clinical drug ingredient) Drug/Non Drug [...] 1.015 Ketone neg Bili neg Gluc neg CBC Venipuncture (in house) (Not yet reviewed [...] Interpretation: Performing Lab: Notes/Report: Test performed by [facility] [address] [place] [address] , [address], [place] [address] Darshan Hudson MD, Pedal Assembler CLIA: [id number] Sodium 135 135-145 mmol/L Potassium 4.1 3.5-5.3 [...] <0.2 <0.2-1.2 mg/dL A/G Ratio 1.2 1.1-2.5 H-BMP Reviewed date:11/22/2024 11:07:27 PM Interpretation: Performing Lab: Notes/Report: NA 127 136-145 mmol/L K 3.8 3.5-5.1 mmoL/L CL 90 98-107 mmol/L CO2 36 22.0-30.0 mmol/L GAP 4.8 5-15 mEq/L BUN 14 7-17 mg/dl CREATT 0.50 0.52-1.04 mg/dl CRCLE 43 50-200 mL/min GFRAA 149 >60 ML/MIN EGFR 123 >60 ml/min GLU 83 74-100 mg/dl CA 8.6 8.4-10.2 mg/dl H-CBC Reviewed date:11/22/2024 11:07:27 PM Interpretation: Performing Lab: Notes/Report: WBC 8.7 4.8-10.8 K/mm3 RBC 3.69 4.20-5.40 M/mm3 HGB 13.5 12.2-16.2 g/dL Delta: 10.8 o n 11/21/24-637 HCT 37.6 37.0-47.0 % MCV 101.9 81-99 fl MCH 36.3 27.0-31.2 pg MCHC 35.6 31.8-35.4 g/dL RDW-SD 47.0 RDW 12.4 11.5-17.5 % PLT 240 142-424 K/mm3 Delta: 171 on 11/21/24-0638 MPV 9.0 7.4-10.4 fl NE% 58.6 37.0-80.0 % LY% 26.8 10-50 % MO% 12.8 1.7-9.3 % EO% 0.2 0.1-12.0 % BA% 0.2 0.1-2.0 % NRBC% 0 IG% 1.4 NE# 5.1 1.8-7.8 K/mm3 LY# 2.3 0.7-4.5 K/mm3 MO# 1.1 0.1-1.0 K/mm3 EO# 0.0 0.0-0.4 Kmm3 BA# 0.0 0-0.2 K/mm3 NRBC# 0 IG# 0.12 H-Vitamin D 25 Reviewed date:05/18/2024 10:08:44 AM Interpretation: Performing Lab: Notes/Report: H-VITAMIN B12 Reviewed date:05/19/2024 05:50:05 PM Interpretation:258 Performing Lab: Notes/Report: VITB12 258 239-931 pg/mL H-Folate Reviewed date:05/19/2024 05:50:05 PM Interpretation:Normal Performing Lab: Notes/Report: FOL 5.37 Normal Adult: 2.76->20 ng/mL Folate Deficent: 1.04-2.79ng/mL H-CMP Reviewed date:05/19/2024 05:50:05 PM Interpretation:Na 129, cl 96, gluc 102, ast 52 Performing Lab: Notes/Report: NA 129 136-145 mmol/L K 4.6 3.5-5.1 mmoL/L CL 96 98-107 mmol/L CO2 23 22.0-30.0 mmol/L GAP 14.6 5-15 mEq/L BUN 7 7-17 mg/dl CREATT 0.70 0.52-1.04 mg/dl GFRAA 101 >60 ML/MIN EGFR 83 >60 ml/min GLU 102 74-100 mg/dl CA 9.5 8.4-10.2 mg/dl BILIT 0.8 0.2-1.3 mg/dl AST 52 14-36 U/L ALT 34 12-78 U/L TP 6.9 6.3-8.2 g/dl ALB 4.4 3.5-5.0 g/dl GLOB 2.5 1.3-3.2 g/dL AGRATIO 1.8 1.1-1.8 ALP 67 38-126 U/L H-Lipid Panel Reviewed date:05/19/2024 05:50:05 PM Interpretation:chol 207, dldl 72, hdl 127 Performing Lab: Notes/Report: Patient Fasting? Y TRIG 106 30-150 mg/dl CHOL 207 140-200 mg/dl DLDL 72.33 100-129 mg/dL VLDL 21 0-40 mg/dL HDL 127 40-60 mg/dl CHLHDL 1.6 1-3.5 H-CBC Reviewed date:05/19/2024 05:50:05 PM Interpretation:rbc 4.12, ,cv 107, mch 36.7, mpv 7.1 Performing Lab: Notes/Report: WBC 6.1 4.8-10.8 K/mm3 RBC 4.12 4.20-5.40 M/mm3 HGB 15.1 12.2-16.2 g/dL HCT 43.9 37.0-47.0 % MCV 106.6 81-99 fl MCH 36.7 27.0-31.2 pg MCHC 34.5 31.8-35.4 g/dL RDW 14.2 11.5-17.5 % PLT 303 142-424 K/mm3 MPV 7.1 7.4-10.4 fl NE% 71.5 37.0-80.0 % LY% 19.8 10-50 % MO% 6.7 1.7-9.3 % EO% 0.9 0.1-12.0 % BA% 1.2 0.1-2.0 % NE# 4.4 1.8-7.8 K/mm3 LY# 1.2 0.7-4.5 K/mm3 MO# 0.4 0.1-1.0 K/mm3 EO# 0.1 0.0-0.4 K/mm3 BA# 0.1 0-0.2 K/mm3 CXR Reviewed date:11/19/2024 03:14:33 PM Interpretation:no acute process Performing Lab: Notes/Report: no acute process CXR Reviewed date:11/19/2024 03:14:33 PM Interpretation:no acute process Performing Lab: Notes/Report: no acute process CBC Fingerstick (in house) Reviewed date:11/17/2024 01:50:22 PM Interpretation: Performing Lab: Notes/Report: wbc 8.8 3.5 - 10 lym 7.2 15 - 50 mid 2.1 2 - 15 gran 90.7 35 - 80 rbc 3.93 3.5 - 5.5 hgb 13.7 11.5 - 16.5 hct 40.8 35 - 55 mcv 103.9 75 - 100 mch 34.9 25 - 35 mchc 33.6 31 - 38 plat 162 100 - 400 H-CBC Reviewed date:11/24/2024 12:16:25 PM Interpretation: Performing Lab: Notes/Report: WBC 12.3 4.8-10.8 K/mm3 Delta: 8.7 on 11/22/24-634 RBC 3.86 4.20-5.40 M/mm3 HGB 14.1 12.2-16.2 g/dL HCT 39.0 37.0-47.0 % MCV 101.0 81-99 fl MCH 36.5 27.0-31.2 pg MCHC 36.2 31.8-35.4 g/dL RDW-SD 44.1 RDW 12.0 11.5-17.5 % PLT 355 142-424 K/mm3 Delta: 240 on 11/22/24 MPV 9.0 7.4-10.4 fl NE% 72.3 37.0-80.0 % LY% 14.4 10-50 % MO% 11.4 1.7-9.3 % EO% 0.4 0.1-12.0 % BA% 0.2 0.1-2.0 % NRBC% 0 IG% 1.3 NE# 8.9 1.8-7.8 K/mm3 LY# 1.8 0.7-4.5 K/mm3 MO# 1.4 0.1-1.0 K/mm3 EO# 0.1 0.0-0.4 Kmm3 BA# 0.0 0-0.2 K/mm3 NRBC# 0 IG# 0.16 H-BMP Reviewed date:11/24/2024 12:16:25 PM Interpretation: Performing Lab: Notes/Report: NA 123 136-145 mmol/L K 3.4 3.5-5.1 mmoL/L CL 82 98-107 mmol/L CO2 38 22.0-30.0 mmol/L GAP 6.4 5-15 mEq/L BUN 19 7-17 mg/dl Delta: 14 on -0635 CREATT 0.60 0.52-1.04 mg/dl CRCLE 43 50-200 mL/min GFRAA 121 >60 ML/MIN EGFR 100 >60 ml/min GLU 72 74-100 mg/dl CA 8.4 8.4-10.2 mg/dl H-VITAMIN D Reviewed date:05/19/2024 05:50:05 PM Interpretation:Normal Performing Lab: Notes/Report: TVITD 58.7 30-100 ng/mL Deficient <20 ng/mL Insufficient 20-30 ng/mL Sufficient 30-100 ng/mL Potential Toxicity >100 ng/mL H-COVIDPANEL Reviewed date:11/19/2024 03:08:22 PM Interpretation: Performing Lab: Notes/Report: Unknown Is this the 1st COVID test for the patient? Unknown Does the patient have COVID symptoms? Yes Is the patient employed in healthcare? Unknown Is patient an [facility] employee? N Is patient currently hospitalized? Yes Is patient currently in ICU? No Date of Symptom onset Is patient a resident in a congregate care setting? Unknown ADENOQIA Not Detected NotDetected CORONAHKU1 Not Detected NotDetected AWNBARFY00 Not Detected NotDetected [id number] Not Detected NotDetected SGUKWEO02 Not Detected NotDetected METAPNEUMO Not Detected NotDetected RHINOENTER Not Detected NotDetected INFLUAPCR Not Detected NotDetected FLUAH1 Not Detected NotDetected [id number] Not Detected NotDetected INFLUAH3 Not Detected NotDetected INFLUB Not Detected NotDetected PARAINFLU1 Not Detected NotDetected PARAINFLU2 Not Detected NotDetected PARAINFLU3 Detected NotDetected PARAINFLU 4 Not Detected NotDetected RSVPCR Not Detected NotDetected COVIDHMH Not Detected NotDetected Effective 02/28/21, Positive covid results will no longer be called to the ordering physician. Infection control and the physician?s office will continue to report positive covid results to the local Health Department as required. This assay is for in vitro diagnostic use under FDA Emergency Use Authorization only. Negative results do not preclude infection with SARS CoV 2 virus and should not be the sole basis of a patient treatment/management or public health decision. Follow up testing should be performed according to the current CDC recommendations. BORDPERT Not Detected NotDetected CHLAMYDPNEUM Not Detected NotDetected MYCOPLASM Not Detected NotDetected H-CBC Reviewed date:11/20/2024 12:37:22 PM Interpretation: Performing Lab: Notes/Report: WBC 8.8 4.8-10.8 K/mm3 Delta: 5.6 on 11/19/24 RBC 3.05 4.20-5.40 M/mm3 HGB 11.1 12.2-16.2 g/dL HCT 32.0 37.0-47.0 % MCV 104.9 81-99 fl MCH 36.4 27.0-31.2 pg MCHC 34.7 31.8-35.4 g/dL RDW-SD 51.4 RDW 13.2 11.5-17.5 % PLT 188 142-424 K/mm3 MPV 8.7 7.4-10.4 fl NE% 78.4 37.0-80.0 % LY% 12.9 10-50 % MO% 7.8 1.7-9.3 % EO% 0.0 0.1-12.0 % BA% 0.2 0.1-2.0 % NRBC% 0 IG% 0.7 NE# 6.9 1.8-7.8 K/mm3 LY# 1.1 0.7-4.5 K/mm3 MO# 0.7 0.1-1.0 K/mm3 EO# 0.0 0.0-0.4 Kmm3 BA# 0.0 0-0.2 K/mm3 NRBC# 0 IG# 0.06 H-BMP Reviewed date:11/20/2024 12:37:22 PM Interpretation: Performing Lab: Notes/Report: NA 125 136-145 mmol/L K 4.6 3.5-5.1 mmoL/L Delta: 3.5 on 11/19/24 CL 94 98-107 mmol/L CO2 30 22.0-30.0 mmol/L GAP 5.6 5-15 mEq/L BUN 15 7-17 mg/dl Delta: 11 on CREATT 0.60 0.52-1.04 mg/dl CRCLE 38 50-200 mL/min GFRAA 121 >60 ML/MIN EGFR 100 >60 ml/min GLU 91 74-100 mg/dl CA 8.2 8.4-10.2 mg/dl Reason For Referral Diagnosis 1 COPD (chronic obstru ctive pulmonary disease) (J44.9) [facility] Referring Provider First Name Devika Referring Provider Last Name Schuyler Referring Provider [facility] ctice Referred Provider Specialty Pulmonary [facility] General Notes [facility] follow up for AR Sandra Ma Brynn 12/02/2024 09:39:17 AM > faxed to [facility] PulmonologySandra Brynn 12/07/2024 11:46:53 AM > 12/08/2024 at 01:00om Referral Priority Routine Reason ETOH withdrawal with faillure to thrive and debility Diagnosis 1 Adult failure to thr macario (R62.7) [facility] Referring Provider First Name Devika Referring Provider Last Name Schuyler Referring Provider [facility] ctice Referred Provider Specialty Home Health Agency General Notes Ayleen Flores 12/03/19 11:40:44 AM > faxed to Bruce Ordoñez Courtney 12/02/2024 02:02:26 PM > Shabnam is denying the home health as of now and the referral has been closed, if Mariajose wants it back open, [facility] said they can help find her an in home health nurseSandra Brynn 12/02/2024 02:05:31 PM > okay Referral Priority Routine Diagnosis 1 Acute left flank terri n (R10.9) [facility] Referring Provider First Name Devika Referring Provider Last Name Schuyler Referring Provider [facility] ctice Referral Priority Routine Medications Medication SIG (Take, Route, Frequency, Duration) Notes Start Date End Date Status Oxazepam 10 MG 1 capsule as needed Orally Three times a day 12/02/2024 Active hydrOXYzine Pamoate 50 MG 1 capsule at b edtime as needed Orally Once a day for 30 days Active Nebulizer/Tubing/Mouthpie ce - 1 as directed inh q4h prn Active Cephalexin 500 MG 1 capsule Orally Two times a day for 7 days 08/07/2023 Not-Takin g Lisinopril 20 MG 1 tablet Orally Once a day for 30 days 12/01/2024 Active Vitamin B12 1000 MCG 1 tablet Orally Onc e a day for 90 days 08/14/2023 Not-Taking Stiolto Respimat 2.5-2.5 MCG/ACT 2 puffs Inhalation Once a day 08/10/2024 Active Nicoderm CQ 21 MG/24HR 1 patch to skin Transdermal Once a day for 30 days 12/01/2024 Active Lidocaine Viscous HCl 2 % 15 ml swish an d spit Mouth/Throat every 4 hours, prn 08/07/2023 Not-Taking Mucinex DM 30-600 MG 1 tablet as needed Orally every 12 hrs for 14 days Not-Taking Ipratropium-Albuterol 0.5-2.5 (3) MG/3ML 3 mL as needed Inhalation every 6 hrs prn 11/17/2024 Not-Taking Nicotine 21 MG/24HR 1 patch to skin Transdermal Once a day for 30 days 12/07/2024 Active traZODone HCl 50 MG 1 tab(s) orally at bedtime for 90 days Active Azelastine HCl 0.05 % INSTILL 1 DROP INT O AFFECTED EYE(S) TWICE DAILY for 68 Active Promethazine-DM 6.25-15 MG/5ML 5 mL as needed Orally every 6 hrs prn 11/17/2024 Not-Taking Sertraline HCl 100 MG 1 tablet Orally On ce a day for 90 days Active Triamcinolone Acetonide 0.1 % 1 twan applied topically 3 times a day 10/19/2022 Active Vitamin B12 1000 MCG 1 tablet Orally Onc e a day for 30 days 10/16/2023 Active Potassium Chloride ER 10 MEQ 1 tablet Orally every other day for 90 days Active Glycerin (Adult) 2 GM 1 SUPP(s) rectally once a day as needed for BM 12/06/2020 Active Cefuroxime Axetil 500 MG 1 tablet Orally every 12 hrs for 7 days 11/17/2024 Not-Taking Polyethylene Glycol 3350 - as directed orally once a day for 7 day(s) 12/06/2020 Active Medrol 4 MG as directed orally daily for 6 days 11/17/2024 Not-Taking Albuterol Sulfate HFA 108 (90 Base) MCG/ACT 2 puffs Inhalation every 6 hrs Active Atorvastatin Calcium 10 MG 1 tab(s) orally once a day for 30 days Active Ibuprofen 800 MG 1 tab(s) orally 3 ti mes a day prn for 30 days Active Metoprolol Succinate ER 50 MG TAKE 1 TABLET BY MOUTH IN THE MORNING AND 1/2 (ONE-HALF) IN THE EVENING for 30 days Active Vitamin D3 50 MCG (2000 UT) 1 capsule Orally Once a day for 30 days 10/16/2023 Active Omeprazole 40 MG 1 cap(s) orally once a day for 30 days Active Naltrexone HCl 50 MG 1 tablet Orally Onc e a day for 30 days 12/01/2024 Active Immunizations Vaccine Route Administration Date Status Comme nts xFluzone (6mos and older)-trivalent Unknown 04/01/2021 Administered Tetanus Tdap-Adacel (over 7yrs) IM Intramuscular 04/17/2016 Administered Fluzone High Dose (65yr and older) Unknown 04/25/2022 Administered Fluzone High Dose (65yr and older) Unknown 05/28/2023 Administered COVID 19 Moderna Unknown 09/08/2020 Administered COVID 19 Moderna Unknown 10/06/2020 Administered COVID 19 Moderna Unknown 06/02/2021 Administered Problems Problem Type SNOMED Code ICD Code Onset Dates Problem Status W/U Status Risk Notes Problem Gastroesophageal reflux disease (115331410) GERD (gastroesophageal reflux disease) (K21.9) Active confirmed Problem Hyperlipidemia (04083666) Hyperlipidemia (E78.5) Active confirmed Problem 48892151 Vitamin D deficiency (E55.9) Active confirmed Problem 192498398 Vitamin B12 deficiency (E53.8) Active confirmed Problem COPD - Chronic obstructive pulmonary disease (74920538) COPD (chronic obstructive pulmonary disease) (J44.9) Active confirmed Problem 70376336 Essential hypertension (I10) Active confirmed Problem 19868679 Anxiety (F41.9) Active confirmed Problem 806661837 Depression with anxiety (F41.8) Active confirmed Problem 04197858 Alcohol abuse (F10.10) Active confirmed Problem 7040258 Primary insomnia (F51.01) Active confirmed Problem 90986813 Allergic rhinitis, unspecified (J30.9) Active confirmed Problem 98489805 Age-related osteoporosis without current pathological fracture (M81.0) Active confirmed Problem Adult failure to thrive syndrome (210994926) Adult failure to thrive (R62.7) Active confirmed Problem Goiter (9609815) Goiter (E04.9) Active confirme d Problem 740272230 Tobacco abuse disorder (Z72.0) Active confirmed Problem 25564518 Pulmonary emphysema, unspecified emphysema type (J43.9) Active confirmed Problem 522541290 Hx of colonic polyps (Z86.010) Active confirmed Problem Sleep disorder (77037251) Sleep disorder (G47.9) Active confirmed Problem 11083379 PTSD (post-traumatic stress disorder) (F43.10) Active confirmed Problem Alcoholism (2162827) Alcoholism (F10.20) Active confirmed Problem Adult failure to thrive syndrome (347286060) Failure to thrive in adult (R62.7) Active confirmed Problem 70301113 Atopic dermatitis, unspecified type (L20.9) Active confirmed Problem 434639959 Dry eyes (H04.123) Active confirmed Problem Dyslipidemia (220492247) Dyslipidemia (E78.5) Active confirmed Problem 536447572 Cardiac dysrhythmia, unspecified (I49.9) Active confirmed Problem 61420958 Depression, unspecified depression type (F32.9) Active confirmed Problem Thyroid function tests abnormal (242244911) Low TSH level (R94.6) Active confirmed Problem 801619457 Tobacco use disorder (F17.200) Active confirmed Problem 191478177 Severe protein-calorie malnutrition (E43) Active confirmed Problem 813264015 Seasonal allergi c rhinitis, unspecified trigger (J30.2) Active confirmed Problem 877690819223243 Synovial cyst of left knee (M71.22) Active confirmed Problem 65766447 Ureteral stenosis, left (N13.5) Active confirmed Vital Signs Heart Rate 73 /min 12/07/2024 Blood pressure diastolic 80 mm Hg 12/07/2024 Height 62.50 in 12/07/2024 Blood pressure systolic 112 mm Hg 12/07/2024 Weight 92.2 lbs 12/07/2024 BMI 16.59 kg/m2 12/07/2024 Encounters Encounter Location Date Provider Diagnosis [facility] [address] [place] [id number] 05/19/2024 Tony Hernandez COPD (chronic obstructive pulmonary disease) J44.9 ; Tobacco abuse disorder Z72.0 ; Vitamin D deficiency E55.9 ; Vitamin B12 deficiency E53.8 ; AK (actinic keratosis) L57.0 and Dyslipidemia E78.5 [facility] [address] [place] [id number] 11/17/2024 Devika Payan Acute bronchitis J20 .9 ; Alcoholism F10.20 ; COPD (chronic obstructive pulmonary disease) J44.9 ; Hyperlipidemia E78.5 ; Essential hypertension I10 ; Depression, unspecified depression type F32.9 and Tobacco use Z72.0 [facility] [address] [place] [id number] 12/01/2024 Devika Payan Acute left flank terri [...] ; Dry eyes H04.123 and Hyperlipidemia E78.5 [facility] [address] [place] [id number] 12/07/2024 Hermelinda Donovan COPD (chronic obstructive pulmonary disease) J44.9 ; Tobacco use disorder F17.200 ; Alcoholism F10.20 ; Essential hypertension I10 and Vitamin B12 deficiency E53.8 [facility] [address] [place] [id number] 04/27/2024 Hermelinda Donovan PTSD (post-traumatic stress disorder) F43.10 [facility] [address] [place] [id number] 05/11/2024 Tony Hernandez Essential hypertensi on I10 ; Vitamin D deficiency E55.9 ; Hyperlipidemia E78.5 and Vitamin B12 deficiency E53.8 [facility] [address] [place], [place] [id number] 08/10/2024 Lulu Wooddy [facility] [address] [place], [place] [id number] 08/26/2024 Hermelinda Donovan [facility] [address] [place], [place] [id number] 11/09/2024 Hermelinda Donovan COPD (chronic obstructive pulmonary disease) J44.9 [facility] [address] [place], [place] [id number] 11/18/2024 Lulu Crowdy [facility] [address] [place], [place] [id number] 11/19/2024 Lulu Crowdy [facility] [address] [place] [id number] 11/26/2024 Hermelinda Donovan [facility] [address] [place] [id number] 12/01/2024 Hermelinda Donovan [facility] [address] [place] [id number] 12/01/2024 Devika Payan COPD (chronic obstructive pulmonary disease) J44.9 [facility] [address] [place] [id number] 12/01/2024 Devika Payan Sleep disorder G47.9 ; Depression, unspecified depression type F32.9 ; Alcoholism F10.20 and Essential hypertension I10 [facility] [address] [place], [place] [id number] 12/01/2024 Erasmo Rozel [facility] [address] [place], [place] [id number] 12/02/2024 Erasmo Rozel [facility] [address] [place] [id number] 12/02/2024 Hermelinda Donovan [facility] [address] [place], [place] [id number] 12/03/2024 Hermelinda Donovan Depression, unspecif ied depression type F32.9 ; Alcoholism F10.20 ; GERD (gastroesophageal reflux disease) K21.9 ; Vitamin D deficiency E55.9 ; Hyperlipidemia E78.5 ; COPD (chronic obstructive pulmonary disease) J44.9 ; Essential hypertension I10 and Vitamin B12 deficiency E53.8 Assessments Encounter Date Diagnosis (ICD Code) Assessment Notes Treatment Notes Treatment Clinical Notes Section Notes 04/27/2024 PTSD (post-traumatic stress disorder) (ICD-10 - F43.10) 11/09/2024 COPD (chronic obstructive pulmonary disease) (ICD-10 - J44.9) 11/17/2024 Acute bronchitis (ICD-10 - J20.9) stressed not to smoke anything and no exposure to any 2nd hand smoke; good fluid intake; tylenol/motrin prn 11/17/2024 Alcoholism (ICD-10 - F10.20) 12/01/2024 COPD (chronic obstructive pulmonary disease) (ICD-10 - J44.9) 12/01/2024 Sleep disorder (ICD-10 - G47.9) 12/03/2024 Depression, unspecified depression type (ICD-10 - F32.9) 12/07/2024 COPD (chronic obstructive pulmonary disease) (ICD-10 - J44.9) 12/01/2024 Alcoholism (ICD-10 - F10.20) plans to attend AA meetings; has not had a drink since hospitalization ; may need additional meds; will discuss with Dr. Josue 05/19/2024 COPD (chronic obstructive pulmonary disease) (ICD-10 - J44.9) 05/19/2024 Tobacco abuse disorder (ICD-10 - Z72.0) 12/01/2024 Acute left flank pain (ICD-10 - R10.9) 05/11/2024 Essential hypertension (ICD-10 - I10) 05/11/2024 Vitamin D deficiency (ICD-10 - E55.9) 05/19/2024 Vitamin D deficiency (ICD-10 - E55.9) 05/11/2024 Hyperlipidemia (ICD-10 - E78.5) 12/01/2024 Tobacco abuse disorder (ICD-10 - Z72.0) patches do help and she pedro restart; has not smoke sinc adm to [facility] 12/07/2024 Tobacco use disorder (ICD-10 - F17.200) 12/03/2024 Alcoholism (ICD-10 - F10.20) 12/01/2024 Depression, unspecified depression type (ICD-10 - F32.9) 11/17/2024 COPD (chronic obstructive pulmonary disease) (ICD-10 - J44.9) 11/17/2024 Hyperlipidemia (ICD-10 - E78.5) 12/03/2024 GERD (gastroesophageal reflux disease) (ICD-10 - K21.9) 12/01/2024 Alcoholism (ICD-10 - F10.20) 12/07/2024 Alcoholism (ICD-10 - F10.20) 12/01/2024 COPD (chronic obstructive pulmonary disease) (ICD-10 - J44.9) 05/19/2024 Vitamin B12 deficiency (ICD-10 - E53.8) 05/11/2024 Vitamin B12 deficiency (ICD-10 - E53.8) 05/19/2024 AK (actinic keratosis) (ICD-10 - L57.0) 12/01/2024 Sleep disorder (ICD-10 - G47.9) 12/07/2024 Essential hypertension (ICD-10 - I10) 12/03/2024 Vitamin D deficiency (ICD-10 - E55.9) 11/17/2024 Essential hypertension (ICD-10 - I10) 12/01/2024 Essential hypertension (ICD-10 - I10) 11/17/2024 Depression, unspecified depression type (ICD-10 - F32.9) 12/03/2024 Hyperlipidemia (ICD-10 - E78.5) 12/07/2024 Vitamin B12 deficiency (ICD-10 - E53.8) 12/01/2024 Vitamin D deficiency (ICD-10 - E55.9) 05/19/2024 Dyslipidemia (ICD-10 - E78.5) 12/01/2024 Essential hypertension (ICD-10 - I10) 12/03/2024 COPD (chronic obstructive pulmonary disease) (ICD-10 - J44.9) 11/17/2024 Tobacco use (ICD-10 - Z72.0) 12/03/2024 Essential hypertension (ICD-10 - I10) 12/01/2024 Depression, unspecified depression type (ICD-10 - F32.9) 12/01/2024 Adult failure to thrive (ICD-10 - R62.7) to start MVI; discussed eatin 3-5 times daily and healthy protein shakes 12/03/2024 Vitamin B12 deficiency (ICD-10 - E53.8) 12/01/2024 Debility, unspecified (ICD-10 - R53.81) to work with HH PT 12/01/2024 GERD (gastroesophageal reflux disease) (ICD-10 - K21.9) 12/01/2024 Dry eyes (ICD-10 - H04.123) 12/01/2024 Hyperlipidemia (ICD-10 - E78.5) 12/01/2024 Other Discharge summary with available lab/diagnostic imaging results obtained and reviewed. Discharge medication list reconciled. Appropriate counseling provided. Moderate Complexity Plan Of Treatment Pending Test Test Name Order Date CBC Venipuncture (in house) 12/07/2024 P-Comprehensive Metabolic Panel (CMP) Insurance Providers Payer Name Payer Address Payer Phone Subscriber Number Group Number Insured Name Patient Relationship to Insured Coverage Start Date Coverage End Date MEDICARE PART B [address] [address] [address] [address] [id number] SHABNAM MCGARRY Self - patient is the insured [employer] [address] [address] [place] [id number] SHABNAM MCGARRY Self - patient is the insured Medical (General) History Medical History History ICD Code endometriosis osteopenia alcoholism depression tobacco abuse Moderna covid vaccine x2 Hx Hep A vaccination PTSD Alcoholism COPD Surgical History Surgery Date(Month/Year) 1988 hysterectomy 2002 scar tissue removed 2003 root canal 09-21-09 lump removal on her R breast january 2014 Hospitalization History Reason Date(Month/Year) [facility]-anxiety/depression 09/25 [facility] ER-allergic reaction to meds 04/2019 [facility]-COPD, Bronchitis 02/01/18 [facility]-detox 1983 [facility] ER visit, then to [facility] for 12 hours for depression 06/01/07 endomtriosis 2002 [place] in bladder 2003 [facility] with ARF, alcoholism, failure to thr macario 11/18-11/25/2024
== END ==
LOC: SL 11:32
PROVIDERS: PCP Family Medicine; Visit Provider Internal Medicine Pulmonary Disease
DX: J43.9 Emphysema, unspecified (principal)
CPT/HCPCS: 94762